=== PATIENT | female | born 1960 | race Caucasian/White ===

== ENCOUNTER 2018-01-01 01:01 | Inpatient (IN) ==
[2018-01-01] MEDS ORDERED: Albuterol 2.5 MG/3 ML NEBULIZER IH PRN (04:15)
[2018-01-01] MEDS ORDERED: Naloxone 0.4 MG/ML INJ IVP PRN (04:15)
[2018-01-01] MEDS ORDERED: Acetaminophen 325 MG TABLET PO PRN (04:15)
--- NOTE | 2018-01-01 04:29 | Internal Med History&Physical ---
Date of Encounter: 01/01/18 Time of Encounter: 03:50 Internal Medicine - H&P: HPI Chief complaint: shortness of breath Admitted From: Hospital to Hospital Transfer Plans for Post Hospital Care: Home History of present illness: Ms. Trejo is a 57 year old female who presents in transfer from [facility] ER in [place]. She presented to the ER there with complaints of shortness of breath and difficulty breathing. Symptoms started a few days ago and have progressively worsened. Workup there was performed which revealed patient to have bilateral pulmonary emboli, multiple lung masses, and a partially imaged mesenteric mass in her upper abdomen. In addition to the above , she was found to be profoundly anemic with a hemoglobin of 7.0. A transfer request was made to transfer patient here for further workup and care. Upon arrival to the floor, I saw her shortly after her arrival. Patient admits to having had some chest tightness and chest pain as well as shortness of breath the last 4-5 days. She has had a chronic cough for the last several weeks. She has had some chills and subjective fevers but no night sweats. She has had productive sputum with her cough. She denies any hemoptysis. Regarding her anemia, she denies any bleeding whatsoever. She has had no melena , hematochezia, hematemesis, coffee-ground emesis, hematuria, and/or postmenopausal bleeding. She has been using ibuprofen for the last 24 hours for fever control. However, beyond the last 24 hours, she has not been taking any NSAIDs whatsoever. She is a smoker and has been for many years. Given her CT findings, I am quite concerned that she has malignancy likely of lung primary. However, she will need further workup and tissue biopsy soon. I explained to her we will proceed with diagnostic workup and consultation with pulmonology and oncology. Regarding her sepsis, we will proceed with blood cultures, trending lactate, and antibiotics to cover pneumonia. Despite her anemia, we will resume heparin drip and monitor for any evidence of blood loss. Meanwhile, we will type and cross match her blood and transfuse as necessary. I explained to the patient that we need to pursue workup as above and treatment plan as above. She voiced understanding. All of this information and findings are new to her and, emotionally, she is "down in the dumps" out of concern that she likely has metastatic cancer. Past Med Surg Social Fam HX - Past Medical History Attestation: Yes The following information was validated with the patient. Source: patient, other ([facility]) Medical history: COPD Psychiatric history: no psych history - Past Surgical History Surgical History: no surgical history - Social History Smoking Status: Current every day smoker Packs per day: less than half Smokeless Tobacco Status: No Alcohol use: none Drug use: none Occupational status: employed Current living situation: Home Activity Level: Independent ambulation Recent Out of Country Travel Within the Last 8 Weeks: No - Family History Mother Living Status: Still Living Hx Family Cardiac Disorders: Yes (tachycardia) Hx Family Cancer: No Father Living Status: Still Living Hx Family Cancer: No Internal Medicine - H&P: Meds 3 Allergy/AdvReac Type Severity Reaction Status Date / Time No Known Allergies Allergy Unverified 04/21/17 13:08 - Constitutional Constitutional: chills, fever(s), no night sweats - EENT Eyes: no blurry vision, no change in vision Ears: no ear pain, no tinnitus Nose, mouth and throat: no nasal congestion, no sinus pressure, no sore throat - Cardiovascular Cardiovascular ROS IM: chest pain, dyspnea, dyspnea on exertion, no edema, no lightheadedness, no orthopnea, no palpitations, no paroxysmal nocturnal dyspnea , no syncope - Respiratory Respiratory: cough, dyspnea, pain on inspiration, chest congestion, excessive phlegm production, change in phlegm color, no hemoptysis, no pain with cough - Gastrointestinal Gastrointestinal: no abdominal pain, no diarrhea, no hematemesis, no hematochezia, no melena, no vomiting - Genitourinary Genitourinary: no dysuria, no flank pain, no hematuria Menstruation: post menopausal - Musculoskeletal Musculoskeletal ROS IM: no arthralgias, no back pain - Integumentary Integumentary IM: no rash, no jaundice - Neurological Neurological ROS: no disequilibrium, no dizziness, no focal weakness, no frequent falls, no headache(s) - Psychiatric Psychiatric: no anxiety, no depression - Endocrine Endocrine IM: no cold intolerance, no heat intolerance, no polydipsia, no polyuria - Hematologic/Lymphatic Hematologic/Lymphatic: no easy bruising - Allergic/Immunologic Allergic/Immunologic: wheezing, no GI upset with certain foods - Constitutional Vitals: Temp Pulse Resp BP Pulse Ox 98.5 F 90 18 93/52 92 01/01/18 03:27 01/01/18 03:27 01/01/18 03:27 01/01/18 03:27 01/01/18 03:27 General appearance: Present: cooperative, mild distress, A&O X 3, answers questions appropriately Exam: pale complexion; ill-appearing; non-toxic - Head Head exam: Present: atraumatic, normal inspection - Eye Eye exam: Present: EOMI, PERRL. Absent: scleral icterus, conjuntiva pink (pale) Pupils: Present: normal accommodation - ENT ENT exam: Present: mucous membranes dry, normal oropharynx - Neck Neck exam general surgery: Present: full ROM, thyromegaly (subtle), supple. Absent: tenderness, nuchal rigidity - Respiratory Respiratory exam: Present: prolonged expiratory phase, rales (left base), respiratory distress (mild), rhonchi, wheezes. Absent: chest wall tenderness - Cardiovascular Cardiovascular exam: Present: distant heart sounds, RRR, +S1, +S2. Absent: diastolic murmur, systolic murmur - GI/Abdominal GI/Abdominal exam: Present: normal bowel sounds, soft. Absent: guarding, hepatomegaly, rebound, splenomegaly, tenderness - Extremities Exam Extremities exam: Present: full ROM, warm, radial pulses palpable and symmetrical. Absent: calf tenderness, pedal edema, tenderness - Back Exam Back exam: Absent: CVA tenderness (L), CVA tenderness (R) - Neurological Exam Neurological exam: Present: alert, CN II-XII intact, oriented X3, no focal deficits, strengths equal and symetr throughout - Psychiatric Psychiatric exam: Present: flat affect - Skin Skin exam: Present: dry, intact, pallor, warm Internal Med - H&P Results - Labs Labs: I reviewed her labs from [facility] and include the following: WBC 28.9 Hemoglobin 7.0 Hematocrit 25.9 MCV 76 Platelet count 497 Sodium 133 Potassium 4.5 Chloride 96 Carbon dioxide 27 BU when 20 Glucose 113 Creatinine 1.26 Lactate level 2.2 PT 14.[address] chest report: 1. Bilateral segmental pulmonary emboli 2. Left upper lobe and lower lobe masses with partially imaged mid mesenteric mass as well. 3. Right middle and right lower lobe air space disease. 4. Neck mass adjacent to left lobe of thyroid gland. - EKG Data -: EKG Interpreted by Myself - EKG Data EKG comments: 01/01/18 04:54 NSR; no acute ST-T changes - Assessment and plan (1) Pneumonia Current Visit: Yes Status: Acute Assessment and plan: 1. Will culture blood and sputum (if able to collect). 2. Oxygen, aerosols, and IV antibiotics. 3. Add Vancomycin to cover health care acquired organisms and sepsis. Qualifiers: Pneumonia type: due to unspecified organism Laterality: bilateral Lung location: lower lobe of lung Qualified Code(s): J18.1 - Lobar pneumonia, unspecified organism (2) Sepsis Current Visit: Yes Status: Acute Assessment and plan: 1. Likely due to pneumonia. 2. Will culture as above and trend lactate. 3. IV antibiotics as above. 4. Will continue MIV and monitor hemodynamics. Qualifiers: Sepsis type: sepsis due to unspecified organism Qualified Code(s): A41.9 - Sepsis, unspecified organism (3) Pulmonary emboli Current Visit: Yes Status: Acute Assessment and plan: 1. Heparin drip per protocol. 2. Oxygen as needed. 3. Pain control. 4. Will order ECHO to evaluate for RV strain and/or PHTN. EKG does not suggest RV strain. I suspect low BP due to sepsis and not PE. Monitor hemodynamics closely. Qualifiers: Pulmonary embolism type: other Chronicity: acute Acute cor pulmonale presence: without acute cor pulmonale Qualified Code(s): I26.99 - Other pulmonary embolism without acute cor pulmonale (4) Anemia Current Visit: Yes Status: Acute Assessment and plan: 1. Suspect due to anemia of chronic disease. 2. Will order iron studies. 3. Will order Hemoccult. 4. Will type and cross and transfuse 2 units PRBC's. 5. Monitor serial H/H. Qualifiers: Anemia type: unspecified type Qualified Code(s): D64.9 - Anemia, unspecified (5) Lung mass Current Visit: Yes Status: Acute Assessment and plan: 1. Will consult Pulmonary as she will need biopsy -- tbbx vs CT guided. 2. Need to hold heparin drip prior to and after biopsy for several hours -- coordinate with pulmonology and/or IR. 3. Consult oncology. (6) Thyroid mass Current Visit: Yes Status: Acute Assessment and plan: 1. Will order thyroid ultrasound -- may be primary source and most accessible for biopsy. 2. Will order TSH. (7) Chest pain Current Visit: Yes Status: Acute Assessment and plan: 1. Likely due to PE and/or pneumonia. 2. Will trend troponins and EKG's. 3. Treat pneumonia and PE as above. 4. Transfuse PRBC's for symptomatic anemia. Qualifiers: Chest pain type: chest pain on breathing Qualified Code(s): R07.1 - Chest pain on breathing; R07.81 - Pleurodynia (8) DVT prophylaxis Current Visit: Yes Status: Acute Assessment and plan: 1. Heparin drip as above.
[2018-01-01] MEDS: Heparin 25,000 UNIT/500 ML D5W 25,000 UNIT/500 ML BAG IVC SCH ×2 (04:36→17:47)
[2018-01-01 05:39] LABS: Hematocrit 23.9 % (35.3-44.9); Hemoglobin 6.5 g/dL (11.5-15.4); Mean Corpuscular HGB Conc 27.2 g/dL (31.6-35.5); Mean Corpuscular Hemoglobin 20.4 pg (28.0-33.3); Mean Corpuscular Volume 75.2 fL (83.0-100.0); Platelet Count 502 K/mcL (140-400); Red Blood Count 3.18 M/mcL (3.82-4.97); Red Cell Distribution Width 18.7 % (11.5-14.5)
[2018-01-01 05:43] LABS: Heparin anti-factor XA UFH 0.02 IU/mL (0.30-0.70); INR 1.2
[2018-01-01 05:45] LABS: Activated Partial Thrombo Time 23.5 Seconds (26.0-36.0)
[2018-01-01] MEDS: methylPREDNISolone 125 MG/2 ML VIAL IVP SCH ×2 (05:50→18:36)
[2018-01-01] MEDS: Pantoprazole 40 MG VIAL IVP SCH ×2 (05:50→18:36)
[2018-01-01] MEDS: D5% in 0.9% NACL 1,000 ML IVC SCH (05:51)
[2018-01-01] MEDS: Ipratropium/Albuterol Neb 3 ML IH SCH ×5 (05:57→20:10)
[2018-01-01 06:01] LABS: Troponin I 0.06 ng/mL (< 0.04)
[2018-01-01 06:02] LABS: Alanine Aminotransferase 6 Units/L (7-52); Albumin 2.8 g/dL (3.5-5.7); Albumin/Globulin Ratio 0.8 (1.1-2.2); Alkaline Phosphatase 86 Units/L (34-104); Aspartate Amino Transferase 16 Units/L (13-39); BUN/Creatinine Ratio 22 (6-26); Bilirubin,Total 0.3 mg/dL (0.3-1.0); Blood Urea Nitrogen 21 mg/dL (6-20); Calcium 8.6 mg/dL (8.6-10.3); Carbon Dioxide 22 mEq/L (23-29); Chloride 98 mEq/L (98-107); Globulin 3.7 g/dL (2.4-3.5); Glucose 117 mg/dL (70-105); Iron < 10 mcg/dL (50-170); Magnesium 1.8 mg/dL (1.6-2.6); Osmolality,Calculated 278 (280-300); Sodium 132 mEq/L (136-145); Thyroid Stimulating Hormone 2.062 mcIU/mL (0.340-5.600); Total Protein 6.5 g/dL (6.4-8.9); Transferrin 168 mg/dL (203-362); eGFR For Non-African Americans 59 (> 60)
--- NOTE | 2018-01-01 06:47 | Pulmonology Consult Note ---
<Saul [facility] - Last Filed: 01/01/18 11:42> Date of Encounter: 01/01/18 Assessment and Plan (1) Pneumonia Current Visit: Yes Status: Acute - Likely due to her history of COPD. patient has had multiple episodes of pneumonia in the past the last one being Mar, 2017. Patient has a smoking Hx of 30 pack years and continues to smoke . She takes Symbicort 2 puffs BID for her COPD at home - on physical exam patient has mild b/l expiratory wheezing especially in the lower lobes . She is leukocytotic (26.7) - currently she's on broad spectrum antimicrobial coverage (Vancomycin) , and 2L NC satting at 95% . - blood culture pending, de-escalate Abx once culture sensitivity results are out Qualifiers: Pneumonia type: due to unspecified organism Laterality: bilateral Lung location: lower lobe of lung Qualified Code(s): J18.1 - Lobar pneumonia, unspecified organism (2) Pulmonary emboli Current Visit: Yes Status: Acute - likely due to her Hx of smoking and obesity. Patient has no other risk factors like sedentary lifestyle, Hx of recent surgery, or hospitalization, no hemoptysis, no DVTs/PE in the past, no estrogen use, no recent travels, and no family Hx of coagulopathy. 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 but it's hard to tell until further workup if they are malignant or not - CT Chest at [facility] showed segmental pulmonary embolism - currently on heparin drip, continue to monitor Qualifiers: Pulmonary embolism type: other Chronicity: acute Acute cor pulmonale presence: without acute cor pulmonale Qualified Code(s): I26.99 - Other pulmonary embolism without acute cor pulmonale (3) Lung mass Current Visit: Yes Status: Acute - Chest CT was positive for lung mass , 4.3 cm in the left upper and 3.3 cm in the medial left lower lobe - consider bronchoscopy to further characterize the mass. - further management will depend upon whether or not the mass is malignant. If the mass is benign a repeat CT annualy would be ideal, however considering her extensive smoking Hx and a finding of 17.6 cm midmesenteric mass, one cannot rule out the possibility of malignancy (4) COPD (chronic obstructive pulmonary disease) Current Visit: Yes Status: Acute - patient has a Hx of COPD likely due to her 30 pack year smoking history - she takes symbicort 2 puffs BID at home - on PE she b/l wheezing especially in the lower lobes, had chest pain but got resolved after duoneb Tx at [facility] . She also has productive cough. - currently on solumedrol and vancomycin , also on 2L NC satting at 92% - continue to monitor History of Present Illness History of present illness: Miss Trejo is a 57-year-old female with a past medical history of COPD( currently on Symbicort 2 puffs twice a day) was transferred from [facility] and admitted to the floor because of shortness of breath, productive cough that started almost a week ago. She also endorsed being febrile for the last 2 days and took some ibupofen 2 days ago, but denies any symptoms of night sweats. She has an extensive smoking history of 30 pack years and continues to smoke. She has had multiple episodes of pneumonia, the last one being in March 2016 and it is around that time and she was diagnosed with COPD started on Symbicort. She denies any recent illness or any bacterial /viral infection. She had some non- radiating chest pain when she went to the [facility] but says that it resolved once she was given treatment of DuoNeb's. Initial workup at the [facility] showed a 4.3 cm mass in the left upper lobe, a 3.3 cm mass in the medial left lower lobe of the lung with bilateral segmental pulmonary embolus. She also had a 17.6 cm midmesenteric mass with concerns for malignancy as per radiology. Thyroid ultrasound showed small benign-appearing cyst and thyroid isthmus and large lymph nodes in zone 4. Patient denies any history of DVTs, estrogen use, long car rides, history of recent surgeries, family history of coagulopathy, hemoptysis or any prior history of malignancy. Her Wells score was 0 on admission. She has no exposure to birds although she did have a bird a few months ago given to her by a neighbor which .She has no exposure to farm animals, has 2 cats and 2 dogs at home. Does have family history of prostate cancer in Grandad. Currently she is on heparin infusion for PE, and was placed on Vancomycin for concerns of pneumonia. She's also on 2 L of NC satting at 92%. She is mildly hypotensive (94/54) patient says that this is her baseline blood pressure all the time. Medications and Allergies Albuterol Sulfate [Ventolin Hfa] 2 puff IH Q6H PRN 01/01/18 [History] Budesonide/Formoterol 160/4.5 [Symbicort 160/4.5] 2 puff IH BID 01/01/18 [ History] 3 Allergy/AdvReac Type Severity Reaction Status Date / Time No Known Allergies Allergy Unverified 04/21/17 13:08 All Systems: The remainder of the systems were reviewed and are negative Physical Examination Vital Signs: Vital Signs, Last 4 Hours Temp Pulse Resp BP Pulse Ox 01/01/18 07:08 97.8 F 88 17 94/54 92 General appearance: no acute distress (A&O*3) Effort: mildly labored Auscultation: bilateral: wheezes (lower lobe) Percussion: bilateral: not dull Cardiovascular: regular rate and rhythm Gastrointestinal: soft, non-tender, non-distended Extremities: no cyanosis (edematous +1), no edema, no clubbing Results - Laboratory Findings CBC and BMP: 01/01/18 09:53 01/01/18 04:49 PT/INR, D-dimer PT 14.0 Seconds (9.4-12.1) H 01/01/18 04:49 Abnormal lab findings: Abnormal lab results WBC 26.7 K/mcL (4.3-11.1) H 01/01/18 04:49 RBC 3.18 M/mcL (3.82-4.97) L 01/01/18 04:49 Hgb 6.5 g/dL (11.5-15.4) L 01/01/18 04:49 Hct 23.9 % (35.3-44.9) L 01/01/18 04:49 MCV 75.2 fL (83.0-100.0) L 01/01/18 04:49 MCH 20.4 pg (28.0-33.3) L 01/01/18 04:49 MCHC 27.2 g/dL (31.6-35.5) L 01/01/18 04:49 RDW 18.7 % (11.5-14.5) H 01/01/18 04:49 Plt Count 502 K/mcL (140-400) H 01/01/18 04:49 MPV 9.0 fL (9.4-12.4) L 01/01/18 04:49 Band Neutrophils % 20.0 % (0-4) H 01/01/18 04:49 Neutrophils # 25.1 K/mcL (1.6-8.9) H 01/01/18 04:49 Lymphocytes # 0.5 K/mcL (0.6-4.6) L 01/01/18 04:49 Platelet Estimate Increased (Normal) H 01/01/18 04:49 Hypochromasia Present (Not Present) A 01/01/18 04:49 Anisocytosis 2+ (Not Present) A 01/01/18 04:49 Microcytosis Present (Not Present) A 01/01/18 04:49 PT 14.0 Seconds (9.4-12.1) H 01/01/18 04:49 APTT 23.5 Seconds (26.0-36.0) L 01/01/18 04:49 Heparin Anti-Xa, Unfract 0.02 IU/mL (0.30-0.70) L 01/01/18 04:49 Sodium 132 mEq/L (136-145) L 01/01/18 04:49 Carbon Dioxide 22 mEq/L (23-29) L 01/01/18 04:49 BUN 21 mg/dL (6-20) H 01/01/18 04:49 Est GFR (Non-Af Amer) 59 (> 60) L 01/01/18 04:49 Glucose 117 mg/dL (70-105) H 01/01/18 04:49 Calculated Osmolality 278 (280-300) L 01/01/18 04:49 Iron < 10 mcg/dL (50-170) L 01/01/18 04:49 Transferrin 168 mg/dL (203-362) L 01/01/18 04:49 ALT 6 Units/L (7-52) L 01/01/18 04:49 Troponin I 0.06 ng/mL (< 0.04) H* 01/01/18 04:49 Albumin 2.8 g/dL (3.5-5.7) L 01/01/18 04:49 Globulin 3.7 g/dL (2.4-3.5) H 01/01/18 04:49 Albumin/Globulin Ratio 0.8 (1.1-2.2) L 01/01/18 04:49 Antibody Screen POSITIVE A 01/01/18 04:49 - Microbiology Findings Microbiology Findings: Microbiology, Last 48 Hours 01/01/18 04:55 Blood Culture - Preliminary Peripheral Venipuncture Culture is incubating and being continuously monitored for growth. Final report to follow. 01/01/18 04:47 Blood Culture - Preliminary Peripheral Venipuncture Culture is incubating and being continuously monitored for growth. Final report to follow. - Clinical Findings Intake & Output: Intake & Output 12/31/17 01/01/18 01/01/18 23:59 07:59 15:59 Intake Total 0 / 0 Output Total 0 / 0 Balance 0 / 0 Weight 96.8 kg Consult Discharge Plan - Plan Referrals: NONE,PCP [Primary Care Provider] - Nivia Tariq [Family Provider] - <Azael Vazquez W - Last Filed: 01/01/18 13:07> Date of Encounter: 01/01/18 Time of Encounter: 06:47 Assessment and Plan (1) Pneumonia Current Visit: Yes Status: Acute Qualifiers: Pneumonia type: due to unspecified organism Laterality: bilateral Lung location: lower lobe of lung Qualified Code(s): J18.1 - Lobar pneumonia, unspecified organism (2) Lung mass Current Visit: Yes Status: Acute (3) Anemia Current Visit: Yes Status: Acute Qualifiers: Anemia type: unspecified type Qualified Code(s): D64.9 - Anemia, unspecified (4) Pulmonary emboli Current Visit: Yes Status: Acute Qualifiers: Pulmonary embolism type: other Chronicity: acute Acute cor pulmonale presence: without acute cor pulmonale Qualified Code(s): I26.99 - Other pulmonary embolism without acute cor pulmonale History of Present Illness Consult date: 01/01/18 Requesting physician: Jagjit Mendoza Reason for consult: abnormal CXR/CT Chief complaint: Difficulty in Breathing History of present illness: This is a 57-year-old woman who was transferred from [facility] overnight after she presented to the emergency room claiming of shortness of breath and difficulty breathing the symptoms started a few days ago. Patient was noted to have bilateral pulmonary emboli and multiple lung masses she was transferred here for further evaluation also has noted anemia with the hemoglobin of 7. She had a persistent cough over 2 weeks but denies any fevers or night sweats she has had productive cough with sputum that has been thick denies any hemoptysis hematochezia melena or hematemesis she also has not noticed any urine her blood she is a lifelong smoker. Overnight she was placed on antimicrobials and a heparin infusion for PE. Pulmonary was consulted for further evaluation of abnormalities within the chest along with pulmonary embolus. Past Med Surg Social Fam HX - Past Medical History Medical history: COPD Psychiatric history: no psych history - Past Surgical History Surgical History: no surgical history - Social History Smoking Status: Current every day smoker Packs per day: less than half Smokeless Tobacco Status: No Alcohol use: none Drug use: none - Family History Mother Living Status: Still Living Hx Family Cardiac Disorders: Yes (tachycardia) Hx Family Cancer: No Father Living Status: Still Living Hx Family Cancer: No All Systems: The remainder of the systems were reviewed and are negative Physical Examination Vital Signs: Vital Signs, Last 4 Hours Temp Pulse Resp BP Pulse Ox 01/01/18 03:27 98.5 F 90 18 93/52 92 Results - Laboratory Findings CBC and BMP: 01/01/18 09:53 01/01/18 04:49 PT/INR, D-dimer PT 14.0 Seconds (9.4-12.1) H 01/01/18 04:49 Abnormal lab findings: Abnormal lab results WBC 26.7 K/mcL (4.3-11.1) H 01/01/18 04:49 RBC 3.18 M/mcL (3.82-4.97) L 01/01/18 04:49 Hgb 6.5 g/dL (11.5-15.4) L 01/01/18 04:49 Hct 23.9 % (35.3-44.9) L 01/01/18 04:49 MCV 75.2 fL (83.0-100.0) L 01/01/18 04:49 MCH 20.4 pg (28.0-33.3) L 01/01/18 04:49 MCHC 27.2 g/dL (31.6-35.5) L 01/01/18 04:49 RDW 18.7 % (11.5-14.5) H 01/01/18 04:49 Plt Count 502 K/mcL (140-400) H 01/01/18 04:49 MPV 9.0 fL (9.4-12.4) L 01/01/18 04:49 PT 14.0 Seconds (9.4-12.1) H 01/01/18 04:49 APTT 23.5 Seconds (26.0-36.0) L 01/01/18 04:49 Heparin Anti-Xa, Unfract 0.02 IU/mL (0.30-0.70) L 01/01/18 04:49 Sodium 132 mEq/L (136-145) L 01/01/18 04:49 Carbon Dioxide 22 mEq/L (23-29) L 01/01/18 04:49 BUN 21 mg/dL (6-20) H 01/01/18 04:49 Est GFR (Non-Af Amer) 59 (> 60) L 01/01/18 04:49 Glucose 117 mg/dL (70-105) H 01/01/18 04:49 Calculated Osmolality 278 (280-300) L 01/01/18 04:49 Iron < 10 mcg/dL (50-170) L 01/01/18 04:49 Transferrin 168 mg/dL (203-362) L 01/01/18 04:49 ALT 6 Units/L (7-52) L 01/01/18 04:49 Troponin I 0.06 ng/mL (< 0.04) H* 01/01/18 04:49 Albumin 2.8 g/dL (3.5-5.7) L 01/01/18 04:49 Globulin 3.7 g/dL (2.4-3.5) H 01/01/18 04:49 Albumin/Globulin Ratio 0.8 (1.1-2.2) L 01/01/18 04:49 - Microbiology Findings Microbiology Findings: Microbiology, Last 48 Hours 01/01/18 04:55 Blood Culture - Preliminary Peripheral Venipuncture Culture is incubating and being continuously monitored for growth. Final report to follow. 01/01/18 04:47 Blood Culture - Preliminary Peripheral Venipuncture Culture is incubating and being continuously monitored for growth. Final report to follow. - Clinical Findings Intake & Output: Intake & Output 12/31/17 12/31/17 01/01/18 15:59 23:59 07:59 Intake Total 0 / 0 Output Total 0 / 0 Balance 0 / 0 Weight 96.8 kg - Attending Attestation I examined this patient and my medical decision-making was reviewed with the Resident Physician. I agree with the documented findings, disposition and treatment plan as described except to the extent set forth below. We independently had [id number] contact with the patient Patient seen and examined at bedside Labs, radiology, chart personally reviewed. Impression: 1. Acute Hypoxic Respiratory Failure 2. Acute pulmonary embolus 3. Pneumonia 4. Anemia - 5. COPD exacerbation 6. Lung mass - suspect metastases to lung from abdominal source cannot fully exclude possibility of primary lung malignancy 7. Tobacco abuse Recs: 1. Continue supplemental oxygen to keep saturation greater than 88% acceptable oxygenation today on minimal amount FiO2 support 2. Agree with anticoagulation echocardiogram, venous duplex of lower extremities; if evidence of the worsening anemia and lower extremity duplex positive for DVT would recommend placement of IVC filter 3. Treat for community-acquired organisms obtain sputum culture urine Legionella and strep pneumo antigen along with blood cultures not obtained. Course of therapy likely 7-10 days based upon clinical course and culture results 4. suspect chronic no clear contraindication to anticoagulation at this time suspect that the benefits of current anticoagulation outweigh potential risk but would need to trend H&H and monitor clinically very closely 5. IV Solu-Medrol 40 mg every 8 schedule bronchodilators (duo nebs) sees every 4 hours with every 2 hours albuterol as needed 6. No plan procedures for his biopsy goes today I recommend obtaining CT scan preferably contrasted if no contraindication from renal function to evaluate for evidence of primary versus metastatic disease. Recommend treating with anticoagulation for 4872 hours upfront and then can likely hold anticoagulation briefly to do biopsy based upon comprehensive picture. Agree with oncology consultation 7. Tobacco cessation counseling given
[2018-01-01 06:51] LABS: Lymphocytes # 0.5 K/mcL (0.6-4.6); Monocytes # 1.1 K/mcL (0.0-1.3); Neutrophils # 25.1 K/mcL (1.6-8.9)
[2018-01-01 06:53] LABS: Anisocytosis 2+ (Not Present); Hypochromasia Present (Not Present); Microcytosis Present (Not Present)
[2018-01-01 06:56] LABS: Platelet Estimate Increased (Normal)
[2018-01-01 10:08] LABS: Hematocrit 25.3 % (35.3-44.9); Hemoglobin 6.8 g/dL (11.5-15.4)
[2018-01-01] MEDS ORDERED: 0.9 % Sodium Chloride 250 ML ONE ×2 (10:45→15:15)
[2018-01-01] MEDS: *HR* Heparin 5,000 UNIT/ML VIAL IVP PRN (11:23)
--- NOTE | 2018-01-01 13:15 | Oncology Inp Consult Note ---
<Molly Ayala Jericho - Last Filed: 01/01/18 14:34> Date of Encounter: 01/01/18 Time of Encounter: 12:45 Assessment and Plan (1) Lung mass Status: Acute Assessment and plan: CTA which revealed bilateral segmental pulmonary arterial emboli, left upper lobe pleural based 4.3 cm mass, medial left lower lobe 3.3 cm mass, partially imaged 17.6 cm midmesenteric mass, aorticopulmonary adenopathy, as well as 3.7 lower left neck mass directly adjacent to the left lobe of the thyroid. Further evaluation with thyroid US- Small benign-appearing cysts seen within the isthmus of the thyroid gland, Large lymph nodes seen in zone 4 along the left side of the neck measuring 3.6 cm x 2.[address] findings concerning for malignancy with patient at bedside. Recommend CT abdomen/pelvis-ideally with contrast if able-may need to wait over weekend to evaluate kidney function and contrast load. Patient not agreeable for further workup at this time. Patient appears very withdrawn. Discussed biopsy-patient not agreeable to bx at this time, states she would like to consider over weekend. May pursue bx early next week if patient amendable. Continue heparin gtt until clear plan for bx. If patient amendable to biopsy-would recommend least invasive form of biopsy given active PE and use of heparin-would recommend core need bx of left neck mass Labs-CBC reviewed- Neutrophilic leukocytosis with bandemia likely secondary to infection, reactive thrombocytosis (secondary to infection, malignancy or KVNG). Mildly hyponatremic Differentials may include metastatic primary lung cancer, GI carcinoma or lymphoma, among others (2) Anemia Status: Acute Assessment and plan: Microcytic anemia Etiology unclear, but GI loss is within differential Need to closely H&H monitor while on heparin gtt Check Ferritin, LDH, B12 and folate Consider GI evaluation for endoscopy Treating supportively with transfusions Qualifiers: Anemia type: unspecified type Qualified Code(s): D64.9 - Anemia, unspecified (3) Pulmonary emboli Status: Acute Assessment and plan: Bilateral segmental pulmonary arterial emboli Currently on heparin gtt Likely secondary to potential active malignancy with new CT findings, smoking, obesity (Pending dedicated abdominal imaging-patient may have abdominal mass/ adenopathy which could have contributed to LE DVT and subsequent PE) As discussed in anemia above-Closely monitor heparin gtt-consider stopping if patient becomes hemodynamically unstable or if hgb acutely drops further Consider endoscopic evaluation Check BLE venous doppler Qualifiers: Pulmonary embolism type: other Chronicity: acute Acute cor pulmonale presence: without acute cor pulmonale Qualified Code(s): I26.99 - Other pulmonary embolism without acute cor pulmonale - Data of Consult Patient: new to practice Consult date: 01/01/18 Requesting Physician: Kim Bliss MD Primary Care Provider: PCP NONE Family Provider: ZConversion Provider - Consult Narrative Reason for consult: Bilateral PE, Lung mass, midmesenteric mass, left neck mass History of present illness: Ms. Trejo is a 57 year old female with history of tobacco abuse and COPD. She initially presented to [facility] for concern for pneumonia with increased SOB, cough and chills over past week. She had a CTA which revealed bilateral segmental pulmonary arterial emboli, left upper lobe pleural based 4.3 cm mass, medial left lower lobe 3.3 cm mass, partially imaged 17.6 cm midmesenteric mass, aorticopulmonary adenopathy, as well as 3.7 lower left neck mass directly adjacent to the left lobe of the thyroid. Ms. Trejo appears quite withdrawn during today's assessment and does not answer some questions making ROS otherwise quite difficult. She states she does not regularly see a PCP. She had a CT scan ordered some time ago but states she has been "putting this off" to spend time with her daughters. She denies pain or any s/s bleeding. She smokes about 8-9 cigarettes/day with 30 pack year history. Family history includes prostate cancer in grandfather. Past Med Surg Social Fam HX - Past Medical History Medical history: COPD Psychiatric history: no psych history - Past Surgical History Surgical History: no surgical history - Social History Smoking Status: Current every day smoker Packs per day: less than half Smokeless Tobacco Status: No Alcohol use: none Drug use: none - Family History Mother Living Status: Still Living Hx Family Cardiac Disorders: Yes (tachycardia) Hx Family Cancer: No Father Living Status: Still Living Hx Family Cancer: No Medications and Allergies Albuterol Sulfate [Ventolin Hfa] 2 puff IH Q6H PRN 01/01/18 [History] Budesonide/Formoterol 160/4.5 [Symbicort 160/4.5] 2 puff IH BID 01/01/18 [ History] 3 Allergy/AdvReac Type Severity Reaction Status Date / Time No Known Allergies Allergy Unverified 04/21/17 13:08 ROS unobtainable: other (limited as patient unwilling to participate in some questions) Constitutional: Present: chills Cardiovascular: Present: edema. Absent: chest pain Respiratory: Present: cough, dyspnea. Absent: hemoptysis Gastrointestinal: Absent: abdominal pain, change in bowel habits, hematemesis, hematochezia, melena, nausea, vomiting Oncology - Exam - Constitutional Vitals: Temp Pulse Resp BP Pulse Ox 96.8 F L 84 19 87/53 93 01/01/18 11:07 01/01/18 11:43 01/01/18 11:43 01/01/18 11:43 01/01/18 11:43 Consult Discharge Plan - Plan Referrals: NONE,PCP [Primary Care Provider] - Nivia Tariq [Family Provider] - <Carmen Alba - Last Filed: 01/01/18 17:08> Date of Encounter: 01/01/18 - Data of Consult Requesting Physician: Kim Bliss MD Primary Care Provider: PCP YEHUDA Family Provider: CliffConversion Provider - Consult Narrative History of present illness: Patient with bilateral PE CT imaging showing multiple masses, significant anemia we examined patient bedside together who seem pretty upset with the findings in the imaging studies. She has not made up her mind to proceed with biopsy procedures. Recommend and neck lymph node biopsy if patient agrees. Monitor closely CBC while she continues to be on heparin anticoagulation for symptomatic PE. I examined this patient and my medical decision-making was reviewed with the Advanced Practice Nurse, Molly Ayala. I agree with the documented findings, disposition and treatment plan as described except to the extent set forth below. Oncology - Exam - Constitutional Vitals: Temp Pulse Resp BP Pulse Ox 97.3 F L 84 18 99/52 91 01/01/18 15:00 01/01/18 15:05 01/01/18 15:54 01/01/18 15:05 01/01/18 15:54 Oncology - Results Labs: 3 01/01/18 01/01/18 01/01/18 09:53 09:53 09:53 WBC RBC Hgb 6.8 L Hct 25.3 L MCV MCH MCHC RDW Plt Count MPV Seg Neutrophils % Band Neutrophils % Lymphocytes % Monocytes % Neutrophils # Lymphocytes # Monocytes # Platelet Estimate Hypochromasia Anisocytosis Microcytosis PT INR APTT Heparin Anti-Xa, Unfract 0.02 L Sodium Potassium Chloride Carbon Dioxide BUN Creatinine Est GFR ( Amer) Est GFR (Non-Af Amer) BUN/Creatinine Ratio Glucose Calculated Osmolality Lactic Acid Calcium Magnesium Iron % Saturation Transferrin Total Bilirubin AST ALT Alkaline Phosphatase Troponin I < 0.03 Serum Total Protein Albumin Globulin Albumin/Globulin Ratio TSH Blood Type Antibody Screen Prewarmed Antibody Srcn Antibody Identification Cold Antibody Screen Crossmatch 3 01/01/18 01/01/18 01/01/18 09:53 04:49 04:49 WBC RBC Hgb Hct MCV MCH MCHC RDW Plt Count MPV Seg Neutrophils % Band Neutrophils % Lymphocytes % Monocytes % Neutrophils # Lymphocytes # Monocytes # Platelet Estimate Hypochromasia Anisocytosis Microcytosis PT INR APTT Heparin Anti-Xa, Unfract Sodium Potassium Chloride Carbon Dioxide BUN Creatinine Est GFR ( Amer) Est GFR (Non-Af Amer) BUN/Creatinine Ratio Glucose Calculated Osmolality Lactic Acid 2.3 H 1.9 Calcium Magnesium Iron % Saturation Transferrin Total Bilirubin AST ALT Alkaline Phosphatase Troponin I 0.06 H* Serum Total Protein Albumin Globulin Albumin/Globulin Ratio TSH 2.062 Blood Type Antibody Screen Prewarmed Antibody Srcn Antibody Identification Cold Antibody Screen Crossmatch 3 01/01/18 01/01/18 01/01/18 04:49 04:49 04:49 WBC RBC Hgb Hct MCV MCH MCHC RDW Plt Count MPV Seg Neutrophils % Band Neutrophils % Lymphocytes % Monocytes % Neutrophils # Lymphocytes # Monocytes # Platelet Estimate Hypochromasia Anisocytosis Microcytosis PT 14.0 H INR 1.2 APTT 23.5 L Heparin Anti-Xa, Unfract 0.02 L Sodium 132 L Potassium 4.0 Chloride 98 Carbon Dioxide 22 L BUN 21 H Creatinine 0.97 Est GFR ( Amer) > 60 Est GFR (Non-Af Amer) 59 L BUN/Creatinine Ratio 22 Glucose 117 H Calculated Osmolality 278 L Lactic Acid Calcium 8.6 Magnesium 1.8 Iron < 10 L % Saturation TNP Transferrin 168 L Total Bilirubin 0.3 AST 16 ALT 6 L Alkaline Phosphatase 86 Troponin I Serum Total Protein 6.5 Albumin 2.8 L Globulin 3.7 H Albumin/Globulin Ratio 0.8 L TSH Blood Type O POSITIVE Antibody Screen POSITIVE A Prewarmed Antibody Srcn NEGATIVE Antibody Identification Cold Auto Antibody Cold Antibody Screen POSITIVE Crossmatch See Detail 3 01/01/18 04:49 WBC 26.7 H RBC 3.18 L Hgb 6.5 L Hct 23.9 L MCV 75.2 L MCH 20.4 L MCHC 27.2 L RDW 18.7 H Plt Count 502 H MPV 9.0 L Seg Neutrophils % 74.0 Band Neutrophils % 20.0 H Lymphocytes % 2.0 Monocytes % 4.0 Neutrophils # 25.1 H Lymphocytes # 0.5 L Monocytes # 1.1 Platelet Estimate Increased H Hypochromasia Present A Anisocytosis 2+ A Microcytosis Present A PT INR APTT Heparin Anti-Xa, Unfract Sodium Potassium Chloride Carbon Dioxide BUN Creatinine Est GFR ( Amer) Est GFR (Non-Af Amer) BUN/Creatinine Ratio Glucose Calculated Osmolality Lactic Acid Calcium Magnesium Iron % Saturation Transferrin Total Bilirubin AST ALT Alkaline Phosphatase Troponin I Serum Total Protein Albumin Globulin Albumin/Globulin Ratio TSH Blood Type Antibody Screen Prewarmed Antibody Srcn Antibody Identification Cold Antibody Screen Crossmatch
--- NOTE | 2018-01-01 17:20 | Oncology Inp Consult Note ---
Date of Encounter: 01/01/18 Time of Encounter: 15:00 Assessment and Plan (1) Anemia Status: Acute Assessment and plan: LUNG MASS CTA which revealed bilateral segmental pulmonary arterial emboli, left upper lobe pleural based 4.3 cm mass, medial left lower lobe 3.3 cm mass, partially imaged 17.6 cm midmesenteric mass, aorticopulmonary adenopathy, as well as 3.7 lower left neck mass directly adjacent to the left lobe of the thyroid. Further evaluation with thyroid US- Small benign-appearing cysts seen within the isthmus of the thyroid gland, Large lymph nodes seen in zone 4 along the left side of the neck measuring 3.6 cm x 2.[address] findings concerning for malignancy with patient at bedside. Recommend CT abdomen/pelvis-ideally with contrast if able-may need to wait over weekend to evaluate kidney function and contrast load. Patient not agreeable for further workup at this time. Patient appears very withdrawn. Discussed biopsy-patient not agreeable to bx at this time, states she would like to consider over weekend. May pursue bx early next week if patient amendable. Continue heparin gtt until clear plan for bx. If patient amendable to biopsy-would recommend least invasive form of biopsy given active PE and use of heparin-would recommend core need bx of left neck mass Labs-CBC reviewed- Neutrophilic leukocytosis with bandemia likely secondary to infection, reactive thrombocytosis (secondary to infection, malignancy or KVNG). Mildly hyponatremic Differentials may include metastatic primary lung cancer, GI carcinoma or lymphoma, among others ANEMIA Microcytic anemia Etiology unclear, but GI loss is within differential Need to closely H&H monitor while on heparin gtt Check Ferritin, LDH, B12 and folate Consider GI evaluation for endoscopy pe Assessment and plan: Bilateral segmental pulmonary arterial emboli Currently on heparin gtt Likely secondary to potential active malignancy with new CT findings, smoking, obesity (Pending dedicated abdominal imaging-patient may have abdominal mass/ adenopathy which could have contributed to LE DVT and subsequent PE) As discussed in anemia above-Closely monitor heparin gtt-consider stopping if patient becomes hemodynamically unstable or if hgb acutely drops further Consider endoscopic evaluation Check BLE venous doppler Qualifiers: Anemia type: unspecified type Qualified Code(s): D64.9 - Anemia, unspecified - Data of Consult Requesting Physician: Kim Bliss MD Primary Care Provider: PCP NONE Family Provider: ZConversion Provider - Consult Narrative History of present illness: Reason for consult: Bilateral PE, Lung mass, midmesenteric mass, left neck mass History of present illness: Ms. Trejo is a 57 year old female with history of tobacco abuse and COPD. She initially presented to [facility] for concern for pneumonia with increased SOB, cough and chills over past week. She had a CTA which revealed bilateral segmental pulmonary arterial emboli, left upper lobe pleural based 4.3 cm mass, medial left lower lobe 3.3 cm mass, partially imaged 17.6 cm midmesenteric mass, aorticopulmonary adenopathy, as well as 3.7 lower left neck mass directly adjacent to the left lobe of the thyroid. Ms. Trejo appears quite withdrawn during today's assessment and does not answer some questions making ROS otherwise quite difficult. She states she does not regularly see a PCP. She had a CT scan ordered some time ago but states she has been "putting this off" to spend time with her daughters. She denies pain or any s/s bleeding. She smokes about 8-9 cigarettes/day with 30 pack year history. Family history includes prostate cancer in grandfather. Past Med Surg Social Fam HX - Past Medical History Medical history: COPD Psychiatric history: no psych history - Past Surgical History Surgical History: no surgical history - Social History Smoking Status: Current every day smoker Packs per day: less than half Smokeless Tobacco Status: No Alcohol use: none Drug use: none - Family History Mother Living Status: Still Living Hx Family Cardiac Disorders: Yes (tachycardia) Hx Family Cancer: No Father Living Status: Still Living Hx Family Cancer: No Medications and Allergies Albuterol Sulfate [Ventolin Hfa] 2 puff IH Q6H PRN 01/01/18 [History] Budesonide/Formoterol 160/4.5 [Symbicort 160/4.5] 2 puff IH BID 01/01/18 [ History] 3 Allergy/AdvReac Type Severity Reaction Status Date / Time No Known Allergies Allergy Unverified 04/21/17 13:08 Constitutional: Present: weakness Respiratory: Present: dyspnea Oncology - Exam - Constitutional Vitals: Temp Pulse Resp BP Pulse Ox 97.3 F L 84 18 99/52 91 01/01/18 15:00 01/01/18 15:05 01/01/18 15:54 01/01/18 15:05 01/01/18 15:54 General appearance: no acute distress - Head Head exam: Present: atraumatic, normal inspection - Eye Eye exam: Present: EOMI - Neck Neck exam: Present: full ROM - Cardiovascular Cardiovascular exam: Present: +S1, +S2 - GI/Abdominal GI/Abdominal exam: Present: normal bowel sounds, soft - Extremities Exam Extremities exam: Present: pedal edema - Neurological Exam Neurological exam: Present: alert, CN II-XII intact, oriented X3 - Psychiatric Psychiatric exam: Present: normal mood - Skin Skin exam: Present: dry, normal color, pallor Oncology - Results Labs: 3 01/01/18 01/01/18 01/01/18 09:53 09:53 09:53 WBC RBC Hgb 6.8 L Hct 25.3 L MCV MCH MCHC RDW Plt Count MPV Seg Neutrophils % Band Neutrophils % Lymphocytes % Monocytes % Neutrophils # Lymphocytes # Monocytes # Platelet Estimate Hypochromasia Anisocytosis Microcytosis PT INR APTT Heparin Anti-Xa, Unfract 0.02 L Sodium Potassium Chloride Carbon Dioxide BUN Creatinine Est GFR ( Amer) Est GFR (Non-Af Amer) BUN/Creatinine Ratio Glucose Calculated Osmolality Lactic Acid Calcium Magnesium Iron % Saturation Transferrin Total Bilirubin AST ALT Alkaline Phosphatase Troponin I < 0.03 Serum Total Protein Albumin Globulin Albumin/Globulin Ratio TSH Blood Type Antibody Screen Prewarmed Antibody Srcn Antibody Identification Cold Antibody Screen Crossmatch 3 01/01/18 01/01/18 01/01/18 09:53 04:49 04:49 WBC RBC Hgb Hct MCV MCH MCHC RDW Plt Count MPV Seg Neutrophils % Band Neutrophils % Lymphocytes % Monocytes % Neutrophils # Lymphocytes # Monocytes # Platelet Estimate Hypochromasia Anisocytosis Microcytosis PT INR APTT Heparin Anti-Xa, Unfract Sodium Potassium Chloride Carbon Dioxide BUN Creatinine Est GFR ( Amer) Est GFR (Non-Af Amer) BUN/Creatinine Ratio Glucose Calculated Osmolality Lactic Acid 2.3 H 1.9 Calcium Magnesium Iron % Saturation Transferrin Total Bilirubin AST ALT Alkaline Phosphatase Troponin I 0.06 H* Serum Total Protein Albumin Globulin Albumin/Globulin Ratio TSH 2.062 Blood Type Antibody Screen Prewarmed Antibody Srcn Antibody Identification Cold Antibody Screen Crossmatch 3 01/01/18 01/01/18 01/01/18 04:49 04:49 04:49 WBC RBC Hgb Hct MCV MCH MCHC RDW Plt Count MPV Seg Neutrophils % Band Neutrophils % Lymphocytes % Monocytes % Neutrophils # Lymphocytes # Monocytes # Platelet Estimate Hypochromasia Anisocytosis Microcytosis PT 14.0 H INR 1.2 APTT 23.5 L Heparin Anti-Xa, Unfract 0.02 L Sodium 132 L Potassium 4.0 Chloride 98 Carbon Dioxide 22 L BUN 21 H Creatinine 0.97 Est GFR ( Amer) > 60 Est GFR (Non-Af Amer) 59 L BUN/Creatinine Ratio 22 Glucose 117 H Calculated Osmolality 278 L Lactic Acid Calcium 8.6 Magnesium 1.8 Iron < 10 L % Saturation TNP Transferrin 168 L Total Bilirubin 0.3 AST 16 ALT 6 L Alkaline Phosphatase 86 Troponin I Serum Total Protein 6.5 Albumin 2.8 L Globulin 3.7 H Albumin/Globulin Ratio 0.8 L TSH Blood Type O POSITIVE Antibody Screen POSITIVE A Prewarmed Antibody Srcn NEGATIVE Antibody Identification Cold Auto Antibody Cold Antibody Screen POSITIVE Crossmatch See Detail 3 01/01/18 04:49 WBC 26.7 H RBC 3.18 L Hgb 6.5 L Hct 23.9 L MCV 75.2 L MCH 20.4 L MCHC 27.2 L RDW 18.7 H Plt Count 502 H MPV 9.0 L Seg Neutrophils % 74.0 Band Neutrophils % 20.0 H Lymphocytes % 2.0 Monocytes % 4.0 Neutrophils # 25.1 H Lymphocytes # 0.5 L Monocytes # 1.1 Platelet Estimate Increased H Hypochromasia Present A Anisocytosis 2+ A Microcytosis Present A PT INR APTT Heparin Anti-Xa, Unfract Sodium Potassium Chloride Carbon Dioxide BUN Creatinine Est GFR ( Amer) Est GFR (Non-Af Amer) BUN/Creatinine Ratio Glucose Calculated Osmolality Lactic Acid Calcium Magnesium Iron % Saturation Transferrin Total Bilirubin AST ALT Alkaline Phosphatase Troponin I Serum Total Protein Albumin Globulin Albumin/Globulin Ratio TSH Blood Type Antibody Screen Prewarmed Antibody Srcn Antibody Identification Cold Antibody Screen Crossmatch Consult Discharge Plan - Plan Referrals: NONE,PCP [Primary Care Provider] - Nivia Tariq [Family Provider] - Inpatient Charges Provider: Dr. Jeremi Alba Consult - Inpatient: [id number]
--- NOTE | 2018-01-01 17:41 | Internal Med Progress Note ---
Hospitalist Progress Note - Encounter Date of Encounter: 01/01/18 Time of Encounter: 10:30 - Subjective Interval History: Patient seen and examined this morning. Complains of cough and shortness of breath. Denies abdominal pain. - Exam Vitals: Temp Pulse Resp BP Pulse Ox 97.3 F L 84 18 99/52 91 01/01/18 15:00 01/01/18 15:05 01/01/18 15:54 01/01/18 15:05 01/01/18 15:54 Exam: Constitutional: Vitals as noted. No Apparent Distress. Appears upset and withdrawn. Eyes exam: Sclera white, conjunctiva clear, no lid lag, PEARLA. ENT exam: Grossly normal hearing. Nasophargeal and Oropharyngeal exam unremarkable. Respiratory exam: Ronchi prsent on Let side with rales. No wheezing. Cardiovascular exam: RRR, +S1, +S2. no murmur, gallop, rubs. No chest wall tenderness GI/Abdominal exam: Soft, Non-tender, Non-distended, normal bowel sounds, Musculoskeletal exam: full ROM, no atrophy or deformity noted. no edema Neurological exam: AO X3, CN II-XII grossly intact, grossly normal motor and sensory exam. Skin exam: No skin rash, lesions or ulcers noted. no purpura or ecchymosis. Pych: Depressed and anxious mood - Assessment and Plan (1) Pneumonia Current Visit: Yes Status: Acute (2) Sepsis Current Visit: Yes Status: Acute (3) Lung mass Current Visit: Yes Status: Acute (4) Thyroid mass Current Visit: Yes Status: Acute (5) Anemia Current Visit: Yes Status: Acute (6) Chest pain Current Visit: Yes Status: Acute (7) DVT prophylaxis Current Visit: Yes Status: Acute (8) Pulmonary emboli Current Visit: Yes Status: Acute - Summary of Assessment and Plan Summary of Assessment and Plan: PE - c/w Heparin drip - CT Chest with showed segmental pulmonary embolism. Likely related to malignancy. - currently on heparin drip - f/u ECHO and LE Doppler Lung mass - On Chest CT, 4.3 cm in the left upper and 3.3 cm in the medial left lower lobe - Pulm and oncology following - Differential include primary lung ca, GI carcinoma, Lymphoma. - Needs biopsy. Patient refusing workup. - Needs CT contrast. Will monitor renal function while addressing anemia. plan for CT with contrast after Thyroid ultrasound - US thyroid with "small benign-appearing cysts seen within the isthmus. Large lymph nodes seen in zone 4 along the left side of the neck these would be better evaluated with a CT scan of the neck." Anemia - s/p 2 PRBC - f/u H&H after. On heparin drip for PE - Iron deficiency on iron studies. - Will need endoscopic workup given need to continue Heparin. Agrees to get evaluated. Pneumonia - c/w empiric vancomycin, ceftriaxone and azithromycin. - f/u Legionella and strep pneumo ag. f/u blood culture COPD - about 30 pack year hyistory - c/w solumedrol, duonebs and IV antibiotics. - Time Spent with Patient Total time spent is greater than 50% in coordination of care (as documented) at patient's floor/unit and/or counseling patient: Internal Medicine: Result - Labs CBC & Chem 7: 01/01/18 09:53 01/01/18 04:49 Labs: Short CBC 01/01/18 01/01/18 Range/Units 04:49 09:53 WBC 26.7 H (4.3-11.1) K/mcL Hgb 6.5 L 6.8 L (11.5-15.4) g/dL Hct 23.9 L 25.3 L (35.3-44.9) % Plt Count 502 H (140-400) K/mcL Neutrophils # 25.1 H (1.6-8.9) K/mcL BMP 01/01/18 04:49 Sodium 132 L Potassium 4.0 Chloride 98 Carbon Dioxide 22 L BUN 21 H Creatinine 0.97 Glucose 117 H Calcium 8.6 Cardiac Enzymes 01/01/18 01/01/18 Range/Units 04:49 09:53 Troponin I 0.06 H* < 0.03 (< 0.04) ng/mL Liver Function 01/01/18 Range/Units 04:49 Total Bilirubin 0.3 (0.3-1.0) mg/dL AST 16 (13-39) Units/L ALT 6 L (7-52) Units/L Alkaline Phosphatase 86 (34-104) Units/L Albumin 2.8 L (3.5-5.7) g/dL - ABG Interpretation ABG results: PT/INR, D-dimer PT 14.0 Seconds (9.4-12.1) H 01/01/18 04:49 - Impressions Impressions Thyroid Ultrasound 01/01/18 04:35 IMPRESSION: Small benign-appearing cysts seen within the isthmus of the thyroid gland. Large lymph nodes seen in zone 4 along the left side of the neck these would be better evaluated with a CT scan of the neck. RECOMMENDATIONS: ACR TI-RADS recommendations: TR5 (>= 7 points): FNA if >= 1 cm; follow-up if 0.5-0.9 cm in 1, 2, 3, 4, and 5 years TR4 (4-6 points): FNA if >= 1.5 cm; follow-up if 1.0-1.4 cm in 1, 2, 3, and 5 years TR3 (3 points): FNA if >= 2.5 cm; follow-up if 1.5-2.4 cm in 1, 3, and 5 years TR2 (2 points): No FNA or follow-up TR1 (0 points): No FNA or follow-up ACR TI-RADS recommends that no more than two nodules with the highest ACR TI-RADS point total should be biopsied and no more than four nodules should be followed. D/ / 01/01/2018 08:42:53 Henry Russell MD / [facility] Interpreting Provider: Henry Russell MD Consult Discharge Plan - Plan Referrals: NONE,PCP [Primary Care Provider] - CliffProCliff jaramilloConversio [Family Provider] - (1) Pneumonia Qualifiers: Pneumonia type: due to unspecified organism Laterality: bilateral Lung location: lower lobe of lung Qualified Code(s): J18.1 - Lobar pneumonia, unspecified organism (2) Sepsis Qualifiers: Sepsis type: sepsis due to unspecified organism Qualified Code(s): A41.9 - Sepsis, unspecified organism (5) Anemia Qualifiers: Anemia type: unspecified type Qualified Code(s): D64.9 - Anemia, unspecified (6) Chest pain Qualifiers: Chest pain type: chest pain on breathing Qualified Code(s): R07.1 - Chest pain on breathing; R07.81 - Pleurodynia (8) Pulmonary emboli Qualifiers: Pulmonary embolism type: other Chronicity: acute Acute cor pulmonale presence: without acute cor pulmonale Qualified Code(s): I26.99 - Other pulmonary embolism without acute cor pulmonale
[2018-01-01 19:28] LABS: Hematocrit 27.7 % (35.3-44.9); Hemoglobin 7.8 g/dL (11.5-15.4); Mean Corpuscular HGB Conc 28.2 g/dL (31.6-35.5); Mean Corpuscular Hemoglobin 21.8 pg (28.0-33.3); Mean Corpuscular Volume 77.6 fL (83.0-100.0); Mean Platelet Volume 9.2 fL (9.4-12.4); Platelet Count 486 K/mcL (140-400); Red Blood Count 3.57 M/mcL (3.82-4.97); Red Cell Distribution Width 19.9 % (11.5-14.5)
[2018-01-01 19:50] LABS: Troponin I < 0.03 ng/mL (< 0.04)
[2018-01-01 20:09] LABS: Ferritin 489 ng/mL (10-120)
[2018-01-01 23:18] LABS: Hematocrit 28.2 % (35.3-44.9); Hemoglobin 7.8 g/dL (11.5-15.4)
[2018-01-02] MEDS: Ipratropium/Albuterol Neb 3 ML IH SCH ×7 (00:21→23:31)
[2018-01-02] MEDS: D5% in 0.9% NACL 1,000 ML IVC SCH ×3 (00:27→12:26)
[2018-01-02 03:36] LABS: Basophils % 0.1 %; Monocytes % 2.3 %
[2018-01-02 03:38] LABS: Hematocrit 27.4 % (35.3-44.9); Hemoglobin 7.6 g/dL (11.5-15.4); Immature Granulocytes % 1.4 % (0-4); Lymphocytes # 0.4 K/mcL (0.6-4.6); Lymphocytes % 2.8 %; Mean Corpuscular HGB Conc 27.7 g/dL (31.6-35.5); Mean Corpuscular Hemoglobin 21.7 pg (28.0-33.3); Mean Corpuscular Volume 78.1 fL (83.0-100.0); Mean Platelet Volume 9.3 fL (9.4-12.4); Monocytes # 0.4 K/mcL (0.0-1.3); Platelet Count 466 K/mcL (140-400); Red Blood Count 3.51 M/mcL (3.82-4.97); Red Cell Distribution Width 19.7 % (11.5-14.5); Segmented Neutrophils % 93.4 %
[2018-01-02 03:45] LABS: Neutrophils # 14.4 K/mcL (1.6-8.9)
[2018-01-02 03:48] LABS: BUN/Creatinine Ratio 27 (6-26); Blood Urea Nitrogen 23 mg/dL (6-20); Calcium 8.6 mg/dL (8.6-10.3); Carbon Dioxide 24 mEq/L (23-29); Chloride 102 mEq/L (98-107); Glucose 197 mg/dL (70-105); Osmolality,Calculated 293 (280-300); Sodium 137 mEq/L (136-145); eGFR For Non-African Americans > 60 (> 60)
[2018-01-02 04:14] LABS: Folate 3.2 ng/mL (3.0-16.0)
[2018-01-02 04:24] LABS: Anisocytosis 1+ (Not Present); Hypochromasia Present (Not Present)
[2018-01-02] MEDS: methylPREDNISolone 125 MG/2 ML VIAL IVP SCH ×2 (05:29→18:59)
[2018-01-02] MEDS: Pantoprazole 40 MG VIAL IVP SCH ×2 (05:30→18:59)
[2018-01-02] MEDS: cefTRIAXone 2,000 MG in Water for inj. (sterile) 20 ML 20 ML IVP SCH (05:30)
[2018-01-02] MEDS: Azithromycin 500 MG in D5% in Water 250 ML IVPB SCH (05:30)
[2018-01-02] MEDS: *HR* Heparin 5,000 UNIT/ML VIAL IVP PRN ×2 (05:46→16:15)
[2018-01-02] MEDS: Heparin 25,000 UNIT/500 ML D5W 25,000 UNIT/500 ML BAG IVC SCH ×3 (07:48→21:22)
[2018-01-02] MEDS ORDERED: Isovue-370 500 ML INFUS..BTL IV ONE ×2 (08:36→09:37)
--- NOTE | 2018-01-02 09:34 | General Surgery Consult Note ---
Date of Encounter: 01/03/18 Time of Encounter: 09:31 Assessment and Plan (1) Abnormal CT of the abdomen Current Visit: Yes Status: Acute I explained to the patient that given her overall status and the need for IV heparin therapy and her noted anemia (in addition to the abnormal CT scan findings) the recommendation was for an EGD and colonoscopy. The patient is upset and states that she was not told anything about needing a EGD and colonoscopy. She is currently refusing any type of endoscopy procedure. I tried multiple times to further explained again the reason enrolled for an EGD and colonoscopy but the patient refused multiple times. We will sign off. Please contact us if the patient changes her mind and wishes to proceed with an EGD and colonoscopy. As an aside, I would strongly recommend ordering a formal CT scan of the abdomen and pelvis with by mouth and IV contrast so that this mass can be better evaluated. It is possible that the patient may be amendable to an interventional radiology guided biopsy of this mass if she is unwilling to undergo an EGD or colonoscopy. (2) Anemia Current Visit: Yes Status: Acute Qualifiers: Anemia type: unspecified type Qualified Code(s): D64.9 - Anemia, unspecified History of Present Illness Consult date: 01/02/18 Reason for consult: other (Anemia) Requesting physician: Kim Bliss History of present illness: The patient is a 57-year-old female with a past medical history significant for COPD who presented to [facility] on 01/01/2018 with shortness of breath and difficulty breathing. This had happened several days ago and during the workup she had evidence of a bilateral PE with multiple lung masses noted. There was evidence of a partially imaged mesenteric masses well. She denies any nausea or vomiting but does state she did have some nausea because she has not had anything to eat for 2 or 3 days. She denies any diarrhea or constipation and states she normally has a bowel movement about twice per day. She denies any rectal bleeding and denies any history of hematemesis. She denies any family history of colon cancer or gastric cancer and has never had a colonoscopy. Past Med Surg Social Fam HX - Past Medical History Medical history: COPD Psychiatric history: no psych history - Past Surgical History Surgical History: no surgical history - Social History Smoking Status: Current every day smoker Packs per day: less than half Smokeless Tobacco Status: No Alcohol use: none Drug use: none - Family History Mother Living Status: Still Living Hx Family Cardiac Disorders: Yes (tachycardia) Hx Family Cancer: No Father Living Status: Still Living Hx Family Cancer: No Medications and Allergies Albuterol Sulfate [Ventolin Hfa] 2 puff IH Q6H PRN 01/01/18 [History] Budesonide/Formoterol 160/4.5 [Symbicort 160/4.5] 2 puff IH BID 01/01/18 [ History] 3 Allergy/AdvReac Type Severity Reaction Status Date / Time No Known Allergies Allergy Unverified 04/21/17 13:08 Review of Systems All systems PM: The remainder of the systems were reviewed and are negative General Surgery Exam Initial Vital Signs Temp Pulse Resp BP Pulse Ox 98.5 F 90 18 93/52 93 01/01/18 03:27 01/01/18 03:27 01/01/18 03:27 01/01/18 03:27 01/01/18 03:27 Exam Initial Vital Signs Temp Pulse Resp BP Pulse Ox 98.5 F 90 18 93/52 93 01/01/18 03:27 01/01/18 03:27 01/01/18 03:27 01/01/18 03:27 01/01/18 03:27 Results - Labs 01/03/18 02:45 01/03/18 02:45 Abnormal lab results WBC 15.4 K/mcL (4.3-11.1) H 01/02/18 03:12 RBC 3.51 M/mcL (3.82-4.97) L 01/02/18 03:12 Hgb 7.6 g/dL (11.5-15.4) L 01/02/18 03:12 Hct 27.4 % (35.3-44.9) L 01/02/18 03:12 MCV 78.1 fL (83.0-100.0) L 01/02/18 03:12 MCH 21.7 pg (28.0-33.3) L 01/02/18 03:12 MCHC 27.7 g/dL (31.6-35.5) L 01/02/18 03:12 RDW 19.7 % (11.5-14.5) H 01/02/18 03:12 Plt Count 466 K/mcL (140-400) H 01/02/18 03:12 MPV 9.3 fL (9.4-12.4) L 01/02/18 03:12 Band Neutrophils % 20.0 % (0-4) H 01/01/18 04:49 Neutrophils # 14.4 K/mcL (1.6-8.9) H 01/02/18 03:12 Lymphocytes # 0.4 K/mcL (0.6-4.6) L 01/02/18 03:12 Platelet Estimate Slight increase (Normal) H 01/02/18 03:12 Hypochromasia Present (Not Present) A 01/02/18 03:12 Anisocytosis 1+ (Not Present) A 01/02/18 03:12 Microcytosis Present (Not Present) A 01/01/18 04:49 PT 14.0 Seconds (9.4-12.1) H 01/01/18 04:49 APTT 23.5 Seconds (26.0-36.0) L 01/01/18 04:49 Heparin Anti-Xa, Unfract 0.04 IU/mL (0.30-0.70) L 01/02/18 03:12 BUN 23 mg/dL (6-20) H 01/02/18 03:12 BUN/Creatinine Ratio 27 (6-26) H 01/02/18 03:12 Glucose 197 mg/dL (70-105) H 01/02/18 03:12 Lactic Acid 3.0 mmol/L (0.5-2.2) H 01/01/18 19:13 Iron < 10 mcg/dL (50-170) L 01/01/18 04:49 Transferrin 168 mg/dL (203-362) L 01/01/18 04:49 Ferritin 489 ng/mL (10-120) H 01/01/18 19:13 ALT 6 Units/L (7-52) L 01/01/18 04:49 Lactate Dehydrogenase 393 Units/L (140-271) H 01/02/18 03:12 Albumin 2.8 g/dL (3.5-5.7) L 01/01/18 04:49 Globulin 3.7 g/dL (2.4-3.5) H 01/01/18 04:49 Albumin/Globulin Ratio 0.8 (1.1-2.2) L 01/01/18 04:49 Antibody Screen POSITIVE A 01/01/18 04:49 Diabetes panel 01/02/18 Range/Units 03:12 Sodium 137 (136-145) mEq/L Potassium 4.0 (3.5-5.1) mEq/L Chloride 102 (98-107) mEq/L Carbon Dioxide 24 (23-29) mEq/L BUN 23 H (6-20) mg/dL Creatinine 0.86 (0.60-1.20) mg/dL Glucose 197 H (70-105) mg/dL Calcium 8.6 (8.6-10.3) mg/dL Calcium panel 01/02/18 Range/Units 03:12 Calcium 8.6 (8.6-10.3) mg/dL Pituitary panel 01/02/18 Range/Units 03:12 Sodium 137 (136-145) mEq/L Potassium 4.0 (3.5-5.1) mEq/L Chloride 102 (98-107) mEq/L Carbon Dioxide 24 (23-29) mEq/L BUN 23 H (6-20) mg/dL Creatinine 0.86 (0.60-1.20) mg/dL Glucose 197 H (70-105) mg/dL Calcium 8.6 (8.6-10.3) mg/dL Adrenal panel 01/02/18 Range/Units 03:12 Sodium 137 (136-145) mEq/L Potassium 4.0 (3.5-5.1) mEq/L Chloride 102 (98-107) mEq/L Carbon Dioxide 24 (23-29) mEq/L BUN 23 H (6-20) mg/dL Creatinine 0.86 (0.60-1.20) mg/dL Glucose 197 H (70-105) mg/dL Calcium 8.6 (8.6-10.3) mg/dL All other labs normal. Consult Discharge Plan - Plan Referrals: NONE,PCP [Primary Care Provider] - Nivia Tariq [Family Provider] -
--- NOTE | 2018-01-02 11:16 | Internal Med Progress Note ---
Hospitalist Progress Note - Encounter Date of Encounter: 01/02/18 Time of Encounter: 11:14 - Subjective Interval History: Patient seen and examined this morning. Complains of some cough. Breathing improved. Denies abdominal pain. appears distraught, upset and anxious. - Exam Vitals: Temp Pulse Resp BP Pulse Ox 97.6 F 78 16 112/57 94 01/02/18 07:00 01/02/18 07:00 01/02/18 07:35 01/02/18 07:35 01/02/18 07:35 Exam: Constitutional: Vitals as noted. No Apparent Distress. Appears upset and withdrawn. Eyes exam: Sclera white, conjunctiva clear, no lid lag, PEARLA. ENT exam: Grossly normal hearing. Nasophargeal and Oropharyngeal exam unremarkable. Respiratory exam: Ronchi prsent on Let side with rales. No wheezing. Cardiovascular exam: RRR, +S1, +S2. no murmur, gallop, rubs. No chest wall tenderness GI/Abdominal exam: Soft, Non-tender, somewhat distended. Musculoskeletal exam: full ROM, no atrophy or deformity noted. no edema Neurological exam: AO X3, CN II-XII grossly intact, grossly normal motor and sensory exam. Skin exam: No skin rash, lesions or ulcers noted. no purpura or ecchymosis. Pych: Tearful. Depressed and anxious mood - Assessment and Plan (1) Pneumonia Current Visit: Yes Status: Acute (2) Sepsis Current Visit: Yes Status: Acute (3) Lung mass Current Visit: Yes Status: Acute (4) Thyroid mass Current Visit: Yes Status: Acute (5) Anemia Current Visit: Yes Status: Acute (6) Chest pain Current Visit: Yes Status: Acute (7) DVT prophylaxis Current Visit: Yes Status: Acute (8) Pulmonary emboli Current Visit: Yes Status: Acute - Summary of Assessment and Plan Summary of Assessment and Plan: PE - c/w Heparin drip - CT Chest with showed segmental pulmonary embolism. Likely related to malignancy. - currently on heparin drip - f/u ECHO and LE Doppler Lung mass - On Chest CT, 4.3 cm in the left upper and 3.3 cm in the medial left lower lobe - Pulm and oncology following - Differential include primary lung ca, GI carcinoma, Lymphoma. - Needs biopsy. Patient refusing workup. - renal function stable. c/w IVF and plan for CT with oral and IV contrast today. Agrees to get it done later today after ECHO and doppler studies. Thyroid ultrasound - US thyroid with "small benign-appearing cysts seen within the isthmus. Large lymph nodes seen in zone 4 along the left side of the neck these would be better evaluated with a CT scan of the neck." She is also worried about anethesia and "need to know what anesthetic medication will be used during the procedure and side effects and risks". - Plan for CT neck today. Anemia - s/p 2 PRBC. Hb 7.8-->7.6 - monitor H&H q6h. On heparin drip for PE - Iron deficiency on iron studies. - Evaluated by surgery. Appreciate recommendations. Patient refused EGD and colonoscopic evaluation. Previously agreed to it to me. She mentions "You did not explained to me that way. I need to know every single step of the procedure ". Discussed the need for procedure and the risk associated with not doing it. Pneumonia - c/w empiric vancomycin, ceftriaxone and azithromycin. - f/u Legionella and strep pneumo ag. f/u blood culture COPD - about 30 pack year hyistory - c/w solumedrol, duonebs and IV antibiotics. Depression - It appears patient overwhelmed by her sudden turn in health and possible diagnosis of cancer - Appears Tearful and anxious - Refusing needed procedures. Unclear whether understand risk of not undergoing procedures - Will obtain psychiatric evaluation for competence and depression. - Time Spent with Patient Total time spent is greater than 50% in coordination of care (as documented) at patient's floor/unit and/or counseling patient: Internal Medicine: Result - Labs CBC & Chem 7: 01/02/18 03:12 01/02/18 03:12 Labs: Short CBC 01/01/18 01/01/18 01/02/18 Range/Units 19:13 23:04 03:12 WBC 19.3 H 15.4 H (4.3-11.1) K/mcL Hgb 7.8 L 7.8 L 7.6 L (11.5-15.4) g/dL Hct 27.7 L 28.2 L 27.4 L (35.3-44.9) % Plt Count 486 H 466 H (140-400) K/mcL Neutrophils # 14.4 H (1.6-8.9) K/mcL BMP 01/02/18 03:12 Sodium 137 Potassium 4.0 Chloride 102 Carbon Dioxide 24 BUN 23 H Creatinine 0.86 Glucose 197 H Calcium 8.6 Cardiac Enzymes 01/01/18 Range/Units 19:13 Troponin I < 0.03 (< 0.04) ng/mL - ABG Interpretation ABG results: PT/INR, D-dimer PT 14.0 Seconds (9.4-12.1) H 01/01/18 04:49 Consult Discharge Plan - Plan Referrals: NONE,PCP [Primary Care Provider] - Cliff TariqConversio [Family Provider] - (1) Pneumonia Qualifiers: Pneumonia type: due to unspecified organism Laterality: bilateral Lung location: lower lobe of lung Qualified Code(s): J18.1 - Lobar pneumonia, unspecified organism (2) Sepsis Qualifiers: Sepsis type: sepsis due to unspecified organism Qualified Code(s): A41.9 - Sepsis, unspecified organism (5) Anemia Qualifiers: Anemia type: unspecified type Qualified Code(s): D64.9 - Anemia, unspecified (6) Chest pain Qualifiers: Chest pain type: chest pain on breathing Qualified Code(s): R07.1 - Chest pain on breathing; R07.81 - Pleurodynia (8) Pulmonary emboli Qualifiers: Pulmonary embolism type: other Chronicity: acute Acute cor pulmonale presence: without acute cor pulmonale Qualified Code(s): I26.99 - Other pulmonary embolism without acute cor pulmonale
[2018-01-02] MEDS: Budesonide/Formoterol 160/4.5 1 PUFF INH IH SCH ×2 (11:21→20:42)
[2018-01-02] MEDS ORDERED: 0.9 % Sodium Chloride 1,000 ML IVC SCH (11:30)
--- NOTE | 2018-01-02 11:40 | Pulmonology Progress Note ---
Date of Encounter: 01/02/18 Time of Encounter: 11:00 Assessment and Plan (1) Pneumonia Current Visit: Yes Status: Acute To continue the current regimen of antibiotics. Qualifiers: Pneumonia type: due to unspecified organism Laterality: unspecified laterality Lung location: unspecified part of lung Qualified Code(s): J18.9 - Pneumonia, unspecified organism (2) Lung mass Current Visit: Yes Status: Acute Left sided cavitating lung mass can be primary bronchogenic carcinoma vs metastatic disease , CT abdomen shows a pelvic mass with lymphadenopathy more likely malignancy with metastases . CT neck showing left supraclavicular LN more consistent with metastatic LN since patient is on therapeutic anticoagulation will start with biopsy of left supraclavicular LN which is the least invasive . (3) Pulmonary emboli Current Visit: Yes Status: Acute To continue therapeutic anticoagulation. Qualifiers: Pulmonary embolism type: other Chronicity: acute Acute cor pulmonale presence: without acute cor pulmonale Qualified Code(s): I26.99 - Other pulmonary embolism without acute cor pulmonale (4) COPD (chronic obstructive pulmonary disease) Current Visit: Yes Status: Acute To continue bronchodilators and steroids . Qualifiers: Chronic bronchitis type: unspecified Qualified Code(s): J42 - Unspecified chronic bronchitis Subjective Principal diagnosis: Pneumonia with metastatic disease Interval history: Patent is sitting and having dinner denies any symptoms . Objective PUL Vital signs: Last Vital Signs Temp 97.6 F 01/02/18 07:00 Pulse 78 01/02/18 07:00 Resp 16 01/02/18 07:35 BP 112/57 01/02/18 07:35 Pulse Ox 94 01/02/18 07:35 Auscultation: bilateral: diminished breath sounds (basilar diminished breadth sounds ) Results - Laboratory Findings CBC and BMP: 01/02/18 17:15 01/02/18 03:12 PT/INR, D-dimer PT 14.0 Seconds (9.4-12.1) H 01/01/18 04:49 Abnormal lab findings: Abnormal lab results WBC 15.4 K/mcL (4.3-11.1) H 01/02/18 03:12 RBC 3.51 M/mcL (3.82-4.97) L 01/02/18 03:12 Hgb 7.6 g/dL (11.5-15.4) L 01/02/18 03:12 Hct 27.4 % (35.3-44.9) L 01/02/18 03:12 MCV 78.1 fL (83.0-100.0) L 01/02/18 03:12 MCH 21.7 pg (28.0-33.3) L 01/02/18 03:12 MCHC 27.7 g/dL (31.6-35.5) L 01/02/18 03:12 RDW 19.7 % (11.5-14.5) H 01/02/18 03:12 Plt Count 466 K/mcL (140-400) H 01/02/18 03:12 MPV 9.3 fL (9.4-12.4) L 01/02/18 03:12 Band Neutrophils % 20.0 % (0-4) H 01/01/18 04:49 Neutrophils # 14.4 K/mcL (1.6-8.9) H 01/02/18 03:12 Lymphocytes # 0.4 K/mcL (0.6-4.6) L 01/02/18 03:12 Platelet Estimate Slight increase (Normal) H 01/02/18 03:12 Hypochromasia Present (Not Present) A 01/02/18 03:12 Anisocytosis 1+ (Not Present) A 01/02/18 03:12 Microcytosis Present (Not Present) A 01/01/18 04:49 PT 14.0 Seconds (9.4-12.1) H 01/01/18 04:49 APTT 23.5 Seconds (26.0-36.0) L 01/01/18 04:49 Heparin Anti-Xa, Unfract 0.04 IU/mL (0.30-0.70) L 01/02/18 03:12 BUN 23 mg/dL (6-20) H 01/02/18 03:12 BUN/Creatinine Ratio 27 (6-26) H 01/02/18 03:12 Glucose 197 mg/dL (70-105) H 01/02/18 03:12 Lactic Acid 3.0 mmol/L (0.5-2.2) H 01/01/18 19:13 Iron < 10 mcg/dL (50-170) L 01/01/18 04:49 Transferrin 168 mg/dL (203-362) L 01/01/18 04:49 Ferritin 489 ng/mL (10-120) H 01/01/18 19:13 ALT 6 Units/L (7-52) L 01/01/18 04:49 Lactate Dehydrogenase 393 Units/L (140-271) H 01/02/18 03:12 Albumin 2.8 g/dL (3.5-5.7) L 01/01/18 04:49 Globulin 3.7 g/dL (2.4-3.5) H 01/01/18 04:49 Albumin/Globulin Ratio 0.8 (1.1-2.2) L 01/01/18 04:49 Antibody Screen POSITIVE A 01/01/18 04:49 - Microbiology Findings Microbiology Findings: Microbiology, Last 48 Hours 01/01/18 04:55 Blood Culture - Preliminary Peripheral Venipuncture Culture is incubating and being continuously monitored for growth. Final report to follow. 01/01/18 04:47 Blood Culture - Preliminary Peripheral Venipuncture Culture is incubating and being continuously monitored for growth. Final report to follow. - Clinical Findings Intake & Output: Intake & Output 01/01/18 01/02/18 01/02/18 23:59 07:59 15:59 Intake Total 930 / 930 687 / 687 593 / 593 Balance 930 / 930 687 / 687 593 / 593 Weight 96 kg Consult Discharge Plan - Plan Referrals: NONE,PCP [Primary Care Provider] - Nivia Tariq [Family Provider] -
--- NOTE | 2018-01-02 14:40 | Consult Note ---
Date of Encounter: 01/02/18 Time of Encounter: 14:29 Assessment & Recommendation (1) Post traumatic stress disorder Current visit: Yes Status: Acute Assessment & Recommendation: Client is still willing to consider recommended procedures but feels she needs more information. She is very anxious but is unwilling to consider treatment for anxiety at this time. Denies SI/HI and does not present as a threat to herself or others. Not processing information well but she likely still has capacity. Would suggest trying to explain procedures again in more detail. Would recommend using visuals and give client written information on the procedures that she can reference. Would also try and have family, a friend, a pcts, or manager social present that can help provide support while procedures being explained. She is pretty overwhelmed and will likely need a lot of repetition. Having people she trusts be present may help with her understanding and willingness to proceed. History of Present Illness Requesting Physician: Kim Bliss MD Reason for consult: capacity History of present illness: Ms. Trejo is a 57 year old female with multiple medical problems and possible cancer diagnosis. Currently refusing medical procedures needed to help fully diagnose her. On eval today client is pleasant and cooperative but anxious and overwhelmed. Admits she has not consented to some of the recommended procedures as she does not yet feel she fully understands what the recommended procedures are. States she is a private and modest person. Has never been put to sleep before. Very worried about not having control when under sedation for a procedure. Feels she needs step by step instructions of what will happen to her when she is asleep. Discussed ways she might feel more confident. She would like to have someone explain things to her in more detail. She would like pictures if possible. Something written out that she could keep and reference might help as well. She is unable to explain the risks and benefits of the procedures she refused to this principal technical writer. Don't think this is because she lacks capacity or is unable to understand. However, she did not process the information that has been given to her up to this point. May need social work or some other support service to be present when information given to her again. Client did say she is congregational. May be helpful to have a pcts present. Anxiety is certainly a factor. She would likely do better if anxiety was treated but she is refusing any additional medications at this time. Denies SI/HI. No mental health history. CC: Kim Bliss MD Past Med Surg Social Fam HX - Past Medical History Medical history: COPD - Past Psychiatric History Psychiatric history: Reports: no psych history Family psychiatric history: Unknown Family History of Suicide: Unknown - Past Surgical History Surgical History: no surgical history - Social History Smoking Status: Current every day smoker Smokeless Tobacco Status: No Alcohol use: none Drug use: none - Family History Mother Living Status: Still Living Hx Family Cardiac Disorders: Yes (tachycardia) Hx Family Cancer: No Father Living Status: Still Living Hx Family Cancer: No Medications & Allergies Albuterol Sulfate [Ventolin Hfa] 2 puff IH Q6H PRN 01/01/18 [History] Budesonide/Formoterol 160/4.5 [Symbicort 160/4.5] 2 puff IH BID 01/01/18 [ History] 3 Allergy/AdvReac Type Severity Reaction Status Date / Time No Known Allergies Allergy Unverified 04/21/17 13:08 Review of Systems Constitutional: Reports: weakness Eyes: Denies: eye pain, vision change Ears, Nose, Throat: Denies: ear pain, throat pain, dental pain, hearing loss, congestion Cardiovascular: Denies: chest pain, palpitations, dyspnea on exertion Respiratory: Reports: cough, dyspnea Gastrointestinal: Denies: abdominal pain, nausea, vomiting, diarrhea, constipation Genitourinary female: Denies: urgency, dysuria, frequency, abnormal menses, dyspareunia Musculoskeletal: Denies: joint swelling, joint pain Integumentary: Denies: rash, lesions, pruritus Neurological: Denies: headache, weakness, numbness, memory loss Endocrine: Denies: fatigue, heat or cold intolerance Hematologic/Lymphatic: Denies: easy bruising, lymphadenopathy Allergic/Immunologic: Denies: urticaria, itchy eyes Psychiatry Exam - Constitutional Vitals: Temp Pulse Resp BP Pulse Ox 97.9 F 80 16 119/63 97 01/02/18 11:00 01/02/18 11:00 01/02/18 11:30 01/02/18 11:30 01/02/18 11:30 General appearance: age & developmentally appropriate, well-groomed, well- nourished - Musculoskeletal Gait: other Station: relaxed Strength & Tone: normal for patient - Psychiatric Patient Orientation: Yes Person, Yes Time, Yes Place Level of alertness: Alert Behavior: calm, cooperative Psychomotor activity: Normal Eye Contact: Maintains Eye Contact Mood Description: Anxious Affect description: congruent with mood Speech Volume: Normal Speech pattern: normal rate, normal rhythm, normal tone, fluent, spontaneous Language & Vocabulary: consistent with education Thought Process: Linear, Goal Oriented Thought Content: No Suicidal ideation, No Homicidal ideation, No Overt delusions Perceptual Disturbances: No Auditory hallucinations, No Visual hallucinations Attention Span Ability: Capable of Focused Attention Memory Description: Grossly Intact Patient Reliability: Reliable Historian Fund of knowledge: Yes abstraction ability, Yes aware of current events Intelligence Estimate: Average Judgment: Limited Insight: Partial Results - Labs Labs: Laboratory Last Values WBC 15.4 K/mcL (4.3-11.1) H 01/02/18 03:12 RBC 3.51 M/mcL (3.82-4.97) L 01/02/18 03:12 Hgb 7.6 g/dL (11.5-15.4) L 01/02/18 03:12 Hct 27.4 % (35.3-44.9) L 01/02/18 03:12 MCV 78.1 fL (83.0-100.0) L 01/02/18 03:12 MCH 21.7 pg (28.0-33.3) L 01/02/18 03:12 MCHC 27.7 g/dL (31.6-35.5) L 01/02/18 03:12 RDW 19.7 % (11.5-14.5) H 01/02/18 03:12 Plt Count 466 K/mcL (140-400) H 01/02/18 03:12 MPV 9.3 fL (9.4-12.4) L 01/02/18 03:12 Immature Gran % 1.4 % (0-4) 01/02/18 03:12 Seg Neutrophils % 93.4 % 01/02/18 03:12 Band Neutrophils % 20.0 % (0-4) H 01/01/18 04:49 Lymphocytes % 2.8 % 01/02/18 03:12 Monocytes % 2.3 % 01/02/18 03:12 Eosinophils % 0.0 % 01/02/18 03:12 Basophils % 0.1 % 01/02/18 03:12 Neutrophils # 14.4 K/mcL (1.6-8.9) H 01/02/18 03:12 Lymphocytes # 0.4 K/mcL (0.6-4.6) L 01/02/18 03:12 Monocytes # 0.4 K/mcL (0.0-1.3) 01/02/18 03:12 Eosinophils # 0.0 K/mcL (0.0-0.6) 01/02/18 03:12 Basophils # 0.0 K/mcL (0.0-0.2) 01/02/18 03:12 Platelet Estimate Slight increase (Normal) H 01/02/18 03:12 Hypochromasia Present (Not Present) A 01/02/18 03:12 Anisocytosis 1+ (Not Present) A 01/02/18 03:12 Microcytosis Present (Not Present) A 01/01/18 04:49 PT 14.0 Seconds (9.4-12.1) H 01/01/18 04:49 INR 1.2 01/01/18 04:49 APTT 23.5 Seconds (26.0-36.0) L 01/01/18 04:49 Heparin Anti-Xa, Unfract 0.06 IU/mL (0.30-0.70) L 01/02/18 12:14 Sodium 137 mEq/L (136-145) 01/02/18 03:12 Potassium 4.0 mEq/L (3.5-5.1) 01/02/18 03:12 Chloride 102 mEq/L (98-107) 01/02/18 03:12 Carbon Dioxide 24 mEq/L (23-29) 01/02/18 03:12 BUN 23 mg/dL (6-20) H 01/02/18 03:12 Creatinine 0.86 mg/dL (0.60-1.20) 01/02/18 03:12 Est GFR ( Amer) > 60 (> 60) 01/02/18 03:12 Est GFR (Non-Af Amer) > 60 (> 60) 01/02/18 03:12 BUN/Creatinine Ratio 27 (6-26) H 01/02/18 03:12 Glucose 197 mg/dL (70-105) H 01/02/18 03:12 Calculated Osmolality 293 (280-300) 01/02/18 03:12 Lactic Acid 3.0 mmol/L (0.5-2.2) H 01/01/18 19:13 Calcium 8.6 mg/dL (8.6-10.3) 01/02/18 03:12 Magnesium 1.8 mg/dL (1.6-2.6) 01/01/18 04:49 Iron < 10 mcg/dL (50-170) L 01/01/18 04:49 % Saturation TNP 01/01/18 04:49 Transferrin 168 mg/dL (203-362) L 01/01/18 04:49 Ferritin 489 ng/mL (10-120) H 01/01/18 19:13 Total Bilirubin 0.3 mg/dL (0.3-1.0) 01/01/18 04:49 AST 16 Units/L (13-39) 01/01/18 04:49 ALT 6 Units/L (7-52) L 01/01/18 04:49 Alkaline Phosphatase 86 Units/L (34-104) 01/01/18 04:49 Lactate Dehydrogenase 393 Units/L (140-271) H 01/02/18 03:12 Troponin I < 0.03 ng/mL (< 0.04) 01/01/18 19:13 Serum Total Protein 6.5 g/dL (6.4-8.9) 01/01/18 04:49 Albumin 2.8 g/dL (3.5-5.7) L 01/01/18 04:49 Globulin 3.7 g/dL (2.4-3.5) H 01/01/18 04:49 Albumin/Globulin Ratio 0.8 (1.1-2.2) L 01/01/18 04:49 Vitamin B12 486 pg/mL (250-1100) 01/02/18 03:12 Folate 3.2 ng/mL (3.0-16.0) 01/02/18 03:12 TSH 2.062 mcIU/mL (0.340-5.600) 01/01/18 04:49 Blood Type O POSITIVE 01/01/18 04:49 Antibody Screen POSITIVE A 01/01/18 04:49 Prewarmed Antibody Srcn NEGATIVE 01/01/18 04:49 Antibody Identification Cold Auto Antibody 01/01/18 04:49 Cold Antibody Screen POSITIVE 01/01/18 04:49 Crossmatch See Detail 01/01/18 04:49 - Impressions Impressions Abdomen/Pelvis CT 01/02/18 12:00 IMPRESSION: 1. Enlarged heterogeneous uterus with an adjacent 20 cm pelvic mass compatible with neoplasm until proven otherwise. This may reflect a primary neoplasm given its appearance. There is also an 8.8 x 7.4 cm right adnexal mass also compatible with malignancy. 2. Metastatic pelvic and retroperitoneal adenopathy. 3. Moderate volume ascites. There is mild stranding of the omentum in the right upper quadrant left mid abdomen however a discrete peritoneal nodule is not identified. 4. Anasarca. 5. Bibasilar airspace opacities as well as nodules within the lung bases. Please refer to dedicated CT of the chest performed earlier. D/ / 01/02/2018 14:04:12 Nadine Bliss MD / july Interpreting Provider: Nadine Bliss MD Soft Tissue Neck CT 01/02/18 12:00 IMPRESSION: Significantly enlarged left supraclavicular lymph node measuring up to 3.3 cm consistent with metastatic disease. Left upper lobe cavitary nodule and right upper lobe consolidation partially visualized. Please refer to recent CT chest imaging. D/ / Henry Chandler MD / Henry Chandler MD Interpreting Provider: Henry Chandler MD Consult Discharge Plan - Plan Referrals: NONE,PCP [Primary Care Provider] - Nivia Tariq [Family Provider] -
[2018-01-02 17:24] LABS: Hematocrit 30.9 % (35.3-44.9); Hemoglobin 8.4 g/dL (11.5-15.4)
[2018-01-02 22:11] LABS: Hematocrit 31.2 % (35.3-44.9); Hemoglobin 8.5 g/dL (11.5-15.4)
[2018-01-03] MEDS: *HR* Heparin 5,000 UNIT/ML VIAL IVP PRN (00:53)
[2018-01-03 03:27] LABS: Basophils % 0.2 %; Nucleated Red Blood Cells 0.1 /100 WBC (0)
[2018-01-03 03:28] LABS: Hematocrit 29.7 % (35.3-44.9); Hemoglobin 8.1 g/dL (11.5-15.4); Immature Granulocytes % 0.9 % (0-4); Lymphocytes # 0.7 K/mcL (0.6-4.6); Lymphocytes % 4.2 %; Mean Corpuscular HGB Conc 27.3 g/dL (31.6-35.5); Mean Corpuscular Hemoglobin 21.7 pg (28.0-33.3); Mean Corpuscular Volume 79.4 fL (83.0-100.0); Mean Platelet Volume 9.2 fL (9.4-12.4); Monocytes # 0.7 K/mcL (0.0-1.3); Monocytes % 4.1 %; Neutrophils # 15.6 K/mcL (1.6-8.9); Platelet Count 462 K/mcL (140-400); Red Blood Count 3.74 M/mcL (3.82-4.97); Red Cell Distribution Width 19.8 % (11.5-14.5); Segmented Neutrophils % 90.6 %
[2018-01-03] MEDS: Ipratropium/Albuterol Neb 3 ML IH SCH ×6 (03:37→23:58)
[2018-01-03 03:47] LABS: BUN/Creatinine Ratio 32 (6-26); Blood Urea Nitrogen 22 mg/dL (6-20); Calcium 8.9 mg/dL (8.6-10.3); Carbon Dioxide 24 mEq/L (23-29); Chloride 103 mEq/L (98-107); Glucose 152 mg/dL (70-105); Osmolality,Calculated 288 (280-300); Potassium 4.1 mEq/L (3.5-5.1); Sodium 136 mEq/L (136-145); eGFR For Non-African Americans > 60 (> 60)
[2018-01-03 04:10] LABS: Hypochromasia Present (Not Present)
[2018-01-03 04:11] LABS: Anisocytosis 1+ (Not Present)
[2018-01-03] MEDS: Azithromycin 500 MG in D5% in Water 250 ML IVPB SCH (05:05)
[2018-01-03] MEDS: methylPREDNISolone 125 MG/2 ML VIAL IVP SCH ×2 (05:06→16:28)
[2018-01-03] MEDS: Pantoprazole 40 MG VIAL IVP SCH ×2 (05:06→16:27)
[2018-01-03] MEDS: cefTRIAXone 2,000 MG in Water for inj. (sterile) 20 ML 20 ML IVP SCH (05:06)
[2018-01-03] MEDS: Heparin 25,000 UNIT/500 ML D5W 25,000 UNIT/500 ML BAG IVC SCH ×2 (06:55→16:29)
[2018-01-03] MEDS: Budesonide/Formoterol 160/4.5 1 PUFF INH IH SCH ×2 (07:52→20:11)
[2018-01-03] MEDS ORDERED: Aminoglycoside Consult 1 EACH MC ONE (07:59)
--- NOTE | 2018-01-03 09:44 | Pulmonology Progress Note ---
Date of Encounter: 01/03/18 Time of Encounter: 09:30 Assessment and Plan (1) Pneumonia Current Visit: Yes Status: Acute To continue the current regimen of antibiotics. Qualifiers: Pneumonia type: due to unspecified organism Laterality: unspecified laterality Lung location: unspecified part of lung Qualified Code(s): J18.9 - Pneumonia, unspecified organism (2) Lung mass Current Visit: Yes Status: Acute Left sided cavitating lung mass can be primary bronchogenic carcinoma vs metastatic disease , CT abdomen shows a pelvic mass with lymphadenopathy more likely malignancy with metastases . CT neck showing left supraclavicular LN more consistent with metastatic LN since patient is on therapeutic anticoagulation will start with biopsy of left supraclavicular LN which is the least invasive . (3) Pulmonary emboli Current Visit: Yes Status: Acute To continue therapeutic anticoagulation. Qualifiers: Pulmonary embolism type: other Chronicity: acute Acute cor pulmonale presence: without acute cor pulmonale Qualified Code(s): I26.99 - Other pulmonary embolism without acute cor pulmonale (4) COPD (chronic obstructive pulmonary disease) Current Visit: Yes Status: Acute To continue bronchodilators and steroids . Qualifiers: Chronic bronchitis type: unspecified Qualified Code(s): J42 - Unspecified chronic bronchitis Subjective Principal diagnosis: Pneumonia with metastatic disease Interval history: Patent is sitting and having dinner denies any symptoms . Objective PUL Vital signs: Last Vital Signs Temp 97.4 F L 01/03/18 06:46 Pulse 72 01/03/18 06:46 Resp 16 01/03/18 07:53 BP 123/68 01/03/18 06:46 Pulse Ox 96 01/03/18 07:53 Results - Laboratory Findings CBC and BMP: 01/03/18 02:45 01/03/18 02:45 PT/INR, D-dimer PT 14.0 Seconds (9.4-12.1) H 01/01/18 04:49 Abnormal lab findings: Abnormal lab results WBC 17.2 K/mcL (4.3-11.1) H 01/03/18 02:45 RBC 3.74 M/mcL (3.82-4.97) L 01/03/18 02:45 Hgb 8.1 g/dL (11.5-15.4) L 01/03/18 02:45 Hct 29.7 % (35.3-44.9) L 01/03/18 02:45 MCV 79.4 fL (83.0-100.0) L 01/03/18 02:45 MCH 21.7 pg (28.0-33.3) L 01/03/18 02:45 MCHC 27.3 g/dL (31.6-35.5) L 01/03/18 02:45 RDW 19.8 % (11.5-14.5) H 01/03/18 02:45 Plt Count 462 K/mcL (140-400) H 01/03/18 02:45 MPV 9.2 fL (9.4-12.4) L 01/03/18 02:45 Band Neutrophils % 20.0 % (0-4) H 01/01/18 04:49 Neutrophils # 15.6 K/mcL (1.6-8.9) H 01/03/18 02:45 Nucleated RBCs/100 WBC 0.1 /100 WBC (0) H 01/03/18 02:45 Platelet Estimate Slight increase (Normal) H 01/03/18 02:45 Hypochromasia Present (Not Present) A 01/03/18 02:45 Anisocytosis 1+ (Not Present) A 01/03/18 02:45 Microcytosis Present (Not Present) A 01/01/18 04:49 PT 14.0 Seconds (9.4-12.1) H 01/01/18 04:49 APTT 23.5 Seconds (26.0-36.0) L 01/01/18 04:49 BUN 22 mg/dL (6-20) H 01/03/18 02:45 BUN/Creatinine Ratio 32 (6-26) H 01/03/18 02:45 Glucose 152 mg/dL (70-105) H 01/03/18 02:45 Lactic Acid 2.3 mmol/L (0.5-2.2) H 01/03/18 02:45 Iron < 10 mcg/dL (50-170) L 01/01/18 04:49 Transferrin 168 mg/dL (203-362) L 01/01/18 04:49 Ferritin 489 ng/mL (10-120) H 01/01/18 19:13 ALT 6 Units/L (7-52) L 01/01/18 04:49 Lactate Dehydrogenase 393 Units/L (140-271) H 01/02/18 03:12 Albumin 2.8 g/dL (3.5-5.7) L 01/01/18 04:49 Globulin 3.7 g/dL (2.4-3.5) H 01/01/18 04:49 Albumin/Globulin Ratio 0.8 (1.1-2.2) L 01/01/18 04:49 Vancomycin Trough 12 mcg/mL (5-10) H 01/02/18 21:59 Antibody Screen POSITIVE A 01/01/18 04:49 - Microbiology Findings Microbiology Findings: Microbiology, Last 48 Hours 01/01/18 04:55 Blood Culture - Preliminary Peripheral Venipuncture Culture is incubating and being continuously monitored for growth. Final report to follow. 01/01/18 04:47 Blood Culture - Preliminary Peripheral Venipuncture Culture is incubating and being continuously monitored for growth. Final report to follow. - Clinical Findings Intake & Output: Intake & Output 01/02/18 01/03/18 01/03/18 23:59 07:59 15:59 Intake Total 1186 / 1186 890 / 890 100 / 100 Balance 1186 / 1186 890 / 890 100 / 100 Weight 96 kg Consult Discharge Plan - Plan Referrals: NONE,PCP [Primary Care Provider] - Nivia Tariq [Family Provider] -
--- NOTE | 2018-01-03 10:28 | Internal Med Progress Note ---
Hospitalist Progress Note - Encounter Date of Encounter: 01/03/18 Time of Encounter: 10:28 - Subjective Interval History: Patient seen and examined this morning. Complains of some cough. Breathing improved. Denies abdominal pain. More calm today. - Exam Vitals: Temp Pulse Resp BP Pulse Ox 97.4 F L 72 16 123/68 96 01/03/18 06:46 01/03/18 06:46 01/03/18 07:53 01/03/18 06:46 01/03/18 07:53 Exam: Constitutional: Vitals as noted. No Apparent Distress. Eyes exam: Sclera white, conjunctiva clear, no lid lag, PEARLA. ENT exam: Grossly normal hearing. Nasophargeal and Oropharyngeal exam unremarkable. Respiratory exam: Ronchi prsent on Let side with rales. No wheezing. Cardiovascular exam: RRR, +S1, +S2. no murmur, gallop, rubs. No chest wall tenderness GI/Abdominal exam: Soft, Non-tender, somewhat distended. Musculoskeletal exam: full ROM, no atrophy or deformity noted. 2+ pedal edema Neurological exam: AO X3, CN II-XII grossly intact, grossly normal motor and sensory exam. Skin exam: No skin rash, lesions or ulcers noted. no purpura or ecchymosis. Pych: More calm today. - Assessment and Plan (1) Pneumonia Current Visit: Yes Status: Acute (2) Sepsis Current Visit: Yes Status: Acute (3) Lung mass Current Visit: Yes Status: Acute (4) Thyroid mass Current Visit: Yes Status: Acute (5) Anemia Current Visit: Yes Status: Acute (6) Chest pain Current Visit: Yes Status: Acute (7) DVT prophylaxis Current Visit: Yes Status: Acute (8) Pulmonary emboli Current Visit: Yes Status: Acute - Summary of Assessment and Plan Summary of Assessment and Plan: Lung mass - On Chest CT, 4.3 cm in the left upper and 3.3 cm in the medial left lower lobe. CT abdomen with Pelvic mass, metastatic pelvic and retroperitoneal adenopathy, ascitis. CT neck with left suprclavicular LN enlargement. - Pulm and oncology following - Differential include primary lung ca, GI carcinoma, Lymphoma. - Needs biopsy. NPO after midnight. Agrees to biopsy tomorrow for LN biopsy. PE - c/w Heparin drip. Will hold 3 hr before or as per IR request. IR consulted - CT Chest with showed segmental pulmonary embolism. Likely related to malignancy. - currently on heparin drip - ECHO with 60-65. mild diastolic dysfunction. Mod Pul HTN. LE Doppler negative for DVT. Thyroid ultrasound - US thyroid with "small benign-appearing cysts seen within the isthmus. Large lymph nodes seen in zone 4 along the left side of the neck these would be better evaluated with a CT scan of the neck." She is also worried about anethesia and "need to know what anesthetic medication will be used during the procedure and side effects and risks". - CT neck as above. Anemia - s/p 2 PRBC. Hb 8.1. - Stable on heparin drip for PE - Evaluated by surgery. Appreciate recommendations. Patient refused EGD and colonoscopic evaluation. Will revisit in 1-2 days after biopsy. Pneumonia - c/w ceftriaxone and azithromycin. Will discontinue vancomycin. - f/u Legionella and strep pneumo ag. f/u blood culture. NGTD. COPD - about 30 pack year hyistory - c/w solumedrol, duonebs and IV antibiotics. Decrease solumedrol to 40 q12. Depression - More calm today. - Appreciate psychiatry recommendation. - Competent for decision making. - Time Spent with Patient Total time spent is greater than 50% in coordination of care (as documented) at patient's floor/unit and/or counseling patient: Internal Medicine: Result - Labs CBC & Chem 7: 01/03/18 02:45 01/03/18 02:45 Labs: Short CBC 01/02/18 01/02/18 01/03/18 Range/Units 17:15 21:59 02:45 WBC 17.2 H (4.3-11.1) K/mcL Hgb 8.4 L 8.5 L 8.1 L (11.5-15.4) g/dL Hct 30.9 L 31.2 L 29.7 L (35.3-44.9) % Plt Count 462 H (140-400) K/mcL Neutrophils # 15.6 H (1.6-8.9) K/mcL BMP 01/03/18 02:45 Sodium 136 Potassium 4.1 Chloride 103 Carbon Dioxide 24 BUN 22 H Creatinine 0.68 Glucose 152 H Calcium 8.9 - ABG Interpretation ABG results: PT/INR, D-dimer PT 14.0 Seconds (9.4-12.1) H 01/01/18 04:49 - Impressions Impressions Echocardiogram 01/02/18 10:00 Impressions: LVEF 60-65%. Normal LV chamber size, wall thickness and function. Mild left ventricular diastolic dysfunction. RV:LV ratio < 1. Normal right ventricular structure and function. Moderate pulmonary hypertension. Estimated RVSP is 51 mmHg. Abdomen/Pelvis CT 01/02/18 12:00 IMPRESSION: 1. Enlarged heterogeneous uterus with an adjacent 20 cm pelvic mass compatible with neoplasm until proven otherwise. This may reflect a primary neoplasm given its appearance. There is also an 8.8 x 7.4 cm right adnexal mass also compatible with malignancy. 2. Metastatic pelvic and retroperitoneal adenopathy. 3. Moderate volume ascites. There is mild stranding of the omentum in the right upper quadrant left mid abdomen however a discrete peritoneal nodule is not identified. 4. Anasarca. 5. Bibasilar airspace opacities as well as nodules within the lung bases. Please refer to dedicated CT of the chest performed earlier. D/ / 01/02/2018 14:04:12 Nadine Bliss MD / july Interpreting Provider: Nadine Bliss MD Soft Tissue Neck CT 01/02/18 12:00 IMPRESSION: Significantly enlarged left supraclavicular lymph node measuring up to 3.3 cm consistent with metastatic disease. Left upper lobe cavitary nodule and right upper lobe consolidation partially visualized. Please refer to recent CT chest imaging. D/ / Henry Chandler MD / Henry Chandler MD Interpreting Provider: Henry Chandler MD Consult Discharge Plan - Plan Referrals: NONE,PCP [Primary Care Provider] - Nivia Tariq [Family Provider] - (1) Pneumonia Qualifiers: Pneumonia type: due to unspecified organism Laterality: unspecified laterality Lung location: unspecified part of lung Qualified Code(s): J18.9 - Pneumonia, unspecified organism (2) Sepsis Qualifiers: Sepsis type: sepsis due to unspecified organism Qualified Code(s): A41.9 - Sepsis, unspecified organism (5) Anemia Qualifiers: Anemia type: unspecified type Qualified Code(s): D64.9 - Anemia, unspecified (6) Chest pain Qualifiers: Chest pain type: chest pain on breathing Qualified Code(s): R07.1 - Chest pain on breathing; R07.81 - Pleurodynia (8) Pulmonary emboli Qualifiers: Pulmonary embolism type: other Chronicity: acute Acute cor pulmonale presence: without acute cor pulmonale Qualified Code(s): I26.99 - Other pulmonary embolism without acute cor pulmonale
[2018-01-03 10:52] LABS: Carcinoembryonic Antigen 2.4 ng/mL (Less than 5.0)
--- NOTE | 2018-01-03 12:49 | Event Note ---
Date of Encounter: 01/03/18 Time of Encounter: 10:00 Reviewed the images since patient is fully anticoagulated for PE the least invasive to get tissue is the left supraclavicular LN biopsy . Will discuss with the oncoming manager small business.Otherwise to cotinue the current mangement.
--- NOTE | 2018-01-03 13:46 | Oncology Inp Progress Note ---
Date of Encounter: 01/03/18 Time of Encounter: 09:00 (1) Anemia Current Visit: Yes Status: Acute Assessment and plan: Likely metastatic disease, CTA and CT abdomen findings reviewed, discussed abdominal findings with patient. Need tissue diagnosis. She is more receptive to my recommendations today and is agreeable to biopsy procedure. Bx of neck/pelvic LN to be scheduled for Thursday. D/W Dr Bliss. PAtient understands that after we obtain results treatment may be directed to improve her symptoms/metastatic disease. Added marker CA125, CEA to labs. CA125 suggestive of [employer] malignancy, need to confirm. On heparin antcoagulation for ac nage PE. Hgb is stable, s/p PRBC Anemia likely cr illness related Lower ext sweling-Dopplers negative for DVT. Echo nl LVEF, moderate pulm HTN. LIkely reated to pelvic adenopathy and hypoalbuminemia. PAtient is expecting family/daughter from [place] and wanted to know if she could have procedure today. Plan as documented above d.w patient and hospital staff/attending. Qualifiers: Anemia type: unspecified type Qualified Code(s): D64.9 - Anemia, unspecified Oncology: Subj Interval history: She is feeling less anxious, communicates more about her condition. No pain but swelling in the legs bothersome. - Constitutional Vitals: Vital Signs Temp Pulse Resp BP Pulse Ox 01/03/18 12:15 84 20 131/73 92 01/03/18 11:23 16 97 01/03/18 07:53 16 96 01/03/18 06:46 97.4 F L 72 16 123/68 97 01/03/18 03:37 16 93 01/03/18 00:00 97.8 F 18 18 122/55 93 01/02/18 23:31 18 93 01/02/18 21:25 96 01/02/18 20:40 18 92 01/02/18 20:00 97.6 F 76 18 119/61 91 01/02/18 15:48 16 122/62 90 01/02/18 15:00 97.6 F 82 16 122/62 93 Intake and Output 01/02/18 01/03/18 01/03/18 23:59 07:59 15:59 Intake Total 1186 / 1186 890 / 890 820 / 820 Output Total 150 / 150 Balance 1186 / 1186 890 / 890 670 / 670 Intake: IV Fluids 886 / 886 770 / 770 100 / 100 0.9 % Sodium Chloride 1,000 ML 386 / 386 @ 100 mls/hr IVC .Q10H [facility] Rx#: [id number] Heparin 25,000 UNIT/500 ML D5W 500 / 500 500 / 500 100 / 100 25,000 unit In 500 ml @ 14 UNIT /KG/HR 27.104 mls/hr IVC . [id number] [facility] Rx#:[id number] Rocephin 2,000 MG In Water for 20 / 20 inj. (sterile) 20 ML @ 600 mls/ hr IVP Q24H [facility] Rx#:[id number] Vancocin 1,250 MG In 0.9 % 250 / 250 Sodium Chloride 250 ML @ 166. 667 mls/hr IVPB Q12H [facility] Rx#: [id number] Oral 300 / 300 120 / 120 720 / 720 Output: Urine 150 / 150 Other: Meal Dinner Lunch Percent of Meal Consumed 100% 75% Weight 96 kg Patient Weight 01/03/18 23:59 Weight 96 kg General appearance: no acute distress, obese - Head Head exam: Present: atraumatic, normal inspection - ENT ENT exam: Present: mucous membranes moist - Respiratory Respiratory exam: Present: CTAB - Cardiovascular Cardiovascular exam: Present: +S1, +S2 - GI/Abdominal GI/Abdominal exam: Present: normal bowel sounds, soft - Extremities Exam Extremities exam: Present: pedal edema Oncology: Obj Data - Labs CBC & Chem 7: 01/03/18 02:45 01/03/18 02:45 Labs: Laboratory Results - last 24 hr 01/02/18 01/02/18 01/02/18 17:15 21:59 21:59 WBC RBC Hgb 8.4 L 8.5 L Hct 30.9 L 31.2 L MCV MCH MCHC RDW Plt Count MPV Immature Gran % Seg Neutrophils % Lymphocytes % Monocytes % Eosinophils % Basophils % Neutrophils # Lymphocytes # Monocytes # Eosinophils # Basophils # Nucleated RBCs/100 WBC Platelet Estimate Hypochromasia Anisocytosis Heparin Anti-Xa, Unfract Sodium Potassium Chloride Carbon Dioxide BUN Creatinine Est GFR ( Amer) Est GFR (Non-Af Amer) BUN/Creatinine Ratio Glucose Calculated Osmolality Lactic Acid Calcium Carcinoembryonic Ag CA 125 Ag Serial Mntr Vancomycin Trough 12 H 01/02/18 01/02/18 01/03/18 21:59 21:59 02:45 WBC 17.2 H RBC 3.74 L Hgb 8.1 L Hct 29.7 L MCV 79.4 L MCH 21.7 L MCHC 27.3 L RDW 19.8 H Plt Count 462 H MPV 9.2 L Immature Gran % 0.9 Seg Neutrophils % 90.6 Lymphocytes % 4.2 Monocytes % 4.1 Eosinophils % 0.0 Basophils % 0.2 Neutrophils # 15.6 H Lymphocytes # 0.7 Monocytes # 0.7 Eosinophils # 0.0 Basophils # 0.0 Nucleated RBCs/100 WBC 0.1 H Platelet Estimate Slight increase H Hypochromasia Present A Anisocytosis 1+ A Heparin Anti-Xa, Unfract 0.22 L Sodium Potassium Chloride Carbon Dioxide BUN Creatinine Est GFR ( Amer) Est GFR (Non-Af Amer) BUN/Creatinine Ratio Glucose Calculated Osmolality Lactic Acid 2.7 H Calcium Carcinoembryonic Ag CA 125 Ag Serial Mntr Vancomycin Trough 01/03/18 01/03/18 01/03/18 02:45 02:45 07:11 WBC RBC Hgb Hct MCV MCH MCHC RDW Plt Count MPV Immature Gran % Seg Neutrophils % Lymphocytes % Monocytes % Eosinophils % Basophils % Neutrophils # Lymphocytes # Monocytes # Eosinophils # Basophils # Nucleated RBCs/100 WBC Platelet Estimate Hypochromasia Anisocytosis Heparin Anti-Xa, Unfract 0.33 Sodium 136 Potassium 4.1 Chloride 103 Carbon Dioxide 24 BUN 22 H Creatinine 0.68 Est GFR ( Amer) > 60 Est GFR (Non-Af Amer) > 60 BUN/Creatinine Ratio 32 H Glucose 152 H Calculated Osmolality 288 Lactic Acid 2.3 H Calcium 8.9 Carcinoembryonic Ag CA 125 Ag Serial Mntr Vancomycin Trough 01/03/18 09:58 WBC RBC Hgb Hct MCV MCH MCHC RDW Plt Count MPV Immature Gran % Seg Neutrophils % Lymphocytes % Monocytes % Eosinophils % Basophils % Neutrophils # Lymphocytes # Monocytes # Eosinophils # Basophils # Nucleated RBCs/100 WBC Platelet Estimate Hypochromasia Anisocytosis Heparin Anti-Xa, Unfract Sodium Potassium Chloride Carbon Dioxide BUN Creatinine Est GFR ( Amer) Est GFR (Non-Af Amer) BUN/Creatinine Ratio Glucose Calculated Osmolality Lactic Acid Calcium Carcinoembryonic Ag 2.4 CA 125 Ag Serial Mntr 855 H Vancomycin Trough - Impressions Impressions Echocardiogram 01/02/18 10:00 Impressions: LVEF 60-65%. Normal LV chamber size, wall thickness and function. Mild left ventricular diastolic dysfunction. RV:LV ratio < 1. Normal right ventricular structure and function. Moderate pulmonary hypertension. Estimated RVSP is 51 mmHg. Abdomen/Pelvis CT 01/02/18 12:00 IMPRESSION: 1. Enlarged heterogeneous uterus with an adjacent 20 cm pelvic mass compatible with neoplasm until proven otherwise. This may reflect a primary neoplasm given its appearance. There is also an 8.8 x 7.4 cm right adnexal mass also compatible with malignancy. 2. Metastatic pelvic and retroperitoneal adenopathy. 3. Moderate volume ascites. There is mild stranding of the omentum in the right upper quadrant left mid abdomen however a discrete peritoneal nodule is not identified. 4. Anasarca. 5. Bibasilar airspace opacities as well as nodules within the lung bases. Please refer to dedicated CT of the chest performed earlier. D/ / 01/02/2018 14:04:12 Nadine Bliss MD / july Interpreting Provider: Nadine Bliss MD - ABG Interpretation ABG results: PT/INR, D-dimer PT 14.0 Seconds (9.4-12.1) H 01/01/18 04:49 Consult Discharge Plan - Plan Referrals: NONE,PCP [Primary Care Provider] - Nivia Tariq [Family Provider] - Inpatient Charges Provider: Dr. Jeremi Alba Follow up - Inpatient: [id number]
[2018-01-04] MEDS: Heparin 25,000 UNIT/500 ML D5W 25,000 UNIT/500 ML BAG IVC SCH (01:51)
[2018-01-04] MEDS: Ipratropium/Albuterol Neb 3 ML IH SCH ×6 (04:09→23:48)
[2018-01-04] MEDS: cefTRIAXone 2,000 MG in Water for inj. (sterile) 20 ML 20 ML IVP SCH (06:10)
[2018-01-04] MEDS: Pantoprazole 40 MG VIAL IVP SCH (06:11)
[2018-01-04] MEDS: Azithromycin 500 MG in D5% in Water 250 ML IVPB SCH (06:11)
[2018-01-04] MEDS: methylPREDNISolone 125 MG/2 ML VIAL IVP SCH (06:12)
[2018-01-04] MEDS: Budesonide/Formoterol 160/4.5 1 PUFF INH IH SCH ×2 (07:38→19:33)
--- NOTE | 2018-01-04 08:52 | Pulmonology Progress Note ---
<ChiMarylou fontaine M - Last Filed: 01/04/18 13:41> Date of Encounter: 01/04/18 Objective PUL Vital signs: Last Vital Signs Temp 97.8 F 01/04/18 10:57 Pulse 80 01/04/18 10:57 Resp 16 01/04/18 11:29 BP 129/69 01/04/18 10:57 Pulse Ox 94 01/04/18 11:29 Results - Laboratory Findings CBC and BMP: 01/03/18 02:45 01/03/18 02:45 PT/INR, D-dimer PT 12.1 Seconds (9.4-12.1) 01/04/18 09:05 Abnormal lab findings: Abnormal lab results WBC 17.2 K/mcL (4.3-11.1) H 01/03/18 02:45 RBC 3.74 M/mcL (3.82-4.97) L 01/03/18 02:45 Hgb 8.1 g/dL (11.5-15.4) L 01/03/18 02:45 Hct 29.7 % (35.3-44.9) L 01/03/18 02:45 MCV 79.4 fL (83.0-100.0) L 01/03/18 02:45 MCH 21.7 pg (28.0-33.3) L 01/03/18 02:45 MCHC 27.3 g/dL (31.6-35.5) L 01/03/18 02:45 RDW 19.8 % (11.5-14.5) H 01/03/18 02:45 Plt Count 462 K/mcL (140-400) H 01/03/18 02:45 MPV 9.2 fL (9.4-12.4) L 01/03/18 02:45 Band Neutrophils % 20.0 % (0-4) H 01/01/18 04:49 Neutrophils # 15.6 K/mcL (1.6-8.9) H 01/03/18 02:45 Nucleated RBCs/100 WBC 0.1 /100 WBC (0) H 01/03/18 02:45 Platelet Estimate Slight increase (Normal) H 01/03/18 02:45 Hypochromasia Present (Not Present) A 01/03/18 02:45 Anisocytosis 1+ (Not Present) A 01/03/18 02:45 Microcytosis Present (Not Present) A 01/01/18 04:49 APTT 23.5 Seconds (26.0-36.0) L 01/01/18 04:49 BUN 22 mg/dL (6-20) H 01/03/18 02:45 BUN/Creatinine Ratio 32 (6-26) H 01/03/18 02:45 Glucose 152 mg/dL (70-105) H 01/03/18 02:45 POC Glucose 117 mg/dL (70-99) H 01/04/18 06:06 Iron < 10 mcg/dL (50-170) L 01/01/18 04:49 Transferrin 168 mg/dL (203-362) L 01/01/18 04:49 Ferritin 489 ng/mL (10-120) H 01/01/18 19:13 ALT 6 Units/L (7-52) L 01/01/18 04:49 Lactate Dehydrogenase 393 Units/L (140-271) H 01/02/18 03:12 Albumin 2.8 g/dL (3.5-5.7) L 01/01/18 04:49 Globulin 3.7 g/dL (2.4-3.5) H 01/01/18 04:49 Albumin/Globulin Ratio 0.8 (1.1-2.2) L 01/01/18 04:49 CA 125 Ag Serial Mntr 855 U/mL (Less than 35) H 01/03/18 09:58 Vancomycin Trough 12 mcg/mL (5-10) H 01/02/18 21:59 Antibody Screen POSITIVE A 01/01/18 04:49 - Clinical Findings Intake & Output: Intake & Output 01/03/18 01/04/18 01/04/18 23:59 07:59 15:59 Intake Total 400 / 400 832 / 832 Output Total 450 / 450 950 / 950 400 / 400 Balance -50 / -50 -118 / -118 -400 / -400 Weight 97.2 kg Consult Discharge Plan - Plan Referrals: NONE,PCP [Primary Care Provider] - Nivia Tariq [Family Provider] - - Attending Attestation I examined this patient and my medical decision-making was reviewed with the Resident Physician. I agree with the documented findings, disposition and treatment plan as described except to the extent set forth below. Patient seen and examined. Labs, radiology, chart personally reviewed. 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 Agree with plan of biopsy supra clavicle lymph node which would be more accessible and this patient with patient is on anticoagulation. If not diagnostic then bronchoscopy can be done. Cardiovascular: stable . Continue anticoagulation. <Saul Earl - Last Filed: 01/04/18 15:35> Date of Encounter: 01/04/18 Time of Encounter: 08:45 Assessment and Plan (1) Pneumonia Current Visit: Yes Status: Acute - Likely due to her history of COPD. patient has had multiple episodes of pneumonia in the past the last one being Mar, 2017. Patient has a smoking Hx of 30 pack years and continues to smoke . She takes Symbicort 2 puffs BID for her COPD at home - on physical exam patient has mild b/l expiratory wheezing especially in the lower lobes . She is leukocytotic (26.7) - currently she's on Rocephin and Zithromax day 3 , and 2L NC satting at 93% . - blood culture pending Qualifiers: Pneumonia type: due to unspecified organism Laterality: unspecified laterality Lung location: unspecified part of lung Qualified Code(s): J18.9 - Pneumonia, unspecified organism (2) Pulmonary emboli Current Visit: Yes Status: Acute - likely due to her Hx of smoking and obesity. Patient has no other risk factors like sedentary lifestyle, Hx of recent surgery, or hospitalization, no hemoptysis, no DVTs/PE in the past, no estrogen use, no recent travels, and no family Hx of coagulopathy. 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 but it's hard to tell until further workup if they are malignant or not - CT Chest at [facility] showed segmental pulmonary embolism . Her recent echocardiogram showed an EF of 65% with moderate pulmonary hypertension. - Heparin drip to be held 4-6 hours prior to supraclavicular lymph node biopsy. Qualifiers: Pulmonary embolism type: other Chronicity: acute Acute cor pulmonale presence: without acute cor pulmonale Qualified Code(s): I26.99 - Other pulmonary embolism without acute cor pulmonale (3) Lung mass Current Visit: Yes Status: Acute -CT chest showed left upper lobe cavitary nodule and right upper lobe consolidation, also left supraclavicular lymph node measuring 2.3 cm consistent with metastatic disease. -plan is to do a biopsy of the left supraclavicular lymph node today. Patient on therapeutic anticoagulation. (4) COPD (chronic obstructive pulmonary disease) Current Visit: Yes Status: Acute - patient has a Hx of COPD likely due to her 30 pack year smoking history - she takes symbicort 2 puffs BID at home - on PE she is not as wheezy as she was last saw her. - currently on Z pack and rocephin , also on 2L NC satting at 92% - continue to monitor Qualifiers: Chronic bronchitis type: unspecified Qualified Code(s): J42 - Unspecified chronic bronchitis Subjective Principal diagnosis: Pneumonia with metastatic disease Interval history: no acute events overnight. Patient asked CT showed supraclavicular lymph nodes about 3.3 cm suggesting metastatic disease. She also had cavitary nodule on right upper lobe with consolidation. The plan is to do the biopsy off her supraclavicular lymph node today. We are holding heparin 4-6 hours prior to the procedure and patient is nothing by mouth. Objective PUL Vital signs: Last Vital Signs Temp 98.4 F 01/04/18 07:08 Pulse 88 01/04/18 07:08 Resp 16 01/04/18 07:38 BP 130/76 01/04/18 07:08 Pulse Ox 93 01/04/18 07:38 Results - Laboratory Findings CBC and BMP: 01/03/18 02:45 01/03/18 02:45 PT/INR, D-dimer PT 14.0 Seconds (9.4-12.1) H 01/01/18 04:49 Abnormal lab findings: Abnormal lab results WBC 17.2 K/mcL (4.3-11.1) H 01/03/18 02:45 RBC 3.74 M/mcL (3.82-4.97) L 01/03/18 02:45 Hgb 8.1 g/dL (11.5-15.4) L 01/03/18 02:45 Hct 29.7 % (35.3-44.9) L 01/03/18 02:45 MCV 79.4 fL (83.0-100.0) L 01/03/18 02:45 MCH 21.7 pg (28.0-33.3) L 01/03/18 02:45 MCHC 27.3 g/dL (31.6-35.5) L 01/03/18 02:45 RDW 19.8 % (11.5-14.5) H 01/03/18 02:45 Plt Count 462 K/mcL (140-400) H 01/03/18 02:45 MPV 9.2 fL (9.4-12.4) L 01/03/18 02:45 Band Neutrophils % 20.0 % (0-4) H 01/01/18 04:49 Neutrophils # 15.6 K/mcL (1.6-8.9) H 01/03/18 02:45 Nucleated RBCs/100 WBC 0.1 /100 WBC (0) H 01/03/18 02:45 Platelet Estimate Slight increase (Normal) H 01/03/18 02:45 Hypochromasia Present (Not Present) A 01/03/18 02:45 Anisocytosis 1+ (Not Present) A 01/03/18 02:45 Microcytosis Present (Not Present) A 01/01/18 04:49 PT 14.0 Seconds (9.4-12.1) H 01/01/18 04:49 APTT 23.5 Seconds (26.0-36.0) L 01/01/18 04:49 BUN 22 mg/dL (6-20) H 01/03/18 02:45 BUN/Creatinine Ratio 32 (6-26) H 01/03/18 02:45 Glucose 152 mg/dL (70-105) H 01/03/18 02:45 POC Glucose 117 mg/dL (70-99) H 01/04/18 06:06 Iron < 10 mcg/dL (50-170) L 01/01/18 04:49 Transferrin 168 mg/dL (203-362) L 01/01/18 04:49 Ferritin 489 ng/mL (10-120) H 01/01/18 19:13 ALT 6 Units/L (7-52) L 01/01/18 04:49 Lactate Dehydrogenase 393 Units/L (140-271) H 01/02/18 03:12 Albumin 2.8 g/dL (3.5-5.7) L 01/01/18 04:49 Globulin 3.7 g/dL (2.4-3.5) H 01/01/18 04:49 Albumin/Globulin Ratio 0.8 (1.1-2.2) L 01/01/18 04:49 CA 125 Ag Serial Mntr 855 U/mL (Less than 35) H 01/03/18 09:58 Vancomycin Trough 12 mcg/mL (5-10) H 01/02/18 21:59 Antibody Screen POSITIVE A 01/01/18 04:49 - Clinical Findings Intake & Output: Intake & Output 01/03/18 01/04/18 01/04/18 23:59 07:59 15:59 Intake Total 400 / 400 832 / 832 Output Total 450 / 450 950 / 950 400 / 400 Balance -50 / -50 -118 / -118 -400 / -400 Weight 97.2 kg
[2018-01-04 09:34] LABS: INR 1.1; Prothrombin Time 12.1 Seconds (9.4-12.1)
--- NOTE | 2018-01-04 12:01 | Internal Med Progress Note ---
Hospitalist Progress Note - Encounter Date of Encounter: 01/04/18 Time of Encounter: 09:32 - Subjective Interval History: Patient seen and examined this morning. Breathing improved. More clam. Denies cp , abdominal pain. Leg swelling slightly improved. short of breath on ambulating. No fever, chills, N/V/D. - Exam Vitals: Temp Pulse Resp BP Pulse Ox 97.8 F 80 16 129/69 94 01/04/18 10:57 01/04/18 10:57 01/04/18 11:29 01/04/18 10:57 01/04/18 11:29 Exam: Constitutional: Vitals as noted. No Apparent Distress. On nasal canula Eyes exam: Sclera white, conjunctiva clear, no lid lag, PEARLA. ENT exam: Grossly normal hearing. Nasophargeal and Oropharyngeal exam unremarkable. Respiratory exam: Ronchi prsent on Let side with rales. No wheezing. Cardiovascular exam: RRR, +S1, +S2. no murmur, gallop, rubs. No chest wall tenderness GI/Abdominal exam: Soft, Non-tender, somewhat distended. Musculoskeletal exam: full ROM, no atrophy or deformity noted. 2+ pedal edema Neurological exam: AO X3, CN II-XII grossly intact, grossly normal motor and sensory exam. Skin exam: No skin rash, lesions or ulcers noted. no purpura or ecchymosis. Pych: More calm today. - Assessment and Plan (1) Pneumonia Current Visit: Yes Status: Acute (2) Sepsis Current Visit: Yes Status: Acute (3) Lung mass Current Visit: Yes Status: Acute (4) Thyroid mass Current Visit: Yes Status: Acute (5) Anemia Current Visit: Yes Status: Acute (6) Chest pain Current Visit: Yes Status: Acute (7) DVT prophylaxis Current Visit: Yes Status: Acute (8) Pulmonary emboli Current Visit: Yes Status: Acute - Summary of Assessment and Plan Summary of Assessment and Plan: Lung mass - On Chest CT, 4.3 cm in the left upper and 3.3 cm in the medial left lower lobe. CT abdomen with Pelvic mass, metastatic pelvic and retroperitoneal adenopathy, ascitis. CT neck with left suprclavicular LN enlargement. - Pulm and oncology following - Differential include primary lung ca, GI carcinoma, Lymphoma. - NPO after midnight. Heparin on hold for biopsy. To resume after procedure. PE - c/w Heparin drip. Will hold before the procedure. - CT Chest with showed segmental pulmonary embolism. Likely related to malignancy. - currently on heparin drip - ECHO with 60-65. mild diastolic dysfunction. Mod Pul HTN. LE Doppler negative for DVT. Thyroid ultrasound - US thyroid with "small benign-appearing cysts seen within the isthmus. Large lymph nodes seen in zone 4 along the left side of the neck these would be better evaluated with a CT scan of the neck." She is also worried about anethesia and "need to know what anesthetic medication will be used during the procedure and side effects and risks". - CT neck as above. Anemia - s/p 2 PRBC. Hb stable around 8. - Stable on heparin drip for PE - Evaluated by surgery. Appreciate recommendations. Patient refused EGD and colonoscopic evaluation. Will revisit after biopsy. - Monitor H&H. Pneumonia - c/w ceftriaxone and azithromycin. Will discontinue vancomycin. - f/u Legionella and strep pneumo ag. f/u blood culture. NGTD. COPD - about 30 pack year hyistory - c/w solumedrol, duonebs and IV antibiotics. Decreased to solumedrol to 40 q12. Depression - More calm now. - Appreciate psychiatry recommendation. - Competent for decision making. PT and social service consulted. - Time Spent with Patient Total time spent is greater than 50% in coordination of care (as documented) at patient's floor/unit and/or counseling patient: Internal Medicine: Result - Labs CBC & Chem 7: 01/03/18 02:45 01/03/18 02:45 - ABG Interpretation ABG results: PT/INR, D-dimer PT 12.1 Seconds (9.4-12.1) 01/04/18 09:05 Consult Discharge Plan - Plan Referrals: NONE,PCP [Primary Care Provider] - Nivia Tariq [Family Provider] - (1) Pneumonia Qualifiers: Pneumonia type: due to unspecified organism Laterality: unspecified laterality Lung location: unspecified part of lung Qualified Code(s): J18.9 - Pneumonia, unspecified organism (2) Sepsis Qualifiers: Sepsis type: sepsis due to unspecified organism Qualified Code(s): A41.9 - Sepsis, unspecified organism (5) Anemia Qualifiers: Anemia type: unspecified type Qualified Code(s): D64.9 - Anemia, unspecified (6) Chest pain Qualifiers: Chest pain type: chest pain on breathing Qualified Code(s): R07.1 - Chest pain on breathing; R07.81 - Pleurodynia (8) Pulmonary emboli Qualifiers: Pulmonary embolism type: other Chronicity: acute Acute cor pulmonale presence: without acute cor pulmonale Qualified Code(s): I26.99 - Other pulmonary embolism without acute cor pulmonale
--- NOTE | 2018-01-04 15:20 | IR Procedure Note ---
Date of procedure: 01/04/18 Consent Obtained: Verbal consent, Written consent Local anesthetic: Lidocaine 1% Indications: Concern for metastatic disease Procedure Performed: US guided left cervical lymph node biopsy Was there an assistant professor of geography present: No Site/Technique: Biopsy performed of left cervical lymph node Results/Findings: 5 20 gauge biopsies obtained Estimated blood loss (cc): 2 Complications: None; Tolerated procedure well Post Procedure Treatment Plan: Continue inpatient care Specimen: 5 20 gauge core needle biopsies
[2018-01-05] MEDS: Heparin 25,000 UNIT/500 ML D5W 25,000 UNIT/500 ML BAG IVC SCH ×3 (00:19→20:31)
[2018-01-05 00:57] LABS: Basophils # 0.1 K/mcL (0.0-0.2); Basophils % 0.5 %; Hematocrit 34.8 % (35.3-44.9); Hemoglobin 9.3 g/dL (11.5-15.4); Immature Granulocytes % 5.7 % (0-4); Lymphocytes # 0.8 K/mcL (0.6-4.6); Lymphocytes % 5.5 %; Mean Corpuscular HGB Conc 26.7 g/dL (31.6-35.5); Mean Corpuscular Hemoglobin 21.3 pg (28.0-33.3); Mean Corpuscular Volume 79.6 fL (83.0-100.0); Mean Platelet Volume 9.1 fL (9.4-12.4); Monocytes # 0.7 K/mcL (0.0-1.3); Monocytes % 4.3 %; Platelet Count 487 K/mcL (140-400); Red Blood Count 4.37 M/mcL (3.82-4.97); Red Cell Distribution Width 20.3 % (11.5-14.5)
[2018-01-05 01:08] LABS: Neutrophils # 12.6 K/mcL (1.6-8.9)
[2018-01-05 01:12] LABS: BUN/Creatinine Ratio 32 (6-26); Blood Urea Nitrogen 24 mg/dL (6-20); Carbon Dioxide 31 mEq/L (23-29); Chloride 98 mEq/L (98-107); Glucose 168 mg/dL (70-105); Osmolality,Calculated 292 (280-300); Potassium 4.6 mEq/L (3.5-5.1); Sodium 137 mEq/L (136-145); eGFR For Non-African Americans > 60 (> 60)
[2018-01-05 01:25] LABS: Hypochromasia Present (Not Present)
[2018-01-05] MEDS: Ipratropium/Albuterol Neb 3 ML IH SCH ×6 (03:55→23:22)
[2018-01-05] MEDS: cefTRIAXone 2,000 MG in Water for inj. (sterile) 20 ML 20 ML IVP SCH (05:16)
[2018-01-05] MEDS: Azithromycin 500 MG in D5% in Water 250 ML IVPB SCH (05:17)
[2018-01-05] MEDS: Pantoprazole 40 MG VIAL IVP SCH ×2 (05:19→19:00)
[2018-01-05] MEDS: methylPREDNISolone 125 MG/2 ML VIAL IVP SCH ×3 (05:20→19:01)
[2018-01-05] MEDS: Budesonide/Formoterol 160/4.5 1 PUFF INH IH SCH ×2 (07:46→19:46)
--- NOTE | 2018-01-05 08:30 | Pulmonology Progress Note ---
Date of Encounter: 01/05/18 Assessment and Plan (1) Pneumonia Current Visit: Yes Status: Acute - Likely due to her history of COPD. patient has had multiple episodes of pneumonia in the past the last one being Mar, 2017. Patient has a smoking Hx of 30 pack years and continues to smoke . She takes Symbicort 2 puffs BID for her COPD at home - on physical exam patient has mild b/l expiratory wheezing especially in the lower lobes . She is leukocytotic (26.7) - currently she's on Rocephin and Zithromax day 3 , and 2L NC satting at 93% . - blood culture pending Qualifiers: Pneumonia type: due to unspecified organism Laterality: unspecified laterality Lung location: unspecified part of lung Qualified Code(s): J18.9 - Pneumonia, unspecified organism (2) Pulmonary emboli Current Visit: Yes Status: Acute - likely due to her Hx of smoking and obesity. Patient has no other risk factors like sedentary lifestyle, Hx of recent surgery, or hospitalization, no hemoptysis, no DVTs/PE in the past, no estrogen use, no recent travels, and no family Hx of coagulopathy. 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 but it's hard to tell until further workup if they are malignant or not - CT Chest at [facility] showed segmental pulmonary embolism . Her recent echocardiogram showed an EF of 65% with moderate pulmonary hypertension. - Heparin drip to be held 4-6 hours prior to supraclavicular lymph node biopsy. Qualifiers: Pulmonary embolism type: other Chronicity: acute Acute cor pulmonale presence: without acute cor pulmonale Qualified Code(s): I26.99 - Other pulmonary embolism without acute cor pulmonale (3) Lung mass Current Visit: Yes Status: Acute -CT chest showed left upper lobe cavitary nodule and right upper lobe consolidation, also left supraclavicular lymph node measuring 2.3 cm consistent with metastatic disease. -plan is to do a biopsy of the left supraclavicular lymph node today. Patient on therapeutic anticoagulation. (4) COPD (chronic obstructive pulmonary disease) Current Visit: Yes Status: Acute - patient has a Hx of COPD likely due to her 30 pack year smoking history - she takes symbicort 2 puffs BID at home - on PE she is not as wheezy as she was last saw her. - currently on Z pack and rocephin , also on 2L NC satting at 92% - continue to monitor Qualifiers: Chronic bronchitis type: unspecified Qualified Code(s): J42 - Unspecified chronic bronchitis Subjective Principal diagnosis: Pneumonia with metastatic disease Interval history: no acute events overnight. Patient asked CT showed supraclavicular lymph nodes about 3.3 cm suggesting metastatic disease. She also had cavitary nodule on right upper lobe with consolidation. The plan is to do the biopsy off her supraclavicular lymph node today. We are holding heparin 4-6 hours prior to the procedure and patient is nothing by mouth. Objective PUL Vital signs: Last Vital Signs Temp 98.0 F 01/05/18 07:21 Pulse 75 01/05/18 07:21 Resp 16 01/05/18 07:46 BP 131/74 01/05/18 07:21 Pulse Ox 94 01/05/18 07:46 Results - Laboratory Findings CBC and BMP: 01/05/18 00:11 01/05/18 00:11 PT/INR, D-dimer PT 12.1 Seconds (9.4-12.1) 01/04/18 09:05 Abnormal lab findings: Abnormal lab results WBC 15.0 K/mcL (4.3-11.1) H 01/05/18 00:11 Hgb 9.3 g/dL (11.5-15.4) L 01/05/18 00:11 Hct 34.8 % (35.3-44.9) L 01/05/18 00:11 MCV 79.6 fL (83.0-100.0) L 01/05/18 00:11 MCH 21.3 pg (28.0-33.3) L 01/05/18 00:11 MCHC 26.7 g/dL (31.6-35.5) L 01/05/18 00:11 RDW 20.3 % (11.5-14.5) H 01/05/18 00:11 Plt Count 487 K/mcL (140-400) H 01/05/18 00:11 MPV 9.1 fL (9.4-12.4) L 01/05/18 00:11 Immature Gran % 5.7 % (0-4) H 01/05/18 00:11 Band Neutrophils % 20.0 % (0-4) H 01/01/18 04:49 Neutrophils # 12.6 K/mcL (1.6-8.9) H 01/05/18 00:11 Nucleated RBCs/100 WBC 0.1 /100 WBC (0) H 01/03/18 02:45 Platelet Estimate Slight increase (Normal) H 01/05/18 00:11 Hypochromasia Present (Not Present) A 01/05/18 00:11 Anisocytosis 1+ (Not Present) A 01/03/18 02:45 Microcytosis Present (Not Present) A 01/01/18 04:49 APTT 23.5 Seconds (26.0-36.0) L 01/01/18 04:49 Carbon Dioxide 31 mEq/L (23-29) H 01/05/18 00:11 BUN 24 mg/dL (6-20) H 01/05/18 00:11 BUN/Creatinine Ratio 32 (6-26) H 01/05/18 00:11 Glucose 168 mg/dL (70-105) H 01/05/18 00:11 POC Glucose 112 mg/dL (70-99) H 01/04/18 11:04 Iron < 10 mcg/dL (50-170) L 01/01/18 04:49 Transferrin 168 mg/dL (203-362) L 01/01/18 04:49 Ferritin 489 ng/mL (10-120) H 01/01/18 19:13 ALT 6 Units/L (7-52) L 01/01/18 04:49 Lactate Dehydrogenase 393 Units/L (140-271) H 01/02/18 03:12 Albumin 2.8 g/dL (3.5-5.7) L 01/01/18 04:49 Globulin 3.7 g/dL (2.4-3.5) H 01/01/18 04:49 Albumin/Globulin Ratio 0.8 (1.1-2.2) L 01/01/18 04:49 CA 125 Ag Serial Mntr 855 U/mL (Less than 35) H 01/03/18 09:58 Vancomycin Trough 12 mcg/mL (5-10) H 01/02/18 21:59 Antibody Screen POSITIVE A 01/01/18 04:49 - Clinical Findings Intake & Output: Intake & Output 01/04/18 01/05/18 01/05/18 23:59 07:59 15:59 Intake Total 168 / 168 537 / 537 Output Total 500 / 500 500 / 500 Balance -332 / -332 37 / 37 Weight 102.5 kg Consult Discharge Plan - Plan Referrals: NONE,PCP [Primary Care Provider] - Nivia Tariq [Family Provider] -
--- NOTE | 2018-01-05 12:18 | Oncology Inp Progress Note ---
Date of Encounter: 01/05/18 Time of Encounter: 12:00 (1) Lung mass Current Visit: Yes Status: Acute Assessment and plan: CTA which revealed bilateral segmental pulmonary arterial emboli, left upper lobe pleural based 4.3 cm mass, medial left lower lobe 3.3 cm mass, partially imaged 17.6 cm midmesenteric mass, aorticopulmonary adenopathy, as well as 3.7 lower left neck mass directly adjacent to the left lobe of the thyroid. CT soft tissue neck- Significantly enlarged left supraclavicular lymph node measuring up to 3.3 cm consistent with metastatic disease. CT abdomen/pelvis revealed enlarged heterogeneous uterus with an adjacent 20 cm pelvic mass, 8.8 x 7.4 cm right adnexal mass, metastatic pelvic and retroperitoneal adenopathy, mild stranding of the omentum, moderate ascites, anasarca. S/P biopsy of the left cervical LN yesterday-pathology pending Labs-CBC reviewed- Neutrophilic leukocytosis secondary to infection, reactive thrombocytosis (secondary to infection, malignancy or KVNG). 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 Discussed the above results thus far and need for pathology confirmation to discuss treatment options. Ms. Lee lives about an hour away but wishes to follow up with the [facility]. I am reaching out to health social work professor for any support patient may have available to her, specifically in regards to gas vouchers. (2) Anemia Current Visit: Yes Status: Acute Assessment and plan: Microcytic anemia on admission Etiology unclear, but GI loss is within differential Need to closely H&H monitor while on heparin gtt Iron and B12 replete LDH elevated Patient declined endoscopy evaluation Plan: Treating supportively with transfusion PRN Folate borderline low-started folic acid Qualifiers: Qualified Code(s): D64.9 - Anemia, unspecified (3) Pulmonary emboli Current Visit: Yes Status: Acute Assessment and plan: Bilateral segmental pulmonary arterial emboli Currently on heparin gtt Likely secondary active malignancy with new CT findings, smoking, obesity BLE venous [id number] edema likely secondary to pelvic mass/ adenoopathy Plan As discussed in anemia above-Closely monitor heparin gtt-consider stopping if patient becomes hemodynamically unstable or if hgb acutely drops further Hgb is stable at this time GI consulted and patient declined endoscopy Recommendations for AC at discharge: Dr. Martin recommends oral AC at discharge with transition to Xarelto Qualifiers: Qualified Code(s): I26.99 - Other pulmonary embolism without acute cor pulmonale Oncology: Subj Interval history: Ms. Lee is resting in chair. She appears to be in better spirits and is conversational today. She denies pain, SOB, chest pain, hemoptysis, constipation , diarrhea, nausea or vomiting. She denies any s/s bleeding. She reports a good appetite. She has been ambulating about in her room - Constitutional Vitals: Vital Signs Temp Pulse Resp BP Pulse Ox 01/05/18 12:05 16 98 01/05/18 07:46 16 94 01/05/18 07:21 98.0 F 75 17 131/74 94 01/05/18 05:00 97.5 F L 77 18 121/58 92 01/05/18 03:56 18 95 01/05/18 00:00 98 F 82 19 130/71 92 01/04/18 23:48 19 94 01/04/18 21:35 94 01/04/18 20:00 98.2 F 87 17 124/60 90 01/04/18 19:33 20 91 01/04/18 16:32 98.3 F 89 19 118/65 93 01/04/18 15:45 18 93 Intake and Output 01/04/18 01/05/18 01/05/18 23:59 07:59 15:59 Intake Total 168 / 168 537 / 537 403 / 403 Output Total 500 / 500 500 / 500 Balance -332 / -332 37 / 37 403 / 403 Intake: IV Fluids 168 / 168 337 / 337 163 / 163 Heparin 25,000 UNIT/500 ML D5W 168 / 168 337 / 337 163 / 163 25,000 unit In 500 ml @ 14 UNIT /KG/HR 27.104 mls/hr IVC . [id number] [facility] Rx#:[id number] Oral 0 / 0 200 / 200 240 / 240 Output: Urine 500 / 500 500 / 500 Other: Meal Dinner Breakfast Percent of Meal Consumed 90% 100% Weight 102.5 kg Patient Weight 01/05/18 23:59 Weight 102.5 kg General appearance: cooperative, no acute distress, no febrile - Head Head exam: Present: atraumatic - ENT ENT exam: Present: mucous membranes moist - Neck Neck exam: Present: lymphadenopathy - Respiratory Respiratory exam: Present: decreased breath sounds, CTAB. Absent: respiratory distress - Cardiovascular Cardiovascular exam: Present: RRR, +S1, +S2 - GI/Abdominal GI/Abdominal exam: Present: distended, firm. Absent: guarding, rebound, tenderness - Extremities Exam Extremities exam: Absent: calf tenderness Additional comments: BLE edema 2+ - Neurological Exam Neurological exam: Present: alert, oriented X3, no focal deficits, strengths equal and symetr throughout - Psychiatric Psychiatric exam: Present: normal affect, normal mood - Skin Skin exam: Present: dry, intact, normal color, warm Oncology: Obj Data - Labs CBC & Chem 7: 01/05/18 00:11 01/05/18 00:11 - Impressions Impressions Thyroid Ultrasound 01/01/18 04:35 IMPRESSION: Small benign-appearing cysts seen within the isthmus of the thyroid gland. Large lymph nodes seen in zone 4 along the left side of the neck these would be better evaluated with a CT scan of the neck. RECOMMENDATIONS: ACR TI-RADS recommendations: TR5 (>= 7 points): FNA if >= 1 cm; follow-up if 0.5-0.9 cm in 1, 2, 3, 4, and 5 years TR4 (4-6 points): FNA if >= 1.5 cm; follow-up if 1.0-1.4 cm in 1, 2, 3, and 5 years TR3 (3 points): FNA if >= 2.5 cm; follow-up if 1.5-2.4 cm in 1, 3, and 5 years TR2 (2 points): No FNA or follow-up TR1 (0 points): No FNA or follow-up ACR TI-RADS recommends that no more than two nodules with the highest ACR TI-RADS point total should be biopsied and no more than four nodules should be followed. D/ / 01/01/2018 08:42:53 Henry Russell MD / francescoyer Interpreting Provider: Henry Russell MD Lymph Node Biopsy/Excision 01/04/18 00:00 IMPRESSION: Successful ultrasound-guided core needle biopsy of an enlarged left cervical lymph node. No immediate complications. Pathology is pending. D/ / Pb Bower MD / Pb Bower MD Interpreting Provider: Pb Bower MD - ABG Interpretation ABG results: PT/INR, D-dimer PT 12.1 Seconds (9.4-12.1) 01/04/18 09:05 Consult Discharge Plan - Plan Referrals: NONE,PCP [Primary Care Provider] - Nivia Tariq [Family Provider] - Inpatient Charges Provider: Molly Ayala CNP Consult - Inpatient Medicare Only: [id number]
--- NOTE | 2018-01-05 16:59 | Internal Med Progress Note ---
Hospitalist Progress Note - Encounter Date of Encounter: 01/05/18 Time of Encounter: 09:00 - Subjective Interval History: patient was seen and examined at bedside. reports that she is feeling fine, dismissive. Denies shortness of breath, chest pain, palpitations, fever, chills. Tolerated IR guided procedure well denies pain or bleeding. I discussed with her the need to have endoscopy/colonoscopy performed as she was transfused 2 units of PRBC for acute anemia while being treated with anticoagulation for pulmonary embolism. She would like to think about the procedure. - Exam Vitals: Temp Pulse Resp BP Pulse Ox 98.0 F 75 16 131/74 98 01/05/18 07:21 01/05/18 07:21 01/05/18 12:05 01/05/18 07:21 01/05/18 12:05 Exam: General: Patient is alert, oriented, no acute distress, obese, speaks in full sentences Head: atraumatic, normocephalic, Eye: normal appearance, PERRL, no scleral icterus, no conjunctival injection ENT: mucous membranes moist, normal external ear exam Neck: normal inspection, trachea midline, full ROM, no carotid bruits Chest: normal inspection, symmetric chest rise Respiratory: Decreased breath sounds secondary to body habitus, crackles on the left posterior aspect, no wheezing. Cardiovascular: Distant heart sounds secondary to body habitus, Regular rate and rhythm. s1 and s2 No clicks, rubs, gallops, or murmors. Abdomen: Bowel sounds present normoactive x-4 quadrants. Abdomen is soft, +ve distended. no Epigastric tenderness. No guarding or rebound. No organomegaly noted, obese musculoskeletal: Spontaneously moving all extremities. +2 edema of the bilateral lower extremities Skin: warm, dry, intact. Neuro: Alert and oriented x4. Sensation light touch intact. Cranial nerves 2- 12 is intact. Not aphasic, no focal deficit - Assessment and Plan (1) Lung mass Current Visit: Yes Status: Acute Assessment and Plan: On Chest CT, 4.3 cm in the left upper and 3.3 cm in the medial left lower lobe. CT abdomen with Pelvic mass, metastatic pelvic and retroperitoneal adenopathy, ascitis. CT neck with left suprclavicular LN enlargement. 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 Likely related to malignancy. currently on heparin drip ECHO with 60-65. mild diastolic dysfunction. Mod Pul HTN. LE Doppler negative for DVT will continue on heparin drip as she has had acute anemia requiring transfusion. currently refusing endoscopy and EGD (3) Pneumonia Current Visit: Yes Status: Acute Assessment and Plan: leukocytosis trending down c/w ceftriaxone and azithromycin. f/u Legionella and strep pneumo ag.- discussed with nursing staff blood culture NGTD. pulmonology on board and recommendations appreciated (4) Thyroid mass Current Visit: Yes Status: Acute Assessment and Plan: US thyroid with "small benign-appearing cysts seen within the isthmus. Large lymph nodes seen in zone 4 along the left side of the neck these would be better evaluated with a CT scan of the neck." She is also worried about anethesia and "need to know what anesthetic medication will be used during the procedure and side effects and risks". CT neck as above. (5) Anemia Current Visit: Yes Status: Acute Assessment and Plan: s/p 2 PRBC. Hb stable around 8. Stable on heparin drip for PE Evaluated by surgery. Appreciate recommendations. Patient refused EGD and colonoscopic evaluation. I discussed this with patient again- she will think about it- will consider GI consult in [place] AM if she is agreeable Monitor H&H. Treating supportively with transfusion PRN Folate borderline low-started folic acid hematology and oncology on board (6) COPD (chronic obstructive pulmonary disease) Current Visit: Yes Status: Acute Assessment and Plan: COPD likely due to her 30 pack year smoking history continue duo-nebs and symbicort on solumedrol 40 mg BID - will slowly taper ABx as above (7) DVT prophylaxis Current Visit: Yes Status: Acute Assessment and Plan: on heparin drip - Time Spent with Patient Total time spent is greater than 50% in coordination of care (as documented) at patient's floor/unit and/or counseling patient: Internal Medicine: Result - Labs CBC & Chem 7: 01/05/18 00:11 01/05/18 00:11 Labs: Short CBC 01/05/18 Range/Units 00:11 WBC 15.0 H (4.3-11.1) K/mcL Hgb 9.3 L (11.5-15.4) g/dL Hct 34.8 L (35.3-44.9) % Plt Count 487 H (140-400) K/mcL Neutrophils # 12.6 H (1.6-8.9) K/mcL BMP 01/05/18 00:11 Sodium 137 Potassium 4.6 Chloride 98 Carbon Dioxide 31 H BUN 24 H Creatinine 0.76 Glucose 168 H Calcium 9.0 - ABG Interpretation ABG results: PT/INR, D-dimer PT 12.1 Seconds (9.4-12.1) 01/04/18 09:05 Consult Discharge Plan - Plan Referrals: NONE,PCP [Primary Care Provider] - Nivia Tariq [Family Provider] - (2) Pulmonary emboli Qualifiers: Pulmonary embolism type: other Chronicity: acute Acute cor pulmonale presence: without acute cor pulmonale Qualified Code(s): I26.99 - Other pulmonary embolism without acute cor pulmonale (3) Pneumonia Qualifiers: Pneumonia type: due to unspecified organism Laterality: unspecified laterality Lung location: unspecified part of lung Qualified Code(s): J18.9 - Pneumonia, unspecified organism (5) Anemia Qualifiers: Anemia type: unspecified type Qualified Code(s): D64.9 - Anemia, unspecified (6) COPD (chronic obstructive pulmonary disease) Qualifiers: Chronic bronchitis type: unspecified
[2018-01-06] MEDS: Ipratropium/Albuterol Neb 3 ML IH SCH ×6 (03:58→23:01)
[2018-01-06] MEDS: Pantoprazole 40 MG VIAL IVP SCH ×2 (04:12→19:49)
[2018-01-06] MEDS: methylPREDNISolone 125 MG/2 ML VIAL IVP SCH ×2 (04:13→19:49)
[2018-01-06] MEDS: cefTRIAXone 2,000 MG in Water for inj. (sterile) 20 ML 20 ML IVP SCH (04:15)
[2018-01-06] MEDS: Heparin 25,000 UNIT/500 ML D5W 25,000 UNIT/500 ML BAG IVC SCH ×2 (06:22→17:14)
[2018-01-06] MEDS: Budesonide/Formoterol 160/4.5 1 PUFF INH IH SCH ×2 (07:24→20:08)
[2018-01-06 08:17] LABS: Red Cell Distribution Width 21.2 % (11.5-14.5)
[2018-01-06 08:18] LABS: BUN/Creatinine Ratio 35 (6-26); Blood Urea Nitrogen 23 mg/dL (6-20); Calcium 9.2 mg/dL (8.6-10.3); Carbon Dioxide 32 mEq/L (23-29); Chloride 96 mEq/L (98-107); Glucose 137 mg/dL (70-105); Osmolality,Calculated 288 (280-300); Potassium 4.5 mEq/L (3.5-5.1); Sodium 136 mEq/L (136-145); eGFR For Non-African Americans > 60 (> 60)
[2018-01-06 08:19] LABS: Hematocrit 34.5 % (35.3-44.9); Hemoglobin 9.6 g/dL (11.5-15.4); Mean Corpuscular HGB Conc 27.8 g/dL (31.6-35.5); Mean Corpuscular Hemoglobin 21.5 pg (28.0-33.3); Mean Corpuscular Volume 77.4 fL (83.0-100.0); Mean Platelet Volume 9.7 fL (9.4-12.4); Platelet Count 423 K/mcL (140-400); Red Blood Count 4.46 M/mcL (3.82-4.97)
--- NOTE | 2018-01-06 11:34 | Internal Med Progress Note ---
Hospitalist Progress Note - Encounter Date of Encounter: 01/06/18 Time of Encounter: 09:00 - Subjective Interval History: patient was seen and examined at bedside. reports that she is feeling fine, again extremely dissmissive, will not turn around to speak to me while laying in bed. I spoke to her about our discussion yesterday for the need to have endoscopy and colonoscopy performed as she was anemic and on anticoagulation. She responded "do whatever has to be done." She denies pain, fever, chills, shortness of breath, cough, hemoptysis, melena. Emotional support was provided - Exam Vitals: Temp Pulse Resp BP Pulse Ox 98.4 F 84 18 129/62 93 01/06/18 11:17 01/06/18 11:17 01/06/18 11:26 01/06/18 11:17 01/06/18 11:26 Exam: General: Patient is alert, oriented, no acute distress, obese, speaks in full sentences Head: atraumatic, normocephalic, Eye: normal appearance, PERRL, no scleral icterus, no conjunctival injection ENT: mucous membranes moist, normal external ear exam Neck: normal inspection, trachea midline, full ROM, no carotid bruits Chest: normal inspection, symmetric chest rise Respiratory: Decreased breath sounds secondary to body habitus, crackles on the left posterior aspect, no wheezing. Cardiovascular: Distant heart sounds secondary to body habitus, Regular rate and rhythm. s1 and s2 No clicks, rubs, gallops, or murmors. Abdomen: Bowel sounds present normoactive x-4 quadrants. Abdomen is soft, +ve distended. no Epigastric tenderness. No guarding or rebound. No organomegaly noted, obese musculoskeletal: Spontaneously moving all extremities. +2 edema of the bilateral lower extremities Skin: warm, dry, intact. Neuro: Alert and oriented x4. Sensation light touch intact. Cranial nerves 2- 12 is intact. Not aphasic, no focal deficit - Assessment and Plan (1) Lung mass Current Visit: Yes Status: Acute Assessment and Plan: On Chest CT, 4.3 cm in the left upper and 3.3 cm in the medial left lower lobe. CT abdomen with Pelvic mass, metastatic pelvic and retroperitoneal adenopathy, ascitis. CT neck with left suprclavicular LN enlargement. 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 Likely related to malignancy. currently on heparin drip ECHO with 60-65. mild diastolic dysfunction. Mod Pul HTN. LE Doppler negative for DVT will continue on heparin drip as she has had acute anemia requiring transfusion. i had an extensive discussion with patient and she has agreed for endoscopy and colonoscopy (3) Pneumonia Current Visit: Yes Status: Acute Assessment and Plan: persistent leukocytosis ( she is on steroids for COPD), no fever, tachycardia, BP stable c/w ceftriaxone and azithromycin. f/u Legionella and strep pneumo ag.- discussed with nursing staff blood culture NGTD. pulmonology on board and recommendations appreciated (4) Thyroid mass Current Visit: Yes Status: Acute Assessment and Plan: US thyroid with "small benign-appearing cysts seen within the isthmus. CT neck- The thyroid gland appears unremarkable. (5) Anemia Current Visit: Yes Status: Acute Assessment and Plan: s/p 2 PRBC. Hb stable above 8 on heparin drip for PE I discussed this with patient again on 01/05 and 01/06 she is no agreeable to have endoscpy and colonoscopy performed Treating supportively with transfusion PRN Folate borderline low-started folic acid hematology and oncology on board (6) COPD (chronic obstructive pulmonary disease) Current Visit: Yes Status: Acute Assessment and Plan: COPD likely due to her 30 pack year smoking history continue duo-nebs and symbicort on solumedrol IV tapering ABx as above (7) Goals of care, counseling/discussion Current Visit: Yes Status: Acute Assessment and Plan: i have discussed the plan of care with the patient she is dismissive and at times in denial. does not want to discuss any information with her family. I have provided emotional support she has agreed to have endoscopy and colonoscopy palliative consulted for goals of care (8) DVT prophylaxis Current Visit: Yes Status: Acute Assessment and Plan: on heparin drip - Time Spent with Patient Total time spent is greater than 50% in coordination of care (as documented) at patient's floor/unit and/or counseling patient: Internal Medicine: Result - Labs CBC & Chem 7: 01/06/18 06:38 01/06/18 06:38 Labs: Short CBC 01/06/18 Range/Units 06:38 WBC 17.4 H (4.3-11.1) K/mcL Hgb 9.6 L (11.5-15.4) g/dL Hct 34.5 L (35.3-44.9) % Plt Count 423 H (140-400) K/mcL BMP 01/06/18 06:38 Sodium 136 Potassium 4.5 Chloride 96 L Carbon Dioxide 32 H BUN 23 H Creatinine 0.66 Glucose 137 H Calcium 9.2 - ABG Interpretation ABG results: PT/INR, D-dimer PT 12.1 Seconds (9.4-12.1) 01/04/18 09:05 - Impressions Impressions Abdomen/Pelvis CT 01/02/18 12:00 IMPRESSION: 1. Enlarged heterogeneous uterus with an adjacent 20 cm pelvic mass compatible with neoplasm until proven otherwise. This may reflect a primary neoplasm given its appearance. There is also an 8.8 x 7.4 cm right adnexal mass also compatible with malignancy. 2. Metastatic pelvic and retroperitoneal adenopathy. 3. Moderate volume ascites. There is mild stranding of the omentum in the right upper quadrant left mid abdomen however a discrete peritoneal nodule is not identified. 4. Anasarca. 5. Bibasilar airspace opacities as well as nodules within the lung bases. Please refer to dedicated CT of the chest performed earlier. D/ / 01/02/2018 14:04:12 Nadine Bliss MD / july Interpreting Provider: Nadine Bliss MD Consult Discharge Plan - Plan Referrals: NONE,PCP [Primary Care Provider] - Nivia Tariq [Family Provider] - (2) Pulmonary emboli Qualifiers: Pulmonary embolism type: other Chronicity: acute Acute cor pulmonale presence: without acute cor pulmonale Qualified Code(s): I26.99 - Other pulmonary embolism without acute cor pulmonale (3) Pneumonia Qualifiers: Pneumonia type: due to unspecified organism Laterality: unspecified laterality Lung location: unspecified part of lung Qualified Code(s): J18.9 - Pneumonia, unspecified organism (5) Anemia Qualifiers: Anemia type: unspecified type Qualified Code(s): D64.9 - Anemia, unspecified (6) COPD (chronic obstructive pulmonary disease) Qualifiers: Chronic bronchitis type: unspecified
[2018-01-06] MEDS: Folic Acid 1 MG TABLET PO SCH (12:02)
[2018-01-06] MEDS: Azithromycin 250 MG TABLET PO SCH (12:02)
--- NOTE | 2018-01-06 15:36 | Palliative - Consult Note ---
Date of Encounter: 01/06/18 Time of Encounter: 14:30 - Assessment and Plan (1) Goals of care, counseling/discussion Current Visit: Yes Status: Acute Assessment and plan: Met with pt at the bedside, patient was willing to discuss and sat on chair. She was pleasant and cooperative. Discussed her current medical condition, patient is up to date, and understanding of her possible diagnosis, although she is still hopeful of a better outcome. Discussed appointing a POA, pt has 5 children from 2 marriages( 2 adult daughters and 2 teenagers 14, 16, 18), she her first and is estranged from the second. Her adults daughters Toby and Angélica will be the probable POAs, but pt does not want to complete any paperwork at this time. Discussed pt's need for colonoscopy, and other procedures. Pt states she needs to have full understanding of procedures, and also, she avoids procedures that require lying flat on her back, or sedation. After counseling and discussion, she agreed to reconsider endoscopy. At this time, Pt's goal is to await for biopsy result, and start treatment as offered. She would like to be followed here at [place], but is worried about the [place] for [place] to come for follow up. Will refer to . Time spent greater than 40 minutes. (2) Anemia Current Visit: Yes Status: Acute Assessment and plan: s/p 2 PRBC. Hb stable around 8. Patient on heparin drip for PE. Surgery has recommended endoscopy. Patient is worried about the procedures as she feels they are invasive, she feels very uncomfortable at the idea of lying flat on her back, and also she is afraid off being sedated and not on control of what happens to her. Explained the different steps of both procedures, explained that most cases are done under conscious sedation, and that she may not have to lay flat, but can be on her side or semi-recumbent. Patient was willing to consider the procedure, and stated she will probably agree for it. Qualifiers: Anemia type: iron deficiency Iron deficiency anemia type: chronic blood loss Qualified Code(s): D50.0 - Iron deficiency anemia secondary to blood loss (chronic) (3) Dyspnea Current Visit: Yes Status: Acute Assessment and plan: Due to a combination of PE, COPD, Pneumonia and obesity hypoventilation. Pt feels back to her baseline, she cannot lay on her back due to the weight of her abdomen, but she feels well with current treatment. c/w Heparin drip for PE c/w ceftriaxone and azithromycin. continue duo-nebs and symbicort continue with solumedrol 40 mg BID - taper. Qualifiers: Dyspnea type: shortness of breath Qualified Code(s): R06.02 - Shortness of breath; R06.00 - Dyspnea, unspecified; R06.01 - Orthopnea (4) COPD (chronic obstructive pulmonary disease) Current Visit: Yes Status: Acute Qualifiers: COPD type: chronic bronchitis Chronic bronchitis type: unspecified Qualified Code(s): J42 - Unspecified chronic bronchitis (5) Pelvic mass Current Visit: Yes Status: Acute Assessment and plan: CT abdomen revealed Pelvic mass, metastatic pelvic and retroperitoneal adenopathy, ascitis. CT neck with left supra-clavicular LN enlargement. n Chest CT, 4.3 cm in the left upper and 3.3 cm in the medial left lower lobe. S/P biopsy of supra-clavicular lymph node. Awaiting result of pathology for further options. Palliative-CN HPI - Data of Consult Patient: new to practice Consult date: 01/06/18 Requesting Physician: Vita Arredondo MD Primary Care Provider: PCP NONE Family Provider: CliffConasha Provider - Consult Narrative Palliative Care/Comfort Measures: Palliative care Reason for consult: Goals of care History of present illness: Ms. Frias is a 83 year old female with history of tobacco abuse and COPD. She initially presented to [facility] for concern for pneumonia with increased SOB, cough and chills over past week. She had a CTA which revealed bilateral segmental pulmonary arterial emboli, left upper lobe pleural based 4.3 cm mass, medial left lower lobe 3.3 cm mass, partially imaged 17.6 cm midmesenteric mass, aorticopulmonary adenopathy, as well as 3.7 lower left neck mass directly adjacent to the left lobe of the thyroid. On admission pt was anemic, and was transfused 2 PRBCs, remains on heparin drip for PE. Subsequent CT abdomen/pelvis revealed a large pelvic mass w Metastatic pelvic and retroperitoneal adenopathy and ascites. CT neck showed metastatic adenopathy. US guided biopsy of supraclavicular lymph node was performed . Patient was seen at the bedside today, she was lying in bed, but agreed to si on the chair and was open to talking. She states her SOB has improved to a point that she feels back to baseline, she complains of swelling of her legs, denies any nausea, vomiting, pain, changes in her urine or BM. CC: Vita Arredondo MD - Time Spent with Patient Time: Total time spent is greater than 50% in coordination of care face to face with patient, (as documented) at patient's floor/unit and/or counseling patient: greater than 70 minutes Past Med Surg Social Fam HX - Past Medical History Medical history: COPD Psychiatric history: no psych history - Past Surgical History Surgical History: no surgical history - Social History Smoking Status: Current every day smoker Packs per day: less than half Smokeless Tobacco Status: No Alcohol use: none Drug use: none - Family History Mother Living Status: Still Living Hx Family Cardiac Disorders: Yes (tachycardia) Hx Family Cancer: No Father Living Status: Still Living Hx Family Cancer: No Medications and Allergies Albuterol Sulfate [Ventolin Hfa] 2 puff IH Q6H PRN 01/01/18 [History] Budesonide/Formoterol 160/4.5 [Symbicort 160/4.5] 2 puff IH BID 01/01/18 [ History] 3 Allergy/AdvReac Type Severity Reaction Status Date / Time No Known Allergies Allergy Unverified 04/21/17 13:08 - Constitutional Constitutional ROS PAL: as per HPI - EENT Eyes: as per HPI - Cardiovascular Cardiovascular ROS: leg edema, no chest pain - Respiratory Respiratory: cough, dyspnea - Gastrointestinal Gastrointestinal: as per HPI - Genitourinary Palliative ROS female: no abnormal vaginal bleeding, no dysuria - Musculoskeletal Musculoskeletal ROS IM: no muscle weakness, no myalgias - Integumentary ROS Integumentary: unusual bruising - Neurological Neurological ROS: as per HPI - Psychiatric Psychiatric general PM: no hopelessness, no suicidal ideation Palliative Care-Exam - Constitutional Vitals: Temp Pulse Resp BP Pulse Ox 98.4 F 84 18 129/62 93 01/06/18 11:17 01/06/18 11:17 01/06/18 11:26 01/06/18 11:17 01/06/18 11:26 General appearance: Present: cooperative, no acute distress. Absent: febrile Exam: General: Patient is alert, oriented, no acute distress, obese, speaks in full sentences Head: atraumatic, normocephalic, Eye: normal appearance, PERRL, no scleral icterus, no conjunctival injection ENT: mucous membranes moist Neck: normal inspection, trachea midline, full ROM, no carotid bruits Chest: normal inspection, symmetric chest rise Respiratory: Decreased breath sounds secondary to body habitus, crackles on the left posterior aspect, no wheezing. Cardiovascular: Distant heart sounds secondary to body habitus, Regular rate and rhythm. s1 and s2 No clicks, rubs, gallops, or murmors. Abdomen: Bowel sounds present normoactive x-4 quadrants. Abdomen is soft, +ve distended. no Epigastric tenderness. No guarding or rebound. No organomegaly noted, obese musculoskeletal: Spontaneously moving all extremities. +2 edema of the bilateral lower extremities Skin: warm, dry, intact. Neuro: Alert and oriented x4. Sensation light touch intact. Cranial nerves 2- 12 is intact. Not aphasic, no focal deficit Internal Medicine - CN: Reslt - Labs CBC & Chem 7: 01/06/18 06:38 01/06/18 06:38 Labs: Short CBC 01/06/18 Range/Units 06:38 WBC 17.4 H (4.3-11.1) K/mcL Hgb 9.6 L (11.5-15.4) g/dL Hct 34.5 L (35.3-44.9) % Plt Count 423 H (140-400) K/mcL BMP 01/06/18 06:38 Sodium 136 Potassium 4.5 Chloride 96 L Carbon Dioxide 32 H BUN 23 H Creatinine 0.66 Glucose 137 H Calcium 9.2 - ABG Interpretation ABG results: PT/INR, D-dimer PT 12.1 Seconds (9.4-12.1) 01/04/18 09:05 - Impressions Impressions Abdomen/Pelvis CT 01/02/18 12:00 IMPRESSION: 1. Enlarged heterogeneous uterus with an adjacent 20 cm pelvic mass compatible with neoplasm until proven otherwise. This may reflect a primary neoplasm given its appearance. There is also an 8.8 x 7.4 cm right adnexal mass also compatible with malignancy. 2. Metastatic pelvic and retroperitoneal adenopathy. 3. Moderate volume ascites. There is mild stranding of the omentum in the right upper quadrant left mid abdomen however a discrete peritoneal nodule is not identified. 4. Anasarca. 5. Bibasilar airspace opacities as well as nodules within the lung bases. Please refer to dedicated CT of the chest performed earlier. D/ / 01/02/2018 14:04:12 Nadine Bliss MD / july Interpreting Provider: Nadine Bliss MD Consult Discharge Plan - Plan Referrals: NONE,PCP [Primary Care Provider] - Nivia Tariq [Family Provider] - Palliative Quality Palliative Quality: Screen for Code Status: Yes, Screen for Goals of Care: Yes, Screen for Pain: Yes, If Pain Regimen Started, Initiate Bowel Regimen: NA, Screen for Nausea/Vomitting: Yes Code Status: 01/01/18 04:15 Resuscitation Status: Active [RES] Routine Comment: Resuscitation Status: Full Code
[2018-01-07] MEDS: Heparin 25,000 UNIT/500 ML D5W 25,000 UNIT/500 ML BAG IVC SCH ×2 (02:13→21:26)
[2018-01-07] MEDS: Ipratropium/Albuterol Neb 3 ML IH SCH ×6 (04:37→23:47)
[2018-01-07 04:39] LABS: Platelet Count 439 K/mcL (140-400)
[2018-01-07 04:40] LABS: Hematocrit 32.3 % (35.3-44.9); Hemoglobin 9.1 g/dL (11.5-15.4); Mean Corpuscular HGB Conc 28.2 g/dL (31.6-35.5); Mean Corpuscular Hemoglobin 21.7 pg (28.0-33.3); Mean Corpuscular Volume 77.1 fL (83.0-100.0); Mean Platelet Volume 9.3 fL (9.4-12.4); Red Blood Count 4.19 M/mcL (3.82-4.97); Red Cell Distribution Width 21.5 % (11.5-14.5)
[2018-01-07 05:00] LABS: BUN/Creatinine Ratio 32 (6-26); Blood Urea Nitrogen 22 mg/dL (6-20); Calcium 9.1 mg/dL (8.6-10.3); Carbon Dioxide 32 mEq/L (23-29); Chloride 96 mEq/L (98-107); Glucose 147 mg/dL (70-105); Osmolality,Calculated 288 (280-300); Potassium 4.4 mEq/L (3.5-5.1); Sodium 136 mEq/L (136-145); eGFR For Non-African Americans > 60 (> 60)
[2018-01-07] MEDS: cefTRIAXone 2,000 MG in Water for inj. (sterile) 20 ML 20 ML IVP SCH (05:13)
[2018-01-07] MEDS: methylPREDNISolone 125 MG/2 ML VIAL IVP SCH ×2 (05:15→07:45)
[2018-01-07] MEDS: Pantoprazole 40 MG VIAL IVP SCH ×4 (05:15→17:17)
[2018-01-07] MEDS: Budesonide/Formoterol 160/4.5 1 PUFF INH IH SCH ×2 (07:28→20:12)
[2018-01-07] MEDS: Folic Acid 1 MG TABLET PO SCH (08:12)
[2018-01-07] MEDS: Azithromycin 250 MG TABLET PO SCH (08:12)
--- NOTE | 2018-01-07 11:11 | Gastroenterology Consult Note ---
<AllenDominic loomis Daniel - Last Filed: 01/07/18 11:09> Date of Encounter: 01/07/18 Time of Encounter: 09:30 - Assessment and plan (1) Anemia Status: Acute Assessment and plan: On admission here, Hgb 6.5 and she has received 2 units PRBC. Hgb 9.1 today. Continue to monitor CBC and transfuse PRBC as needed. Plan for EGD and colonoscopy tomorrow. Clear liquid diet today, no red or purple. NPO at midnight. If unable tolerate NuLytely please use MiraLAX prep. If not clear by 6 AM, give 2 tap water enemas. Hold heparin drip 6 hours prior to scopes. Qualifiers: Anemia type: iron deficiency Iron deficiency anemia type: chronic blood loss Qualified Code(s): D50.0 - Iron deficiency anemia secondary to blood loss (chronic) (2) Pulmonary emboli Status: Acute Assessment and plan: On heparin drip, will need to hold Heparin drip 6 hours prior to EGD and colonoscopy. Qualifiers: Pulmonary embolism type: other Chronicity: acute Acute cor pulmonale presence: without acute cor pulmonale Qualified Code(s): I26.99 - Other pulmonary embolism without acute cor pulmonale (3) Lung mass Status: Acute Assessment and plan: Oncology following. - Time Spent With Patient Total time spent is greater than 50% in coordination of care (as documented) at patient's floor/unit and/or counseling patient: GI History of Present Illness - Data of Consult Patient: new to practice Consult date: 01/07/18 Requesting Physician: Vita Arredondo MD - Consult Narrative Reason for consult: anemia History of present illness: Ms. Trejo is a 57 year old female with PMHx of COPD who was transferred from [facility]. She presented there with shortness of breath and difficulty breathing, symptoms started a few days prior to presentation and had worsened. Workup there was performed which revealed patient to have bilateral pulmonary emboli, multiple lung masses, and a partially imaged mesenteric mass in her upper abdomen. She was found to be profoundly anemic with a hemoglobin of 7.0. She denied melena, hematochezia, hematemesis, coffee-ground emesis, or hematuria. On 01/02, she was refusing any type of endoscopy procedure. On admission here, Hgb 6.5 and she has received 2 units PRBC. Hgb 9.1 today. She is now agreeable to EGD and colonoscopy. She is s/p biopsy of the left cervical lymph node, pathology pending. Procedures: None NSAIDs: None Anticoagulation: None Past Med Surg Social Fam HX - Past Medical History Medical history: COPD Psychiatric history: no psych history - Past Surgical History Surgical History: no surgical history - Social History Smoking Status: Current every day smoker Packs per day: less than half Smokeless Tobacco Status: No Alcohol use: none Drug use: none - Family History Father Living Status: Still Living Hx Family Cancer: No Mother Living Status: Still Living Hx Family Cardiac Disorders: Yes (tachycardia) Hx Family Cancer: No - Gastrointestinal Gastrointestinal: Present: as per HPI - Constitutional Constitutional: as per HPI - EENT Eyes: as per HPI Ears: Present: as per HPI Nose, mouth and throat: Present: as per HPI - Cardiovascular Cardiovascular ROS: Present: as per HPI - Respiratory Respiratory IM: Present: as per HPI - Genitourinary Genitourinary: Absent: change in color, Urinary frequency - Neurological ROS Neurological GI: Present: as per HPI - Hematologic/Lymphatic Hematologic/Lymphatic pediatric: Present: as per HPI - Musculoskeletal Musculoskeletal ROS GI: Present: as per HPI - Integumentary Integumentary GI: Present: as per HPI - Psychiatric ROS Psychiatric GI: Present: as per HPI - Endocrine Endocrine IM: Present: as per HPI - Constitutional Vitals: Temp Pulse Resp BP Pulse Ox 98.0 F 80 18 159/80 93 01/07/18 11:04 01/07/18 11:04 01/07/18 11:04 01/07/18 11:04 01/07/18 11:04 General appearance: Present: cooperative, A&O X 3, no acute distress, answers questions appropriately - Head Head exam: Present: atraumatic, normocephalic - Eye Eye exam: Present: normal appearance, sclera anicteric - ENT ENT exam: Present: mucous membranes moist - Neck Neck exam general surgery: Present: normal inspection, trachea midline - Respiratory Respiratory exam: Present: decreased breath sounds, CTAB. Absent: rales, rhonchi, wheezes - Cardiovascular Cardiovascular exam: Present: RRR, +S1, +S2 - GI/Abdominal GI/Abdominal exam: Present: distended, soft, no peritoneal signs. Absent: firm, guarding, tenderness - Rectal Rectal exam: Present: deferred - Extremities Exam Extremities exam: Present: warm - Neurological Exam Neurological exam: Present: no focal deficits - Psychiatric Psychiatric exam: Present: normal affect, normal mood - Skin Skin exam: Present: dry, intact, normal color, warm Results - Labs CBC & Chem 7: 01/07/18 04:06 01/07/18 04:06 Labs: Last Result Calcium 9.1 mg/dL (8.6-10.3) 01/07/18 04:06 Iron < 10 mcg/dL (50-170) L 01/01/18 04:49 % Saturation TNP 01/01/18 04:49 Transferrin 168 mg/dL (203-362) L 01/01/18 04:49 Ferritin 489 ng/mL (10-120) H 01/01/18 19:13 Troponin I < 0.03 ng/mL (< 0.04) 01/01/18 19:13 Vitamin B12 486 pg/mL (250-1100) 01/02/18 03:12 Folate 3.2 ng/mL (3.0-16.0) 01/02/18 03:12 Entire Visit Hgb 9.1 g/dL (11.5-15.4) L 01/07/18 04:06 Hct 32.3 % (35.3-44.9) L 01/07/18 04:06 PT 12.1 Seconds (9.4-12.1) 01/04/18 09:05 Ferritin 489 ng/mL (10-120) H 01/01/18 19:13 Total Bilirubin 0.3 mg/dL (0.3-1.0) 01/01/18 04:49 AST 16 Units/L (13-39) 01/01/18 04:49 ALT 6 Units/L (7-52) L 01/01/18 04:49 Carcinoembryonic Ag 2.4 ng/mL (Less than 5.0) 01/03/18 09:58 CA 125 Ag Serial Mntr 855 U/mL (Less than 35) H 01/03/18 09:58 Folate 3.2 ng/mL (3.0-16.0) 01/02/18 03:12 - ABG ABG results: PT/INR, D-dimer PT 12.1 Seconds (9.4-12.1) 01/04/18 09:05 Consult Discharge Plan - Plan Instructions: Acyclovir (By mouth), Amoxicillin/Clavulanate Potassium (By mouth), Fluconazole (By mouth), Enoxaparin (Injection), Intravenous Chemotherapy (DC), Eating During Cancer Treatment (DC), Oral Candidiasis (GEN) Referrals: Piedad Walker [employer] [Advanced Practice Nurse] - 01/18/18 1:00 pm Prescriptions: Ipratropium/Albuterol Neb [Duoneb] 3 ml IH Q6HR PRN #50 vial.neb PRN Reason: Shortness Of Breath RX: Enoxaparin [Lovenox] 80 mg SQ Q12HR #60 syr RX: Acyclovir [Zovirax] 400 mg PO TID #12 tablet Amoxicillin/Clavulanate [Augmentin] 875 mg PO DAILY #9 tablet Fluconazole [Diflucan] 200 mg PO DAILY #5 tab RX: Magic Mouthwash 10 ml PO TID #250 ml Nystatin [Nystatin Suspension] 5 ml PO QID #240 ml <Johnie San - Last Filed: 01/15/18 08:33> - Time Spent With Patient Total time spent is greater than 50% in coordination of care (as documented) at patient's floor/unit and/or counseling patient: GI History of Present Illness - Data of Consult Requesting Physician: Nina Garcia - Consult Narrative History of present illness: Ms. Trejo is a 57 year old female - Constitutional Vitals: Temp Pulse Resp BP Pulse Ox 97.7 F 75 75 100/67 91 01/13/18 08:00 01/13/18 08:00 01/13/18 08:00 01/13/18 08:00 01/13/18 03:00 Results - Labs CBC & Chem 7: 01/13/18 04:19 01/13/18 04:19 Labs: Last Result Calcium 8.7 mg/dL (8.6-10.3) 01/13/18 04:19 Iron < 10 mcg/dL (50-170) L 01/01/18 04:49 % Saturation TNP 01/01/18 04:49 Transferrin 168 mg/dL (203-362) L 01/01/18 04:49 Ferritin 489 ng/mL (10-120) H 01/01/18 19:13 Troponin I < 0.03 ng/mL (< 0.04) 01/01/18 19:13 Vitamin B12 486 pg/mL (250-1100) 01/02/18 03:12 Folate 3.2 ng/mL (3.0-16.0) 01/02/18 03:12 Entire Visit Hgb 7.6 g/dL (11.5-15.4) L 01/13/18 04:19 Hct 27.3 % (35.3-44.9) L 01/13/18 04:19 PT 11.7 Seconds (9.4-12.1) 01/11/18 09:33 Ferritin 489 ng/mL (10-120) H 01/01/18 19:13 Total Bilirubin 0.3 mg/dL (0.3-1.0) 01/01/18 04:49 AST 16 Units/L (13-39) 01/01/18 04:49 ALT 6 Units/L (7-52) L 01/01/18 04:49 Carcinoembryonic Ag 2.4 ng/mL (Less than 5.0) 01/03/18 09:58 CA 125 Ag Serial Mntr 855 U/mL (Less than 35) H 01/03/18 09:58 Folate 3.2 ng/mL (3.0-16.0) 01/02/18 03:12 - ABG ABG results: PT/INR, D-dimer PT 11.7 Seconds (9.4-12.1) 01/11/18 09:33 - Attending Attestation Severe anemia.Will plan EGD and colonoscopy. I have personally performed a face to face evaluation on this patient. I have reviewed and agree with the care plan. History and Exam by me shows:
--- NOTE | 2018-01-07 12:16 | Palliative Progress Note ---
Date of Encounter: 01/07/18 Time of Encounter: 09:30 - Assessment and plan (1) Goals of care, counseling/discussion Current Visit: Yes Status: Acute Assessment and plan: follow up discussion on GOC, patient is now agreeable for endoscopy, although she appears worried. Further GOC discussion when pathology available. Patient ultimtely would like to follow up at [facility]. Discussed with TANESHA Herrera, there are EMAIL MARKETER present at the cancer centre that can help pt with her social needs, and financial help will be provided for pt to come for appointments. (2) Anemia Current Visit: Yes Status: Acute Assessment and plan: H/H remains stable on heparin drip. Patient scheduled for endoscopy tomorrow by GI. Qualifiers: Anemia type: iron deficiency Iron deficiency anemia type: chronic blood loss Qualified Code(s): D50.0 - Iron deficiency anemia secondary to blood loss (chronic) (3) Dyspnea Current Visit: Yes Status: Acute Assessment and plan: Improving. Due to a combination of PE, COPD, Pneumonia and obesity hypoventilation. Pt feels back to her baseline, she cannot lay on her back due to the weight of her abdomen, but she feels well with current treatment. c/w Heparin drip for PE c/w ceftriaxone and azithromycin. continue duo-nebs and symbicort continue with solumedrol 40 mg BID - taper. Qualifiers: Dyspnea type: shortness of breath Qualified Code(s): R06.02 - Shortness of breath; R06.00 - Dyspnea, unspecified; R06.01 - Orthopnea (4) COPD (chronic obstructive pulmonary disease) Current Visit: Yes Status: Acute Qualifiers: COPD type: chronic bronchitis Chronic bronchitis type: unspecified Qualified Code(s): J42 - Unspecified chronic bronchitis (5) Pelvic mass Current Visit: Yes Status: Acute Assessment and plan: CT abdomen revealed Pelvic mass, metastatic pelvic and retroperitoneal adenopathy, ascitis. CT neck with left supra-clavicular LN enlargement. n Chest CT, 4.3 cm in the left upper and 3.3 cm in the medial left lower lobe. S/P biopsy of supra-clavicular lymph node. Awaiting result of pathology for further options. (6) Thrush Current Visit: Yes Status: Acute Assessment and plan: patient developed oral thrush ill start Nystatin swish and swallow. - Time Spent With Patient Total time spent is greater than 50% in coordination of care (as documented) at patient's floor/unit and/or counseling patient: Greater than 35 minutes - Subjective Interval history: Pt complaining of pain in on her tongue and throat. Otherwise breathing is better, and leg edema improved. - Constitutional Vitals: Abnormal lab results WBC 19.3 K/mcL (4.3-11.1) H 01/07/18 04:06 Hgb 9.1 g/dL (11.5-15.4) L 01/07/18 04:06 Hct 32.3 % (35.3-44.9) L 01/07/18 04:06 MCV 77.1 fL (83.0-100.0) L 01/07/18 04:06 MCH 21.7 pg (28.0-33.3) L 01/07/18 04:06 MCHC 28.2 g/dL (31.6-35.5) L 01/07/18 04:06 RDW 21.5 % (11.5-14.5) H 01/07/18 04:06 Plt Count 439 K/mcL (140-400) H 01/07/18 04:06 MPV 9.3 fL (9.4-12.4) L 01/07/18 04:06 Immature Gran % 5.7 % (0-4) H 01/05/18 00:11 Band Neutrophils % 20.0 % (0-4) H 01/01/18 04:49 Neutrophils # 12.6 K/mcL (1.6-8.9) H 01/05/18 00:11 Nucleated RBCs/100 WBC 0.1 /100 WBC (0) H 01/03/18 02:45 Platelet Estimate Slight increase (Normal) H 01/05/18 00:11 Hypochromasia Present (Not Present) A 01/05/18 00:11 Anisocytosis 1+ (Not Present) A 01/03/18 02:45 Microcytosis Present (Not Present) A 01/01/18 04:49 APTT 23.5 Seconds (26.0-36.0) L 01/01/18 04:49 Chloride 96 mEq/L (98-107) L 01/07/18 04:06 Carbon Dioxide 32 mEq/L (23-29) H 01/07/18 04:06 BUN 22 mg/dL (6-20) H 01/07/18 04:06 BUN/Creatinine Ratio 32 (6-26) H 01/07/18 04:06 Glucose 147 mg/dL (70-105) H 01/07/18 04:06 POC Glucose 112 mg/dL (70-99) H 01/04/18 11:04 Iron < 10 mcg/dL (50-170) L 01/01/18 04:49 Transferrin 168 mg/dL (203-362) L 01/01/18 04:49 Ferritin 489 ng/mL (10-120) H 01/01/18 19:13 ALT 6 Units/L (7-52) L 01/01/18 04:49 Lactate Dehydrogenase 393 Units/L (140-271) H 01/02/18 03:12 Albumin 2.8 g/dL (3.5-5.7) L 01/01/18 04:49 Globulin 3.7 g/dL (2.4-3.5) H 01/01/18 04:49 Albumin/Globulin Ratio 0.8 (1.1-2.2) L 01/01/18 04:49 CA 125 Ag Serial Mntr 855 U/mL (Less than 35) H 01/03/18 09:58 Vancomycin Trough 12 mcg/mL (5-10) H 01/02/18 21:59 Antibody Screen POSITIVE A 01/01/18 04:49 Exam: General: Patient is alert, oriented, no acute distress, obese, speaks in full sentences Head: atraumatic, normocephalic, Eye: normal appearance, PERRL, no scleral icterus, no conjunctival injection ENT: mucous membranes moist, white plaques os back of tongue and oropharynx. Neck: normal inspection, trachea midline, full ROM, no carotid bruits Chest: normal inspection, symmetric chest rise Respiratory: Decreased breath sounds secondary to body habitus, crackles on the left posterior aspect, no wheezing. Cardiovascular: Distant heart sounds secondary to body habitus, Regular rate and rhythm. s1 and s2 No clicks, rubs, gallops, or murmors. Abdomen: Bowel sounds present normoactive x-4 quadrants. Abdomen is soft, +ve distended. no Epigastric tenderness. No guarding or rebound. No organomegaly noted, obese musculoskeletal: Spontaneously moving all extremities. +2 edema of the bilateral lower extremities Skin: warm, dry, intact. Neuro: Alert and oriented x4. Sensation light touch intact. Cranial nerves 2- 12 is intact. Not aphasic, no focal deficit Palliative Quality Palliative Quality: Screen for Code Status: Yes, Screen for Goals of Care: Yes, Screen for Pain: Yes, If Pain Regimen Started, Initiate Bowel Regimen: NA, Screen for Nausea/Vomitting: Yes Code Status: 01/01/18 04:15 Resuscitation Status: Active [RES] Routine Comment: Resuscitation Status: Full Code - Labs CBC & Chem 7: 01/07/18 04:06 01/07/18 04:06 Labs: Laboratory Results - last 24 hr 01/06/18 01/07/18 01/07/18 12:27 04:06 04:06 WBC 19.3 H RBC 4.19 Hgb 9.1 L Hct 32.3 L MCV 77.1 L MCH 21.7 L MCHC 28.2 L RDW 21.5 H Plt Count 439 H MPV 9.3 L Heparin Anti-Xa, Unfract 0.67 Sodium 136 Potassium 4.4 Chloride 96 L Carbon Dioxide 32 H BUN 22 H Creatinine 0.69 Est GFR ( Amer) > 60 Est GFR (Non-Af Amer) > 60 BUN/Creatinine Ratio 32 H Glucose 147 H Calculated Osmolality 288 Calcium 9.1 - ABG Interpretation ABG results: PT/INR, D-dimer PT 12.1 Seconds (9.4-12.1) 01/04/18 09:05 Consult Discharge Plan - Plan Referrals: NONE,PCP [Primary Care Provider] - Nivia Tariq [Family Provider] -
[2018-01-07] MEDS: Nystatin SUSP 5 ML UD.LIQ PO SCH ×3 (12:55→21:38)
[2018-01-07] MEDS ORDERED: SODIUM CHLORIDE/NAHCO3/KCL/PEG 4,000 ML SOLN.RECON PO ONE (17:00)
--- NOTE | 2018-01-07 18:49 | Internal Med Progress Note ---
Hospitalist Progress Note - Encounter Date of Encounter: 01/07/18 Time of Encounter: 08:00 - Subjective Interval History: patient was seen and examined at bedside. reports that she is feeling fine no overnight events, pain is controlled, tolerating PO diet denies fever, chills, N/v/D - Exam Vitals: Temp Pulse Resp BP Pulse Ox 98.2 F 94 16 108/60 91 01/07/18 17:10 01/07/18 17:10 01/07/18 17:10 01/07/18 17:10 01/07/18 17:10 Exam: General: Patient is alert, oriented, no acute distress, obese, speaks in full sentences Head: atraumatic, normocephalic, Eye: normal appearance, PERRL, no scleral icterus, no conjunctival injection ENT: mucous membranes moist, normal external ear exam Neck: normal inspection, trachea midline, full ROM, no carotid bruits Chest: normal inspection, symmetric chest rise Respiratory: Decreased breath sounds secondary to body habitus, crackles on the left posterior aspect, no wheezing. Cardiovascular: Distant heart sounds secondary to body habitus, Regular rate and rhythm. s1 and s2 No clicks, rubs, gallops, or murmors. Abdomen: Bowel sounds present normoactive x-4 quadrants. Abdomen is soft, +ve distended. no Epigastric tenderness. No guarding or rebound. No organomegaly noted, obese musculoskeletal: Spontaneously moving all extremities. +2 edema of the bilateral lower extremities Skin: warm, dry, intact. Neuro: Alert and oriented x4. Sensation light touch intact. Cranial nerves 2- 12 is intact. Not aphasic, no focal deficit - Assessment and Plan (1) Lung mass Current Visit: Yes Status: Acute Assessment and Plan: On Chest CT, 4.3 cm in the left upper and 3.3 cm in the medial left lower lobe. CT abdomen with Pelvic mass, metastatic pelvic and retroperitoneal adenopathy, ascitis. CT neck with left suprclavicular LN enlargement. 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 Likely related to malignancy. currently on heparin drip ECHO with 60-65. mild diastolic dysfunction. Mod Pul HTN. LE Doppler negative for DVT will continue on heparin drip as she has had acute anemia requiring transfusion. i had an extensive discussion with patient and she has agreed for endoscopy and colonoscopy scheduled for 01/08 (3) Pneumonia Current Visit: Yes Status: Acute Assessment and Plan: persistent leukocytosis ( she is on steroids for COPD), no fever, tachycardia, BP stable c/w ceftriaxone zithromax discontinued after day 5 f/u Legionella and strep pneumo ag.- discussed with nursing staff blood culture NGTD. pulmonology on board and recommendations appreciated (4) Thyroid mass Current Visit: Yes Status: Acute Assessment and Plan: US thyroid with "small benign-appearing cysts seen within the isthmus. CT neck- The thyroid gland appears unremarkable. (5) Anemia Current Visit: Yes Status: Acute Assessment and Plan: s/p 2 PRBC. Hb stable above 8 on heparin drip for PE I discussed this with patient again on 01/05 and 01/06 she is no agreeable to have endoscpy and colonoscopy performed - scheduled for 01/08 Treating supportively with transfusion PRN Folate borderline low-started folic acid hematology and oncology on board (6) COPD (chronic obstructive pulmonary disease) Current Visit: Yes Status: Acute Assessment and Plan: COPD likely due to her 30 pack year smoking history continue duo-nebs and symbicort now on oral steroid taper ABx as above (7) Goals of care, counseling/discussion Current Visit: Yes Status: Acute Assessment and Plan: i have discussed the plan of care with the patient she is dismissive and at times in denial. does not want to discuss any information with her family. I have provided emotional support palliative onboard (8) DVT prophylaxis Current Visit: Yes Status: Acute Assessment and Plan: on heparin drip - Time Spent with Patient Total time spent is greater than 50% in coordination of care (as documented) at patient's floor/unit and/or counseling patient: Internal Medicine: Result - Labs CBC & Chem 7: 01/07/18 04:06 01/07/18 04:06 Labs: Short CBC 01/07/18 Range/Units 04:06 WBC 19.3 H (4.3-11.1) K/mcL Hgb 9.1 L (11.5-15.4) g/dL Hct 32.3 L (35.3-44.9) % Plt Count 439 H (140-400) K/mcL BMP 01/07/18 04:06 Sodium 136 Potassium 4.4 Chloride 96 L Carbon Dioxide 32 H BUN 22 H Creatinine 0.69 Glucose 147 H Calcium 9.1 - ABG Interpretation ABG results: PT/INR, D-dimer PT 12.1 Seconds (9.4-12.1) 01/04/18 09:05 Consult Discharge Plan - Plan Referrals: NONE,PCP [Primary Care Provider] - Cliff TariqConversio [Family Provider] - (2) Pulmonary emboli Qualifiers: Pulmonary embolism type: other Chronicity: acute Acute cor pulmonale presence: without acute cor pulmonale Qualified Code(s): I26.99 - Other pulmonary embolism without acute cor pulmonale (3) Pneumonia Qualifiers: Pneumonia type: due to unspecified organism Laterality: unspecified laterality Lung location: unspecified part of lung Qualified Code(s): J18.9 - Pneumonia, unspecified organism (5) Anemia Qualifiers: Anemia type: iron deficiency Iron deficiency anemia type: chronic blood loss Qualified Code(s): D50.0 - Iron deficiency anemia secondary to blood loss ( chronic) (6) COPD (chronic obstructive pulmonary disease) Qualifiers: COPD type: chronic bronchitis Chronic bronchitis type: unspecified Qualified Code(s): J42 - Unspecified chronic bronchitis
[2018-01-07] MEDS: Magic Mouthwash 10 ML UD Cup PO SCH (20:19)
[2018-01-08] MEDS: Ipratropium/Albuterol Neb 3 ML IH SCH ×5 (04:06→19:43)
[2018-01-08 05:03] LABS: Hematocrit 33.5 % (35.3-44.9); Hemoglobin 9.6 g/dL (11.5-15.4); Mean Corpuscular HGB Conc 28.7 g/dL (31.6-35.5); Mean Corpuscular Hemoglobin 21.8 pg (28.0-33.3); Mean Corpuscular Volume 76.1 fL (83.0-100.0); Mean Platelet Volume 8.9 fL (9.4-12.4); Platelet Count 384 K/mcL (140-400); Red Cell Distribution Width 21.9 % (11.5-14.5)
[2018-01-08 05:15] LABS: BUN/Creatinine Ratio 24 (6-26); Blood Urea Nitrogen 22 mg/dL (6-20); Calcium 9.1 mg/dL (8.6-10.3); Carbon Dioxide 30 mEq/L (23-29); Chloride 94 mEq/L (98-107); Glucose 139 mg/dL (70-105); Osmolality,Calculated 284 (280-300); Potassium 4.5 mEq/L (3.5-5.1); Sodium 134 mEq/L (136-145); eGFR For Non-African Americans > 60 (> 60)
[2018-01-08] MEDS: cefTRIAXone 2,000 MG in Water for inj. (sterile) 20 ML 20 ML IVP SCH (05:24)
[2018-01-08] MEDS: Pantoprazole 40 MG VIAL IVP SCH ×2 (05:25→17:58)
[2018-01-08] MEDS: Budesonide/Formoterol 160/4.5 1 PUFF INH IH SCH ×2 (07:55→19:43)
--- NOTE | 2018-01-08 08:10 | Anesthesia Evaluation PreOp ---
Date of Encounter: 01/08/18 - Past History Planned Operation: EGD, COLONOSCOPY Cardiac History: Other (Bilateral segmental pulmonary emboli) Pulmonary History: Smoker, COPD, Other (EZEKIEL & LLL MASSES) Other Medical History: Other (MESENTERIC MASS, ANEMIA) Alcohol Use: none Drug use: none Medications and Allergies Albuterol Sulfate [Ventolin Hfa] 2 puff IH Q6H PRN 01/01/18 [History] Budesonide/Formoterol 160/4.5 [Symbicort 160/4.5] 2 puff IH BID 01/01/18 [ History] 3 Allergy/AdvReac Type Severity Reaction Status Date / Time No Known Allergies Allergy Unverified 04/21/17 13:08 Anesthesia Results - Labs 01/08/18 04:27 01/08/18 04:27
[2018-01-08] MEDS ORDERED: Furosemide 20 MG/2 ML VIAL IVP ONE (08:23)
[2018-01-08] MEDS: predniSONE 20 MG TABLET PO SCH (08:44)
[2018-01-08] MEDS: Folic Acid 1 MG TABLET PO SCH (08:44)
[2018-01-08] MEDS: Nystatin SUSP 5 ML UD.LIQ PO SCH (08:45)
--- NOTE | 2018-01-08 10:29 | Event Note ---
<Mala Willis - Last Filed: 01/08/18 10:28> Date of Encounter: 01/08/18 Time of Encounter: 07:[address] San, EGD and colonoscopy canceled as pt had increased shortness of breath, sat dropped to 85% and she had a low grade fever. He recommends reconsulting pulmonology and will reevaluate on Thursday. <Johnie San - Last Filed: 01/15/18 07:29> Patient's status changed overnight. She was short of breath and her saturations had dropped. Pulmonary was reconsulted and a chest X Ray and ABG ordered. Hold off endoscopy. DIscussed with patient. I have personally performed a face to face evaluation on this patient. I have reviewed and agree with the care plan. History and Exam by me shows:
[2018-01-08] MEDS: Magic Mouthwash 10 ML UD Cup PO SCH ×3 (10:49→17:58)
--- NOTE | 2018-01-08 11:09 | Pulmonology Consult Note ---
<Marylou Sifuentes M - Last Filed: 01/08/18 14:07> Date of Encounter: 01/08/18 Medications and Allergies Albuterol Sulfate [Ventolin Hfa] 2 puff IH Q6H PRN 01/01/18 [History] Budesonide/Formoterol 160/4.5 [Symbicort 160/4.5] 2 puff IH BID 01/01/18 [ History] 3 Allergy/AdvReac Type Severity Reaction Status Date / Time No Known Allergies Allergy Unverified 04/21/17 13:08 All Systems: The remainder of the systems were reviewed and are negative Physical Examination Vital Signs: Vital Signs, Last 4 Hours Temp Pulse Resp BP Pulse Ox 01/08/18 11:53 98.9 F 99 15 102/56 94 01/08/18 11:31 18 98 Results - Laboratory Findings CBC and BMP: 01/08/18 04:27 01/08/18 04:27 PT/INR, D-dimer PT 12.1 Seconds (9.4-12.1) 01/04/18 09:05 Abnormal lab findings: Abnormal lab results WBC 25.1 K/mcL (4.3-11.1) H 01/08/18 04:27 Hgb 9.6 g/dL (11.5-15.4) L 01/08/18 04:27 Hct 33.5 % (35.3-44.9) L 01/08/18 04:27 MCV 76.1 fL (83.0-100.0) L 01/08/18 04:27 MCH 21.8 pg (28.0-33.3) L 01/08/18 04:27 MCHC 28.7 g/dL (31.6-35.5) L 01/08/18 04:27 RDW 21.9 % (11.5-14.5) H 01/08/18 04:27 MPV 8.9 fL (9.4-12.4) L 01/08/18 04:27 Immature Gran % 5.7 % (0-4) H 01/05/18 00:11 Band Neutrophils % 20.0 % (0-4) H 01/01/18 04:49 Neutrophils # 12.6 K/mcL (1.6-8.9) H 01/05/18 00:11 Nucleated RBCs/100 WBC 0.1 /100 WBC (0) H 01/03/18 02:45 Platelet Estimate Slight increase (Normal) H 01/05/18 00:11 Hypochromasia Present (Not Present) A 01/05/18 00:11 Anisocytosis 1+ (Not Present) A 01/03/18 02:45 Microcytosis Present (Not Present) A 01/01/18 04:49 APTT 23.5 Seconds (26.0-36.0) L 01/01/18 04:49 Sodium 134 mEq/L (136-145) L 01/08/18 04:27 Chloride 94 mEq/L (98-107) L 01/08/18 04:27 Carbon Dioxide 30 mEq/L (23-29) H 01/08/18 04:27 BUN 22 mg/dL (6-20) H 01/08/18 04:27 Glucose 139 mg/dL (70-105) H 01/08/18 04:27 POC Glucose 112 mg/dL (70-99) H 01/04/18 11:04 Iron < 10 mcg/dL (50-170) L 01/01/18 04:49 Transferrin 168 mg/dL (203-362) L 01/01/18 04:49 Ferritin 489 ng/mL (10-120) H 01/01/18 19:13 ALT 6 Units/L (7-52) L 01/01/18 04:49 Lactate Dehydrogenase 393 Units/L (140-271) H 01/02/18 03:12 Albumin 2.8 g/dL (3.5-5.7) L 01/01/18 04:49 Globulin 3.7 g/dL (2.4-3.5) H 01/01/18 04:49 Albumin/Globulin Ratio 0.8 (1.1-2.2) L 01/01/18 04:49 CA 125 Ag Serial Mntr 855 U/mL (Less than 35) H 01/03/18 09:58 Vancomycin Trough 12 mcg/mL (5-10) H 01/02/18 21:59 Antibody Screen POSITIVE A 01/01/18 04:49 - Clinical Findings Intake & Output: Intake & Output 01/07/18 01/08/18 01/08/18 23:59 07:59 15:59 Intake Total 800 / 800 200 / 200 300 / 300 Output Total 500 / 500 100 / 100 Balance 800 / 800 -300 / -300 200 / 200 Consult Discharge Plan - Plan Referrals: NONE,PCP [Primary Care Provider] - Nivia Tariq [Family Provider] - - Attending Attestation I examined this patient and my medical decision-making was reviewed with the Resident Physician. I agree with the documented findings, disposition and treatment plan as described except to the extent set forth below. Patient seen and examined. Labs, radiology, chart personally reviewed. 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 She denies any symptoms lung related at this time. She is oxygenating adequately on oxygen. Unfortunately with her new diagnosis of neoplasm prognosis I suspect is poor and from pulmonary standpoint if she remained stable and oxygenating adequately then she can have procedure done. I suspect with pulmonary embolism and most likely metastasis to the lungs is the reason for her hypoxia and her condition could even deteriorate. I would be very careful to discontinue anticoagulation for procedure because of her underlying malignancy as a risk of pulmonary embolism could get worse. Please call for any questions. <Saul Earl - Last Filed: 01/08/18 17:02> Date of Encounter: 01/08/18 Time of Encounter: 12:00 Assessment and Plan (1) Acute respiratory distress Current Visit: Yes Status: Acute - Patient in acute respiratory distress this a.m. with SPO2 dropping down to 85 % and less. This could be multifactorial, considering the fact that patient has a new diagnosis of metastasis to the lungs along with pulmonary embolism. -Currently patient is satting at 97% on 4 L nasal cannula. -Continue to monitor (2) Pneumonia Current Visit: Yes Status: Acute - Likely due to her history of COPD. patient has had multiple episodes of pneumonia in the past the last one being Mar, 2017. Patient has a smoking Hx of 30 pack years and continues to smoke . She takes Symbicort 2 puffs BID for her COPD at home - on physical exam patient was pretty benign this morning. However patient's white blood count is still trending up (15 -> 17.4 -> 19.3- > 25.1) - currently her Zithromax has been discontinued after day 5. Patient continues to be on ceftriaxone - S. Pneumo and Legionella antigen results pending. - blood culture pending Qualifiers: Qualified Code(s): J18.9 - Pneumonia, unspecified organism (3) Pulmonary emboli Current Visit: Yes Status: Acute - likely due to her Hx of smoking and obesity. Patient has no other risk factors like sedentary lifestyle, Hx of recent surgery, or hospitalization, no hemoptysis, no DVTs/PE in the past, no estrogen use, no recent travels, and no family Hx of coagulopathy. 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 but it's hard to tell until further workup if they are malignant or not - CT Chest at [facility] showed segmental pulmonary embolism . Her recent echocardiogram showed an EF of 65% with moderate pulmonary hypertension. -Currently on heparin drip. Qualifiers: Qualified Code(s): I26.99 - Other pulmonary embolism without acute cor pulmonale (4) Lung mass Current Visit: Yes Status: Acute -CT chest showed left upper lobe cavitary nodule and right upper lobe consolidation, also left supraclavicular lymph node measuring 2.3 cm consistent with metastatic disease. -plan is to do a biopsy of the left supraclavicular lymph node today. Patient on therapeutic anticoagulation. -Supraclavicular lymph node biopsy performed by IR team. Results pending. (5) COPD (chronic obstructive pulmonary disease) Current Visit: Yes Status: Acute - patient has a Hx of COPD likely due to her 30 pack year smoking history - she takes symbicort 2 puffs BID at home - on PE she does not appear to be wheezy, no cough or productive sputum. - Continue DuoNeb's and Symbicort. Currently transitioned from Solu-Medrol to 40 mg PO prednisone. Qualifiers: Qualified Code(s): J42 - Unspecified chronic bronchitis History of Present Illness Consult date: 01/08/18 Reason for consult: dyspnea History of present illness: no acute event overnight. PAtient spO2 dropped to 85% this AM but patients tells me it was because her nasal cannula came off. Patient continues to be on anticoagulation for her pulmnary embolism. denies any chest pain or SOB. Past Med Surg Social Fam HX - Past Medical History Medical history: COPD Psychiatric history: no psych history - Past Surgical History Surgical History: no surgical history - Social History Smoking Status: Current every day smoker Packs per day: less than half Smokeless Tobacco Status: No Alcohol use: none Drug use: none - Family History Mother Living Status: Still Living Hx Family Cardiac Disorders: Yes (tachycardia) Hx Family Cancer: No Father Living Status: Still Living Hx Family Cancer: No All Systems: The remainder of the systems were reviewed and are negative Physical Examination Vital Signs: Vital Signs, Last 4 Hours Temp Pulse Resp BP Pulse Ox 01/08/18 08:01 99.4 F 105 15 109/50 90 01/08/18 07:56 18 92 01/08/18 07:49 18 92 Effort: normal Auscultation: bilateral: clear (symmetric chest rise) Cardiovascular: regular rate and rhythm Gastrointestinal: soft, non-tender, non-distended Extremities: no cyanosis, no edema, no clubbing Results - Laboratory Findings CBC and BMP: 01/08/18 04:27 01/08/18 04:27 PT/INR, D-dimer PT 12.1 Seconds (9.4-12.1) 01/04/18 09:05 Abnormal lab findings: Abnormal lab results WBC 25.1 K/mcL (4.3-11.1) H 01/08/18 04:27 Hgb 9.6 g/dL (11.5-15.4) L 01/08/18 04:27 Hct 33.5 % (35.3-44.9) L 01/08/18 04:27 MCV 76.1 fL (83.0-100.0) L 01/08/18 04:27 MCH 21.8 pg (28.0-33.3) L 01/08/18 04:27 MCHC 28.7 g/dL (31.6-35.5) L 01/08/18 04:27 RDW 21.9 % (11.5-14.5) H 01/08/18 04:27 MPV 8.9 fL (9.4-12.4) L 01/08/18 04:27 Immature Gran % 5.7 % (0-4) H 01/05/18 00:11 Band Neutrophils % 20.0 % (0-4) H 01/01/18 04:49 Neutrophils # 12.6 K/mcL (1.6-8.9) H 01/05/18 00:11 Nucleated RBCs/100 WBC 0.1 /100 WBC (0) H 01/03/18 02:45 Platelet Estimate Slight increase (Normal) H 01/05/18 00:11 Hypochromasia Present (Not Present) A 01/05/18 00:11 Anisocytosis 1+ (Not Present) A 01/03/18 02:45 Microcytosis Present (Not Present) A 01/01/18 04:49 APTT 23.5 Seconds (26.0-36.0) L 01/01/18 04:49 Sodium 134 mEq/L (136-145) L 01/08/18 04:27 Chloride 94 mEq/L (98-107) L 01/08/18 04:27 Carbon Dioxide 30 mEq/L (23-29) H 01/08/18 04:27 BUN 22 mg/dL (6-20) H 01/08/18 04:27 Glucose 139 mg/dL (70-105) H 01/08/18 04:27 POC Glucose 112 mg/dL (70-99) H 01/04/18 11:04 Iron < 10 mcg/dL (50-170) L 01/01/18 04:49 Transferrin 168 mg/dL (203-362) L 01/01/18 04:49 Ferritin 489 ng/mL (10-120) H 01/01/18 19:13 ALT 6 Units/L (7-52) L 01/01/18 04:49 Lactate Dehydrogenase 393 Units/L (140-271) H 01/02/18 03:12 Albumin 2.8 g/dL (3.5-5.7) L 01/01/18 04:49 Globulin 3.7 g/dL (2.4-3.5) H 01/01/18 04:49 Albumin/Globulin Ratio 0.8 (1.1-2.2) L 01/01/18 04:49 CA 125 Ag Serial Mntr 855 U/mL (Less than 35) H 01/03/18 09:58 Vancomycin Trough 12 mcg/mL (5-10) H 01/02/18 21:59 Antibody Screen POSITIVE A 01/01/18 04:49 - Clinical Findings Intake & Output: Intake & Output 01/07/18 01/08/18 01/08/18 23:59 07:59 15:59 Intake Total 800 / 800 200 / 200 0 / 0 Output Total 500 / 500 Balance 800 / 800 -300 / -300 0 / 0
[2018-01-08] MEDS: Heparin 25,000 UNIT/500 ML D5W 25,000 UNIT/500 ML BAG IVC SCH ×2 (14:02→23:55)
--- NOTE | 2018-01-08 17:06 | Internal Med Progress Note ---
Hospitalist Progress Note - Encounter Date of Encounter: 01/08/18 Time of Encounter: 08:00 - Subjective Interval History: patient was seen and examined at bedside. reports that she is feeling fine no overnight events, pain is controlled, tolerating PO diet denies fever, chills, N/v/D - Exam Vitals: Temp Pulse Resp BP Pulse Ox 99 F 91 17 102/56 97 01/08/18 16:38 01/08/18 16:38 01/08/18 16:38 01/08/18 16:38 01/08/18 16:38 Exam: General: Patient is alert, oriented, no acute distress, obese, speaks in full sentences Head: atraumatic, normocephalic, Eye: normal appearance, PERRL, no scleral icterus, no conjunctival injection ENT: mucous membranes moist, normal external ear exam Neck: normal inspection, trachea midline, full ROM, no carotid bruits Chest: normal inspection, symmetric chest rise Respiratory: Decreased breath sounds secondary to body habitus, crackles on the left posterior aspect, no wheezing. Cardiovascular: Distant heart sounds secondary to body habitus, Regular rate and rhythm. s1 and s2 No clicks, rubs, gallops, or murmors. Abdomen: Bowel sounds present normoactive x-4 quadrants. Abdomen is soft, +ve distended. no Epigastric tenderness. No guarding or rebound. No organomegaly noted, obese musculoskeletal: Spontaneously moving all extremities. +2 edema of the bilateral lower extremities Skin: warm, dry, intact. Neuro: Alert and oriented x4. Sensation light touch intact. Cranial nerves 2- 12 is intact. Not aphasic, no focal deficit - Assessment and Plan (1) Leukocytosis Current Visit: Yes Status: Acute Assessment and Plan: worsening leukocytosis and low grade fever patient on steroids for COPD exacerbation will repeat Bcx CXR performed on 01/08- Improved aeration of the lower lungs, most likely due to resolving multifocal pneumonia. 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 Oncology is on board OBGYN conulted will follow recommendations Tumor markers: CEA 2.4, CA 125-855 CTA/P 1. Enlarged heterogeneous uterus with an adjacent 20 cm pelvic mass compatible with neoplasm until proven otherwise. This may reflect a primary neoplasm given its appearance. There is also an 8.8 x 7.4 cm right adnexal mass also compatible with malignancy. 2. Metastatic pelvic and retroperitoneal adenopathy. 3. Moderate volume ascites. There is mild stranding of the omentum in the right upper quadrant left mid abdomen however a discrete peritoneal nodule is not identified. 4. Anasarca. 5. Bibasilar airspace opacities as well as nodules within the lung bases. Please refer to dedicated CT of the chest performed earlier. (3) Lung mass Current Visit: Yes Status: Acute Assessment and Plan: On Chest CT, 4.3 cm in the left upper and 3.3 cm in the medial left lower lobe. most likely metastasis from most likely ovarian or uterine primary Pulm and oncology following CT Chest at [facility] showed segmental pulmonary embolism . Her recent echocardiogram showed an EF of 65% with moderate pulmonary hypertension (4) Pulmonary emboli Current Visit: Yes Status: Acute Assessment and Plan: CT Chest with showed segmental pulmonary embolism. Likely related to malignancy. at [facility] currently on heparin drip ECHO with 60-65. mild diastolic dysfunction. Mod Pul HTN.- performed at [facility] LE Doppler negative for DVT will continue on heparin drip as she has had acute anemia requiring transfusion. i had an extensive discussion with patient and she has agreed for endoscopy and colonoscopy postponed for 01/08 (5) Pneumonia Current Visit: Yes Status: Acute Assessment and Plan: persistent leukocytosis ( she is on steroids for COPD), no fever, tachycardia, BP stable c/w ceftriaxone day 6 zithromax discontinued after day 5 blood culture NGTD. pulmonology on board and recommendations appreciated CXr on 01/08- IMPRESSION: 1. Improved aeration of the lower lungs, most likely due to resolving multifocal pneumonia. 2. Stable left lower lobe mass. (6) Thyroid mass Current Visit: Yes Status: Acute Assessment and Plan: US thyroid with "small benign-appearing cysts seen within the isthmus. CT neck- The thyroid gland appears unremarkable. (7) Anemia Current Visit: Yes Status: Acute Assessment and Plan: s/p 2 PRBC. Hb stable above 8 on heparin drip for PE I discussed this with patient again on 01/05 and 10/10 she is no agreeable to have endoscopy and colonoscopy performed - scheduled for 01/11 Treating supportively with transfusion PRN Folate borderline low-started folic acid hematology and oncology on board (8) COPD (chronic obstructive pulmonary disease) Current Visit: Yes Status: Acute Assessment and Plan: COPD likely due to her 30 pack year smoking history continue duo-nebs and symbicort now on oral steroid taper ABx as above (9) Goals of care, counseling/discussion Current Visit: Yes Status: Acute Assessment and Plan: i have discussed the plan of care with the patient she is dismissive and at times in denial. does not want to discuss any information with her family. I have provided emotional support palliative onboard (10) DVT prophylaxis Current Visit: Yes Status: Acute Assessment and Plan: on heparin drip - Time Spent with Patient Total time spent is greater than 50% in coordination of care (as documented) at patient's floor/unit and/or counseling patient: Internal Medicine: Result - Labs CBC & Chem 7: 01/08/18 04:27 01/08/18 04:27 Labs: Short CBC 01/08/18 Range/Units 04:27 WBC 25.1 H (4.3-11.1) K/mcL Hgb 9.6 L (11.5-15.4) g/dL Hct 33.5 L (35.3-44.9) % Plt Count 384 (140-400) K/mcL BMP 01/08/18 04:27 Sodium 134 L Potassium 4.5 Chloride 94 L Carbon Dioxide 30 H BUN 22 H Creatinine 0.91 Glucose 139 H Calcium 9.1 - ABG Interpretation ABG results: PT/INR, D-dimer PT 12.1 Seconds (9.4-12.1) 01/04/18 09:05 - Impressions Impressions Chest X-Ray 01/08/18 08:13 IMPRESSION: 1. Improved aeration of the lower lungs, most likely due to resolving multifocal pneumonia. 2. Stable left lower lobe mass. D/ / Pb Bower MD / Pb Bower MD Interpreting Provider: Pb Bower MD Consult Discharge Plan - Plan Referrals: NONE,PCP [Primary Care Provider] - Nivia Tariq [Family Provider] - (4) Pulmonary emboli Qualifiers: Pulmonary embolism type: other Chronicity: acute Acute cor pulmonale presence: without acute cor pulmonale Qualified Code(s): I26.99 - Other pulmonary embolism without acute cor pulmonale (5) Pneumonia Qualifiers: Pneumonia type: due to unspecified organism Laterality: unspecified laterality Lung location: unspecified part of lung Qualified Code(s): J18.9 - Pneumonia, unspecified organism (7) Anemia Qualifiers: Anemia type: iron deficiency Iron deficiency anemia type: chronic blood loss Qualified Code(s): D50.0 - Iron deficiency anemia secondary to blood loss ( chronic) (8) COPD (chronic obstructive pulmonary disease) Qualifiers: COPD type: chronic bronchitis Chronic bronchitis type: unspecified Qualified Code(s): J42 - Unspecified chronic bronchitis
--- NOTE | 2018-01-08 17:48 | Oncology Inp Progress Note ---
<Molly Ayala L - Last Filed: 01/08/18 20:00> Date of Encounter: 01/08/18 Time of Encounter: 18:00 (1) Lung mass Current Visit: Yes Status: Acute Assessment and plan: CTA which revealed bilateral segmental pulmonary arterial emboli, left upper lobe pleural based 4.3 cm mass, medial left lower lobe 3.3 cm mass, partially imaged 17.6 cm midmesenteric mass, aorticopulmonary adenopathy, as well as 3.7 lower left neck mass directly adjacent to the left lobe of the thyroid. CT soft tissue neck- Significantly enlarged left supraclavicular lymph node measuring up to 3.3 cm consistent with metastatic disease. CT abdomen/pelvis revealed enlarged heterogeneous uterus with an adjacent 20 cm pelvic mass, 8.8 x 7.4 cm right adnexal mass, metastatic pelvic and retroperitoneal adenopathy, mild stranding of the omentum, moderate ascites, anasarca. S/P biopsy of the left cervical LN yesterday-pathology reveals undifferentiated carcinoma, either of uterine or ovarian etiology We discussed pathology results and plan for chemotherapy, which may include debulking surgery following 3 cycles. Likely consider BRCA testing. Treatment will be started on outpatient basis (2) Anemia Current Visit: Yes Status: Acute Assessment and plan: Microcytic anemia on admission Need to closely H&H monitor while on heparin gtt Iron and B12 replete LDH elevated Plan: She is planning for EGD/Colonoscopy tomorrow She has developed vaginal bleeding which is new as of yesterday Closely monitor CBC Qualifiers: Anemia type: iron deficiency Iron deficiency anemia type: chronic blood loss Qualified Code(s): D50.0 - Iron deficiency anemia secondary to blood loss (chronic) (3) Pulmonary emboli Current Visit: Yes Status: Acute Assessment and plan: Bilateral segmental pulmonary arterial emboli Currently on heparin gtt Secondary active malignancy BLE venous [id number] edema likely secondary to pelvic mass/ adenoopathy Plan Hgb stable at this time, continue to monitor Recommend transition to Xarelto following endoscopy/at discharge Qualifiers: Pulmonary embolism type: other Chronicity: acute Acute cor pulmonale presence: without acute cor pulmonale Qualified Code(s): I26.99 - Other pulmonary embolism without acute cor pulmonale Oncology: Subj Interval history: Ms. Lee is resting in the chair. She denies pain, SOB, Nausea or vomiting. She is prepping for colonoscopy tomorrow. She developed vaginal bleeding yesterday with clots, but states she has not noticed any vaginal bleeding today. - Constitutional Vitals: Vital Signs Temp Pulse Resp BP Pulse Ox 01/08/18 16:38 99 F 91 17 102/56 97 01/08/18 16:07 18 99 01/08/18 11:53 98.9 F 99 15 102/56 94 01/08/18 11:31 18 98 01/08/18 08:01 99.4 F 105 15 109/50 90 01/08/18 07:56 18 92 01/08/18 07:49 18 92 01/08/18 05:10 100.0 F H 112 24 103/51 92 01/08/18 04:09 18 93 01/08/18 00:30 100.4 F H 115 18 131/61 89 01/07/18 23:47 18 90 01/07/18 20:13 18 01/07/18 19:13 98.6 F 90 18 135/69 96 Intake and Output 01/08/18 01/08/18 01/08/18 07:59 15:59 23:59 Intake Total 200 / 200 300 / 300 Output Total 500 / 500 100 / 100 Balance -300 / -300 200 / 200 Intake: IV Fluids 200 / 200 300 / 300 Heparin 25,000 UNIT/500 ML D5W 300 / 300 25,000 unit In 500 ml @ 14 UNIT /KG/HR 27.104 mls/hr IVC . [id number] [facility] Rx#:[id number] Output: Urine 200 / 200 100 / 100 Urine/Stool Mix 300 / 300 Other: Meal NPO lunch Percent of Meal Consumed 0% General appearance: cooperative, no acute distress, no febrile - Head Head exam: Present: atraumatic - ENT ENT exam: Present: mucous membranes moist - Respiratory Respiratory exam: Present: CTAB. Absent: respiratory distress - Cardiovascular Cardiovascular exam: Present: RRR, +S1, +S2 - GI/Abdominal GI/Abdominal exam: Present: distended, normal bowel sounds, tenderness. Absent : guarding, rebound - Extremities Exam Extremities exam: Absent: calf tenderness - Neurological Exam Neurological exam: Present: alert, oriented X3, no focal deficits, strengths equal and symetr throughout - Psychiatric Psychiatric exam: Present: flat affect - Skin Skin exam: Present: dry, intact, normal color, warm Oncology: Obj Data - Labs CBC & Chem 7: 01/08/18 04:27 01/08/18 04:27 Labs: Laboratory Results - last 24 hr 01/07/18 01/08/18 01/08/18 18:43 04:27 04:27 WBC 25.1 H RBC 4.40 Hgb 9.6 L Hct 33.5 L MCV 76.1 L MCH 21.8 L MCHC 28.7 L RDW 21.9 H Plt Count 384 MPV 8.9 L Heparin Anti-Xa, Unfract 0.64 Sodium 134 L Potassium 4.5 Chloride 94 L Carbon Dioxide 30 H BUN 22 H Creatinine 0.91 Est GFR ( Amer) > 60 Est GFR (Non-Af Amer) > 60 BUN/Creatinine Ratio 24 Glucose 139 H Calculated Osmolality 284 Calcium 9.1 01/08/18 14:49 WBC RBC Hgb Hct MCV MCH MCHC RDW Plt Count MPV Heparin Anti-Xa, Unfract 0.30 Sodium Potassium Chloride Carbon Dioxide BUN Creatinine Est GFR ( Amer) Est GFR (Non-Af Amer) BUN/Creatinine Ratio Glucose Calculated Osmolality Calcium - Impressions Impressions Chest X-Ray 01/08/18 08:13 IMPRESSION: 1. Improved aeration of the lower lungs, most likely due to resolving multifocal pneumonia. 2. Stable left lower lobe mass. D/ / Pb Bower MD / Pb Bower MD Interpreting Provider: Pb Bower MD - ABG Interpretation ABG results: PT/INR, D-dimer PT 12.1 Seconds (9.4-12.1) 01/04/18 09:05 Consult Discharge Plan - Plan Referrals: Piedad Walker, OCCUPATIONAL THERAPY SPECIALIST [Advanced Practice Nurse] - 01/18/18 1:00 pm Inpatient Charges Provider: Dr. Charlie Saravia <Jeffy Saravia S - Last Filed: 01/11/18 11:57> Date of Encounter: 01/11/18 - Constitutional Vitals: Vital Signs Temp Pulse Resp BP Pulse Ox 01/08/18 16:38 99 F 91 17 102/56 97 01/08/18 16:07 18 99 01/08/18 11:53 98.9 F 99 15 102/56 94 01/08/18 11:31 18 98 01/08/18 08:01 99.4 F 105 15 109/50 90 01/08/18 07:56 18 92 01/08/18 07:49 18 92 01/08/18 05:10 100.0 F H 112 24 103/51 92 01/08/18 04:09 18 93 01/08/18 00:30 100.4 F H 115 18 131/61 89 01/07/18 23:47 18 90 01/07/18 20:13 18 01/07/18 19:13 98.6 F 90 18 135/69 96 Intake and Output 01/08/18 01/08/18 01/08/18 07:59 15:59 23:59 Intake Total 200 / 200 300 / 300 Output Total 500 / 500 100 / 100 Balance -300 / -300 200 / 200 Intake: IV Fluids 200 / 200 300 / 300 Heparin 25,000 UNIT/500 ML D5W 300 / 300 25,000 unit In 500 ml @ 14 UNIT /KG/HR 27.104 mls/hr IVC . [id number] [facility] Rx#:[id number] Output: Urine 200 / 200 100 / 100 Urine/Stool Mix 300 / 300 Other: Meal NPO lunch Percent of Meal Consumed 0% Oncology: Obj Data - Labs CBC & Chem 7: 01/11/18 05:47 01/11/18 05:47 Labs: Laboratory Results - last 24 hr 01/07/18 01/08/18 01/08/18 18:43 04:27 04:27 WBC 25.1 H RBC 4.40 Hgb 9.6 L Hct 33.5 L MCV 76.1 L MCH 21.8 L MCHC 28.7 L RDW 21.9 H Plt Count 384 MPV 8.9 L Heparin Anti-Xa, Unfract 0.64 Sodium 134 L Potassium 4.5 Chloride 94 L Carbon Dioxide 30 H BUN 22 H Creatinine 0.91 Est GFR ( Amer) > 60 Est GFR (Non-Af Amer) > 60 BUN/Creatinine Ratio 24 Glucose 139 H Calculated Osmolality 284 Calcium 9.1 01/08/18 14:49 WBC RBC Hgb Hct MCV MCH MCHC RDW Plt Count MPV Heparin Anti-Xa, Unfract 0.30 Sodium Potassium Chloride Carbon Dioxide BUN Creatinine Est GFR ( Amer) Est GFR (Non-Af Amer) BUN/Creatinine Ratio Glucose Calculated Osmolality Calcium - Impressions Impressions Chest X-Ray 01/08/18 08:13 IMPRESSION: 1. Improved aeration of the lower lungs, most likely due to resolving multifocal pneumonia. 2. Stable left lower lobe mass. D/ / Pb Bower MD / Pb Boewr MD Interpreting Provider: Pb Bower MD - ABG Interpretation ABG results: PT/INR, D-dimer PT 12.1 Seconds (9.4-12.1) 01/04/18 09:05 - Attending Attestation I examined this patient and my medical decision-making was reviewed with the Advanced Practice Nurse. I agree with the documented findings, disposition and treatment plan as described except to the extent set forth below. 1. Large abdominal mass 20+ centimeters with central necrosis arising from the pelvis. She presents with significant anemia improved with packed RBC transfusion. Hemoglobin has been stable around 9.6 Supraclavicular ultrasound-guided biopsy on 01/04/2018 showed undifferentiated carcinoma CK 7 positive and CK 20 negative. TTF-1 negative. Vimentin positive. ER positive. Could be ovarian/uterine cancer. Agree with chemotherapy carbotaxol. After 3 cycles may consider debulking surgery. She does have extensive metastasis including lung metastasis Consider molecular testing including tumor BRCA testing. She may be a candidate for PARP inhibitor after [place]-based chemotherapy especially if she is sensitive to [place]. FDA has approved PARP inhibitors after second line chemotherapy in maintenance irrespective of BRCA 2. Bilateral extensive PE. Lovenox works better than newer oral anticoagulation agents. We will keep her on Lovenox 80 mg subcutaneous twice a day. Mildly dose reduced for her ideal body weight and also to minimize the chance of bleeding. She does have vaginal spotting. 3. Colonoscopy negative on 01/09/2018 other than 7 mm non-bleeding polyp transverse colon. Internal hemorrhoids and diverticulosis. No specimens collected
[2018-01-08] MEDS: *HR* Heparin 5,000 UNIT/ML VIAL IVP PRN (22:14)
[2018-01-09] MEDS: Ipratropium/Albuterol Neb 3 ML IH SCH ×4 (00:09→11:48)
[2018-01-09 03:17] LABS: Bilirubin,Urine Negative (Negative); Blood,Urine Large (Negative); Clarity,Urine Cloudy (Clear); Color,Urine Dark Yellow (Yellow); Glucose,Urine (UA) Normal (Normal); Ketones,Urine Negative (Negative); Leukocyte Esterase,Urine Small (Negative); Nitrite,Urine Negative (Negative); Protein,Urine 100 mg/dL (Neg-Trace); Specific Gravity,Urine 1.014 (1.010-1.025); Urobilinogen,Urine Normal (Normal)
[2018-01-09 03:19] LABS: Hyaline Casts,Urine Few per lpf (None-Few); RBC,Urine 50-100 per hpf (0-3); Squamous Epithelial Cell,Urine Many per lpf (None-Few); WBC,Urine 50-100 per hpf (0-3)
[2018-01-09 03:53] LABS: Bacteria,Urine Many per hpf (None-Few); Mucus,Urine Few (Few); Yeast,Urine Moderate per hpf (None Seen)
[2018-01-09] MEDS: cefTRIAXone 2,000 MG in Water for inj. (sterile) 20 ML 20 ML IVP SCH (04:19)
[2018-01-09] MEDS: Pantoprazole 40 MG VIAL IVP SCH ×2 (04:20→18:30)
[2018-01-09 06:27] LABS: BUN/Creatinine Ratio 21 (6-26); Blood Urea Nitrogen 23 mg/dL (6-20); Calcium 8.9 mg/dL (8.6-10.3); Carbon Dioxide 32 mEq/L (23-29); Chloride 92 mEq/L (98-107); Glucose 106 mg/dL (70-105); Osmolality,Calculated 282 (280-300); Potassium 4.4 mEq/L (3.5-5.1); Sodium 134 mEq/L (136-145); eGFR For Non-African Americans 53 (> 60)
[2018-01-09 06:46] LABS: Hematocrit 32.5 % (35.3-44.9); Hemoglobin 9.3 g/dL (11.5-15.4); Mean Corpuscular HGB Conc 28.6 g/dL (31.6-35.5); Mean Platelet Volume 9.9 fL (9.4-12.4); Platelet Count 317 K/mcL (140-400); Red Blood Count 4.22 M/mcL (3.82-4.97); Red Cell Distribution Width 21.2 % (11.5-14.5)
[2018-01-09] MEDS: Budesonide/Formoterol 160/4.5 1 PUFF INH IH SCH ×2 (07:47→20:34)
--- NOTE | 2018-01-09 07:56 | OB/GYN Consult Note ---
Date of Encounter: 01/09/18 Time of Encounter: 18:00 Assessment and Plan (1) Uterine mass Current Visit: Yes Status: Acute Dr. Mckeon was consulted regarding POC for patient. His recommendation was to transfer care to [facility] so that she may receive assembler motor vehicle/onc assistance. (2) Postmenopausal bleeding Current Visit: Yes Status: Acute As this is likely related to her uterine mass, there is no need for further workup at this time. History of Present Illness Consult date: 01/09/18 Requesting physician: Vita Arredondo Reason for consult: other (vaginal spotting) History of present illness: Ms. Trejo is a 57 year old female who has been admitting to our facility x 1 week for workup for new diagnosis of cancer. She reports over the past couple of days she has had some vaginal spotting intermittently. She has a known uterine mass that is likely carcinoma. Past Med Surg Social Fam HX - Past Medical History Medical history: COPD Psychiatric history: no psych history - Past Surgical History Surgical History: no surgical history - Social History Smoking Status: Current every day smoker Packs per day: less than half Smokeless Tobacco Status: No Alcohol use: none Drug use: none - Family History Mother Living Status: Still Living Hx Family Cardiac Disorders: Yes (tachycardia) Hx Family Cancer: No Father Living Status: Still Living Hx Family Cancer: No Medications and Allergies Albuterol Sulfate [Ventolin Hfa] 2 puff IH Q6H PRN 01/01/18 [History] Budesonide/Formoterol 160/4.5 [Symbicort 160/4.5] 2 puff IH BID 01/01/18 [ History] 3 Allergy/AdvReac Type Severity Reaction Status Date / Time No Known Allergies Allergy Unverified 04/21/17 13:08 Review of Systems All Systems: reviewed and no additional remarkable complaints except as stated Exam - Vital Signs Vital signs: Initial Vital Signs Temp Pulse Resp BP Pulse Ox 98.5 F 90 18 93/52 93 01/01/18 03:27 01/01/18 03:27 01/01/18 03:27 01/01/18 03:27 01/01/18 03:27 - Constitutional Constitutional: well developed, well nourished, mild distress, obese - HEENT HEENT: Normocephaly, Mucus Membranes Moist - Neck Neck exam: full ROM - Breasts Breast: bilateral: normal - Abdomen Abdomen: Present: non tender - Extremities Extremities exam: normal capillary refill, normal inspection, radial pulses palpable and symmetrical - Uterus Uterus exam: Present: enlarged, tender Results Result Diagrams: 01/09/18 05:15 01/09/18 05:15 Abnormal lab results WBC 36.2 K/mcL (4.3-11.1) H* 01/09/18 05:15 Hgb 9.3 g/dL (11.5-15.4) L 01/09/18 05:15 Hct 32.5 % (35.3-44.9) L 01/09/18 05:15 MCV 77.0 fL (83.0-100.0) L 01/09/18 05:15 MCH 22.0 pg (28.0-33.3) L 01/09/18 05:15 MCHC 28.6 g/dL (31.6-35.5) L 01/09/18 05:15 RDW 21.2 % (11.5-14.5) H 01/09/18 05:15 Immature Gran % 5.7 % (0-4) H 01/05/18 00:11 Band Neutrophils % 20.0 % (0-4) H 01/01/18 04:49 Neutrophils # 12.6 K/mcL (1.6-8.9) H 01/05/18 00:11 Nucleated RBCs/100 WBC 0.1 /100 WBC (0) H 01/03/18 02:45 Platelet Estimate Slight increase (Normal) H 01/05/18 00:11 Hypochromasia Present (Not Present) A 01/05/18 00:11 Anisocytosis 1+ (Not Present) A 01/03/18 02:45 Microcytosis Present (Not Present) A 01/01/18 04:49 APTT 23.5 Seconds (26.0-36.0) L 01/01/18 04:49 Heparin Anti-Xa, Unfract 0.24 IU/mL (0.30-0.70) L 01/08/18 20:45 Sodium 134 mEq/L (136-145) L 01/09/18 05:15 Chloride 92 mEq/L (98-107) L 01/09/18 05:15 Carbon Dioxide 32 mEq/L (23-29) H 01/09/18 05:15 BUN 23 mg/dL (6-20) H 01/09/18 05:15 Est GFR (Non-Af Amer) 53 (> 60) L 01/09/18 05:15 Glucose 106 mg/dL (70-105) H 01/09/18 05:15 POC Glucose 112 mg/dL (70-99) H 01/04/18 11:04 Iron < 10 mcg/dL (50-170) L 01/01/18 04:49 Transferrin 168 mg/dL (203-362) L 01/01/18 04:49 Ferritin 489 ng/mL (10-120) H 01/01/18 19:13 ALT 6 Units/L (7-52) L 01/01/18 04:49 Lactate Dehydrogenase 393 Units/L (140-271) H 01/02/18 03:12 Albumin 2.8 g/dL (3.5-5.7) L 01/01/18 04:49 Globulin 3.7 g/dL (2.4-3.5) H 01/01/18 04:49 Albumin/Globulin Ratio 0.8 (1.1-2.2) L 01/01/18 04:49 CA 125 Ag Serial Mntr 855 U/mL (Less than 35) H 01/03/18 09:58 Urine Clarity Cloudy (Clear) A 01/09/18 03:05 Urine Protein 100 mg/dL (Neg-Trace) H 01/09/18 03:05 Urine Blood Large (Negative) H 01/09/18 03:05 Ur Leukocyte Esterase Small (Negative) H 01/09/18 03:05 Urine Microscopic RBC 50-100 per hpf (0-3) H 01/09/18 03:05 Urine Microscopic WBC 50-100 per hpf (0-3) H 01/09/18 03:05 Ur Squamous Epith Cells Many per lpf (None-Few) H 01/09/18 03:05 Urine Bacteria Many per hpf (None-Few) H 01/09/18 03:05 Urine Yeast Moderate per hpf (None Seen) H 01/09/18 03:05 Ur Culture Indicated? NO. (NO) A 01/09/18 03:05 Vancomycin Trough 12 mcg/mL (5-10) H 01/02/18 21:59 Antibody Screen POSITIVE A 01/01/18 04:49 All other labs normal. Consult Discharge Plan - Plan Referrals: NONE,PCP [Primary Care Provider] - Nivia Tariq [Family Provider] -
[2018-01-09] MEDS: Folic Acid 1 MG TABLET PO SCH (08:14)
[2018-01-09] MEDS: predniSONE 20 MG TABLET PO SCH (08:14)
[2018-01-09] MEDS: Magic Mouthwash 10 ML UD Cup PO SCH ×2 (08:15→16:35)
[2018-01-09] MEDS ORDERED: Tetracaine/Benzocaine/Butamben 1 SPRAY AEROSOL MM ONE (09:00)
--- NOTE | 2018-01-09 09:07 | Anesthesia Evaluation PreOp ---
Date of Encounter: 01/09/18 Time of Encounter: 09:10 - Past History Planned Operation: Double Endo Cardiac History: Denies any Significant Hx Pulmonary History: Smoker, COPD, Other (Lung mass possible mets) [employer] History: Denies Any Significant HX Other Medical History: Other (Obese, uterine tumor) Anesthesia History: No Prior Anesthetic Complications : No Alcohol Use: none Drug use: none Medications and Allergies Albuterol Sulfate [Ventolin Hfa] 2 puff IH Q6H PRN 01/01/18 [History] Budesonide/Formoterol 160/4.5 [Symbicort 160/4.5] 2 puff IH BID 01/01/18 [ History] 3 Allergy/AdvReac Type Severity Reaction Status Date / Time No Known Allergies Allergy Unverified 04/21/17 13:08 - Meds/Allergy Pre-op Review Medications Reviewed: Yes Allergies Reviewed: Yes Beta Blockers on Current Med List: No Anesthesia Results - Labs 01/09/18 05:15 01/09/18 05:15 - Imaging EKG: report reviewed (SR) Additional studies: ECHO EF 60%, moderate pulm htn Anesthesia Exam Vital Signs/O2 Sat/Glucose, Most Current Temp Pulse Resp BP Pulse Ox 01/09/18 07:50 17 95 01/09/18 07:22 99 F 103 17 108/68 93 Height: 5'6 Weight: 228 lbs NPO (# of Hours): MN Pain Scale: 0 - HEENT Pupil (Motor): Pupils equal, EOMI Mallampati: III Oral Opening: Less than or equal to 3 - [employer] LOC: Oriented [employer] Motor: Normal RUE, Normal LUE, Normal RLE, Normal LLE, Normal Face [employer] Sensory: Normal: RUE, LUE, RLE, LLE, Face - Cardiac Rhythm: Regular Murmur: None JVD: No Carotid Bruit: No - Pulmonary Breath Sounds: bilateral Clear Respiratory Effort: Symmetrical Anesthesia Assess/Plan ASA Score: 3 (COPD Pulm HTN Obese Tobacco) Modified Belle Scale for Level of Consciousness: Cooperative, oriented, and tranquil Anesthetic Plan: MAC Monitoring Plan: Standard Monitors Recovery Plan: Other (Discussed MAC, agrees to proceed)
[2018-01-09] MEDS ORDERED: Lidocaine -MPF 2% 2 ML VIAL ONE (09:32)
--- NOTE | 2018-01-09 09:47 | Internal Med Progress Note ---
<Eliazar Senior - Last Filed: 01/09/18 14:28> Hospitalist Progress Note - Encounter Date of Encounter: 01/09/18 Time of Encounter: 09:00 - Subjective Interval History: PMHx lung mass, thyroid mass, COPD, uterine mass, postmenopausal bleed, transferred from [facility] ER for SOB. Work up for BL pulmonary embolism. Patient reports improvement of SOB. She did have episode of fever this morning 101F. She denies chills, nausea, vomiting. Patient is not animated due to worsening medical condition and pelvic mass, possibly ovarian vs uterine carcinoma. She is tolerating PO, back to home O2, voiding without difficulty, denies diarrhea, constipation. No further acute complaints. - Exam Vitals: Temp Pulse Resp BP Pulse Ox 98.2 F 105 18 101/68 92 01/09/18 09:05 01/09/18 09:05 01/09/18 09:05 01/09/18 09:05 01/09/18 09:05 Exam: General: Patient is alert, oriented, no acute distress, obese, speaks in full sentences Head: atraumatic, normocephalic, Eye: normal appearance, no scleral icterus, no conjunctival injection Neck: normal inspection, trachea midline, full ROM, no carotid bruits Chest: normal inspection, symmetric chest rise Respiratory: Decreased breath sounds secondary to body habitus, crackles on the left posterior aspect, no wheezing. Cardiovascular: Distant heart sounds secondary to body habitus, Regular rate and rhythm. s1 and s2 No clicks, rubs, gallops, or murmurs. Extremities: BL upper extremity purpura. Abdomen: Bowel sounds present normoactive x-4 quadrants. Abdomen is soft, +ve distended. no Epigastric tenderness. No guarding or rebound. No organomegaly noted, obese musculoskeletal: Spontaneously moving all extremities. +2 edema of the bilateral lower extremities Skin: warm, intact. Neuro: Alert and oriented x4. Sensation light touch intact. Cranial nerves 2- 12 is intact. Not aphasic, no focal deficit - Assessment and Plan (1) Pulmonary emboli Current Visit: Yes Status: Acute Assessment and Plan: CT Chest with showed segmental pulmonary embolism. Likely related to malignancy. ECHO with 60-65. mild diastolic dysfunction. Mod Pul HTN.- performed at [facility] LE Doppler negative for DVT will continue on heparin drip (2) Pelvic mass Current Visit: Yes Status: Acute Assessment and Plan: CT with 20cm pelvic mass consistent with neoplasm until proven otherwise. 8.8 x 7.4 cm right adnexal mass also compatible with malignancy. Metastatic pelvic and retroperitoneal adenopathy. anasarca. 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 TTF-1 negative. Vimentin positive. ER positive. -Per oncology, chemotherapy with carbotaxol. After 3 cycles may consider debulking surgery. She does have extensive metastasis including lung metastasis. mayy consider molecular testing including tumor BRCA testing. If positive she may be a candidate for PARP inhibitor -Treat per oncology and most likely outpatient. (3) GIB (gastrointestinal bleeding) Current Visit: Yes Status: Acute Assessment and Plan: Patient presented with BL Pulmonary embolism and on Heparin drip. Hb has been stable at 9-9.5 EGD performed today: No active bleeding. Benign appearing esophageal stenosis. Gastritis. Biopsy contraindicated due to possible active bleed. Colonoscopy to follow. Will restart PPI regimen when appropriate. (4) Sepsis Current Visit: Yes Status: Acute Assessment and Plan: Sepsis 2/2 pneumonia vs uncertain infection -patient had fever 101F this morning -leukocytosis uptrending despite being on ceftriaxone day #8 -BCx 10/05 negative x2, pending repeat BCx -Repeat CXR with improving PNA, which is suspicious for infection from another source vs metastatic disease -UA with large amount of blood, negative nitrite, +esterase. Unlikely UTI -Will start vancomycin + Zosyn and de-escalate appropriately to source. D/C ceftriaxone -Pending Legionella, S. pneumo cultures. -Continue sepsis protocol (5) Lung mass Current Visit: Yes Status: Acute (6) Thyroid mass Current Visit: Yes Status: Acute (7) Goals of care, counseling/discussion Current Visit: Yes Status: Acute (8) Uterine mass Current Visit: Yes Status: Acute (9) Anemia Current Visit: Yes Status: Acute Assessment and Plan: Stable. EGD unremarkable. Pending colonoscopy. Transfuse if Hb<7 Continue to monitor CBC daily. (10) COPD (chronic obstructive pulmonary disease) Current Visit: Yes Status: Acute Assessment and Plan: Stable. Pneumonia is also stable. Respiratory therapy as needed. DVT Prophylaxis: Patient on Heparin drip for bilateral PE - Time Spent with Patient Total time spent is greater than 50% in coordination of care (as documented) at patient's floor/unit and/or counseling patient: Internal Medicine: Result - Labs CBC & Chem 7: 01/09/18 05:15 01/09/18 05:15 Labs: Short CBC 01/09/18 Range/Units 05:15 WBC 36.2 H* (4.3-11.1) K/mcL Hgb 9.3 L (11.5-15.4) g/dL Hct 32.5 L (35.3-44.9) % Plt Count 317 (140-400) K/mcL BMP 01/09/18 05:15 Sodium 134 L Potassium 4.4 Chloride 92 L Carbon Dioxide 32 H BUN 23 H Creatinine 1.07 Glucose 106 H Calcium 8.9 Urine 01/09/18 Range/Units 03:05 Urine Color Dark Yellow (Yellow) Urine Clarity Cloudy A (Clear) Urine pH 6.0 (5.0-8.0) pH Units Ur Specific [place] 1.014 (1.010-1.025) Urine Protein 100 H (Neg-Trace) mg/dL Urine Glucose (UA) Normal (Normal) mg/dL - ABG Interpretation ABG results: PT/INR, D-dimer PT 12.1 Seconds (9.4-12.1) 01/04/18 09:05 Consult Discharge Plan - Plan Referrals: NONE,PCP [Primary Care Provider] - Nivia Tariq [Family Provider] - <Ivan Alvarez - Last Filed: 01/09/18 15:25> Hospitalist Progress Note - Encounter Date of Encounter: 01/09/18 - Exam Vitals: Temp Pulse Resp BP Pulse Ox 98.4 F 102 18 102/60 91 01/09/18 11:15 01/09/18 11:15 01/09/18 11:48 01/09/18 11:15 01/09/18 11:48 - Assessment and Plan (1) Pneumonia Current Visit: Yes Status: Acute (2) Lung mass Current Visit: Yes Status: Acute (3) Thyroid mass Current Visit: Yes Status: Acute (4) Anemia Current Visit: Yes Status: Acute (5) DVT prophylaxis Current Visit: Yes Status: Acute (6) Pulmonary emboli Current Visit: Yes Status: Acute (7) COPD (chronic obstructive pulmonary disease) Current Visit: Yes Status: Acute (8) Goals of care, counseling/discussion Current Visit: Yes Status: Acute (9) Abnormal biopsy result Current Visit: Yes Status: Acute (10) Leukocytosis Current Visit: Yes Status: Acute - Time Spent with Patient Total time spent is greater than 50% in coordination of care (as documented) at patient's floor/unit and/or counseling patient: Internal Medicine: Result - Labs CBC & Chem 7: 01/09/18 05:15 01/09/18 05:15 Labs: Short CBC 01/09/18 Range/Units 05:15 WBC 36.2 H* (4.3-11.1) K/mcL Hgb 9.3 L (11.5-15.4) g/dL Hct 32.5 L (35.3-44.9) % Plt Count 317 (140-400) K/mcL BMP 01/09/18 05:15 Sodium 134 L Potassium 4.4 Chloride 92 L Carbon Dioxide 32 H BUN 23 H Creatinine 1.07 Glucose 106 H Calcium 8.9 Urine 01/09/18 Range/Units 03:05 Urine Color Dark Yellow (Yellow) Urine Clarity Cloudy A (Clear) Urine pH 6.0 (5.0-8.0) pH Units Ur Specific [place] 1.014 (1.010-1.025) Urine Protein 100 H (Neg-Trace) mg/dL Urine Glucose (UA) Normal (Normal) mg/dL - ABG Interpretation ABG results: PT/INR, D-dimer PT 12.1 Seconds (9.4-12.1) 01/04/18 09:05 - Attending Attestation Seen and assessed. Agree with plan per resident Came in with shortness of breath and anemia. Found to have lung mass and uterine mass and pneumonia Plan Acute PE. Continue heparin drip Lung and uterine mass. Oncology following and plan on chemotherapy Acute GI bleed. Hemoglobin was low on admission. GI on board and plan for EGD/ colonoscopy. EGD and colonoscopy one today showed hiatal hernia, gastritis and non bleeding ulcers and second degree hemorrhoids resectively. Continue PPI Sepsis with pneumonia. WBC trended up to 36 and patient spiked a fever. Antibiotics broadened to vanc and zosyn. Obtain blood cultures. Will get ID consult <Eliazar Senior - Last Filed: 01/09/18 14:28> (1) Pulmonary emboli Qualifiers: Pulmonary embolism type: other Chronicity: acute Acute cor pulmonale presence: without acute cor pulmonale Qualified Code(s): I26.99 - Other pulmonary embolism without acute cor pulmonale (4) Sepsis Qualifiers: Sepsis type: sepsis due to unspecified organism Qualified Code(s): A41.9 - Sepsis, unspecified organism (9) Anemia Qualifiers: Anemia type: iron deficiency Iron deficiency anemia type: chronic blood loss Qualified Code(s): D50.0 - Iron deficiency anemia secondary to blood loss ( chronic) (10) COPD (chronic obstructive pulmonary disease) Qualifiers: COPD type: chronic bronchitis Chronic bronchitis type: unspecified Qualified Code(s): J42 - Unspecified chronic bronchitis <Iavn Alvarez - Last Filed: 01/09/18 15:25> (1) Pneumonia Qualifiers: Pneumonia type: due to unspecified organism Laterality: unspecified laterality Lung location: unspecified part of lung Qualified Code(s): J18.9 - Pneumonia, unspecified organism (4) Anemia Qualifiers: Anemia type: iron deficiency Iron deficiency anemia type: chronic blood loss Qualified Code(s): D50.0 - Iron deficiency anemia secondary to blood loss ( chronic) (6) Pulmonary emboli Qualifiers: Pulmonary embolism type: other Chronicity: acute Acute cor pulmonale presence: without acute cor pulmonale Qualified Code(s): I26.99 - Other pulmonary embolism without acute cor pulmonale (7) COPD (chronic obstructive pulmonary disease) Qualifiers: COPD type: chronic bronchitis Chronic bronchitis type: unspecified Qualified Code(s): J42 - Unspecified chronic bronchitis
--- NOTE | 2018-01-09 10:19 | Anesthesia Evaluation Post Op ---
Date of Encounter: 01/09/18 Time of Encounter: 10:20 - Vital Signs Vital Signs: Vital Signs/O2 Sat/Glucose, Most Current Temp Pulse Resp BP Pulse Ox 01/09/18 09:05 98.2 F 105 18 101/68 92 01/09/18 07:50 17 95 01/09/18 07:22 99 F 103 17 108/68 93 - Lungs Lungs: Clear Ascult./Percussion - Airway Airway: Non-obstructed - Cardiovascular Regular Rate - Mental Status Mental Status: Alert & Oriented, Answers Appropriately - Pain Pain Scale: 0 - Nausea Vomiting Nausea Vomiting: Not Present - Hydration Hydration: NPO - Discharge PostOp Status: Transfer Patient to floor
[2018-01-09] MEDS: Piperacillin/Tazobactam 3.375 GM in 0.9 % Sodium Chloride Mini Bag 100 ML IVPB SCH ×3 (11:26→23:48)
[2018-01-09] MEDS ORDERED: Ipratropium/Albuterol Neb 3 ML IH PRN (13:10)
[2018-01-10] MEDS: *HR* Heparin 5,000 UNIT/ML VIAL IVP PRN (03:15)
[2018-01-10] MEDS: Pantoprazole 40 MG VIAL IVP SCH (06:24)
[2018-01-10] MEDS: Heparin 25,000 UNIT/500 ML D5W 25,000 UNIT/500 ML BAG IVC SCH (06:25)
[2018-01-10] MEDS: Magic Mouthwash 10 ML UD Cup PO SCH ×3 (08:56→16:21)
[2018-01-10] MEDS: predniSONE 20 MG TABLET PO SCH (08:56)
[2018-01-10] MEDS: Piperacillin/Tazobactam 3.375 GM in 0.9 % Sodium Chloride Mini Bag 100 ML IVPB SCH ×3 (08:57→23:45)
[2018-01-10] MEDS: Folic Acid 1 MG TABLET PO SCH (08:58)
--- NOTE | 2018-01-10 10:13 | Internal Med Progress Note ---
<Eliazar Senior - Last Filed: 01/10/18 16:12> Hospitalist Progress Note - Encounter Date of Encounter: 01/10/18 Time of Encounter: 10:00 - Subjective Interval History: PMHx lung mass, thyroid mass, COPD, uterine mass, postmenopausal bleed, transferred from [facility] ER for SOB. Work up for BL pulmonary embolism. Patient reports improvement of SOB. She denies fever, chills, nausea, vomiting. Patient is not animated due to worsening medical condition and pelvic mass, possibly ovarian vs uterine carcinoma. She is tolerating PO, back to home O2, voiding without difficulty, denies diarrhea, constipation. She is frustrated about still being in the hospital and states "there is nothing you can do". No further acute complaints. - Exam Vitals: Temp Pulse Resp BP Pulse Ox 98.8 F 92 20 97/49 95 01/10/18 07:11 01/10/18 07:11 01/10/18 07:11 01/10/18 07:11 01/10/18 07:11 Exam: General: Patient is alert, oriented, no acute distress, obese, speaks in full sentences Head: atraumatic, normocephalic, Eye: normal appearance, no scleral icterus, no conjunctival injection Neck: normal inspection, trachea midline, full ROM, no carotid bruits Chest: normal inspection, symmetric chest rise Respiratory: Decreased breath sounds secondary to body habitus, crackles on the left posterior aspect, no wheezing. Cardiovascular: Distant heart sounds secondary to body habitus, Regular rate and rhythm. s1 and s2 No clicks, rubs, gallops, or murmurs. Extremities: BL upper extremity purpura. Abdomen: Bowel sounds present normoactive x-4 quadrants. Abdomen is soft, +ve distended. no Epigastric tenderness. No guarding or rebound. No organomegaly noted, obese musculoskeletal: Spontaneously moving all extremities. +2 edema of the bilateral lower extremities Skin: warm, intact. Neuro: Alert and oriented x4. Sensation light touch intact. Cranial nerves 2- 12 is intact. Not aphasic, no focal deficit - Assessment and Plan (1) Pulmonary emboli Current Visit: Yes Status: Acute Assessment and Plan: CT Chest with showed segmental pulmonary embolism. Likely related to malignancy. ECHO with LVEF 60-65%. mild diastolic dysfunction. Mod Pul HTN.- performed at [facility] Doppler negative for DVT Will switch anticoagulant to Lovenox 80mg PO BID as patient has comprehensive history of cancer (2) Pelvic mass Current Visit: Yes Status: Acute Assessment and Plan: CT with 20cm pelvic mass consistent with neoplasm until proven otherwise. 8.8 x 7.4 cm right adnexal mass also compatible with malignancy. Metastatic pelvic and retroperitoneal adenopathy. anasarca. 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 TTF-1 negative. Vimentin positive. ER positive. -Per oncology, chemotherapy with carbotaxol. After 3 cycles may consider debulking surgery. She does have extensive metastasis including lung metastasis. mayy consider molecular testing including tumor BRCA testing. If positive she may be a candidate for PARP inhibitor -Treat per oncology and most likely outpatient. (3) GIB (gastrointestinal bleeding) Current Visit: Yes Status: Acute Assessment and Plan: Patient presented with BL Pulmonary embolism, now on Lovenox. Hb downtrending. Could be secondary to vaginal bleed. Otherwise asymptomatic. Will continue to monitor H/H EGD: No active bleeding. Benign appearing esophageal stenosis. Gastritis. Biopsy contraindicated due to possible active bleed. Colonoscopy to follow. Will restart PPI regimen when appropriate. Continue with Lovenox (4) Sepsis Current Visit: Yes Status: Acute Assessment and Plan: Improved. On presentation, patient met sepsis criteria 2/2 pneumonia -leukocytosis downtrending after switching to vanco+ zosyn -BCx 10/ negative x2, pending repeat BCx -Repeat CXR with improving PNA, which is suspicious for infection from another source vs metastatic disease -UA with large amount of blood, negative nitrite, +esterase. Unlikely UTI -S. pneumo urine culture positive. Rocephin would have treated it. Still possible other infectious source. Cotinue vancomycin + Zosyn day #2 and de- escalate when appropriate (5) Lung mass Current Visit: Yes Status: Acute (6) Thyroid mass Current Visit: Yes Status: Acute (7) Goals of care, counseling/discussion Current Visit: Yes Status: Acute (8) Uterine mass Current Visit: Yes Status: Acute Will follow up outpatient (9) Anemia Current Visit: Yes Status: Acute Assessment and Plan: Stable. EGD unremarkable. Pending colonoscopy. Transfuse if Hb<7 Continue to monitor CBC daily. (10) COPD (chronic obstructive pulmonary disease) Current Visit: Yes Status: Acute Assessment and Plan: Stable. Pneumonia is also stable. Respiratory therapy as needed. (11) Oral thrush Current Visit: Yes Status: Acute Assessment and Plan: Patient on Fluconazole and Nystatin DVT Prophylaxis: Patient started on Lovenox 80mg BID DVT Prophylaxis: Patient started on Lovenox 80mg BID - Time Spent with Patient Total time spent is greater than 50% in coordination of care (as documented) at patient's floor/unit and/or counseling patient: Internal Medicine: Result - Labs CBC & Chem 7: 01/10/18 12:24 01/10/18 12:24 - ABG Interpretation ABG results: PT/INR, D-dimer PT 12.1 Seconds (9.4-12.1) 01/04/18 09:05 Consult Discharge Plan - Plan Referrals: NONE,PCP [Primary Care Provider] - Nivia Tariq [Family Provider] - <Ivan Alvarez - Last Filed: 01/10/18 17:30> Hospitalist Progress Note - Encounter Date of Encounter: 01/10/18 - Exam Vitals: Temp Pulse Resp BP Pulse Ox 98.2 F 90 16 106/56 92 01/10/18 15:40 01/10/18 15:40 01/10/18 15:40 01/10/18 15:40 01/10/18 15:40 - Assessment and Plan (1) Pneumonia Current Visit: Yes Status: Acute (2) Lung mass Current Visit: Yes Status: Acute (3) Thyroid mass Current Visit: Yes Status: Acute (4) Anemia Current Visit: Yes Status: Acute (5) DVT prophylaxis Current Visit: Yes Status: Acute (6) Pulmonary emboli Current Visit: Yes Status: Acute (7) COPD (chronic obstructive pulmonary disease) Current Visit: Yes Status: Acute (8) Goals of care, counseling/discussion Current Visit: Yes Status: Acute (9) Abnormal biopsy result Current Visit: Yes Status: Acute (10) Leukocytosis Current Visit: Yes Status: Acute - Time Spent with Patient Total time spent is greater than 50% in coordination of care (as documented) at patient's floor/unit and/or counseling patient: Internal Medicine: Result - Labs CBC & Chem 7: 01/10/18 12:24 01/10/18 12:24 Labs: Short CBC 01/10/18 Range/Units 12:24 WBC 27.6 H (4.3-11.1) K/mcL Hgb 8.1 L (11.5-15.4) g/dL Hct 28.2 L (35.3-44.9) % Plt Count 313 (140-400) K/mcL Neutrophils # 26.5 H (1.6-8.9) K/mcL BMP 01/10/18 12:24 Sodium 135 L Potassium 4.0 Chloride 93 L Carbon Dioxide 32 H BUN 25 H Creatinine 0.99 Glucose 103 Calcium 8.6 - ABG Interpretation ABG results: PT/INR, D-dimer PT 12.1 Seconds (9.4-12.1) 01/04/18 09:05 - Attending Attestation Seen and assessed. Agree with plan per resident Came in with shortness of breath and anemia. Found to have lung mass and uterine mass and pneumonia Plan Acute PE. Transitioned to lovenox sc. Onc following Lung and uterine mass. Oncology following and plan on chemotherapy Acute GI bleed. Hemoglobin was low on admission. GI on board and plan for EGD/ colonoscopy. EGD and colonoscopy one today showed hiatal hernia, gastritis and non bleeding ulcers and second degree hemorrhoids resectively. Continue PPI Sepsis with pneumonia. WBC trended up to 36 and patient spiked a fever. Antibiotics broadened to vanc and zosyn. Obtain blood cultures. Will get ID consult. WBC trending down today <Eliazar Senior - Last Filed: 01/10/18 16:12> (1) Pulmonary emboli Qualifiers: Pulmonary embolism type: other Chronicity: acute Acute cor pulmonale presence: without acute cor pulmonale Qualified Code(s): I26.99 - Other pulmonary embolism without acute cor pulmonale <Ivan Alvarez - Last Filed: 01/10/18 17:30> (1) Pneumonia Qualifiers: Pneumonia type: due to unspecified organism Laterality: unspecified laterality Lung location: unspecified part of lung Qualified Code(s): J18.9 - Pneumonia, unspecified organism (4) Anemia Qualifiers: Anemia type: iron deficiency Iron deficiency anemia type: chronic blood loss Qualified Code(s): D50.0 - Iron deficiency anemia secondary to blood loss ( chronic) (6) Pulmonary emboli Qualifiers: Pulmonary embolism type: other Chronicity: acute Acute cor pulmonale presence: without acute cor pulmonale Qualified Code(s): I26.99 - Other pulmonary embolism without acute cor pulmonale (7) COPD (chronic obstructive pulmonary disease) Qualifiers: COPD type: chronic bronchitis Chronic bronchitis type: unspecified Qualified Code(s): J42 - Unspecified chronic bronchitis
[2018-01-10] MEDS: Budesonide/Formoterol 160/4.5 1 PUFF INH IH SCH ×2 (11:20→21:16)
[2018-01-10] MEDS: Fluconazole 100 MG TABLET PO SCH (11:37)
[2018-01-10] MEDS: Nystatin SUSP 5 ML UD.LIQ PO SCH ×4 (11:44→21:14)
[2018-01-10 12:46] LABS: Mean Corpuscular Hemoglobin 22.1 pg (28.0-33.3); Red Cell Distribution Width 20.9 % (11.5-14.5)
[2018-01-10 12:47] LABS: Hematocrit 28.2 % (35.3-44.9); Hemoglobin 8.1 g/dL (11.5-15.4); Mean Corpuscular HGB Conc 28.7 g/dL (31.6-35.5); Mean Platelet Volume 9.4 fL (9.4-12.4); Platelet Count 313 K/mcL (140-400); Red Blood Count 3.66 M/mcL (3.82-4.97)
[2018-01-10 13:05] LABS: BUN/Creatinine Ratio 25 (6-26); Blood Urea Nitrogen 25 mg/dL (6-20); Calcium 8.6 mg/dL (8.6-10.3); Carbon Dioxide 32 mEq/L (23-29); Chloride 93 mEq/L (98-107); Glucose 103 mg/dL (70-105); Osmolality,Calculated 285 (280-300); Sodium 135 mEq/L (136-145); eGFR For Non-African Americans 58 (> 60)
[2018-01-10 13:22] LABS: Lymphocytes # 0.6 K/mcL (0.6-4.6); Monocytes # 0.6 K/mcL (0.0-1.3); Neutrophils # 26.5 K/mcL (1.6-8.9)
[2018-01-10 13:23] LABS: Platelet Estimate Normal (Normal)
[2018-01-10] MEDS: *HR* Enoxaparin 80 MG/0.8 ML SYRINGE SQ SCH (17:44)
[2018-01-11] MEDS: *HR* Enoxaparin 80 MG/0.8 ML SYRINGE SQ SCH ×2 (05:36→19:06)
[2018-01-11 05:58] LABS: Basophils % 0.1 %; Eosinophils % 0.1 %; Mean Corpuscular HGB Conc 28.2 g/dL (31.6-35.5)
[2018-01-11 05:59] LABS: Hematocrit 26.6 % (35.3-44.9); Hemoglobin 7.5 g/dL (11.5-15.4); Immature Granulocytes % 1.1 % (0-4); Lymphocytes # 0.8 K/mcL (0.6-4.6); Lymphocytes % 3.5 %; Mean Platelet Volume 9.5 fL (9.4-12.4); Monocytes # 0.9 K/mcL (0.0-1.3); Monocytes % 3.9 %; Platelet Count 336 K/mcL (140-400); Red Blood Count 3.41 M/mcL (3.82-4.97); Segmented Neutrophils % 91.3 %
[2018-01-11 06:18] LABS: BUN/Creatinine Ratio 24 (6-26); Blood Urea Nitrogen 23 mg/dL (6-20); Calcium 8.9 mg/dL (8.6-10.3); Carbon Dioxide 33 mEq/L (23-29); Chloride 96 mEq/L (98-107); Glucose 99 mg/dL (70-105); Magnesium 2.2 mg/dL (1.6-2.6); Osmolality,Calculated 284 (280-300); Phosphorous 3.6 mg/dL (2.7-4.5); Potassium 3.8 mEq/L (3.5-5.1); Sodium 135 mEq/L (136-145); eGFR For Non-African Americans 60 (> 60)
[2018-01-11 06:38] LABS: Hypochromasia Present (Not Present); Platelet Estimate Normal (Normal)
[2018-01-11] MEDS ORDERED: Aminoglycoside Consult 1 EACH MC ONE (08:10)
[2018-01-11] MEDS: Piperacillin/Tazobactam 3.375 GM in 0.9 % Sodium Chloride Mini Bag 100 ML IVPB SCH ×2 (08:38→15:32)
[2018-01-11] MEDS: Folic Acid 1 MG TABLET PO SCH (08:38)
[2018-01-11] MEDS: Fluconazole 100 MG TABLET PO SCH (08:38)
[2018-01-11] MEDS: predniSONE 20 MG TABLET PO SCH (08:38)
[2018-01-11] MEDS: Magic Mouthwash 10 ML UD Cup PO SCH ×4 (08:39→19:03)
[2018-01-11] MEDS: Nystatin SUSP 5 ML UD.LIQ PO SCH ×3 (08:39→19:03)
[2018-01-11 10:23] LABS: Prothrombin Time 11.7 Seconds (9.4-12.1)
[2018-01-11 10:26] LABS: Activated Partial Thrombo Time 28.9 Seconds (26.0-36.0)
[2018-01-11] MEDS: Budesonide/Formoterol 160/4.5 1 PUFF INH IH SCH ×2 (11:02→20:10)
--- NOTE | 2018-01-11 14:43 | Internal Med Progress Note ---
<SeniorEliazar - Last Filed: 01/11/18 14:40> Hospitalist Progress Note - Encounter Date of Encounter: 01/11/18 Time of Encounter: 10:30 - Subjective Interval History: PMHx lung mass, thyroid mass, COPD, uterine mass, postmenopausal bleed, transferred from [facility] for SOB. Work up for BL pulmonary embolism. Patient reports improvement of SOB. She denies fever, chills, nausea, vomiting. Patient is not animated due to worsening medical condition and pelvic mass, possibly ovarian vs uterine carcinoma. She is tolerating PO, back to home O2, voiding without difficulty, denies diarrhea, constipation. - Exam Vitals: Temp Pulse Resp BP Pulse Ox 98.3 F 79 16 90/52 94 01/11/18 10:51 01/11/18 10:51 01/11/18 11:02 01/11/18 10:51 01/11/18 11:02 Exam: General: Patient is alert, oriented, no acute distress, obese, speaks in full sentences Head: atraumatic, normocephalic, Eye: normal appearance, no scleral icterus, no conjunctival injection Neck: normal inspection, trachea midline, full ROM, no carotid bruits Chest: normal inspection, symmetric chest rise Respiratory: Decreased breath sounds secondary to body habitus, crackles on the left posterior aspect, no wheezing. Cardiovascular: Distant heart sounds secondary to body habitus, Regular rate and rhythm. s1 and s2 No clicks, rubs, gallops, or murmurs. Extremities: BL upper extremity purpura. Abdomen: Bowel sounds present normoactive x-4 quadrants. Abdomen is soft, +ve distended. no Epigastric tenderness. No guarding or rebound. No organomegaly noted, obese musculoskeletal: Spontaneously moving all extremities. +2 edema of the bilateral lower extremities Skin: warm, intact. Neuro: Alert and oriented x4. Sensation light touch intact. Cranial nerves 2- 12 is intact. Not aphasic, no focal deficit - Assessment and Plan (1) Sepsis Current Visit: Yes Status: Acute Assessment and Plan: Improving on vancomycin and zosyn day #3. Source unknown. -leukocytosis downtrending but still elevated 23/27/36.2 -BCx / negative x2, pending repeat BCx -Repeat CXR with improving PNA, which is suspicious for infection from another source vs metastatic disease -UA with large amount of blood, negative nitrite, +esterase. Unlikely UTI -S. pneumo urine culture positive. Rocephin would have treated it. Still possible other infectious source. -Infectious disease consulted in the setting of unknown primary source. Recommendations appreciated. Continue vancomycin + Zosyn day #3 and de-escalate when appropriate (2) Pelvic mass Current Visit: Yes Status: Acute Assessment and Plan: CT with 20cm pelvic mass consistent with neoplasm until proven otherwise. 8.8 x 7.4 cm right adnexal mass also compatible with malignancy. Metastatic pelvic and retroperitoneal adenopathy. anasarca. 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 TTF-1 negative. Vimentin positive. ER positive. -Per oncology, chemotherapy with carbotaxol. After 3 cycles may consider debulking surgery. She does have extensive metastasis including lung metastasis. mayy consider molecular testing including tumor BRCA testing. If positive she may be a candidate for PARP inhibitor -Treat per oncology and most likely outpatient. (3) GIB (gastrointestinal bleeding) Current Visit: Yes Status: Acute Assessment and Plan: Patient presented with BL Pulmonary embolism, now on Lovenox. Hb downtrending. Could be secondary to vaginal bleed. Otherwise asymptomatic. Will continue to monitor H/H EGD: No active bleeding. Benign appearing esophageal stenosis. Gastritis. Biopsy contraindicated due to possible active bleed. Colonoscopy to follow. Continue PPI regimen when appropriate. Continue with Lovenox (4) Pulmonary emboli Current Visit: Yes Status: Acute Assessment and Plan: CT Chest with showed segmental pulmonary embolism. Likely related to malignancy. ECHO with LVEF 60-65%. mild diastolic dysfunction. Mod Pul HTN.- performed at [facility] Doppler negative for DVT Continue Lovenox 80mg PO BID as patient has comprehensive history of cancer (5) Lung mass Current Visit: Yes Status: Acute (6) Thyroid mass Current Visit: Yes Status: Acute (7) Goals of care, counseling/discussion Current Visit: Yes Status: Acute (8) Uterine mass Current Visit: Yes Status: Acute Will follow up outpatient (9) Anemia Current Visit: Yes Status: Acute Assessment and Plan: Stable. EGD unremarkable. Pending colonoscopy. Transfuse if Hb<7 Continue to monitor CBC daily. (10) COPD (chronic obstructive pulmonary disease) Current Visit: Yes Status: Acute Assessment and Plan: Stable. Pneumonia is also stable. Respiratory therapy as needed. (11) Oral thrush Current Visit: Yes Status: Acute Assessment and Plan: Patient on Fluconazole and Nystatin Improved. On presentation, patient met sepsis criteria 2/2 pneumonia -leukocytosis downtrending after switching to vanco+ zosyn -BCx 01/01 negative x2, pending repeat BCx -Repeat CXR with improving PNA, which is suspicious for infection from another source vs metastatic disease -UA with large amount of blood, negative nitrite, +esterase. Unlikely UTI -S. pneumo urine culture positive. Rocephin would have treated it. Still possible other infectious source. Cotinue vancomycin + Zosyn day #2 and de- escalate when appropriate DVT Prophylaxis: Patient started on Lovenox 80mg BID - Time Spent with Patient Total time spent is greater than 50% in coordination of care (as documented) at patient's floor/unit and/or counseling patient: Internal Medicine: Result - Labs CBC & Chem 7: 01/11/18 05:47 01/11/18 05:47 Labs: Short CBC 01/11/18 Range/Units 05:47 WBC 23.0 H (4.3-11.1) K/mcL Hgb 7.5 L (11.5-15.4) g/dL Hct 26.6 L (35.3-44.9) % Plt Count 336 (140-400) K/mcL Neutrophils # 21.0 H (1.6-8.9) K/mcL BMP 01/11/18 05:47 Sodium 135 L Potassium 3.8 Chloride 96 L Carbon Dioxide 33 H BUN 23 H Creatinine 0.96 Glucose 99 Calcium 8.9 - ABG Interpretation ABG results: PT/INR, D-dimer PT 11.7 Seconds (9.4-12.1) 01/11/18 09:33 Consult Discharge Plan - Plan Referrals: Piedad Walkre HR ASSOCIATE [Advanced Practice Nurse] - 01/18/18 1:00 pm <Ivan Alvarez - Last Filed: 01/11/18 16:08> Hospitalist Progress Note - Encounter Date of Encounter: 01/11/18 - Exam Vitals: Temp Pulse Resp BP Pulse Ox 98.1 F 86 18 96/54 97 01/11/18 15:43 01/11/18 15:43 01/11/18 15:43 01/11/18 15:43 01/11/18 15:43 - Assessment and Plan (1) Pneumonia Current Visit: Yes Status: Acute (2) Lung mass Current Visit: Yes Status: Acute (3) Thyroid mass Current Visit: Yes Status: Acute (4) Anemia Current Visit: Yes Status: Acute (5) DVT prophylaxis Current Visit: Yes Status: Acute (6) Pulmonary emboli Current Visit: Yes Status: Acute (7) COPD (chronic obstructive pulmonary disease) Current Visit: Yes Status: Acute (8) Goals of care, counseling/discussion Current Visit: Yes Status: Acute (9) Abnormal biopsy result Current Visit: Yes Status: Acute (10) Leukocytosis Current Visit: Yes Status: Acute - Time Spent with Patient Total time spent is greater than 50% in coordination of care (as documented) at patient's floor/unit and/or counseling patient: Internal Medicine: Result - Labs CBC & Chem 7: 01/11/18 05:47 01/11/18 05:47 Labs: Short CBC 01/11/18 Range/Units 05:47 WBC 23.0 H (4.3-11.1) K/mcL Hgb 7.5 L (11.5-15.4) g/dL Hct 26.6 L (35.3-44.9) % Plt Count 336 (140-400) K/mcL Neutrophils # 21.0 H (1.6-8.9) K/mcL BMP 01/11/18 05:47 Sodium 135 L Potassium 3.8 Chloride 96 L Carbon Dioxide 33 H BUN 23 H Creatinine 0.96 Glucose 99 Calcium 8.9 - ABG Interpretation ABG results: PT/INR, D-dimer PT 11.7 Seconds (9.4-12.1) 01/11/18 09:33 - Attending Attestation Seen and assessed. Agree with plan per resident Came in with shortness of breath and anemia. Found to have lung mass and uterine mass and pneumonia Plan Acute PE. Transitioned to lovenox sc. Onc following Lung and uterine mass. Oncology following and plan on chemotherapy Acute GI bleed. Hemoglobin was low on admission. GI on board and plan for EGD/ colonoscopy. EGD and colonoscopy done 01/09 showed hiatal hernia, gastritis and non bleeding ulcers and second degree hemorrhoids resectively. Continue PPI Sepsis with pneumonia. WBC trended up to 36 and patient spiked a fever. Antibiotics broadened to vanc and zosyn. Obtain blood cultures. Will get ID consult. WBC trending down today Anemia with acute blood loss likely secondary to vaginal bleeding. Stable. Monitor CBC. Outpatient follow up with physician gynecologist onc per oncology. <Eliazar Senior - Last Filed: 01/11/18 14:40> (1) Sepsis Qualifiers: Sepsis type: sepsis due to unspecified organism Qualified Code(s): A41.9 - Sepsis, unspecified organism <Ivan Alvarez - Last Filed: 01/11/18 16:08> (1) Pneumonia Qualifiers: Pneumonia type: due to unspecified organism Laterality: unspecified laterality Lung location: unspecified part of lung Qualified Code(s): J18.9 - Pneumonia, unspecified organism (4) Anemia Qualifiers: Anemia type: iron deficiency Iron deficiency anemia type: chronic blood loss Qualified Code(s): D50.0 - Iron deficiency anemia secondary to blood loss ( chronic) (6) Pulmonary emboli Qualifiers: Pulmonary embolism type: other Chronicity: acute Acute cor pulmonale presence: without acute cor pulmonale Qualified Code(s): I26.99 - Other pulmonary embolism without acute cor pulmonale (7) COPD (chronic obstructive pulmonary disease) Qualifiers: COPD type: chronic bronchitis Chronic bronchitis type: unspecified Qualified Code(s): J42 - Unspecified chronic bronchitis
[2018-01-11] MEDS: traMADol 50 MG TABLET PO PRN (15:33)
--- NOTE | 2018-01-11 16:10 | Event Note ---
Date of Encounter: 01/11/18 Time of Encounter: 13:30 Patient denies pain, anxiety, shortness of breath, nausea, vomiting. Denies any needs at this visit. Chart review completed. Palliative following from a distance.
--- NOTE | 2018-01-11 17:29 | Oncology Inp Progress Note ---
<Molly Ayala L - Last Filed: 01/11/18 18:57> Date of Encounter: 01/11/18 Time of Encounter: 17:00 (1) Anemia Current Visit: Yes Status: Acute Assessment and plan: Microcytic anemia on admission Need to closely H&H monitor while on heparin gtt Iron and B12 replete LDH elevated Colonoscopy negative on 01/09/2018 other than 7 mm non-bleeding polyp transverse colon. Internal hemorrhoids and diverticulosis, esophageal ulcers with no stigmata of bleeding, specimen pending Plan: Closely monitor CBC Qualifiers: Anemia type: iron deficiency Iron deficiency anemia type: chronic blood loss Qualified Code(s): D50.0 - Iron deficiency anemia secondary to blood loss (chronic) (2) Pulmonary emboli Current Visit: Yes Status: Acute Assessment and plan: Bilateral segmental pulmonary arterial emboli Currently on heparin gtt Secondary active malignancy BLE venous [id number] edema likely secondary to pelvic mass/adenopathy Plan Lovenox works better than newer oral anticoagulation agents in setting of active malignancy. We will keep her on Lovenox 80 mg subcutaneous twice a day. Mildly dose reduced for her ideal body weight and also to minimize the chance of bleeding. She does have vaginal spotting. Qualifiers: Pulmonary embolism type: other Chronicity: acute Acute cor pulmonale presence: without acute cor pulmonale Qualified Code(s): I26.99 - Other pulmonary embolism without acute cor pulmonale (3) Sepsis Current Visit: Yes Status: Acute Assessment and plan: On 01/08/2018 patient started spiking fever she was transitioned from Rocephin and azithromycin to vancomycin on Zosyn Her urine strep pneumo antigen has resulted positive ID has been consulted Malignancy may be playing a role in her leukocytosis Qualifiers: Sepsis type: sepsis due to unspecified organism Qualified Code(s): A41.9 - Sepsis, unspecified organism (4) Uterine mass Current Visit: Yes Status: Acute Assessment and plan: CTA which revealed bilateral segmental pulmonary arterial emboli, left upper lobe pleural based 4.3 cm mass, medial left lower lobe 3.3 cm mass, partially imaged 17.6 cm midmesenteric mass, aorticopulmonary adenopathy, as well as 3.7 lower left neck mass directly adjacent to the left lobe of the thyroid. CT soft tissue neck- Significantly enlarged left supraclavicular lymph node measuring up to 3.3 cm consistent with metastatic disease. CT abdomen/pelvis revealed enlarged heterogeneous uterus with an adjacent 20 cm pelvic mass, 8.8 x 7.4 cm right adnexal mass, metastatic pelvic and retroperitoneal adenopathy, mild stranding of the omentum, moderate ascites, anasarca. S/P biopsy of the left supraclavicular LN-pathology reveals undifferentiated carcinoma, either of uterine or ovarian etiology We discussed pathology results and plan for chemotherapy, which may include debulking surgery following 3 cycles. Likely consider BRCA testing. Chemotherapy will be started on outpatient basis. She has developed vaginal bleeding with anemia- patient denies bleeding now ( reported last Thursday), however, nursing staff are findings towels blood/blood clots We will consult radiation oncology for evaluation for role for radiotherapy in presence of bleeding versus transfer to [facility] for liquefaction and regasification helper onc (5) Oral thrush Current Visit: Yes Status: Acute Assessment and plan: Acute odynophagia with development of vesicular lesions/ulcerations to lower lip and oral mucosa She is on diflucan, magic mouthwash and nystatin suspension We will add acyclovir Oncology: Subj Interval history: Ms. Lee is resting in her chair. She reports odynophagia and has vesicular/ ulcerated lesions to her lips and oral mucosa. Continues to have BLE edema. She denies pain otherwise. No nausea, vomiting or diarrhea. Her mood appears labile , she is conversational at times and withdrawn at others - Constitutional Vitals: Vital Signs Temp Pulse Resp BP Pulse Ox 01/11/18 15:43 98.1 F 86 18 96/54 97 01/11/18 11:02 16 94 01/11/18 10:51 98.3 F 79 19 90/52 94 01/11/18 07:05 97.9 F 77 19 91/53 96 01/11/18 04:18 98.9 F 73 18 94/54 95 01/10/18 21:17 14 92 01/10/18 20:30 98.6 F 86 18 97/53 93 Intake and Output 01/11/18 01/11/18 01/11/18 07:59 15:59 23:59 Intake Total 350 / 350 220 / 220 Output Total 2200 / 2200 100 / 100 Balance -1850 / -1850 120 / 120 Intake: IV Fluids 350 / 350 100 / 100 Zosyn 3.375 GM In 0.9 % Sodium 100 / 100 100 / 100 Chloride (Mini-Bag +) 100 ML @ 25 mls/hr IVPB Q8HR [facility] Rx#: [id number] Vancocin 1,250 MG In 0.9 % 250 / 250 Sodium Chloride 250 ML @ 166.67 mls/hr IVPB Q12H [facility] Rx#: [id number] Oral 0 / 0 120 / 120 Output: Urine 100 / 100 Urine/Stool Mix 2200 / 2200 Other: Meal Lunch Percent of Meal Consumed 5% # Voids 0 Weight 103.24 kg Patient Weight 01/11/18 23:59 Weight 103.24 kg General appearance: cooperative, no acute distress, no febrile - Head Head exam: Present: atraumatic - ENT ENT exam: Present: mucous membranes moist Additional comments: vesicular/ulcerated lesions to lower lip, tongue and oral mucosa - Respiratory Respiratory exam: Present: CTAB. Absent: respiratory distress - Cardiovascular Cardiovascular exam: Present: RRR, +S1, +S2 - GI/Abdominal GI/Abdominal exam: Present: distended, normal bowel sounds, soft. Absent: guarding, rebound, tenderness - Extremities Exam Extremities exam: Absent: calf tenderness Additional comments: 2+ pitting BLE - Neurological Exam Neurological exam: Present: alert, oriented X3, no focal deficits, strengths equal and symetr throughout - Psychiatric Psychiatric exam: Present: normal affect, normal mood - Skin Skin exam: Present: dry, intact, normal color, warm Oncology: Obj Data - Labs CBC & Chem 7: 01/11/18 05:47 01/11/18 05:47 - ABG Interpretation ABG results: PT/INR, D-dimer PT 11.7 Seconds (9.4-12.1) 01/11/18 09:33 Consult Discharge Plan - Plan Referrals: Piedad Walker METHODS AND PROCEDURES ANALYST [Advanced Practice Nurse] - 01/18/18 1:00 pm Prescriptions: Enoxaparin [Lovenox] 80 mg SQ Q12HR #60 syr <Jeffy Saravia S - Last Filed: 01/12/18 19:20> Date of Encounter: 01/11/18 - Constitutional Vitals: Vital Signs Temp Pulse Resp BP Pulse Ox 01/12/18 15:13 97.9 F 78 19 108/72 89 01/12/18 10:23 80 19 105/65 97 01/12/18 07:40 96 01/12/18 06:55 98.3 F 70 19 97/59 97 01/11/18 20:46 97.9 F 79 17 110/68 97 01/11/18 20:10 16 96 Intake and Output 01/12/18 01/12/18 01/12/18 07:59 15:59 23:59 Intake Total 100 / 100 220 / 220 140 / 140 Output Total 400 / 400 Balance -300 / -300 220 / 220 140 / 140 Intake: IV Fluids 100 / 100 100 / 100 20 / 20 Rocephin 2,000 MG In Water for inj. (sterile) 20 ML @ 600 mls/ hr IVP Q24H [facility] Rx#:[id number] Zosyn 3.375 GM In 0.9 % Sodium 100 / 100 100 / 100 Chloride (Mini-Bag +) 100 ML @ 25 mls/hr IVPB Q8HR [facility] Rx#: [id number] Oral 120 / 120 120 / 120 Output: Urine 400 / 400 Other: Meal Lunch Dinner Percent of Meal Consumed 0% 5% Stool Size Small Stool Consistency formed Stool Color Brown # Bowel Movements 1 Oncology: Obj Data - Labs CBC & Chem 7: 01/12/18 04:16 01/12/18 04:16 Labs: Laboratory Results - last 24 hr 01/12/18 01/12/18 01/12/18 04:16 04:16 11:08 WBC 18.7 H RBC 3.49 L Hgb 7.5 L Hct 27.6 L MCV 79.1 L MCH 21.5 L MCHC 27.2 L RDW 20.4 H Plt Count 379 MPV 9.8 Immature Gran % 0.8 Seg Neutrophils % 89.1 Lymphocytes % 5.1 Monocytes % 4.8 Eosinophils % 0.1 Basophils % 0.1 Neutrophils # 16.7 H Lymphocytes # 1.0 Monocytes # 0.9 Eosinophils # 0.0 Basophils # 0.0 Platelet Estimate Normal Hypochromasia Present A Anisocytosis 1+ A Microcytosis Present A Stomatocytes 1+ A Sodium 137 Potassium 4.2 Chloride 99 Carbon Dioxide 32 H BUN 25 H Creatinine 1.00 Est GFR ( Amer) > 60 Est GFR (Non-Af Amer) 57 L BUN/Creatinine Ratio 25 Glucose 107 H Calculated Osmolality 289 Calcium 8.7 Phosphorus 3.9 Magnesium 2.2 Nasal Screen MRSA (PCR) Negative Chlamy pneumoniae PCR Adenovirus (PCR) B. pertussis DNA (PCR) B.parapertussis DNA PCR Coronavirus OC43 (PCR) Coronavirus HKU1 (PCR) Coronavirus 229E (PCR) Coronavirus NL63 (PCR) Human Metapneumovir PCR Influenza A (H1) PCR Influ A (H1N1/) PCR Influenza A (H3) PCR Influenza A Untype (PCR) Influenza Type B (PCR) M.pneumoniae DNA (PCR) Parainfluenza 1 (PCR) Parainfluenza 2 (PCR) Parainfluenza 3 (PCR) Parainfluenza 4 (PCR) RSV (PCR) Entero/Rhino (PCR) 01/12/18 11:08 WBC RBC Hgb Hct MCV MCH MCHC RDW Plt Count MPV Immature Gran % Seg Neutrophils % Lymphocytes % Monocytes % Eosinophils % Basophils % Neutrophils # Lymphocytes # Monocytes # Eosinophils # Basophils # Platelet Estimate Hypochromasia Anisocytosis Microcytosis Stomatocytes Sodium Potassium Chloride Carbon Dioxide BUN Creatinine Est GFR ( Amer) Est GFR (Non-Af Amer) BUN/Creatinine Ratio Glucose Calculated Osmolality Calcium Phosphorus Magnesium Nasal Screen MRSA (PCR) Chlamy pneumoniae PCR Not Detected Adenovirus (PCR) Not Detected B. pertussis DNA (PCR) Not Detected B.parapertussis DNA PCR Not Detected Coronavirus OC43 (PCR) Not Detected Coronavirus HKU1 (PCR) Not Detected Coronavirus 229E (PCR) Not Detected Coronavirus NL63 (PCR) Not Detected Human Metapneumovir PCR Not Detected Influenza A (H1) PCR Not Detected Influ A (H1N1/) PCR Not Detected Influenza A (H3) PCR Not Detected Influenza A Untype (PCR) Not Detected Influenza Type B (PCR) Not Detected M.pneumoniae DNA (PCR) Not Detected Parainfluenza 1 (PCR) Not Detected Parainfluenza 2 (PCR) Not Detected Parainfluenza 3 (PCR) Not Detected Parainfluenza 4 (PCR) Not Detected RSV (PCR) Not Detected Entero/Rhino (PCR) Not Detected - ABG Interpretation ABG results: PT/INR, D-dimer PT 11.7 Seconds (9.4-12.1) 01/11/18 09:33 Inpatient Charges Provider: Dr. Charlie Saravia Follow up - Inpatient: [id number] - Attending Attestation I examined this patient and my medical decision-making was reviewed with the Advanced Practice Nurse. I agree with the documented findings, disposition and treatment plan as described except to the extent set forth below. 1. Metastatic ovarian/endometrial cancer. She has a large intra-abdominal mass in the supraclavicular adenopathy which confirmed the diagnosis 2. Recurrent anemia. Hemoglobin drops to 7 range. Initially she declined major bleeding but on questioning she does have a lot of clots per vagina. Discussed with Dr. Rhoades. She would benefit from palliative radiation before start of chemotherapy Plan is to give carbotaxol every 3 weeks palliative chemotherapy as an outpatient. After 3 cycles may reevaluate her for possible debulking surgery if needed 3. She is depressed and very angry about the diagnosis. Looks like she had symptoms for about 6 months but she elected the symptoms initially. She may benefit from psychological counseling as well 4. DVT/PE. She is on anticoagulation. This can make the bleeding worse and may aggravate anemia 5. Infectious disease following for pneumonia Overall prognosis poor. She is estrogen receptor positive. If she has decent response to chemotherapy may try endocrine-based treatment We will also do next generation sequencing including BRCA testing and HR deficiency testing and MSI testing. She should also qualify for genetic counseling
--- NOTE | 2018-01-11 17:34 | Infectious Disease Consult ---
Date of Encounter: 01/11/18 Time of Encounter: 17:24 Assessment and Plan (1) Sepsis Status: Acute Assessment and plan: Likely secondary to pneumonia. Improved Qualifiers: Sepsis type: sepsis due to unspecified organism Qualified Code(s): A41.9 - Sepsis, unspecified organism (2) Streptococcal pneumonia Status: Acute Assessment and plan: Chest x-ray revealing multi focal pneumonia with stable left lower lobe mass Strep pneumo antigen was positive That was likely the causative organism Clinically patient is doing well Check respiratory infectious panel Check MRSA screen Recommend de-escalating back to Rocephin if respiratory infectious panel and MRSA screen are negative I wanted to repeat a CT chest so I have not point of reference by the patient told me she cannot lay flat and she would rather not do it. I am a little bit concerned for possible obstructive pneumonia; appreciate pulmonary's evaluation Duration of treatment depends on the clinical picture but likely 14 days total (3) Oral thrush Status: Acute Assessment and plan: Likely multifactorial secondary to inhaled steroids, antibiotics, tobacco use and suppressed immune system due to malignancy Agree with a combination of nystatin and Diflucan for now until she clinically does better Duration of treatment probably 14-21 days (4) Pulmonary emboli Status: Acute Qualifiers: Pulmonary embolism type: other Chronicity: acute Acute cor pulmonale presence: without acute cor pulmonale Qualified Code(s): I26.99 - Other pulmonary embolism without acute cor pulmonale (5) Uterine mass Status: Acute Assessment and plan: CEA 125 positive Bx of the supraclavicular lymph 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 (6) GIB (gastrointestinal bleeding) Status: Acute Assessment and plan: Status post EGD and colonoscopy. Patient has some esophageal ulcers and has significant gastritis Lower colonoscopy showed diverticulosis without diverticulitis and no active bleeding Per GI and primary team Qualifiers: GI bleed type/associated pathology: unspecified gastrointestinal hemorrhage type Qualified Code(s): K92.2 - Gastrointestinal hemorrhage, unspecified Infectious Disease HPI - Data of Consult Patient: new to practice Consult date: 01/11/18 Requesting Physician: Vita Arredondo MD Primary Care Provider: PCP NONE Family Provider: [facility] Provider - Consult Narrative Reason for consult: Sepsis with pneumonia, thrush. Duration of antibiotics History of present illness: Ms. Trejo is a 57 year old female Patient is a 57-year-old woman who was transferred to [place] from [facility] on 01/01 for shortness of breath. We are consult to the 01/11/2018 for sepsis with pneumonia and oral thrush and antibiotics recommendations. Patient is 57-year-old woman with past medical history mentioned below including COPD presented to an [facility] MRSA department with shortness of breath that has been going on for a few days prior to admission that were getting progressively worse. Patient denies any fevers or chills. She was having cough but no hemoptysis and no sputum production. Apparently patient had a CT scan done which revealed bilateral pulmonary emboli, multiple lung masses and partially imaged mesenteric mass in the upper abdomen with severe anemia. Hemoglobin of 7 so patient was transferred to [place] for further evaluation. On admission, patient was afebrile, no tachycardia and no tachypnea. Presenting labs revealed leukocytosis with a WBC of 19.3 thousand and 20% bands 74% neutrophils BUN 21 creatinine 0.97 and a lactic acid of 3. Initial imaging of the abdomen pelvis revealed an enlarged heterogeneous uterus with an adjacent placement of centimeter pelvic mass compatible with a neoplasm on Toprol and otherwise. This may reflect a primary neoplasm given its appearance. There is also an 8.87.4 cm right adnexal mass also compatible with malignancy. Metastatic pelvic and retroperitoneal adenopathy. Moderate volume ascites with mild stranding of the omentum. Anasarca. By basilar airspace opacity as well as nodule within the lung bases. CT of the soft tissue of the neck revealed significantly enlarged left supraclavicular lymph node measuring up to 3.3 cm consistent with metastatic disease. Left upper lobe cavitary nodule and right upper lobe consolidation partially visualized. 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 A CEA 125 came back positive at 855. On 01/08/2018 patient started spiking fever. At that time patient was already on Rocephin and azithromycin. That was stopped and patient was started on vancomycin on Zosyn on 01/09/2018. Since then the patient has been afebrile. Patient had blood cultures obtained that were no growth to date and had urine legionella and pneumococcal antigen and strep pneumo antigen came back positive. A urine culture was also obtained and was no growth to date. He Alberto evaluated the patient and recommended starting treatment as an outpatient and may be surgical intervention. Currently patient is sitting up in chair. Complaining of severe dysphagia due to oral thrush. Rest of the review of systems is really unremarkable. Patient says he will feel that I have a pneumonia. Patient denies any abdominal pain. No diarrhea or constipation. No urinary symptoms. CC: Vita Arredondo MD Patient is a 57-year-old woman who was transferred to [place] from [facility] on 01/01 for shortness of breath. We are consult to the 01/11/2018 for sepsis with pneumonia and oral thrush and antibiotics recommendations. Patient is 57-year-old woman with past medical history mentioned below including COPD [facility] with shortness of breath that has been going on for a few days prior to admission that were getting progressively worse. Patient denies any fevers or chills. She was having cough but no hemoptysis and no sputum production. Apparently patient had a CT scan done which revealed bilateral pulmonary emboli, multiple lung masses and partially imaged mesenteric mass in the upper abdomen with severe anemia. Hemoglobin of 7 so patient was transferred to [place] for further evaluation. On admission, patient was afebrile, no tachycardia and no tachypnea. Presenting labs revealed leukocytosis with a WBC of 19.3 thousand and 20% bands 74% neutrophils BUN 21 creatinine 0.97 and a lactic acid of 3. Initial imaging of the abdomen pelvis revealed an enlarged heterogeneous uterus with an adjacent placement of centimeter pelvic mass compatible with a neoplasm on Toprol and otherwise. This may reflect a primary neoplasm given its appearance. There is also an 8.87.4 cm right adnexal mass also compatible with malignancy. Metastatic pelvic and retroperitoneal adenopathy. Moderate volume ascites with mild stranding of the omentum. Anasarca. By basilar airspace opacity as well as nodule within the lung bases. CT of the soft tissue of the neck revealed significantly enlarged left supraclavicular lymph node measuring up to 3.3 cm consistent with metastatic disease. Left upper lobe cavitary nodule and right upper lobe consolidation partially visualized. 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 A CEA 125 came back positive at 855. On 01/08/2018 patient started spiking fever. At that time patient was already on Rocephin and azithromycin. That was stopped and patient was started on vancomycin on Zosyn on 01/09/2018. Since then the patient has been afebrile. Patient had blood cultures obtained that were no growth to date and had urine legionella and pneumococcal antigen and strep pneumo antigen came back positive. A urine culture was also obtained and was no growth to date. He Alberto evaluated the patient and recommended starting treatment as an outpatient and may be surgical intervention. Past Med Surg Social Fam HX - Past Medical History Medical history: COPD Psychiatric history: no psych history - Past Surgical History Surgical History: no surgical history - Social History Smoking Status: Current every day smoker Packs per day: less than half Smokeless Tobacco Status: No Alcohol use: none Drug use: none - Family History Mother Living Status: Still Living Hx Family Cardiac Disorders: Yes (tachycardia) Hx Family Cancer: No Father Living Status: Still Living Hx Family Cancer: No Infectious Disease-CN:Meds Albuterol Sulfate [Ventolin Hfa] 2 puff IH Q6H PRN 01/01/18 [History] Budesonide/Formoterol 160/4.5 [Symbicort 160/4.5] 2 puff IH BID 01/01/18 [ History] 3 Allergy/AdvReac Type Severity Reaction Status Date / Time No Known Allergies Allergy Unverified 04/21/17 13:08 Review of systems: 10 point review of systems done, negative other for what is mentioned in history of present illness Exam - Constitutional Vitals: Temp Pulse Resp BP Pulse Ox 98.1 F 86 18 96/54 97 01/11/18 15:43 01/11/18 15:43 01/11/18 15:43 01/11/18 15:43 01/11/18 15:43 General appearance: no acute distress, no febrile - Head Head exam: Present: atraumatic, normocephalic - Eye Eye exam: Present: EOMI, PERRL - ENT ENT exam: Present: mucous membranes dry Additional comments: Oral thrush noted. No other lesions or vesicles. - Neck Neck exam: Present: full ROM, normal inspection - Respiratory Additional comments: Air sounds diminished universally. Did not appreciate any wheezing. No rhonchi or crackles. Chest expanding symmetrically. - Cardiovascular Cardiovascular exam: Present: RRR Additional comments: S1 and S2. Chest location from the supra clavicular biopsy on the left side intact and healing well no signs of infection - GI/Abdominal GI/Abdominal exam: Present: hypoactive bowel sounds, soft. Absent: tenderness - Extremities Exam Extremities exam: Present: full ROM, normal inspection - Back Exam Back exam: Present: normal inspection. Absent: vertebral tenderness - Neurological Exam Neurological exam: Present: alert, oriented X3 - Psychiatric Psychiatric exam: Present: agitated, anxious Additional comments: Patient was very pleasant appears to be withdrawn from reality. She appears to be in denial. She states that she feels great and she is not sure what other people are talking about. She was also frustrated with the fact that they are not letting her get up to take a shower on her own and walk on her own and the physician recommends that she walks with the nursing staff - Skin Skin exam: Present: normal color. Absent: rash Infectious Disease CN: Results - Labs CBC & Chem 7: 01/11/18 05:47 01/11/18 05:47 Cultures: Cultures 01/11/18 10:50 Urine Culture - Final Urine,Clean Catch No growth. 01/09/18 03:05 Legionella Antigen - Final Urine,Catheterized Streptococcus pneumoniae Antigen (M - Final 01/09/18 10:37 Blood Culture - Preliminary Peripheral Venipuncture Culture is incubating and being continuously monitored for growth. Final report to follow. 01/09/18 10:37 Blood Culture - Preliminary Peripheral Venipuncture Culture is incubating and being continuously monitored for growth. Final report to follow. 01/01/18 04:47 Blood Culture - Final Peripheral Venipuncture No growth. Final report. 01/01/18 04:55 Blood Culture - Final Peripheral Venipuncture No growth. Final report. Serology: Serology 01/09/18 Range/Units 03:05 Urine Color Dark Yellow (Yellow) Urine Clarity Cloudy A (Clear) Urine pH 6.0 (5.0-8.0) pH Units Ur Specific [place] 1.014 (1.010-1.025) Urine Protein 100 H (Neg-Trace) mg/dL Urine Glucose (UA) Normal (Normal) mg/dL Urine Ketones Negative (Negative) mg/dL Urine Blood Large H (Negative) Urine Nitrite Negative (Negative) Urine Bilirubin Negative (Negative) Urine Urobilinogen Normal (Normal) mg/dL Ur Leukocyte Esterase Small H (Negative) Urine Microscopic RBC 50-100 H (0-3) per hpf Urine Microscopic WBC 50-100 H (0-3) per hpf Ur Squamous Epith Cells Many H (None-Few) per lpf Urine Bacteria Many H (None-Few) per hpf Hyaline Casts Few (None-Few) per lpf Urine Mucus Few (Few) Urine Yeast Moderate H (None Seen) per hpf Ur Culture Indicated? NO. A (NO) Consult Discharge Plan - Plan Referrals: Piedad Walker CNP [Advanced Practice Nurse] - 01/18/18 1:00 pm
[2018-01-11] MEDS ORDERED: metroNIDAZOLE 500 MG TABLET PO SCH (21:00)
[2018-01-11] MEDS: Acyclovir 200 MG CAPSULE PO SCH (22:27)
[2018-01-12] MEDS: Nystatin SUSP 5 ML UD.LIQ PO SCH ×5 (00:42→22:11)
[2018-01-12] MEDS: Piperacillin/Tazobactam 3.375 GM in 0.9 % Sodium Chloride Mini Bag 100 ML IVPB SCH ×3 (00:42→16:12)
[2018-01-12] MEDS: traMADol 50 MG TABLET PO PRN ×2 (04:15→11:11)
[2018-01-12 04:34] LABS: Basophils % 0.1 %; Eosinophils % 0.1 %; Hemoglobin 7.5 g/dL (11.5-15.4); Immature Granulocytes % 0.8 % (0-4); Lymphocytes % 5.1 %; Monocytes % 4.8 %; Red Cell Distribution Width 20.4 % (11.5-14.5); Segmented Neutrophils % 89.1 %
[2018-01-12 04:36] LABS: Hematocrit 27.6 % (35.3-44.9); Mean Corpuscular HGB Conc 27.2 g/dL (31.6-35.5); Mean Corpuscular Hemoglobin 21.5 pg (28.0-33.3); Mean Corpuscular Volume 79.1 fL (83.0-100.0); Mean Platelet Volume 9.8 fL (9.4-12.4); Monocytes # 0.9 K/mcL (0.0-1.3); Neutrophils # 16.7 K/mcL (1.6-8.9); Platelet Count 379 K/mcL (140-400); Red Blood Count 3.49 M/mcL (3.82-4.97)
[2018-01-12 04:54] LABS: BUN/Creatinine Ratio 25 (6-26); Blood Urea Nitrogen 25 mg/dL (6-20); Calcium 8.7 mg/dL (8.6-10.3); Carbon Dioxide 32 mEq/L (23-29); Chloride 99 mEq/L (98-107); Glucose 107 mg/dL (70-105); Magnesium 2.2 mg/dL (1.6-2.6); Osmolality,Calculated 289 (280-300); Phosphorous 3.9 mg/dL (2.7-4.5); Potassium 4.2 mEq/L (3.5-5.1); Sodium 137 mEq/L (136-145); eGFR For Non-African Americans 57 (> 60)
[2018-01-12 05:23] LABS: Hypochromasia Present (Not Present); Microcytosis Present (Not Present)
[2018-01-12 05:24] LABS: Platelet Estimate Normal (Normal); Stomatocytes 1+ (Not Present)
[2018-01-12 05:25] LABS: Anisocytosis 1+ (Not Present)
[2018-01-12] MEDS: *HR* Enoxaparin 80 MG/0.8 ML SYRINGE SQ SCH ×2 (06:00→18:42)
[2018-01-12] MEDS: Budesonide/Formoterol 160/4.5 1 PUFF INH IH SCH ×2 (07:41→19:46)
--- NOTE | 2018-01-12 07:46 | Internal Med Progress Note ---
<Nina Garcia - Last Filed: 01/12/18 12:56> Hospitalist Progress Note - Encounter Date of Encounter: 01/12/18 - Exam Vitals: Temp Pulse Resp BP Pulse Ox 98.3 F 80 19 105/65 97 01/12/18 06:55 01/12/18 10:23 01/12/18 10:23 01/12/18 10:23 01/12/18 10:23 - Assessment and Plan (1) Pneumonia Current Visit: Yes Status: Acute (2) Lung mass Current Visit: Yes Status: Acute (3) Thyroid mass Current Visit: Yes Status: Acute (4) Anemia Current Visit: Yes Status: Acute (5) DVT prophylaxis Current Visit: Yes Status: Acute (6) Pulmonary emboli Current Visit: Yes Status: Acute (7) COPD (chronic obstructive pulmonary disease) Current Visit: Yes Status: Acute (8) Goals of care, counseling/discussion Current Visit: Yes Status: Acute (9) Abnormal biopsy result Current Visit: Yes Status: Acute (10) Leukocytosis Current Visit: Yes Status: Acute - Time Spent with Patient Total time spent is greater than 50% in coordination of care (as documented) at patient's floor/unit and/or counseling patient: Internal Medicine: Result - Labs CBC & Chem 7: 01/12/18 04:16 01/12/18 04:16 Labs: Short CBC 01/12/18 Range/Units 04:16 WBC 18.7 H (4.3-11.1) K/mcL Hgb 7.5 L (11.5-15.4) g/dL Hct 27.6 L (35.3-44.9) % Plt Count 379 (140-400) K/mcL Neutrophils # 16.7 H (1.6-8.9) K/mcL BMP 01/12/18 04:16 Sodium 137 Potassium 4.2 Chloride 99 Carbon Dioxide 32 H BUN 25 H Creatinine 1.00 Glucose 107 H Calcium 8.7 - ABG Interpretation ABG results: PT/INR, D-dimer PT 11.7 Seconds (9.4-12.1) 01/11/18 09:33 Consult Discharge Plan - Plan Referrals: Piedad Walker, ELECTRIC CRANE OPERATOR [Advanced Practice Nurse] - 01/18/18 1:00 pm Prescriptions: Enoxaparin [Lovenox] 80 mg SQ Q12HR #60 syr - Attending Attestation I examined this patient and my medical decision-making was reviewed with the Resident Physician Dr Senior. I agree with the documented findings, disposition and treatment plan as described except to the extent set forth below/addl details below. Ms Trejo was admitted for sob and found to have BL PE in setting of pelvic and suspected metastatic lung masses. She had sepsis on admission with suspected source being strep pna as remainder of work up has been negative. Sepsis now resolved. Oncology has followed her this admission and rec for lovenox in setting of suspected malignancy and PEs. She has plans to fu with oncology outpt for chemo and possible debulking surgery. She was anemic on admit with hgb 6.5. She has had vaginalspotting this admission, down trending hgb and work up for gib wich included egd without signs of active bleeding and colonoscopy with non bleeding internal hemorrhoids and 7mm transverse colon polyp. awake, alert. Denies sob, fatigue, melena, hematochezia, brbpr, presyncope. No abd pain, nausea or emesis. She had one time nausea and "spit up saliva" after lovenox injection into her arm instead of abdomen yesterday. She denies any further episodes. BMs remain loose wich she attributes to liquid diet due to thrush. Oral pain improving but still much difficulty chewing any food. gen- alert, awake,appears stated age eyes- pupils equal round, no conjunctival pallor cv- reg rate and rhythm, normal s1,s2, no murmurs appreciated, 1+ pitting edema to bl knees lungs- ctabl, no wheezing, rhonchi or crackles, diminished bl bases, normal resp effort on o2 nc abd- soft, non tender, non distended, + bs neuro- AAOx3 sepsis, resolved- was most likely 2/2 strep pna, as no other source was identified thus far this admission -bl cxs bgtd, ucx no growth strep pna with + strep ag on testing, CXR multifocal pna and stable LLL mass -ID following- has been on vanc + zosyn--fu recs, will likely de escalate to rocephin -mrsa neg, resp panel negative -will need to determine outpt abx course in prep for dc in upcoming day or so oral thrush- likely multi factorial 2/2 steroids, antibiotics, tobacco and immune suppression with malignancy- nystatin + diflucan --will likely need 2-3 weeks -started on acyclovir as well PE- cont lovenox therapeutic dosing , onc following, monitor hgb as cont to down trend ECHO with LVEF 60-65%. mild diastolic dysfunction. 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 Work up for BL pulmonary embolism. Patient reports improvement of SOB. She denies fever, chills, nausea, vomiting. Patient is aware of medical condition and pelvic mass, possibly ovarian vs uterine carcinoma. She is tolerating PO, back to home O2, voiding without difficulty, denies diarrhea, constipation. She has no complaints and reports that she is back to baseline. She would like to go home. - Exam Vitals: Temp Pulse Resp BP Pulse Ox 98.3 F 70 19 97/59 97 01/12/18 06:55 01/12/18 06:55 01/12/18 06:55 01/12/18 06:55 01/12/18 06:55 Exam: General: Patient is alert, oriented, no acute distress, obese, speaks in full sentences Head: atraumatic, normocephalic, Eye: normal appearance, no scleral icterus, no conjunctival injection Neck: normal inspection, trachea midline, full ROM, no carotid bruits Chest: normal inspection, symmetric chest rise Respiratory: Decreased breath sounds secondary to body habitus, crackles on the left posterior aspect, no wheezing. Cardiovascular: Distant heart sounds secondary to body habitus, Regular rate and rhythm. s1 and s2 No clicks, rubs, gallops, or murmurs. Extremities: BL upper extremity purpura. Abdomen: Bowel sounds present normoactive x-4 quadrants. Abdomen is soft, +ve distended. no Epigastric tenderness. No guarding or rebound. No organomegaly noted, obese musculoskeletal: Spontaneously moving all extremities. +2 edema of the bilateral lower extremities Skin: warm, intact. Neuro: Alert and oriented x4. Sensation light touch intact. Cranial nerves 2- 12 is intact. Not aphasic, no focal deficit - Assessment and Plan (1) Sepsis Current Visit: Yes Status: Acute Assessment and Plan: Improved -leukocytosis downtrending, vital signs stable -BCx 01/01 negative x2, pending repeat BCx -Repeat CXR with improving PNA, which is suspicious for infection from another source vs metastatic disease -UA with large amount of blood, negative nitrite, +esterase. Unlikely UTI -S. pneumo urine culture positive. ID was consulted. We will down-escalate to rocephin. d/c vanc + zosyn. -She had completed 4 day course of Zithromax from 01/02/18 to 01/05/18 -Patient has appointment at [facility] for work-up -ID and oncology have cleared her for discharge -I had an extensive conversation with patient in regards to concerns and questions. Patient is aware of her metastatic cancer and agreeable to radiation therapy. She also would prefer treatment at [place] and declines transfer if required. -Expect discharge tomorrow. She will be discharged with augmentin per ID. Will also require duoneb, nebulizer, PPI, diflucan, nystatin scripts. Acyclovir pending Oncology recommendations. (2) Pelvic mass Current Visit: Yes Status: Acute Assessment and Plan: CT with 20cm pelvic mass consistent with neoplasm until proven otherwise. 8.8 x 7.4 cm right adnexal mass also compatible with malignancy. Metastatic pelvic and retroperitoneal adenopathy. anasarca. 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 TTF-1 negative. Vimentin positive. ER positive. -Per oncology, chemotherapy with carbotaxol. After 3 cycles may consider debulking surgery. She does have extensive metastasis including lung metastasis. mayy consider molecular testing including tumor BRCA testing. If positive she may be a candidate for PARP inhibitor -Treat per oncology (3) GIB (gastrointestinal bleeding) Current Visit: Yes Status: Acute Assessment and Plan: Patient presented with BL Pulmonary embolism, now on Lovenox. Hb downtrending. Could be secondary to vaginal bleed. Otherwise asymptomatic. Will continue to monitor H/H EGD and colonoscopy: No active bleeding. Benign appearing esophageal stenosis. Gastritis. Biopsy contraindicated due to possible active bleed. Continue PPI regimen when appropriate. Continue with Lovenox (4) Pulmonary emboli Current Visit: Yes Status: Acute Assessment and Plan: CT Chest with showed segmental pulmonary embolism. Likely related to malignancy. ECHO with LVEF 60-65%. mild diastolic dysfunction. Mod Pul HTN.- performed at [facility] Doppler negative for DVT Continue Lovenox 80mg PO BID as patient has comprehensive history of cancer (5) Lung mass Current Visit: Yes Status: Acute (6) Thyroid mass Current Visit: Yes Status: Acute (7) Goals of care, counseling/discussion Current Visit: Yes Status: Acute (8) Uterine mass Current Visit: Yes Status: Acute Will follow up outpatient (9) Anemia Current Visit: Yes Status: Acute Assessment and Plan: Stable. EGD unremarkable. Pending colonoscopy. Transfuse if Hb<7 Continue to monitor CBC daily. (10) COPD (chronic obstructive pulmonary disease) Current Visit: Yes Status: Acute Assessment and Plan: Stable. Pneumonia is also stable. Respiratory therapy as needed. (11) Oral thrush Current Visit: Yes Status: Acute Assessment and Plan: Improved. Continue with Nystatin, fluconazole, acyclovir -BCx 01/01 negative x2, pending repeat BCx DVT Prophylaxis: Patient started on Lovenox 80mg BID - Time Spent with Patient Total time spent is greater than 50% in coordination of care (as documented) at patient's floor/unit and/or counseling patient: Greater than 35 minutes Plan of Care Discussed with: patient Internal Medicine: Result - Labs CBC & Chem 7: 01/12/18 04:16 01/12/18 04:16 Labs: Short CBC 01/12/18 Range/Units 04:16 WBC 18.7 H (4.3-11.1) K/mcL Hgb 7.5 L (11.5-15.4) g/dL Hct 27.6 L (35.3-44.9) % Plt Count 379 (140-400) K/mcL Neutrophils # 16.7 H (1.6-8.9) K/mcL BMP 01/12/18 04:16 Sodium 137 Potassium 4.2 Chloride 99 Carbon Dioxide 32 H BUN 25 H Creatinine 1.00 Glucose 107 H Calcium 8.7 - ABG Interpretation ABG results: PT/INR, D-dimer PT 11.7 Seconds (9.4-12.1) 01/11/18 09:33 <Nina Garcia - Last Filed: 01/12/18 12:56> (1) Pneumonia Qualifiers: Pneumonia type: due to unspecified organism Laterality: unspecified laterality Lung location: unspecified part of lung Qualified Code(s): J18.9 - Pneumonia, unspecified organism (4) Anemia Qualifiers: Anemia type: iron deficiency Iron deficiency anemia type: chronic blood loss Qualified Code(s): D50.0 - Iron deficiency anemia secondary to blood loss ( chronic) (6) Pulmonary emboli Qualifiers: Pulmonary embolism type: other Chronicity: acute Acute cor pulmonale presence: without acute cor pulmonale Qualified Code(s): I26.99 - Other pulmonary embolism without acute cor pulmonale (7) COPD (chronic obstructive pulmonary disease) Qualifiers: COPD type: chronic bronchitis Chronic bronchitis type: unspecified Qualified Code(s): J42 - Unspecified chronic bronchitis <Eliazar Senior - Last Filed: 01/12/18 17:09> (1) Sepsis Qualifiers: Sepsis type: sepsis due to unspecified organism Qualified Code(s): A41.9 - Sepsis, unspecified organism
[2018-01-12] MEDS: Folic Acid 1 MG TABLET PO SCH (09:36)
[2018-01-12] MEDS: Fluconazole 100 MG TABLET PO SCH (09:36)
[2018-01-12] MEDS: Acyclovir 200 MG CAPSULE PO SCH ×3 (09:36→22:11)
[2018-01-12] MEDS: predniSONE 20 MG TABLET PO SCH (09:36)
[2018-01-12] MEDS: Magic Mouthwash 10 ML UD Cup PO SCH ×3 (09:58→16:12)
[2018-01-12 12:18] LABS: Adenovirus Not Detected (Not Detect); Bordetella Pertussis Not Detected (Not Detect); Chlamydophila pneumoniae Not Detected (Not Detect); Coronavirus 229E Not Detected (Not Detect); Coronavirus HKU1 Not Detected (Not Detect); Coronavirus NL63 Not Detected (Not Detect); Coronavirus OC43 Not Detected (Not Detect); Human Metapneumovirus Not Detected (Not Detect); Human Rhinovirus/Enterovirus Not Detected (Not Detect); Influenza A Subtype 2009 H1 Not Detected (Not Detect); Influenza A Untypeable Not Detected (Not Detect); Influenza B Not Detected (Not Detect); Mycoplasma pneumoniae Not Detected (Not Detect); Parainfluenza Virus 1 Not Detected (Not Detect); Parainfluenza Virus 2 Not Detected (Not Detect); Parainfluenza Virus 3 Not Detected (Not Detect); Parainfluenza Virus 4 Not Detected (Not Detect); Respiratory Syncytial Virus Not Detected (Not Detect)
--- NOTE | 2018-01-12 15:11 | Infectious Disease Progress No ---
Date of Encounter: 01/12/18 Time of Encounter: 15:09 - Assessment and Plan (1) Sepsis Current Visit: Yes Status: Acute Secondary to pneumonia Improving Qualifiers: Sepsis type: sepsis due to unspecified organism Qualified Code(s): A41.9 - Sepsis, unspecified organism (2) Streptococcal pneumonia Current Visit: Yes Status: Acute Chest x-ray revealing multi focal pneumonia with stable left lower lobe mass Strep pneumo antigen was positive That was likely the causative organism Clinically patient is doing well Check respiratory infectious panel - negative. 01/11/2018 Check MRSA screen - pending Recommend de-escalating back to Rocephin if respiratory infectious panel and MRSA screen are negative I wanted to repeat a CT chest so I have not point of reference by the patient told me she cannot lay flat and she would rather not do it. I am a little bit concerned for possible obstructive pneumonia; appreciate pulmonary's evaluation Duration of treatment depends on the clinical picture but likely 14 days total Prognosis is guarded at best (3) Oral thrush Current Visit: Yes Status: Acute Likely multifactorial secondary to inhaled steroids, antibiotics, tobacco use and suppressed immune system due to malignancy Agree with a combination of nystatin and Diflucan for now until she clinically does better Duration of treatment probably 14-21 days (4) Uterine mass Current Visit: Yes Status: Acute CEA 125 positive Bx of the supraclavicular lymph 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 (5) Pulmonary emboli Current Visit: Yes Status: Acute Qualifiers: Pulmonary embolism type: other Chronicity: acute Acute cor pulmonale presence: without acute cor pulmonale Qualified Code(s): I26.99 - Other pulmonary embolism without acute cor pulmonale (6) GIB (gastrointestinal bleeding) Current Visit: Yes Status: Acute Status post EGD and colonoscopy. Patient has some esophageal ulcers and has significant gastritis Lower colonoscopy showed diverticulosis without diverticulitis and no active bleeding Per GI and primary team Qualifiers: GI bleed type/associated pathology: unspecified gastrointestinal hemorrhage type Qualified Code(s): K92.2 - Gastrointestinal hemorrhage, unspecified - Subjective Interval history: Patient seen and examined. Clinically appears comfortable. Still having a hard time with acceptance of what is going on. Her focus and energy appears to be always that something secondary that really is not relevant. In the last 24 hours: Patient has been afebrile, no tachycardia and hemodynamically stable. WBC continues to improve down to 18.7 from 23,000. Neutrophils are 89% Respiratory infectious panel negative Infect Dis PN-Objective Data - Labs CBC & Chem 7: 01/12/18 04:16 01/12/18 04:16 Labs: Laboratory Results - last 24 hr 01/12/18 01/12/18 01/12/18 04:16 04:16 11:08 WBC 18.7 H RBC 3.49 L Hgb 7.5 L Hct 27.6 L MCV 79.1 L MCH 21.5 L MCHC 27.2 L RDW 20.4 H Plt Count 379 MPV 9.8 Immature Gran % 0.8 Seg Neutrophils % 89.1 Lymphocytes % 5.1 Monocytes % 4.8 Eosinophils % 0.1 Basophils % 0.1 Neutrophils # 16.7 H Lymphocytes # 1.0 Monocytes # 0.9 Eosinophils # 0.0 Basophils # 0.0 Platelet Estimate Normal Hypochromasia Present A Anisocytosis 1+ A Microcytosis Present A Stomatocytes 1+ A Sodium 137 Potassium 4.2 Chloride 99 Carbon Dioxide 32 H BUN 25 H Creatinine 1.00 Est GFR ( Amer) > 60 Est GFR (Non-Af Amer) 57 L BUN/Creatinine Ratio 25 Glucose 107 H Calculated Osmolality 289 Calcium 8.7 Phosphorus 3.9 Magnesium 2.2 Nasal Screen MRSA (PCR) Negative Chlamy pneumoniae PCR Adenovirus (PCR) B. pertussis DNA (PCR) B.parapertussis DNA PCR Coronavirus OC43 (PCR) Coronavirus HKU1 (PCR) Coronavirus 229E (PCR) Coronavirus NL63 (PCR) Human Metapneumovir PCR Influenza A (H1) PCR Influ A (H1N1/09) PCR Influenza A (H3) PCR Influenza A Untype (PCR) Influenza Type B (PCR) M.pneumoniae DNA (PCR) Parainfluenza 1 (PCR) Parainfluenza 2 (PCR) Parainfluenza 3 (PCR) Parainfluenza 4 (PCR) RSV (PCR) Entero/Rhino (PCR) 01/12/18 11:08 WBC RBC Hgb Hct MCV MCH MCHC RDW Plt Count MPV Immature Gran % Seg Neutrophils % Lymphocytes % Monocytes % Eosinophils % Basophils % Neutrophils # Lymphocytes # Monocytes # Eosinophils # Basophils # Platelet Estimate Hypochromasia Anisocytosis Microcytosis Stomatocytes Sodium Potassium Chloride Carbon Dioxide BUN Creatinine Est GFR ( Amer) Est GFR (Non-Af Amer) BUN/Creatinine Ratio Glucose Calculated Osmolality Calcium Phosphorus Magnesium Nasal Screen MRSA (PCR) Chlamy pneumoniae PCR Not Detected Adenovirus (PCR) Not Detected B. pertussis DNA (PCR) Not Detected B.parapertussis DNA PCR Not Detected Coronavirus OC43 (PCR) Not Detected Coronavirus HKU1 (PCR) Not Detected Coronavirus 229E (PCR) Not Detected Coronavirus NL63 (PCR) Not Detected Human Metapneumovir PCR Not Detected Influenza A (H1) PCR Not Detected Influ A (H1N1/09) PCR Not Detected Influenza A (H3) PCR Not Detected Influenza A Untype (PCR) Not Detected Influenza Type B (PCR) Not Detected M.pneumoniae DNA (PCR) Not Detected Parainfluenza 1 (PCR) Not Detected Parainfluenza 2 (PCR) Not Detected Parainfluenza 3 (PCR) Not Detected Parainfluenza 4 (PCR) Not Detected RSV (PCR) Not Detected Entero/Rhino (PCR) Not Detected Cultures: Cultures 01/11/18 10:50 Urine Culture - Final Urine,Clean Catch No growth. 01/09/18 03:05 Legionella Antigen - Final Urine,Catheterized Streptococcus pneumoniae Antigen (M - Final 01/09/18 10:37 Blood Culture - Preliminary Peripheral Venipuncture Culture is incubating and being continuously monitored for growth. Final report to follow. 01/09/18 10:37 Blood Culture - Preliminary Peripheral Venipuncture Culture is incubating and being continuously monitored for growth. Final report to follow. 01/01/18 04:47 Blood Culture - Final Peripheral Venipuncture No growth. Final report. 01/01/18 04:55 Blood Culture - Final Peripheral Venipuncture No growth. Final report. Serology 01/12/18 01/12/18 01/09/18 Range/Units 11:08 11:08 03:05 Urine Color Dark Yellow (Yellow) Urine Clarity Cloudy A (Clear) Urine pH 6.0 (5.0-8.0) pH Units Ur Specific [place] 1.014 (1.010-1.025) Urine Protein 100 H (Neg-Trace) mg/dL Urine Glucose (UA) Normal (Normal) mg/dL Urine Ketones Negative (Negative) mg/dL Urine Blood Large H (Negative) Urine Nitrite Negative (Negative) Urine Bilirubin Negative (Negative) Urine Urobilinogen Normal (Normal) mg/dL Ur Leukocyte Esterase Small H (Negative) Urine Microscopic RBC 50-100 H (0-3) per hpf Urine Microscopic WBC 50-100 H (0-3) per hpf Ur Squamous Epith Cells Many H (None-Few) per lpf Urine Bacteria Many H (None-Few) per hpf Hyaline Casts Few (None-Few) per lpf Urine Mucus Few (Few) Urine Yeast Moderate H (None Seen) per hpf Ur Culture Indicated? NO. A (NO) Nasal Screen MRSA (PCR) Negative (Negative) Chlamy pneumoniae PCR Not Detected (Not Detect) Adenovirus (PCR) Not Detected (Not Detect) B. pertussis DNA (PCR) Not Detected (Not Detect) B.parapertussis DNA PCR Not Detected (Not Detect) Coronavirus OC43 (PCR) Not Detected (Not Detect) Coronavirus HKU1 (PCR) Not Detected (Not Detect) Coronavirus 229E (PCR) Not Detected (Not Detect) Coronavirus NL63 (PCR) Not Detected (Not Detect) Human Metapneumovir PCR Not Detected (Not Detect) Influenza A (H1) PCR Not Detected (Not Detect) Influ A (H1N1/09) PCR Not Detected (Not Detect) Influenza A (H3) PCR Not Detected (Not Detect) Influenza A Untype (PCR) Not Detected (Not Detect) Influenza Type B (PCR) Not Detected (Not Detect) M.pneumoniae DNA (PCR) Not Detected (Not Detect) Parainfluenza 1 (PCR) Not Detected (Not Detect) Parainfluenza 2 (PCR) Not Detected (Not Detect) Parainfluenza 3 (PCR) Not Detected (Not Detect) Parainfluenza 4 (PCR) Not Detected (Not Detect) RSV (PCR) Not Detected (Not Detect) Entero/Rhino (PCR) Not Detected (Not Detect) Exam - Constitutional Vitals: Temp Pulse Resp BP Pulse Ox 98.3 F 80 19 105/65 97 01/12/18 06:55 01/12/18 10:23 01/12/18 10:23 01/12/18 10:23 01/12/18 10:23 General appearance: no acute distress, no febrile - Respiratory Respiratory exam: Present: CTAB. Absent: wheezes - Cardiovascular Cardiovascular exam: Present: RRR, +S1, +S2 - GI/Abdominal GI/Abdominal exam: Present: normal bowel sounds, soft. Absent: tenderness - Extremities Exam Extremities exam: Present: full ROM, normal inspection Consult Discharge Plan - Plan Referrals: Piedad Walker SERVICE STATION CONSOLE OPERATOR [Advanced Practice Nurse] - 01/18/18 1:00 pm Prescriptions: Enoxaparin [Lovenox] 80 mg SQ Q12HR #60 syr
--- NOTE | 2018-01-12 15:15 | Oncology Inp Progress Note ---
Date of Encounter: 01/12/18 Time of Encounter: 15:15 (1) Anemia Current Visit: Yes Status: Acute Assessment and plan: Microcytic anemia on admission Need to closely H&H monitor while on heparin gtt Iron and B12 replete LDH elevated EGD/Colonoscopy negative on 01/09/2018 other than 7 mm non-bleeding polyp transverse colon, Internal hemorrhoids and diverticulosis, esophageal ulcers with no stigmata of bleeding, specimen pending She developed vaginal bleeding a few days ago with apparantly loss of a large amount of blood with large clots Plan: Closely monitor CBC/transfuse as needed She is being evaluated by radiation oncology tomorrow AM for consult and simulation for radiotherapy to palliatively control bleeding/pain Qualifiers: Anemia type: iron deficiency Iron deficiency anemia type: chronic blood loss Qualified Code(s): D50.0 - Iron deficiency anemia secondary to blood loss (chronic) (2) Pulmonary emboli Current Visit: Yes Status: Acute Assessment and plan: Bilateral segmental pulmonary arterial emboli Currently on heparin gtt Secondary active malignancy BLE venous [id number] edema likely secondary to pelvic mass/adenopathy Plan Lovenox works better than newer oral anticoagulation agents in setting of active malignancy. We will keep her on Lovenox 80 mg subcutaneous twice a day. Mildly dose reduced for her ideal body weight and also to minimize the chance of bleeding She has been given lovenox instructions per nursing staff for d/c home Qualifiers: Pulmonary embolism type: other Chronicity: acute Acute cor pulmonale presence: without acute cor pulmonale Qualified Code(s): I26.99 - Other pulmonary embolism without acute cor pulmonale (3) Sepsis Current Visit: Yes Status: Acute Assessment and plan: On 01/08/2018 patient started spiking fever she was transitioned from Rocephin and azithromycin to vancomycin on Zosyn Her urine strep pneumo antigen has resulted positive ID has been consulted-appreciate recommendations Awaiting MRSA screen prior to de-escalating ATB Malignancy may be playing a role in her leukocytosis Qualifiers: Sepsis type: sepsis due to unspecified organism Qualified Code(s): A41.9 - Sepsis, unspecified organism (4) Uterine mass Current Visit: Yes Status: Acute Assessment and plan: CTA which revealed bilateral segmental pulmonary arterial emboli, left upper lobe pleural based 4.3 cm mass, medial left lower lobe 3.3 cm mass, partially imaged 17.6 cm midmesenteric mass, aorticopulmonary adenopathy, as well as 3.7 lower left neck mass directly adjacent to the left lobe of the thyroid. CT soft tissue neck- Significantly enlarged left supraclavicular lymph node measuring up to 3.3 cm consistent with metastatic disease. CT abdomen/pelvis revealed enlarged heterogeneous uterus with an adjacent 20 cm pelvic mass, 8.8 x 7.4 cm right adnexal mass, metastatic pelvic and retroperitoneal adenopathy, mild stranding of the omentum, moderate ascites, anasarca. S/P biopsy of the left supraclavicular LN-pathology reveals undifferentiated carcinoma, either of uterine or ovarian etiology We discussed pathology results and plan for chemotherapy with carbo/taxol, which may include debulking surgery following 3 cycles. Likely consider BRCA testing. Today, as detailed in HPI, Ms. Trejo and Karley had a detailed conversation in regards to her radiographic results, pathology report, overall prognosis and staging as well as detailed discussion on treatment options. In addition to this , we discussed sales support engineer and support services which will be of assistance to her. She is planning to be transported to the cancer center tomorrow for radiation consult and simulation. Radiation treatment is likely planned to begin on with the goal to reduce vaginal bleeding, lower extremity edema/pain secondary to large pelvic mass. Following completion radiation treatment (which will likely be determnied to be a short period of time) she will begin chemotherapy. She was given an introduction in chemotherapy education today with general discussion on procedures in relation to chemotherapy along with general side effects to expect. She will have more detailed chemotherapy education session again prior to starting chemotherapy. Ms. Trejo is planned for discharge tomorrow which is ok from an oncology standpoint as our treatment may be initiated on an outpatient basis. (5) Oral thrush Current Visit: Yes Status: Acute Assessment and plan: Acute odynophagia with development of vesicular lesions/ulcerations to lower lip and oral mucosa She is on diflucan, magic mouthwash and nystatin suspension Acyclovir added Continue supportive treatment Oncology: Subj Interval history: Ms. Trejo reports that she is doing ok today. She continues to have issues with odynophagia secondary to oral lesions. Her appetite is good, she is trying to find foods that she can tolerate with her mouth sores. She denies pain, SOB, cough or any s/s bleeding (denies vaginal bleeding today). She has been ambulating in room as tolerated. Ms. Trejo and I had a detailed discussion on her radiographic imaging, pathology report, current treatment, staging and prognosis, and treatment options moving forward which will include radiation, following by chemotherapy, followed by consideration of debulking surgery. We had a detailed discussion about the operation of the cancer center, her team that will be working with her and an introduction in chemotherapy education. Ms. Trejo was very resistant and stand offish in the beginning of our conversation, almost as if in denial and stating that she "doesn't see how all of these things can be wrong because she feels perfectly fine." Following our detailed discussion as above, she began to open up to tell me that she has not felt well since May of this year, knowing something is very wrong but delayed having imaging done as ordered by her PCP. 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 She was also helping her daughter to prepare for the of her child at this time. We talked about her worries over the care of her 5 children and grandchildren, 3 of which are still in high school. She is hopeful to visit her daughter [place] [facility] sometime, we discussed that the best time may be in between her break from radiation to chemo. Verbal support was given along with discussion on our support services. We will continue to work very closely with patient on an outpatient basis. - Constitutional Vitals: Vital Signs Temp Pulse Resp BP Pulse Ox 01/12/18 15:13 97.9 F 78 19 108/72 89 01/12/18 10:23 80 19 105/65 97 01/12/18 07:40 96 01/12/18 06:55 98.3 F 70 19 97/59 97 01/11/18 20:46 97.9 F 79 17 110/68 97 01/11/18 20:10 16 96 01/11/18 15:43 98.1 F 86 18 96/54 97 Intake and Output 01/11/18 01/12/18 01/12/18 23:59 07:59 15:59 Intake Total 600 / 600 100 / 100 120 / 120 Output Total 100 / 100 400 / 400 Balance 500 / 500 -300 / -300 120 / 120 Intake: IV Fluids 600 / 600 100 / 100 Zosyn 3.375 GM In 0.9 % Sodium 100 / 100 100 / 100 Chloride (Mini-Bag +) 100 ML @ 25 mls/hr IVPB Q8HR [facility] Rx#: [id number] Vancocin 1,250 MG In 0.9 % 500 / 500 Sodium Chloride 250 ML @ 166.67 mls/hr IVPB Q12H [facility] Rx#: [id number] Oral 120 / 120 Output: Urine 100 / 100 400 / 400 Other: Meal Lunch Percent of Meal Consumed 0% Stool Size Small Stool Consistency formed Stool Color Brown # Bowel Movements 1 General appearance: cooperative, no acute distress, no febrile - Head Head exam: Present: atraumatic - ENT Additional comments: oral ulcerations to lips/oral mucosa - Respiratory Respiratory exam: Present: decreased breath sounds. Absent: respiratory distress - Cardiovascular Cardiovascular exam: Present: RRR, +S1, +S2 - GI/Abdominal GI/Abdominal exam: Present: distended, normal bowel sounds. Absent: tenderness Additional comments: slightly firm - Extremities Exam Extremities exam: Absent: calf tenderness Additional comments: 2-3+ BLE edema, pitting - Neurological Exam Neurological exam: Present: alert, oriented X3, no focal deficits, strengths equal and symetr throughout - Psychiatric Psychiatric exam: Present: agitated, depressed - Skin Skin exam: Present: dry, intact, normal color, warm Oncology: Obj Data - Labs CBC & Chem 7: 01/13/18 04:19 01/13/18 04:19 - ABG Interpretation ABG results: PT/INR, D-dimer PT 11.7 Seconds (9.4-12.1) 01/11/18 09:33 Consult Discharge Plan - Plan Referrals: Piedad Walker CNP [Advanced Practice Nurse] - 01/18/18 1:00 pm Prescriptions: Enoxaparin [Lovenox] 80 mg SQ Q12HR #60 syr Inpatient Charges Provider: Molly Ayala CNP Follow up - Inpatient: [id number]
--- NOTE | 2018-01-12 15:55 | Palliative Progress Note ---
Date of Encounter: 01/12/18 Time of Encounter: 10:30 - Assessment and plan (1) Goals of care, counseling/discussion Current Visit: Yes Status: Acute Assessment and plan: Patient was updated with the state of the work up. She was aware of the diagnosis of cancer at this point, and is willing to undergo treatment. Pt was made aware of RECLAMATION WORKER recommendation for transfer to a tertiary centre for RECLAMATION WORKER- oncology, she is unwilling to follow this option as it will be too difficult for her children. She is agreeable to start treatment with oncology at [facility], but she feels that the plan was not discussed in dept with her. RANDI Barnes Ayala was made aware. Palliative care will continue to follow. (2) Anemia Current Visit: Yes Status: Acute Assessment and plan: H/H has dropped, and pt noticed vaginal spotting. Now H/H remains stable, pt refers resolution of vaginal bleed. GI work up with egd and colonoscopy revealed gastritis, internal hemorrhoids, transverse colon polyp, esophageal ulcer, and no active bleeding Oncology recommend continue anticoagulation and close monitoring of H/H. Qualifiers: Anemia type: iron deficiency Iron deficiency anemia type: chronic blood loss Qualified Code(s): D50.0 - Iron deficiency anemia secondary to blood loss (chronic) (3) Dyspnea Current Visit: Yes Status: Acute Assessment and plan: Improving. on lovenox therapeutic dose. Qualifiers: Dyspnea type: shortness of breath Qualified Code(s): R06.02 - Shortness of breath; R06.00 - Dyspnea, unspecified; R06.01 - Orthopnea (4) Pelvic mass Current Visit: Yes Status: Acute Assessment and plan: CT abdomen revealed Pelvic mass, metastatic pelvic and retroperitoneal adenopathy, ascitis. CT neck with left supra-clavicular LN enlargement. n Chest CT, 4.3 cm in the left upper and 3.3 cm in the medial left lower lobe. S/P biopsy of supra-clavicular lymph node, pathology reveals undifferentiated carcinoma, either of uterine or ovarian etiology. Oncology plans for chemotherapy, which may include debulking surgery following 3 cycles. Likely consider BRCA testing. Chemotherapy will be started on outpatient basis, and a consult to radiation oncology. (5) Thrush Current Visit: Yes Status: Acute Assessment and plan: likely multi factorial 2/2 steroids, antibiotics, tobacco and immune suppression with malignancy- Patient is now on nystatin, diflucan, and acyclovir as well Magic mouth wash to be used before meals. - Time Spent With Patient Total time spent is greater than 50% in coordination of care (as documented) at patient's floor/unit and/or counseling patient: - Subjective Interval history: Pt complaining of burning pain in her mouth, and being unable to eat due to pain. She noticed some improvement, but is still very sore. Magic mouth wash helps. - Constitutional Vitals: Abnormal lab results WBC 18.7 K/mcL (4.3-11.1) H 01/12/18 04:16 RBC 3.49 M/mcL (3.82-4.97) L 01/12/18 04:16 Hgb 7.5 g/dL (11.5-15.4) L 01/12/18 04:16 Hct 27.6 % (35.3-44.9) L 01/12/18 04:16 MCV 79.1 fL (83.0-100.0) L 01/12/18 04:16 MCH 21.5 pg (28.0-33.3) L 01/12/18 04:16 MCHC 27.2 g/dL (31.6-35.5) L 01/12/18 04:16 RDW 20.4 % (11.5-14.5) H 01/12/18 04:16 Neutrophils # 16.7 K/mcL (1.6-8.9) H 01/12/18 04:16 Nucleated RBCs/100 WBC 0.1 /100 WBC (0) H 01/03/18 02:45 Hypochromasia Present (Not Present) A 01/12/18 04:16 Anisocytosis 1+ (Not Present) A 01/12/18 04:16 Microcytosis Present (Not Present) A 01/12/18 04:16 Stomatocytes 1+ (Not Present) A 01/12/18 04:16 Heparin Anti-Xa, Unfract 0.08 IU/mL (0.30-0.70) L 01/10/18 08:43 Carbon Dioxide 32 mEq/L (23-29) H 01/12/18 04:16 BUN 25 mg/dL (6-20) H 01/12/18 04:16 Est GFR (Non-Af Amer) 57 (> 60) L 01/12/18 04:16 Glucose 107 mg/dL (70-105) H 01/12/18 04:16 POC Glucose 112 mg/dL (70-99) H 01/04/18 11:04 Iron < 10 mcg/dL (50-170) L 01/01/18 04:49 Transferrin 168 mg/dL (203-362) L 01/01/18 04:49 Ferritin 489 ng/mL (10-120) H 01/01/18 19:13 ALT 6 Units/L (7-52) L 01/01/18 04:49 Lactate Dehydrogenase 393 Units/L (140-271) H 01/02/18 03:12 Albumin 2.8 g/dL (3.5-5.7) L 01/01/18 04:49 Globulin 3.7 g/dL (2.4-3.5) H 01/01/18 04:49 Albumin/Globulin Ratio 0.8 (1.1-2.2) L 01/01/18 04:49 CA 125 Ag Serial Mntr 855 U/mL (Less than 35) H 01/03/18 09:58 Urine Clarity Cloudy (Clear) A 01/09/18 03:05 Urine Protein 100 mg/dL (Neg-Trace) H 01/09/18 03:05 Urine Blood Large (Negative) H 01/09/18 03:05 Ur Leukocyte Esterase Small (Negative) H 01/09/18 03:05 Urine Microscopic RBC 50-100 per hpf (0-3) H 01/09/18 03:05 Urine Microscopic WBC 50-100 per hpf (0-3) H 01/09/18 03:05 Ur Squamous Epith Cells Many per lpf (None-Few) H 01/09/18 03:05 Urine Bacteria Many per hpf (None-Few) H 01/09/18 03:05 Urine Yeast Moderate per hpf (None Seen) H 01/09/18 03:05 Ur Culture Indicated? NO. (NO) A 01/09/18 03:05 Vancomycin Trough 19 mcg/mL (5-10) H 01/10/18 21:44 Antibody Screen POSITIVE A 01/01/18 04:49 Exam: General: Patient is alert, oriented, no acute distress, obese, speaks in full sentences Head: atraumatic, normocephalic, Eye: normal appearance, PERRL, no scleral icterus, no conjunctival injection ENT: mucous membranes moist, white plaques on tongue and oropharynx, blisters on the lips and gums. Neck: normal inspection, trachea midline, full ROM, no carotid bruits Chest: normal inspection, symmetric chest rise Respiratory: Decreased breath sounds secondary to body habitus, crackles on the left posterior aspect, no wheezing. Cardiovascular: Distant heart sounds secondary to body habitus, Regular rate and rhythm. s1 and s2 No clicks, rubs, gallops, or murmors. Abdomen: Bowel sounds present normoactive x-4 quadrants. Abdomen is soft, +ve distended. no Epigastric tenderness. No guarding or rebound. No organomegaly noted, obese musculoskeletal: Spontaneously moving all extremities. +2 edema of the bilateral lower extremities Skin: warm, dry, intact. Neuro: Alert and oriented x4. Sensation light touch intact. Cranial nerves 2- 12 is intact. Not aphasic, no focal deficit Palliative Quality Palliative Quality: Screen for Code Status: Yes, Screen for Goals of Care: Yes, Screen for Pain: Yes, If Pain Regimen Started, Initiate Bowel Regimen: NA, Screen for Nausea/Vomitting: Yes Code Status: 01/01/18 04:15 Resuscitation Status: Active [RES] Routine Comment: Resuscitation Status: Full Code - Labs CBC & Chem 7: 01/12/18 04:16 01/12/18 04:16 Labs: Laboratory Results - last 24 hr 01/12/18 01/12/18 01/12/18 04:16 04:16 11:08 WBC 18.7 H RBC 3.49 L Hgb 7.5 L Hct 27.6 L MCV 79.1 L MCH 21.5 L MCHC 27.2 L RDW 20.4 H Plt Count 379 MPV 9.8 Immature Gran % 0.8 Seg Neutrophils % 89.1 Lymphocytes % 5.1 Monocytes % 4.8 Eosinophils % 0.1 Basophils % 0.1 Neutrophils # 16.7 H Lymphocytes # 1.0 Monocytes # 0.9 Eosinophils # 0.0 Basophils # 0.0 Platelet Estimate Normal Hypochromasia Present A Anisocytosis 1+ A Microcytosis Present A Stomatocytes 1+ A Sodium 137 Potassium 4.2 Chloride 99 Carbon Dioxide 32 H BUN 25 H Creatinine 1.00 Est GFR ( Amer) > 60 Est GFR (Non-Af Amer) 57 L BUN/Creatinine Ratio 25 Glucose 107 H Calculated Osmolality 289 Calcium 8.7 Phosphorus 3.9 Magnesium 2.2 Nasal Screen MRSA (PCR) Negative Chlamy pneumoniae PCR Adenovirus (PCR) B. pertussis DNA (PCR) B.parapertussis DNA PCR Coronavirus OC43 (PCR) Coronavirus HKU1 (PCR) Coronavirus 229E (PCR) Coronavirus NL63 (PCR) Human Metapneumovir PCR Influenza A (H1) PCR Influ A (H1N1/) PCR Influenza A (H3) PCR Influenza A Untype (PCR) Influenza Type B (PCR) M.pneumoniae DNA (PCR) Parainfluenza 1 (PCR) Parainfluenza 2 (PCR) Parainfluenza 3 (PCR) Parainfluenza 4 (PCR) RSV (PCR) Entero/Rhino (PCR) 01/12/18 11:08 WBC RBC Hgb Hct MCV MCH MCHC RDW Plt Count MPV Immature Gran % Seg Neutrophils % Lymphocytes % Monocytes % Eosinophils % Basophils % Neutrophils # Lymphocytes # Monocytes # Eosinophils # Basophils # Platelet Estimate Hypochromasia Anisocytosis Microcytosis Stomatocytes Sodium Potassium Chloride Carbon Dioxide BUN Creatinine Est GFR ( Amer) Est GFR (Non-Af Amer) BUN/Creatinine Ratio Glucose Calculated Osmolality Calcium Phosphorus Magnesium Nasal Screen MRSA (PCR) Chlamy pneumoniae PCR Not Detected Adenovirus (PCR) Not Detected B. pertussis DNA (PCR) Not Detected B.parapertussis DNA PCR Not Detected Coronavirus OC43 (PCR) Not Detected Coronavirus HKU1 (PCR) Not Detected Coronavirus 229E (PCR) Not Detected Coronavirus NL63 (PCR) Not Detected Human Metapneumovir PCR Not Detected Influenza A (H1) PCR Not Detected Influ A (H1N1/) PCR Not Detected Influenza A (H3) PCR Not Detected Influenza A Untype (PCR) Not Detected Influenza Type B (PCR) Not Detected M.pneumoniae DNA (PCR) Not Detected Parainfluenza 1 (PCR) Not Detected Parainfluenza 2 (PCR) Not Detected Parainfluenza 3 (PCR) Not Detected Parainfluenza 4 (PCR) Not Detected RSV (PCR) Not Detected Entero/Rhino (PCR) Not Detected - ABG Interpretation ABG results: PT/INR, D-dimer PT 11.7 Seconds (9.4-12.1) 01/11/18 09:33 Consult Discharge Plan - Plan Referrals: Piedad Walker CNP [Advanced Practice Nurse] - 01/18/18 1:00 pm Prescriptions: Enoxaparin [Lovenox] 80 mg SQ Q12HR #60 syr
[2018-01-12] MEDS: cefTRIAXone 2,000 MG in Water for inj. (sterile) 20 ML 20 ML IVP SCH (18:41)
[2018-01-13] MEDS: traMADol 50 MG TABLET PO PRN ×2 (04:25→11:28)
[2018-01-13 04:32] LABS: Basophils % 0.1 %
[2018-01-13 04:33] LABS: Eosinophils % 0.1 %; Hematocrit 27.3 % (35.3-44.9); Hemoglobin 7.6 g/dL (11.5-15.4); Immature Granulocytes % 0.7 % (0-4); Lymphocytes # 0.9 K/mcL (0.6-4.6); Lymphocytes % 5.9 %; Mean Corpuscular HGB Conc 27.8 g/dL (31.6-35.5); Mean Corpuscular Volume 78.9 fL (83.0-100.0); Mean Platelet Volume 9.3 fL (9.4-12.4); Monocytes # 0.8 K/mcL (0.0-1.3); Monocytes % 5.3 %; Platelet Count 413 K/mcL (140-400); Red Blood Count 3.46 M/mcL (3.82-4.97); Red Cell Distribution Width 20.6 % (11.5-14.5); Segmented Neutrophils % 87.9 %
[2018-01-13 04:48] LABS: BUN/Creatinine Ratio 24 (6-26); Blood Urea Nitrogen 26 mg/dL (6-20); Calcium 8.7 mg/dL (8.6-10.3); Carbon Dioxide 34 mEq/L (23-29); Chloride 99 mEq/L (98-107); Glucose 104 mg/dL (70-105); Magnesium 2.2 mg/dL (1.6-2.6); Osmolality,Calculated 293 (280-300); Phosphorous 4.5 mg/dL (2.7-4.5); Potassium 4.6 mEq/L (3.5-5.1); Sodium 139 mEq/L (136-145); eGFR For Non-African Americans 51 (> 60)
[2018-01-13 05:04] LABS: Neutrophils # 12.8 K/mcL (1.6-8.9)
[2018-01-13 05:16] LABS: Anisocytosis 2+ (Not Present); Hypochromasia Present (Not Present); Microcytosis Present (Not Present); Platelet Estimate Increased (Normal)
[2018-01-13] MEDS: *HR* Enoxaparin 80 MG/0.8 ML SYRINGE SQ SCH ×2 (06:10→16:49)
[2018-01-13 07:25] VITALS: BP 100/67
--- NOTE | 2018-01-13 08:59 | Discharge Summary ---
<Americo Voss - Last Filed: 01/13/18 14:34> Orders not resulted at time of discharge: Pending orders 01/01/18 04:23 Fecal Hemoccult [Occult Blood,Stool] [BF] Routine 01/01/18 17:06 Sputum Culture [Culture,Sputum with Gram Stain] [RM] Routine 01/09/18 10:37 Culture,Blood [BC] Routine 01/14/18 04:00 Basic Metabolic Panel AM 0400 CBC [Complete Blood Count] [HEME] AM 0400 Magnesium AM 0400 Phosphorous AM 0400 01/15/18 04:00 Basic Metabolic Panel AM 0400 CBC [Complete Blood Count] [HEME] AM 0400 Magnesium AM 0400 Phosphorous AM 0400 01/16/18 04:00 Basic Metabolic Panel AM 0400 CBC [Complete Blood Count] [HEME] AM 0400 Magnesium AM 0400 Phosphorous AM 0400 Date of Encounter: 01/13/18 Time of Encounter: 09:30 - Discharge Diagnosis (1) Pneumonia Priority: Primary Status: Acute Assessment and Plan: Will prescribe patient PO augmentin for a 14 day total course Qualifiers: Pneumonia type: due to unspecified organism Laterality: unspecified laterality Lung location: unspecified part of lung Qualified Code(s): J18.9 - Pneumonia, unspecified organism (2) Lung mass Priority: Secondary Status: Acute (3) Anemia Priority: Secondary Status: Acute Qualifiers: Anemia type: iron deficiency Iron deficiency anemia type: chronic blood loss Qualified Code(s): D50.0 - Iron deficiency anemia secondary to blood loss (chronic) (4) Pulmonary emboli Priority: Primary Status: Acute Qualifiers: Pulmonary embolism type: other Chronicity: acute Acute cor pulmonale presence: without acute cor pulmonale Qualified Code(s): I26.99 - Other pulmonary embolism without acute cor pulmonale (5) Uterine mass Priority: Secondary Status: Acute (6) Oral thrush Priority: Secondary Status: Acute Assessment and Plan: Will prescribe 7 day course of Acyclovir -14 day course of nystatin/diflucan Hospital course: Patient is a 57-year-old female with a PMH of COPD, PE, anemia, diverticulosis, esophageal ulcers, and uterine mass who was transferred to [facility] from [facility] on with a chief complaint of shortness of breath. Her symptoms started several days prior and had progressively worsened. Workup there was performed, and patient was found to have bilateral pulmonary emboli, multiple lung masses, and a mass in the upper abdomen. She was also found to be profoundly anemic with a hemoglobin of 7. She was transferred to [facility] for further care. Upon admission, patient was afebrile, with no tachycardia or tachypnea. Initial labs demonstrated an elevated white count of 19.3 with left shift, as well as a lactic acid of 3. CT scan of the abdomen and pelvis demonstrated an enlarged heterogeneous uterus with an adjacent placement of a pelvic mass compatible with a neoplasm. There was also an 8 x 8 x 7 x 4 cm mass on the right adnexa, also compatible with malignancy. There was metastatic pelvic and retroperitoneal adenopathy. Multiple volume ascites with mild stranding of the omentum with anasarca. By basilar airspace opacities were appreciated, as well as nodules in the lung bases. CT of the soft tissue of the neck demonstrated significantly enlarged left supraclavicular lymph nodes, measuring up to 3.3 cm , is consistent with metastatic disease. EZEKIEL cavitary nodule and RUL consolidation were also appreciated. Patient underwent biopsy of supraclavicular lymph node, demonstrated metastatic undifferentiated carcinoma. CEA 125 came back positive at 855. Likely origin is ovary or uterus. GI was consulted for her anemia, and the EGD demonstrated no signs of active bleeding. Colonoscopy showed nonbleeding internal hemorrhoids and a 7 mm transverse colon polyp. Patient became febrile on 1012. She began spiking fever. She was started on vancomycin and Zosyn. Patients fever resolved. Strep pneumo antigen came back positive. Due to patients prognosis, palliative care was consulted. Patient is aware of the diagnosis, and stated that she would want to undergo treatment. Radiation oncology has been consulted , patient will see them this morning, and then will be subsequently discharged. Oncology recommends Lovenox in the setting of suspected malignancy and PEs. She had vaginal spotting during the admission. Patient was seen and examined at bedside; she states that she is feeling well today. She denies shortness of breath, n/v/d, fever, chills, chest pain, palpitations, or cough. She has no complaints at this time. She will be discharged with Augmentin to finish a total course of 14 days of antibiotics. She will also be sent on diflucan and magic mouthwash. - Time Spent with Patient Total time spent providing and/or coordinating discharge services: Greater than 30 minutes - Discharge Medications Prescriptions: Ipratropium/Albuterol Neb [Duoneb] 3 ml IH Q6HR PRN #50 vial.neb PRN Reason: Shortness Of Breath Enoxaparin [Lovenox] 80 mg SQ Q12HR #60 syr Acyclovir [Zovirax] 400 mg PO TID #12 tablet Amoxicillin/Clavulanate [Augmentin] 875 mg PO DAILY #9 tablet Fluconazole [Diflucan] 200 mg PO DAILY #5 tab Magic Mouthwash 10 ml PO TID #250 ml Home Medications: Albuterol Sulfate [Ventolin Hfa] 2 puff IH Q6H PRN 01/01/18 [History] Budesonide/Formoterol 160/4.5 [Symbicort 160/4.5] 2 puff IH BID 01/01/18 [ History] Enoxaparin [Lovenox] 80 mg SQ Q12HR #60 syr 01/12/18 [Rx] Acyclovir [Zovirax] 400 mg PO TID #12 tablet 01/13/18 [Rx] Amoxicillin/Clavulanate [Augmentin] 875 mg PO DAILY #9 tablet 01/13/18 [Rx] Fluconazole [Diflucan] 200 mg PO DAILY #5 tab 01/13/18 [Rx] Ipratropium/Albuterol Neb [Duoneb] 3 ml IH Q6HR PRN #50 vial.neb 01/13/18 [Rx] Magic Mouthwash 10 ml PO TID #250 ml 01/13/18 [Rx] Allergies/Adverse Reactions: 3 Allergy/AdvReac Type Severity Reaction Status Date / Time No Known Allergies Allergy Unverified 04/21/17 13:08 Date of admission: 01/01/18 04:15 Primary care physician: PCP NONE Consults: 01/01/18 04:15 Consult to Oncology [CONS] Routine Consulting Provider: [facility] Reason for Consult: Lung mass; suspect metastatic disease Call Completed: No Consult to Pulmonology [CONS] Routine Consulting Provider: [facility] [place] Reason for Consult: Lung mass; Bilateral PE; pneumonia Call Completed: No 01/02/18 09:34 Consult to Psychiatry [CONS] Routine Consulting Provider: Psychiatry [place] Reason consult: Other Other reason and/or additional details: Possible depression and for competance for decision making. 01/02/18 15:36 Consult to Addiction Professional [CONS] Routine Reason for SW Consult: Terminal New Dx. Patient not coping or handling new information will. Placement need possible pallative hospice at discharge if patient is accepting. 01/03/18 13:22 Consult to Interventional Radiology [CONS] Routine Consulting Provider: Radiology [facility] Reason for Consult: Left spuraclavicular LN biopsy. Call Completed: No 01/04/18 12:45 Consult to Physical Therapy [CONS] Routine Comment: Evaluate, develop and implement POC Reason for Consult: oxygen need evaluation Mobility and movement. Improve balance, prevent fall Does patient have active BEDREST order?: No Is patient medically & hemodynamically stable?: Yes 01/06/18 09:23 Consult to Gastroenterology [CONS] Routine Consulting Provider: [facility]enter[facility] [place] Reason for Consult: anemia requiring transfusion, also newly diagnosed cancer of unknown primary s/p bioppsy which is pending. 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 Call Completed: Yes 01/11/18 07:12 Consult to Infectious Diseases [CONS] Routine Consulting Provider: [facility]ious [facility] [place] Reason for Consult: sepsis with pneumonia, thrush. Duration of antibiotics Call Completed: Yes Discharging clinician: Americo Voss Anticipated date of discharge: 01/13/18 - Constitutional Vitals: Temp Pulse Resp BP Pulse Ox 97.7 F 75 75 100/67 91 01/13/18 08:00 01/13/18 08:00 01/13/18 08:00 01/13/18 08:00 01/13/18 03:00 General appearance: Present: cooperative, mild distress, A&O X 3, answers questions appropriately Exam: General: Patient is alert, oriented, no acute distress, obese, speaks in full sentences Head: atraumatic, normocephalic Eye: EOMI, normal appearance, no scleral icterus Respiratory: CTAB; no wheezes, rales, or rhonchi Cardiovascular: RRR, +S1, S2, no murmurs, rubs, gallops Extremities: BL UE purpura Abdomen: Soft, nontender MSK: Spontaneously moving all extremities. +2 edema of the bilateral lower extremities Skin: dry, intact - Patient Status Disposition: Home, Self-Care Condition: Fair Overall status at discharge: patient is progressing back to baseline - Discharge Instructions Instructions: Acyclovir (By mouth), Amoxicillin/Clavulanate Potassium (By mouth ), Fluconazole (By mouth), Enoxaparin (Injection), Intravenous Chemotherapy (DC) , Eating During Cancer Treatment (DC), Oral Candidiasis (GEN) Follow Up With: Piedad Walker ACUTE CARE PHYSICIAN [Advanced Practice Nurse] - 01/18/18 1:00 pm - Diet and Activity Activity: increase activity as tolerated Diet: advance to your usual diet <Nina Garcia - Last Filed: 01/13/18 15:39> - NOTES TO OUTPATIENT PROVIDER Notes to Outpatient Provider: She was admitted with PE and pneumonia. PE is likely result of malignancy with pelvic mass, apparent metastatic lung mass. Sepsis from pna is resovled and she will complete oral course of Augmentin outpt. She was started on therapeutic dosing of lovenox for PE. She is anemic and hgb stable at discharge but requires outpt cbc within next 3 days. EGD and cscope this admission revealed gastritis, internal hemorrhoids and a transverse colon polyp with no active bleeding identified. DC hgb 7.6. She is established with oncology and rad onc and will fu for outpt treatment. She developed painful oral thrush and will dc with acyclovir and nystatin + diflucan as per ID recs. She is discharging with a short course of prn pain meds as well. Orders not resulted at time of discharge: Pending orders 01/01/18 04:23 Fecal Hemoccult [Occult Blood,Stool] [BF] Routine 01/01/18 17:06 Sputum Culture [Culture,Sputum with Gram Stain] [RM] Routine 01/09/18 10:37 Culture,Blood [BC] Routine 01/14/18 04:00 Basic Metabolic Panel AM 0400 CBC [Complete Blood Count] [HEME] AM 0400 Magnesium AM 0400 Phosphorous AM 0400 01/15/18 04:00 Basic Metabolic Panel AM 0400 CBC [Complete Blood Count] [HEME] AM 0400 Magnesium AM 0400 Phosphorous AM 0400 01/16/18 04:00 Basic Metabolic Panel AM 0400 CBC [Complete Blood Count] [HEME] AM 0400 Magnesium AM 0400 Phosphorous AM 0400 Date of Encounter: 01/13/18 - Discharge Diagnosis (1) Pneumonia Status: Acute Qualifiers: Qualified Code(s): J18.9 - Pneumonia, unspecified organism (2) Lung mass Priority: Secondary Status: Acute (3) Thyroid mass Priority: Secondary Status: Acute (4) Anemia Priority: Secondary Status: Acute Qualifiers: Qualified Code(s): D50.0 - Iron deficiency anemia secondary to blood loss ( chronic) (5) DVT prophylaxis Priority: Secondary Status: Acute (6) Pulmonary emboli Priority: Primary Status: Acute Qualifiers: Qualified Code(s): I26.99 - Other pulmonary embolism without acute cor pulmonale (7) COPD (chronic obstructive pulmonary disease) Priority: Secondary Status: Acute Qualifiers: Qualified Code(s): J42 - Unspecified chronic bronchitis (8) Goals of care, counseling/discussion Priority: Secondary Status: Acute (9) Abnormal biopsy result Priority: Secondary Status: Acute (10) Leukocytosis Priority: Secondary Status: Acute Hospital course: Ms. Trejo is a 57 year old female - Time Spent with Patient Total time spent providing and/or coordinating discharge services: Greater than 30 minutes Date of admission: 01/01/18 04:15 Primary care physician: PCP NONE Consults: 01/01/18 04:15 Consult to Oncology [CONS] Routine Consulting Provider: [facility] [place] Reason for Consult: Lung mass; suspect metastatic disease Call Completed: No Consult to Pulmonology [CONS] Routine Consulting Provider: [facility] [place] Reason for Consult: Lung mass; Bilateral PE; pneumonia Call Completed: No 01/02/18 09:34 Consult to Psychiatry [CONS] Routine Consulting Provider: Psychiatry [place] Reason consult: Other Other reason and/or additional details: Possible depression and for competance for decision making. 01/02/18 15:36 Consult to Addiction Professional [CONS] Routine Reason for SW Consult: Terminal New Dx. Patient not coping or handling new information will. Placement need possible pallative hospice at discharge if patient is accepting. 01/03/18 13:22 Consult to Interventional Radiology [CONS] Routine Consulting Provider: Radiology [facility] Reason for Consult: Left spuraclavicular LN biopsy. Call Completed: No 01/04/18 12:45 Consult to Physical Therapy [CONS] Routine Comment: Evaluate, develop and implement POC Reason for Consult: oxygen need evaluation Mobility and movement. Improve balance, prevent fall Does patient have active BEDREST order?: No Is patient medically & hemodynamically stable?: Yes 01/06/18 09:23 Consult to Gastroenterology [CONS] Routine Consulting Provider: [facility] [place] Reason for Consult: anemia requiring transfusion, also newly diagnosed cancer of unknown primary s/p bioppsy which is pending. 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 Call Completed: Yes 01/11/18 07:12 Consult to Infectious Diseases [CONS] Routine Consulting Provider: Infectious Disease [place] Reason for Consult: sepsis with pneumonia, thrush. Duration of antibiotics Call Completed: Yes - Constitutional Vitals: Temp Pulse Resp BP Pulse Ox 97.7 F 75 75 100/67 91 01/13/18 08:00 01/13/18 08:00 01/13/18 08:00 01/13/18 08:00 01/13/18 03:00 - Attending Attestation I examined this patient and my medical decision-making was reviewed with the Resident Physician Dr Voss. I agree with the documented findings, disposition and treatment plan as described except to the extent set forth below /addl details below. Ms Trejo was admitted for sob and found to have BL PE in setting of pelvic and suspected metastatic lung masses. She had sepsis on admission with suspected source being strep pna as remainder of work up has been negative. Sepsis now resolved. Oncology has followed her this admission and rec for lovenox in setting of suspected malignancy and PEs. She has plans to fu with oncology outpt for chemo and possible debulking surgery. She was anemic on admit with hgb 6.5. She has had vaginal spotting this admission, down trending hgb and work up for gib which included egd without signs of active bleeding and colonoscopy with non bleeding internal hemorrhoids and 7mm transverse colon polyp. awake, alert. Denies sob, fatigue, melena, hematochezia, brbpr, presyncope. Her only pain is in her mouth, overall starting to improve, tolerating soft foods and liquids. Denies cp, pressure or sob. No further cough, no wheezing. Went to [facility] onc appt this morning and now plan to dc to home with outpt fu. Discussed discharge meds and fu plans, answered all questions. gen- alert, awake,appears stated age eyes- pupils equal round, no conjunctival pallor cv- reg rate and rhythm, normal s1,s2, no murmurs appreciated, trace+ pitting edema to bl shins lungs- ctabl, no wheezing, rhonchi or crackles, normal resp effort on o2 nc abd- soft, non tender, non distended, + bs neuro- AAOx3 sepsis, resolved- was most likely 2/2 strep pna, as no other source was identified thus far this admission -bl cxs bgtd, ucx no growth strep pna with + strep ag on testing, CXR multifocal pna and stable LLL mass -ID followed- vanc + zosyn was de escalated to rocephin, as d/w ID will dc on augmentin to complete 14 d course abx -mrsa neg, resp panel negative oral thrush- likely multi factorial 2/2 steroids, antibiotics, tobacco and immune suppression with malignancy- nystatin + diflucan and acyclovir -will complete 1 week course acyclovir, ID had recommended 2-3 week course nystatin/diflucan course upon dc--this was discussed with out pharmacy and oncology team and since pt will be following up with them daily for next week, will send out with one week rx and oncology will adjust meds as needed PE- cont lovenox therapeutic dosing , onc followed ECHO with LVEF 60-65%. mild diastolic dysfunction. Mod Pul HTN.- performed at [facility] LE Doppler negative for DVT Acute Anemia, hgb has remained stable 7.5-7.6 in recent days, asx She was profoundly anemia 6.5 on admission, bleeding included + vaginal spotting noted -gi work up for gi source with egd and colonoscopy with gastritis, internal hemorrhoids, transvers polyp and no active bleeding -she will follow with oncology and repeat cbc recommended upon dc Pelvic Mass with suspected metastatic lung mass, c/w neoplasm (most liley primary ovarian vs uterine)with metastatic pelvic and retroperitoneal LAD- oncology following, chemo and then debulking surgery outpt, established with rad onc this admission. Palliative followed to provide addl support dc to home in stable condition with outpt fu
--- NOTE | 2018-01-13 09:19 | Rad Onc Consult Note ---
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 Biopsy was undifferentiated carcinoma consistent with uterine or ovarian primary. Patient also has adominal tumor extension. Patient denies pain, but reports heavy bleeding since being started on blood thinners for blood clots. She is being discharged today. She denies a history of radiation and of cancer. Past Medical History: COPD, pulmonary embolus Other History: anemia; diverticulosis; esophageal ulcers; uterine mass Surgical History: no surgical history Smoking Status: Current every day smoker Packs per day: 0 Smokeless Tobacco Status: No Alcohol use: none Drug use: none Family History -Oncology: cancer Oncology - Medications Prescriptions: Ipratropium/Albuterol Neb [Duoneb] 3 ml IH Q6HR PRN #50 vial.neb PRN Reason: Shortness Of Breath Enoxaparin [Lovenox] 80 mg SQ Q12HR #60 syr Acyclovir [Zovirax] 400 mg PO TID #12 tablet Amoxicillin/Clavulanate [Augmentin] 875 mg PO DAILY #9 tablet Fluconazole [Diflucan] 200 mg PO DAILY #5 tab Magic Mouthwash 10 ml PO TID #250 ml Nystatin [Nystatin Suspension] 5 ml PO QID #240 ml Albuterol Sulfate [Ventolin Hfa] 2 puff IH Q6H PRN 01/01/18 [History] Budesonide/Formoterol 160/4.5 [Symbicort 160/4.5] 2 puff IH BID 01/01/18 [ History] Enoxaparin [Lovenox] 80 mg SQ Q12HR #60 syr 01/12/18 [Rx] Acyclovir [Zovirax] 400 mg PO TID #12 tablet 01/13/18 [Rx] Amoxicillin/Clavulanate [Augmentin] 875 mg PO DAILY #9 tablet 01/13/18 [Rx] Fluconazole [Diflucan] 200 mg PO DAILY #5 tab 01/13/18 [Rx] Ipratropium/Albuterol Neb [Duoneb] 3 ml IH Q6HR PRN #50 vial.neb 01/13/18 [Rx] Magic Mouthwash 10 ml PO TID #250 ml 01/13/18 [Rx] Nystatin [Nystatin Suspension] 5 ml PO QID #240 ml 01/13/18 [Rx] 3 Allergy/AdvReac Type Severity Reaction Status Date / Time No Known Allergies Allergy Unverified 04/21/17 13:08 Review of Systems Provider Comments: A 12 point review of systems was performed. Pertinent positives and negatives are listed below and in the history of present illness. All other systems negative. Ear/Nose/Eyes/Throat: Trouble Swallowing, Sore Throat Cardio/Pulmonary: Dyspnea with Exertion Physical Exam - Vitals Vital Signs: Last Vital Signs Temp 97.7 F 01/13/18 08:00 Pulse 75 01/13/18 08:00 Resp 75 01/13/18 08:00 BP 100/67 01/13/18 08:00 Pulse Ox 91 01/13/18 03:00 Weight 01/13/18 01/13/18 01/13/18 07:59 08:59 09:59 Weight 102.1 kg Pain Scale: 4 ECO - Consciousness/Orientation Level Of Consciousness: Awake, Alert, Appropriate Patient Orientation: Name, Date of Physical Exam: General: Alert and oriented, well appearing. Mental Status: Affect appropriate for circumstances HEENT: Sclerae anicteric. No mucositis or thrush. No other oral lesions or erythema. Skin: No rashes or petechiae. Lymph nodes: No cervical, supraclavicular, axillary, or inguinal adenopathy. Lungs: Clear to auscultation and percussion bilaterally. Cardiovascular: Regular rate and rhythm. No gallops, murmurs, or rubs. Abdomen: Soft, nontender; no organomegaly or masses palpable. Extremities: No edema. No calf swelling or tenderness. No joint deformity. Neurologic: Alert, cranial nerves II-XII intact; no focal weakness or sensory abnormalities. Oncology- Results - Labs Labs: 3 01/13/18 01/13/18 01/12/18 04:19 04:19 11:08 WBC 14.6 H RBC 3.46 L Hgb 7.6 L Hct 27.3 L MCV 78.9 L MCH 22.0 L MCHC 27.8 L RDW 20.6 H Plt Count 413 H MPV 9.3 L Immature Gran % 0.7 Seg Neutrophils % 87.9 Band Neutrophils % Lymphocytes % 5.9 Monocytes % 5.3 Eosinophils % 0.1 Basophils % 0.1 Neutrophils # 12.8 H Lymphocytes # 0.9 Monocytes # 0.8 Eosinophils # 0.0 Basophils # 0.0 Platelet Estimate Increased H Hypochromasia Present A Anisocytosis 2+ A Microcytosis Present A Stomatocytes PT INR APTT Heparin Anti-Xa, Unfract Sodium 139 Potassium 4.6 Chloride 99 Carbon Dioxide 34 H BUN 26 H Creatinine 1.10 Est GFR ( Amer) > 60 Est GFR (Non-Af Amer) 51 L BUN/Creatinine Ratio 24 Glucose 104 Calculated Osmolality 293 Calcium 8.7 Phosphorus 4.5 Magnesium 2.2 Urine Color Urine Clarity Urine pH Ur Specific Declo Urine Protein Urine Glucose (UA) Urine Ketones Urine Blood Urine Nitrite Urine Bilirubin Urine Urobilinogen Ur Leukocyte Esterase Urine Microscopic RBC Urine Microscopic WBC Ur Squamous Epith Cells Urine Bacteria Hyaline Casts Urine Mucus Urine Yeast Ur Culture Indicated? Nasal Screen MRSA (PCR) Vancomycin Trough Chlamy pneumoniae PCR Not Detected Adenovirus (PCR) Not Detected B. pertussis DNA (PCR) Not Detected B.parapertussis DNA PCR Not Detected Coronavirus OC43 (PCR) Not Detected Coronavirus HKU1 (PCR) Not Detected Coronavirus 229E (PCR) Not Detected Coronavirus NL63 (PCR) Not Detected Human Metapneumovir PCR Not Detected Influenza A (H1) PCR Not Detected Influ A (H1N1/09) PCR Not Detected Influenza A (H3) PCR Not Detected Influenza A Untype (PCR) Not Detected Influenza Type B (PCR) Not Detected M.pneumoniae DNA (PCR) Not Detected Parainfluenza 1 (PCR) Not Detected Parainfluenza 2 (PCR) Not Detected Parainfluenza 3 (PCR) Not Detected Parainfluenza 4 (PCR) Not Detected RSV (PCR) Not Detected Entero/Rhino (PCR) Not Detected Crossmatch 3 01/12/18 01/12/18 01/12/18 11:08 04:16 04:16 WBC 18.7 H RBC 3.49 L Hgb 7.5 L Hct 27.6 L MCV 79.1 L MCH 21.5 L MCHC 27.2 L RDW 20.4 H Plt Count 379 MPV 9.8 Immature Gran % 0.8 Seg Neutrophils % 89.1 Band Neutrophils % Lymphocytes % 5.1 Monocytes % 4.8 Eosinophils % 0.1 Basophils % 0.1 Neutrophils # 16.7 H Lymphocytes # 1.0 Monocytes # 0.9 Eosinophils # 0.0 Basophils # 0.0 Platelet Estimate Normal Hypochromasia Present A Anisocytosis 1+ A Microcytosis Present A Stomatocytes 1+ A PT INR APTT Heparin Anti-Xa, Unfract Sodium 137 Potassium 4.2 Chloride 99 Carbon Dioxide 32 H BUN 25 H Creatinine 1.00 Est GFR ( Amer) > 60 Est GFR (Non-Af Amer) 57 L BUN/Creatinine Ratio 25 Glucose 107 H Calculated Osmolality 289 Calcium 8.7 Phosphorus 3.9 Magnesium 2.2 Urine Color Urine Clarity Urine pH Ur Specific Declo Urine Protein Urine Glucose (UA) Urine Ketones Urine Blood Urine Nitrite Urine Bilirubin Urine Urobilinogen Ur Leukocyte Esterase Urine Microscopic RBC Urine Microscopic WBC Ur Squamous Epith Cells Urine Bacteria Hyaline Casts Urine Mucus Urine Yeast Ur Culture Indicated? Nasal Screen MRSA (PCR) Negative Vancomycin Trough Chlamy pneumoniae PCR Adenovirus (PCR) B. pertussis DNA (PCR) B.parapertussis DNA PCR Coronavirus OC43 (PCR) Coronavirus HKU1 (PCR) Coronavirus 229E (PCR) Coronavirus NL63 (PCR) Human Metapneumovir PCR Influenza A (H1) PCR Influ A (H1N1/09) PCR Influenza A (H3) PCR Influenza A Untype (PCR) Influenza Type B (PCR) M.pneumoniae DNA (PCR) Parainfluenza 1 (PCR) Parainfluenza 2 (PCR) Parainfluenza 3 (PCR) Parainfluenza 4 (PCR) RSV (PCR) Entero/Rhino (PCR) Crossmatch 3 01/11/18 01/11/18 01/11/18 09:33 05:47 05:47 WBC 23.0 H RBC 3.41 L Hgb 7.5 L Hct 26.6 L MCV 78.0 L MCH 22.0 L MCHC 28.2 L RDW 21.0 H Plt Count 336 MPV 9.5 Immature Gran % 1.1 Seg Neutrophils % 91.3 Band Neutrophils % Lymphocytes % 3.5 Monocytes % 3.9 Eosinophils % 0.1 Basophils % 0.1 Neutrophils # 21.0 H Lymphocytes # 0.8 Monocytes # 0.9 Eosinophils # 0.0 Basophils # 0.0 Platelet Estimate Normal Hypochromasia Present A Anisocytosis Microcytosis Stomatocytes PT 11.7 INR 1.0 APTT 28.9 Heparin Anti-Xa, Unfract Sodium 135 L Potassium 3.8 Chloride 96 L Carbon Dioxide 33 H BUN 23 H Creatinine 0.96 Est GFR ( Amer) > 60 Est GFR (Non-Af Amer) 60 BUN/Creatinine Ratio 24 Glucose 99 Calculated Osmolality 284 Calcium 8.9 Phosphorus 3.6 Magnesium 2.2 Urine Color Urine Clarity Urine pH Ur Specific Declo Urine Protein Urine Glucose (UA) Urine Ketones Urine Blood Urine Nitrite Urine Bilirubin Urine Urobilinogen Ur Leukocyte Esterase Urine Microscopic RBC Urine Microscopic WBC Ur Squamous Epith Cells Urine Bacteria Hyaline Casts Urine Mucus Urine Yeast Ur Culture Indicated? Nasal Screen MRSA (PCR) Vancomycin Trough Chlamy pneumoniae PCR Adenovirus (PCR) B. pertussis DNA (PCR) B.parapertussis DNA PCR Coronavirus OC43 (PCR) Coronavirus HKU1 (PCR) Coronavirus 229E (PCR) Coronavirus NL63 (PCR) Human Metapneumovir PCR Influenza A (H1) PCR Influ A (H1N1/09) PCR Influenza A (H3) PCR Influenza A Untype (PCR) Influenza Type B (PCR) M.pneumoniae DNA (PCR) Parainfluenza 1 (PCR) Parainfluenza 2 (PCR) Parainfluenza 3 (PCR) Parainfluenza 4 (PCR) RSV (PCR) Entero/Rhino (PCR) Crossmatch 3 01/10/18 01/10/18 01/10/18 21:44 12:24 12:24 WBC 27.6 H RBC 3.66 L Hgb 8.1 L Hct 28.2 L MCV 77.0 L MCH 22.1 L MCHC 28.7 L RDW 20.9 H Plt Count 313 MPV 9.4 Immature Gran % Seg Neutrophils % 92.0 Band Neutrophils % 4.0 Lymphocytes % 2.0 Monocytes % 2.0 Eosinophils % Basophils % Neutrophils # 26.5 H Lymphocytes # 0.6 Monocytes # 0.6 Eosinophils # Basophils # Platelet Estimate Normal Hypochromasia Anisocytosis Microcytosis Stomatocytes PT INR APTT Heparin Anti-Xa, Unfract Sodium 135 L Potassium 4.0 Chloride 93 L Carbon Dioxide 32 H BUN 25 H Creatinine 0.99 Est GFR ( Amer) > 60 Est GFR (Non-Af Amer) 58 L BUN/Creatinine Ratio 25 Glucose 103 Calculated Osmolality 285 Calcium 8.6 Phosphorus Magnesium Urine Color Urine Clarity Urine pH Ur Specific Declo Urine Protein Urine Glucose (UA) Urine Ketones Urine Blood Urine Nitrite Urine Bilirubin Urine Urobilinogen Ur Leukocyte Esterase Urine Microscopic RBC Urine Microscopic WBC Ur Squamous Epith Cells Urine Bacteria Hyaline Casts Urine Mucus Urine Yeast Ur Culture Indicated? Nasal Screen MRSA (PCR) Vancomycin Trough 19 H Chlamy pneumoniae PCR Adenovirus (PCR) B. pertussis DNA (PCR) B.parapertussis DNA PCR Coronavirus OC43 (PCR) Coronavirus HKU1 (PCR) Coronavirus 229E (PCR) Coronavirus NL63 (PCR) Human Metapneumovir PCR Influenza A (H1) PCR Influ A (H1N1/09) PCR Influenza A (H3) PCR Influenza A Untype (PCR) Influenza Type B (PCR) M.pneumoniae DNA (PCR) Parainfluenza 1 (PCR) Parainfluenza 2 (PCR) Parainfluenza 3 (PCR) Parainfluenza 4 (PCR) RSV (PCR) Entero/Rhino (PCR) Crossmatch 3 01/10/18 01/10/18 01/09/18 08:43 00:31 18:17 WBC RBC Hgb Hct MCV MCH MCHC RDW Plt Count MPV Immature Gran % Seg Neutrophils % Band Neutrophils % Lymphocytes % Monocytes % Eosinophils % Basophils % Neutrophils # Lymphocytes # Monocytes # Eosinophils # Basophils # Platelet Estimate Hypochromasia Anisocytosis Microcytosis Stomatocytes PT INR APTT Heparin Anti-Xa, Unfract 0.08 L 0.08 L 0.01 L Sodium Potassium Chloride Carbon Dioxide BUN Creatinine Est GFR ( Amer) Est GFR (Non-Af Amer) BUN/Creatinine Ratio Glucose Calculated Osmolality Calcium Phosphorus Magnesium Urine Color Urine Clarity Urine pH Ur Specific Declo Urine Protein Urine Glucose (UA) Urine Ketones Urine Blood Urine Nitrite Urine Bilirubin Urine Urobilinogen Ur Leukocyte Esterase Urine Microscopic RBC Urine Microscopic WBC Ur Squamous Epith Cells Urine Bacteria Hyaline Casts Urine Mucus Urine Yeast Ur Culture Indicated? Nasal Screen MRSA (PCR) Vancomycin Trough Chlamy pneumoniae PCR Adenovirus (PCR) B. pertussis DNA (PCR) B.parapertussis DNA PCR Coronavirus OC43 (PCR) Coronavirus HKU1 (PCR) Coronavirus 229E (PCR) Coronavirus NL63 (PCR) Human Metapneumovir PCR Influenza A (H1) PCR Influ A (H1N1/) PCR Influenza A (H3) PCR Influenza A Untype (PCR) Influenza Type B (PCR) M.pneumoniae DNA (PCR) Parainfluenza 1 (PCR) Parainfluenza 2 (PCR) Parainfluenza 3 (PCR) Parainfluenza 4 (PCR) RSV (PCR) Entero/Rhino (PCR) Crossmatch 3 01/09/18 01/09/18 01/09/18 05:15 05:15 03:05 WBC 36.2 H* RBC 4.22 Hgb 9.3 L Hct 32.5 L MCV 77.0 L MCH 22.0 L MCHC 28.6 L RDW 21.2 H Plt Count 317 MPV 9.9 Immature Gran % Seg Neutrophils % Band Neutrophils % Lymphocytes % Monocytes % Eosinophils % Basophils % Neutrophils # Lymphocytes # Monocytes # Eosinophils # Basophils # Platelet Estimate Hypochromasia Anisocytosis Microcytosis Stomatocytes PT INR APTT Heparin Anti-Xa, Unfract Sodium 134 L Potassium 4.4 Chloride 92 L Carbon Dioxide 32 H BUN 23 H Creatinine 1.07 Est GFR ( Amer) > 60 Est GFR (Non-Af Amer) 53 L BUN/Creatinine Ratio 21 Glucose 106 H Calculated Osmolality 282 Calcium 8.9 Phosphorus Magnesium Urine Color Dark Yellow Urine Clarity Cloudy A Urine pH 6.0 Ur Specific Declo 1.014 Urine Protein 100 H Urine Glucose (UA) Normal Urine Ketones Negative Urine Blood Large H Urine Nitrite Negative Urine Bilirubin Negative Urine Urobilinogen Normal Ur Leukocyte Esterase Small H Urine Microscopic RBC 50-100 H Urine Microscopic WBC 50-100 H Ur Squamous Epith Cells Many H Urine Bacteria Many H Hyaline Casts Few Urine Mucus Few Urine Yeast Moderate H Ur Culture Indicated? NO. A Nasal Screen MRSA (PCR) Vancomycin Trough Chlamy pneumoniae PCR Adenovirus (PCR) B. pertussis DNA (PCR) B.parapertussis DNA PCR Coronavirus OC43 (PCR) Coronavirus HKU1 (PCR) Coronavirus 229E (PCR) Coronavirus NL63 (PCR) Human Metapneumovir PCR Influenza A (H1) PCR Influ A (H1N1) PCR Influenza A (H3) PCR Influenza A Untype (PCR) Influenza Type B (PCR) M.pneumoniae DNA (PCR) Parainfluenza 1 (PCR) Parainfluenza 2 (PCR) Parainfluenza 3 (PCR) Parainfluenza 4 (PCR) RSV (PCR) Entero/Rhino (PCR) Crossmatch 3 01/08/18 01/08/18 01/08/18 20:45 14:49 04:27 WBC RBC Hgb Hct MCV MCH MCHC RDW Plt Count MPV Immature Gran % Seg Neutrophils % Band Neutrophils % Lymphocytes % Monocytes % Eosinophils % Basophils % Neutrophils # Lymphocytes # Monocytes # Eosinophils # Basophils # Platelet Estimate Hypochromasia Anisocytosis Microcytosis Stomatocytes PT INR APTT Heparin Anti-Xa, Unfract 0.24 L 0.30 Sodium 134 L Potassium 4.5 Chloride 94 L Carbon Dioxide 30 H BUN 22 H Creatinine 0.91 Est GFR ( Amer) > 60 Est GFR (Non-Af Amer) > 60 BUN/Creatinine Ratio 24 Glucose 139 H Calculated Osmolality 284 Calcium 9.1 Phosphorus Magnesium Urine Color Urine Clarity Urine pH Ur Specific Declo Urine Protein Urine Glucose (UA) Urine Ketones Urine Blood Urine Nitrite Urine Bilirubin Urine Urobilinogen Ur Leukocyte Esterase Urine Microscopic RBC Urine Microscopic WBC Ur Squamous Epith Cells Urine Bacteria Hyaline Casts Urine Mucus Urine Yeast Ur Culture Indicated? Nasal Screen MRSA (PCR) Vancomycin Trough Chlamy pneumoniae PCR Adenovirus (PCR) B. pertussis DNA (PCR) B.parapertussis DNA PCR Coronavirus OC43 (PCR) Coronavirus HKU1 (PCR) Coronavirus 229E (PCR) Coronavirus NL63 (PCR) Human Metapneumovir PCR Influenza A (H1) PCR Influ A (H1N1/09) PCR Influenza A (H3) PCR Influenza A Untype (PCR) Influenza Type B (PCR) M.pneumoniae DNA (PCR) Parainfluenza 1 (PCR) Parainfluenza 2 (PCR) Parainfluenza 3 (PCR) Parainfluenza 4 (PCR) RSV (PCR) Entero/Rhino (PCR) Crossmatch 3 01/08/18 01/07/18 01/07/18 04:27 18:43 12:09 WBC 25.1 H RBC 4.40 Hgb 9.6 L Hct 33.5 L MCV 76.1 L MCH 21.8 L MCHC 28.7 L RDW 21.9 H Plt Count 384 MPV 8.9 L Immature Gran % Seg Neutrophils % Band Neutrophils % Lymphocytes % Monocytes % Eosinophils % Basophils % Neutrophils # Lymphocytes # Monocytes # Eosinophils # Basophils # Platelet Estimate Hypochromasia Anisocytosis Microcytosis Stomatocytes PT INR APTT Heparin Anti-Xa, Unfract 0.64 0.66 Sodium Potassium Chloride Carbon Dioxide BUN Creatinine Est GFR ( Amer) Est GFR (Non-Af Amer) BUN/Creatinine Ratio Glucose Calculated Osmolality Calcium Phosphorus Magnesium Urine Color Urine Clarity Urine pH Ur Specific Declo Urine Protein Urine Glucose (UA) Urine Ketones Urine Blood Urine Nitrite Urine Bilirubin Urine Urobilinogen Ur Leukocyte Esterase Urine Microscopic RBC Urine Microscopic WBC Ur Squamous Epith Cells Urine Bacteria Hyaline Casts Urine Mucus Urine Yeast Ur Culture Indicated? Nasal Screen MRSA (PCR) Vancomycin Trough Chlamy pneumoniae PCR Adenovirus (PCR) B. pertussis DNA (PCR) B.parapertussis DNA PCR Coronavirus OC43 (PCR) Coronavirus HKU1 (PCR) Coronavirus 229E (PCR) Coronavirus NL63 (PCR) Human Metapneumovir PCR Influenza A (H1) PCR Influ A (H1N1/09) PCR Influenza A (H3) PCR Influenza A Untype (PCR) Influenza Type B (PCR) M.pneumoniae DNA (PCR) Parainfluenza 1 (PCR) Parainfluenza 2 (PCR) Parainfluenza 3 (PCR) Parainfluenza 4 (PCR) RSV (PCR) Entero/Rhino (PCR) Crossmatch 3 01/07/18 01/07/18 01/06/18 04:06 04:06 12:27 WBC 19.3 H RBC 4.19 Hgb 9.1 L Hct 32.3 L MCV 77.1 L MCH 21.7 L MCHC 28.2 L RDW 21.5 H Plt Count 439 H MPV 9.3 L Immature Gran % Seg Neutrophils % Band Neutrophils % Lymphocytes % Monocytes % Eosinophils % Basophils % Neutrophils # Lymphocytes # Monocytes # Eosinophils # Basophils # Platelet Estimate Hypochromasia Anisocytosis Microcytosis Stomatocytes PT INR APTT Heparin Anti-Xa, Unfract 0.67 Sodium 136 Potassium 4.4 Chloride 96 L Carbon Dioxide 32 H BUN 22 H Creatinine 0.69 Est GFR ( Amer) > 60 Est GFR (Non-Af Amer) > 60 BUN/Creatinine Ratio 32 H Glucose 147 H Calculated Osmolality 288 Calcium 9.1 Phosphorus Magnesium Urine Color Urine Clarity Urine pH Ur Specific Declo Urine Protein Urine Glucose (UA) Urine Ketones Urine Blood Urine Nitrite Urine Bilirubin Urine Urobilinogen Ur Leukocyte Esterase Urine Microscopic RBC Urine Microscopic WBC Ur Squamous Epith Cells Urine Bacteria Hyaline Casts Urine Mucus Urine Yeast Ur Culture Indicated? Nasal Screen MRSA (PCR) Vancomycin Trough Chlamy pneumoniae PCR Adenovirus (PCR) B. pertussis DNA (PCR) B.parapertussis DNA PCR Coronavirus OC43 (PCR) Coronavirus HKU1 (PCR) Coronavirus 229E (PCR) Coronavirus NL63 (PCR) Human Metapneumovir PCR Influenza A (H1) PCR Influ A () PCR Influenza A (H3) PCR Influenza A Untype (PCR) Influenza Type B (PCR) M.pneumoniae DNA (PCR) Parainfluenza 1 (PCR) Parainfluenza 2 (PCR) Parainfluenza 3 (PCR) Parainfluenza 4 (PCR) RSV (PCR) Entero/Rhino (PCR) Crossmatch 3 01/01/18 04:49 WBC RBC Hgb Hct MCV MCH MCHC RDW Plt Count MPV Immature Gran % Seg Neutrophils % Band Neutrophils % Lymphocytes % Monocytes % Eosinophils % Basophils % Neutrophils # Lymphocytes # Monocytes # Eosinophils # Basophils # Platelet Estimate Hypochromasia Anisocytosis Microcytosis Stomatocytes PT INR APTT Heparin Anti-Xa, Unfract Sodium Potassium Chloride Carbon Dioxide BUN Creatinine Est GFR ( Amer) Est GFR (Non-Af Amer) BUN/Creatinine Ratio Glucose Calculated Osmolality Calcium Phosphorus Magnesium Urine Color Urine Clarity Urine pH Ur Specific Declo Urine Protein Urine Glucose (UA) Urine Ketones Urine Blood Urine Nitrite Urine Bilirubin Urine Urobilinogen Ur Leukocyte Esterase Urine Microscopic RBC Urine Microscopic WBC Ur Squamous Epith Cells Urine Bacteria Hyaline Casts Urine Mucus Urine Yeast Ur Culture Indicated? Nasal Screen MRSA (PCR) Vancomycin Trough Chlamy pneumoniae PCR Adenovirus (PCR) B. pertussis DNA (PCR) B.parapertussis DNA PCR Coronavirus OC43 (PCR) Coronavirus HKU1 (PCR) Coronavirus 229E (PCR) Coronavirus NL63 (PCR) Human Metapneumovir PCR Influenza A (H1) PCR Influ A () PCR Influenza A (H3) PCR Influenza A Untype (PCR) Influenza Type B (PCR) M.pneumoniae DNA (PCR) Parainfluenza 1 (PCR) Parainfluenza 2 (PCR) Parainfluenza 3 (PCR) Parainfluenza 4 (PCR) RSV (PCR) Entero/Rhino (PCR) Crossmatch See Detail - Diagnostic Studies CT scan images were personally reviewed and aided in the recommendation for pelvic radiotherapy. - Assessment Assessment: Ms. Lee has a stage IV uterine carcinoma. She has bleeding and anemia that could limit her systemic therapy options. Biopsy of supraclavicular node established the diagnosis. I will plan pelvic radiotherapy to her uterine disease to help control her bleeding and anemia to help bridge her to systemic therapy and help her anemia. Consent was signed for treatment. Natural history and prognosis of her cancer were discussed. We will proceed with CT simulation today and treatment tomorrow -- 2000 cGy in 5 fractions. Thank you for allowing me to participate in the care of Ms. Lee. Sincerely, Mike Rhoades MD Radiation Oncology [facility] - Patient Problem List (1) Uterine cancer Status: Acute Qualifiers: Malignant neoplasm of cervix location: overlapping locations
[2018-01-13] MEDS: Budesonide/Formoterol 160/4.5 1 PUFF INH IH SCH (10:36)
[2018-01-13] MEDS: Magic Mouthwash 10 ML UD Cup PO SCH ×3 (10:37→15:45)
--- NOTE | 2018-01-13 10:41 | Palliative Progress Note ---
Date of Encounter: 01/13/18 Time of Encounter: 11:14 - Assessment and plan (1) Goals of care, counseling/discussion Current Visit: Yes Status: Acute Assessment and plan: Discussed with patient her current medical condition, trajectory of illness, treatment options and prognosis. Patient states that at this time she wants to be positive and focus on hope. Discussed advance care planning, including CPR and intubation. patient at this time would like all aggressive measure possible to be continued to keep her alive, including CPR, intubation and artificial life support. She designated her older daughters as KIM, Toby as primary and Angélica as secondary, form drafted, to be scanned in the chart. Patient was encouraged to discuss her wishes with her family, including when to withhold treatment. Emotional support provided (2) Anemia Current Visit: Yes Status: Acute Assessment and plan: H/H remained stable. Pt for discharge today with follow up in cancer center. Qualifiers: Anemia type: iron deficiency Iron deficiency anemia type: chronic blood loss Qualified Code(s): D50.0 - Iron deficiency anemia secondary to blood loss (chronic) (3) Dyspnea Current Visit: Yes Status: Acute Assessment and plan: Improving. on lovenox therapeutic dose. Qualifiers: Dyspnea type: shortness of breath Qualified Code(s): R06.02 - Shortness of breath; R06.00 - Dyspnea, unspecified; R06.01 - Orthopnea (4) Pelvic mass Current Visit: Yes Status: Acute Assessment and plan: CT abdomen revealed Pelvic mass, metastatic pelvic and retroperitoneal adenopathy, ascitis. CT neck with left supra-clavicular LN enlargement. n Chest CT, 4.3 cm in the left upper and 3.3 cm in the medial left lower lobe. S/P biopsy of supra-clavicular lymph node, pathology reveals undifferentiated carcinoma, either of uterine or ovarian etiology. Oncology plans for chemotherapy, which may include debulking surgery following 3 cycles. Likely consider BRCA testing. Chemotherapy will be started on outpatient basis. Patient was seen by radiation oncology this morning, and scheduled for radiations. (5) Thrush Current Visit: Yes Status: Acute Assessment and plan: likely multi factorial 2/2 steroids, antibiotics, tobacco and immune suppression with malignancy- Patient is now on nystatin, diflucan, and acyclovir as well Magic mouth wash to be used before meals. - Time Spent With Patient Total time spent is greater than 50% face to face with patient, in coordination of care (as documented) at patient's floor/unit and/or counseling patient: Greater than 35 minutes - Subjective Interval history: Pt as sitting in bed, fully dressed and getting ready for discharge. Her SOB is improved. Pain in her mouth is continues, explained that it will take some time to improve with treatment. - Constitutional Vitals: Abnormal lab results WBC 14.6 K/mcL (4.3-11.1) H 01/13/18 04:19 RBC 3.46 M/mcL (3.82-4.97) L 01/13/18 04:19 Hgb 7.6 g/dL (11.5-15.4) L 01/13/18 04:19 Hct 27.3 % (35.3-44.9) L 01/13/18 04:19 MCV 78.9 fL (83.0-100.0) L 01/13/18 04:19 MCH 22.0 pg (28.0-33.3) L 01/13/18 04:19 MCHC 27.8 g/dL (31.6-35.5) L 01/13/18 04:19 RDW 20.6 % (11.5-14.5) H 01/13/18 04:19 Plt Count 413 K/mcL (140-400) H 01/13/18 04:19 MPV 9.3 fL (9.4-12.4) L 01/13/18 04:19 Neutrophils # 12.8 K/mcL (1.6-8.9) H 01/13/18 04:19 Nucleated RBCs/100 WBC 0.1 /100 WBC (0) H 01/03/18 02:45 Platelet Estimate Increased (Normal) H 01/13/18 04:19 Hypochromasia Present (Not Present) A 01/13/18 04:19 Anisocytosis 2+ (Not Present) A 01/13/18 04:19 Microcytosis Present (Not Present) A 01/13/18 04:19 Stomatocytes 1+ (Not Present) A 01/12/18 04:16 Heparin Anti-Xa, Unfract 0.08 IU/mL (0.30-0.70) L 01/10/18 08:43 Carbon Dioxide 34 mEq/L (23-29) H 01/13/18 04:19 BUN 26 mg/dL (6-20) H 01/13/18 04:19 Est GFR (Non-Af Amer) 51 (> 60) L 01/13/18 04:19 POC Glucose 112 mg/dL (70-99) H 01/04/18 11:04 Iron < 10 mcg/dL (50-170) L 01/01/18 04:49 Transferrin 168 mg/dL (203-362) L 01/01/18 04:49 Ferritin 489 ng/mL (10-120) H 01/01/18 19:13 ALT 6 Units/L (7-52) L 01/01/18 04:49 Lactate Dehydrogenase 393 Units/L (140-271) H 01/02/18 03:12 Albumin 2.8 g/dL (3.5-5.7) L 01/01/18 04:49 Globulin 3.7 g/dL (2.4-3.5) H 01/01/18 04:49 Albumin/Globulin Ratio 0.8 (1.1-2.2) L 01/01/18 04:49 CA 125 Ag Serial Mntr 855 U/mL (Less than 35) H 01/03/18 09:58 Urine Clarity Cloudy (Clear) A 01/09/18 03:05 Urine Protein 100 mg/dL (Neg-Trace) H 01/09/18 03:05 Urine Blood Large (Negative) H 01/09/18 03:05 Ur Leukocyte Esterase Small (Negative) H 01/09/18 03:05 Urine Microscopic RBC 50-100 per hpf (0-3) H 01/09/18 03:05 Urine Microscopic WBC 50-100 per hpf (0-3) H 01/09/18 03:05 Ur Squamous Epith Cells Many per lpf (None-Few) H 01/09/18 03:05 Urine Bacteria Many per hpf (None-Few) H 01/09/18 03:05 Urine Yeast Moderate per hpf (None Seen) H 01/09/18 03:05 Ur Culture Indicated? NO. (NO) A 01/09/18 03:05 Vancomycin Trough 19 mcg/mL (5-10) H 01/10/18 21:44 Antibody Screen POSITIVE A 01/01/18 04:49 Palliative Quality Palliative Quality: Screen for Code Status: Yes, Screen for Goals of Care: Yes, Screen for Pain: Yes, If Pain Regimen Started, Initiate Bowel Regimen: NA, Screen for Nausea/Vomitting: Yes Code Status: 01/01/18 04:15 Resuscitation Status: Active [RES] Routine Comment: Resuscitation Status: Full Code - Labs CBC & Chem 7: 01/13/18 04:19 01/13/18 04:19 Labs: Laboratory Results - last 24 hr 01/12/18 01/12/18 01/13/18 11:08 11:08 04:19 WBC 14.6 H RBC 3.46 L Hgb 7.6 L Hct 27.3 L MCV 78.9 L MCH 22.0 L MCHC 27.8 L RDW 20.6 H Plt Count 413 H MPV 9.3 L Immature Gran % 0.7 Seg Neutrophils % 87.9 Lymphocytes % 5.9 Monocytes % 5.3 Eosinophils % 0.1 Basophils % 0.1 Neutrophils # 12.8 H Lymphocytes # 0.9 Monocytes # 0.8 Eosinophils # 0.0 Basophils # 0.0 Platelet Estimate Increased H Hypochromasia Present A Anisocytosis 2+ A Microcytosis Present A Sodium Potassium Chloride Carbon Dioxide BUN Creatinine Est GFR ( Amer) Est GFR (Non-Af Amer) BUN/Creatinine Ratio Glucose Calculated Osmolality Calcium Phosphorus Magnesium Nasal Screen MRSA (PCR) Negative Chlamy pneumoniae PCR Not Detected Adenovirus (PCR) Not Detected B. pertussis DNA (PCR) Not Detected B.parapertussis DNA PCR Not Detected Coronavirus OC43 (PCR) Not Detected Coronavirus HKU1 (PCR) Not Detected Coronavirus 229E (PCR) Not Detected Coronavirus NL63 (PCR) Not Detected Human Metapneumovir PCR Not Detected Influenza A (H1) PCR Not Detected Influ A (H1N1/09) PCR Not Detected Influenza A (H3) PCR Not Detected Influenza A Untype (PCR) Not Detected Influenza Type B (PCR) Not Detected M.pneumoniae DNA (PCR) Not Detected Parainfluenza 1 (PCR) Not Detected Parainfluenza 2 (PCR) Not Detected Parainfluenza 3 (PCR) Not Detected Parainfluenza 4 (PCR) Not Detected RSV (PCR) Not Detected Entero/Rhino (PCR) Not Detected 01/13/18 04:19 WBC RBC Hgb Hct MCV MCH MCHC RDW Plt Count MPV Immature Gran % Seg Neutrophils % Lymphocytes % Monocytes % Eosinophils % Basophils % Neutrophils # Lymphocytes # Monocytes # Eosinophils # Basophils # Platelet Estimate Hypochromasia Anisocytosis Microcytosis Sodium 139 Potassium 4.6 Chloride 99 Carbon Dioxide 34 H BUN 26 H Creatinine 1.10 Est GFR ( Amer) > 60 Est GFR (Non-Af Amer) 51 L BUN/Creatinine Ratio 24 Glucose 104 Calculated Osmolality 293 Calcium 8.7 Phosphorus 4.5 Magnesium 2.2 Nasal Screen MRSA (PCR) Chlamy pneumoniae PCR Adenovirus (PCR) B. pertussis DNA (PCR) B.parapertussis DNA PCR Coronavirus OC43 (PCR) Coronavirus HKU1 (PCR) Coronavirus 229E (PCR) Coronavirus NL63 (PCR) Human Metapneumovir PCR Influenza A (H1) PCR Influ A (H1N1/09) PCR Influenza A (H3) PCR Influenza A Untype (PCR) Influenza Type B (PCR) M.pneumoniae DNA (PCR) Parainfluenza 1 (PCR) Parainfluenza 2 (PCR) Parainfluenza 3 (PCR) Parainfluenza 4 (PCR) RSV (PCR) Entero/Rhino (PCR) - ABG Interpretation ABG results: PT/INR, D-dimer PT 11.7 Seconds (9.4-12.1) 01/11/18 09:33 Consult Discharge Plan - Plan Referrals: Piedad Walker CNP [Advanced Practice Nurse] - 01/18/18 1:00 pm Prescriptions: Enoxaparin [Lovenox] 80 mg SQ Q12HR #60 syr
[2018-01-13] MEDS: Acyclovir 200 MG CAPSULE PO SCH ×2 (11:28→15:46)
[2018-01-13] MEDS: Fluconazole 100 MG TABLET PO SCH (11:28)
[2018-01-13] MEDS: predniSONE 20 MG TABLET PO SCH (11:28)
[2018-01-13] MEDS: Folic Acid 1 MG TABLET PO SCH (11:28)
[2018-01-13] MEDS: Nystatin SUSP 5 ML UD.LIQ PO SCH ×3 (11:29→15:46)
--- NOTE | 2018-01-13 15:18 | Oncology Inp Progress Note ---
Date of Encounter: 01/13/18 Time of Encounter: 14:30 (1) Anemia Status: Acute Assessment and plan: Microcytic anemia on admission Need to closely H&H monitor while on heparin gtt Iron and B12 replete LDH elevated EGD/Colonoscopy negative on 01/09/2018 other than 7 mm non-bleeding polyp transverse colon, Internal hemorrhoids and diverticulosis, esophageal ulcers with no stigmata of bleeding, specimen pending She developed vaginal bleeding a few days ago with reported "loss of a large amount of blood with large clots" per patient, hgb has down trended since this time Plan: Closely monitor CBC/transfuse as needed She is being evaluated by radiation oncology tomorrow AM for consult and simulation for radiotherapy to palliatively control bleeding Qualifiers: Anemia type: iron deficiency Iron deficiency anemia type: chronic blood loss Qualified Code(s): D50.0 - Iron deficiency anemia secondary to blood loss (chronic) (2) Pulmonary emboli Status: Acute Assessment and plan: Bilateral segmental pulmonary arterial emboli Currently on heparin gtt Secondary active malignancy BLE venous [id number]-GPP edema likely secondary to pelvic mass/adenopathy Plan Lovenox works better than newer oral anticoagulation agents in setting of active malignancy. We will keep her on Lovenox 80 mg subcutaneous twice a day. Mildly dose reduced for her ideal body weight and also to minimize the chance of bleeding She has been given lovenox instructions per nursing staff for d/c home Will likely transition to oral DOAC following adequate period of lovenox tx Qualifiers: Pulmonary embolism type: other Chronicity: acute Acute cor pulmonale pres ence: without acute cor pulmonale Qualified Code(s): I26.99 - Other pulmonary embolism without acute cor pulmonale (3) Sepsis Status: Acute Assessment and plan: On 01/08/2018 patient started spiking fever she was transitioned from Rocephin and azithromycin to vancomycin on Zosyn Her urine strep pneumo antigen has resulted positive ID has been consulted-appreciate recommendations MRSA PCR negative Discharge on Augmentin Malignancy may be playing a role in her leukocytosis Qualifiers: Sepsis type: sepsis due to unspecified organism Qualified Code(s): A41.9 - Sepsis, unspecified organism (4) Uterine mass Status: Acute Assessment and plan: CTA which revealed bilateral segmental pulmonary arterial emboli, left upper lobe pleural based 4.3 cm mass, medial left lower lobe 3.3 cm mass, partially imaged 17.6 cm midmesenteric mass, aorticopulmonary adenopathy, as well as 3.7 lower left neck mass directly adjacent to the left lobe of the thyroid. CT soft tissue neck- Significantly enlarged left supraclavicular lymph node measuring up to 3.3 cm consistent with metastatic disease. CT abdomen/pelvis revealed enlarged heterogeneous uterus with an adjacent 20 cm pelvic mass, 8.8 x 7.4 cm right adnexal mass, metastatic pelvic and retroperitoneal adenopathy, mild stranding of the omentum, moderate ascites, anasarca. S/P biopsy of the left supraclavicular LN-pathology reveals undifferentiated carcinoma, either of uterine or ovarian etiology She will plan for palliative radiotherapy to control bleeding/pain/LE edema followed by chemotherapy with carbo/taxol, which may include debulking surgery following 3 cycles. Tissue has been sent for MSI/BRCA testing. Following out detailed discussion last evening, Ms. Lee appears to be doing better today. She had her consultation and simulation this morning with Dr. Rhoades with Radiation Oncology. She met with social insurance administrator and will have transportation arranged for her upcoming treatments/appointment. She is planned to start radiotherapy on , she will follow up with Dr. Martin on Thursday to begin discussion on systemic treatment. She will call us in the meantime with any other questions or concerns. (5) Oral thrush Status: Acute Assessment and plan: Acute odynophagia with development of vesicular lesions/ulcerations to lower lip and oral mucosa She is on diflucan, magic mouthwash and nystatin suspension Acyclovir added Continue supportive treatment Oncology: Subj Interval history: Ms. Lee is resting in her chair. She denies pain, SOB, nausea, vomiting, diarrhea or vaginal bleeding. She is excited for discharge home today. She overall seems to be doing ok today. She is moving in with her 24 year old daughter for a short period of time so she can have some help at home. She told me that she has discussed her diagnosis with her oldest daughter who lives in [facility] but has not discussed yet with her other children. financial services assistant from the cancer center met with patient today and are assisting with her free transportation. - Constitutional Vitals: Vital Signs Temp Pulse Resp BP Pulse Ox 01/13/18 08:00 97.7 F 75 75 100/67 01/13/18 07:24 97.7 F 75 18 100/67 01/13/18 03:00 67 16 90/55 91 01/12/18 21:00 98.1 F 75 16 104/59 96 01/12/18 19:46 18 94 Intake and Output 01/12/18 01/13/18 01/13/18 23:59 07:59 15:59 Intake Total 240 / 240 0 / 0 50 / 50 Output Total 1500 / 1500 200 / 200 Balance -1260 / -1260 -200 / -200 50 / 50 Intake: IV Fluids Rocephin 2,000 MG In Water for inj. (sterile) 20 ML @ 600 mls/ hr IVP Q24H ULICES Rx#:[id number] Oral 220 / 220 0 / 0 50 / 50 Output: Urine 200 / 200 Urine/Stool Mix 1500 / 1500 Other: Meal Dinner Lunch Percent of Meal Consumed 5% 10% Stool Size Small Stool Consistency formed Stool Color Green Weight 102.1 kg 102.1 kg Patient Weight 01/13/18 23:59 Weight 102.1 kg General appearance: cooperative, no acute distress, no febrile - Head Head exam: Present: atraumatic - ENT Additional comments: oral ulcerations/lesions noted to roof of mouth, tongue and outer lower lip - Respiratory Respiratory exam: Present: decreased breath sounds, CTAB. Absent: respiratory distress - Cardiovascular Cardiovascular exam: Present: RRR, +S1, +S2 - GI/Abdominal GI/Abdominal exam: Present: distended, normal bowel sounds, soft. Absent: tenderness - Extremities Exam Additional comments: BLE edema 2-3+ - Neurological Exam Neurological exam: Present: alert, oriented X3, no focal deficits, strengths equal and symetr throughout - Psychiatric Psychiatric exam: Present: normal affect, normal mood - Skin Skin exam: Present: dry, intact, normal color, warm Oncology: Obj Data - Labs CBC & Chem 7: 01/13/18 04:19 01/13/18 04:19 Labs: Laboratory Results - last 24 hr 01/13/18 01/13/18 04:19 04:19 WBC 14.6 H RBC 3.46 L Hgb 7.6 L Hct 27.3 L MCV 78.9 L MCH 22.0 L MCHC 27.8 L RDW 20.6 H Plt Count 413 H MPV 9.3 L Immature Gran % 0.7 Seg Neutrophils % 87.9 Lymphocytes % 5.9 Monocytes % 5.3 Eosinophils % 0.1 Basophils % 0.1 Neutrophils # 12.8 H Lymphocytes # 0.9 Monocytes # 0.8 Eosinophils # 0.0 Basophils # 0.0 Platelet Estimate Increased H Hypochromasia Present A Anisocytosis 2+ A Microcytosis Present A Sodium 139 Potassium 4.6 Chloride 99 Carbon Dioxide 34 H BUN 26 H Creatinine 1.10 Est GFR ( Amer) > 60 Est GFR (Non-Af Amer) 51 L BUN/Creatinine Ratio 24 Glucose 104 Calculated Osmolality 293 Calcium 8.7 Phosphorus 4.5 Magnesium 2.2 - ABG Interpretation ABG results: PT/INR, D-dimer PT 11.7 Seconds (9.4-12.1) 01/11/18 09:33 Consult Discharge Plan - Plan Instructions: Acyclovir (By mouth), Amoxicillin/Clavulanate Potassium (By mouth), Fluconazole (By mouth), Enoxaparin (Injection), Intravenous Chemotherapy (DC), Eating During Cancer Treatment (DC), Oral Candidiasis (GEN) Referrals: Piedad Walker CNP [Advanced Practice Nurse] - 01/18/18 1:00 pm Prescriptions: Ipratropium/Albuterol Neb [Duoneb] 3 ml IH Q6HR PRN #50 vial.neb PRN Reason: Shortness Of Breath Enoxaparin [Lovenox] 80 mg SQ Q12HR #60 syr Acyclovir [Zovirax] 400 mg PO TID #12 tablet Amoxicillin/Clavulanate [Augmentin] 875 mg PO DAILY #9 tablet Fluconazole [Diflucan] 200 mg PO DAILY #5 tab Magic Mouthwash 10 ml PO TID #250 ml Nystatin [Nystatin Suspension] 5 ml PO QID #240 ml Inpatient Charges Provider: Molly Ayala CNP Follow up - Inpatient: [id number]
--- NOTE | 2018-01-13 15:39 | Infectious Disease Progress No ---
Date of Encounter: 01/13/18 Time of Encounter: 15:37 - Assessment and Plan (1) Sepsis Current Visit: Yes Status: Acute Secondary to pneumonia. Improving. Qualifiers: Sepsis type: sepsis due to unspecified organism Qualified Code(s): A41.9 - Sepsis, unspecified organism (2) Streptococcal pneumonia Current Visit: Yes Status: Acute Chest x-ray revealing multi focal pneumonia with stable left lower lobe mass. Strep pneumo antigen was positive. That was likely the causative organism. Clinically patient is doing well. Check respiratory infectious panel - negative. 01/11/2018. Check MRSA screen - negative. Continue Rocephin 2 grams IV daily (day 12 of treatment) I wanted to repeat a CT chest so I have not point of reference by the patient told me she cannot lay flat and she would rather not do it. I am a little bit concerned for possible obstructive pneumonia; appreciate pulmonary's evaluation Duration of treatment depends on the clinical picture but likely 14 days total. Can transition to PO Augmentin 875mg BID to complete course of treatment when ready for discharge. Prognosis is guarded at best. 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 (5) Oral thrush Current Visit: Yes Status: Acute Likely multifactorial secondary to inhaled steroids, antibiotics, tobacco use and suppressed immune system due to malignancy Agree with a combination of nystatin and Diflucan for now until she clinically does better. Duration of treatment probably 14-21 days. (6) GIB (gastrointestinal bleeding) Current Visit: Yes Status: Acute Status post EGD and colonoscopy. Patient has some esophageal ulcers and has significant gastritis Lower colonoscopy showed diverticulosis without diverticulitis and no active bleeding Per GI and primary team Qualifiers: GI bleed type/associated pathology: unspecified gastrointestinal hemorrhage type Qualified Code(s): K92.2 - Gastrointestinal hemorrhage, unspecified - Subjective Interval history: Patient seen and examined. No acute events noted overnight. Patient complains of oral pain, but otherwise denies complaints at this time. Was evaluated this morning by radiation oncology. Hem/Onc following to assist with chemo. Palliative consulted to assist with goals of care. Patient denies fevers, chills, or rigors. Denies chest pain, shortness of breath, or cough. Denies nausea, vomiting, or diarrhea. States her appetite is good, but she is not able to eat much do to her mouth lesions. Denies skin rashes. Reports some vaginal spotting. Infect Dis PN-Objective Data - Labs CBC & Chem 7: 01/13/18 04:19 01/13/18 04:19 Labs: Laboratory Results - last 24 hr 01/13/18 01/13/18 04:19 04:19 WBC 14.6 H RBC 3.46 L Hgb 7.6 L Hct 27.3 L MCV 78.9 L MCH 22.0 L MCHC 27.8 L RDW 20.6 H Plt Count 413 H MPV 9.3 L Immature Gran % 0.7 Seg Neutrophils % 87.9 Lymphocytes % 5.9 Monocytes % 5.3 Eosinophils % 0.1 Basophils % 0.1 Neutrophils # 12.8 H Lymphocytes # 0.9 Monocytes # 0.8 Eosinophils # 0.0 Basophils # 0.0 Platelet Estimate Increased H Hypochromasia Present A Anisocytosis 2+ A Microcytosis Present A Sodium 139 Potassium 4.6 Chloride 99 Carbon Dioxide 34 H BUN 26 H Creatinine 1.10 Est GFR ( Amer) > 60 Est GFR (Non-Af Amer) 51 L BUN/Creatinine Ratio 24 Glucose 104 Calculated Osmolality 293 Calcium 8.7 Phosphorus 4.5 Magnesium 2.2 Cultures: Cultures 01/11/18 10:50 Urine Culture - Final Urine,Clean Catch No growth. 01/09/18 03:05 Legionella Antigen - Final Urine,Catheterized Streptococcus pneumoniae Antigen (M - Final 01/09/18 10:37 Blood Culture - Preliminary Peripheral Venipuncture Culture is incubating and being continuously monitored for growth. Final report to follow. 01/09/18 10:37 Blood Culture - Preliminary Peripheral Venipuncture Culture is incubating and being continuously monitored for growth. Final report to follow. 01/01/18 04:47 Blood Culture - Final Peripheral Venipuncture No growth. Final report. 01/01/18 04:55 Blood Culture - Final Peripheral Venipuncture No growth. Final report. Serology 01/12/18 01/12/18 01/09/18 Range/Units 11:08 11:08 03:05 Urine Color Dark Yellow (Yellow) Urine Clarity Cloudy A (Clear) Urine pH 6.0 (5.0-8.0) pH Units Ur Specific [place] 1.014 (1.010-1.025) Urine Protein 100 H (Neg-Trace) mg/dL Urine Glucose (UA) Normal (Normal) mg/dL Urine Ketones Negative (Negative) mg/dL Urine Blood Large H (Negative) Urine Nitrite Negative (Negative) Urine Bilirubin Negative (Negative) Urine Urobilinogen Normal (Normal) mg/dL Ur Leukocyte Esterase Small H (Negative) Urine Microscopic RBC 50-100 H (0-3) per hpf Urine Microscopic WBC 50-100 H (0-3) per hpf Ur Squamous Epith Cells Many H (None-Few) per lpf Urine Bacteria Many H (None-Few) per hpf Hyaline Casts Few (None-Few) per lpf Urine Mucus Few (Few) Urine Yeast Moderate H (None Seen) per hpf Ur Culture Indicated? NO. A (NO) Nasal Screen MRSA (PCR) Negative (Negative) Chlamy pneumoniae PCR Not Detected (Not Detect) Adenovirus (PCR) Not Detected (Not Detect) B. pertussis DNA (PCR) Not Detected (Not Detect) B.parapertussis DNA PCR Not Detected (Not Detect) Coronavirus OC43 (PCR) Not Detected (Not Detect) Coronavirus HKU1 (PCR) Not Detected (Not Detect) Coronavirus 229E (PCR) Not Detected (Not Detect) Coronavirus NL63 (PCR) Not Detected (Not Detect) Human Metapneumovir PCR Not Detected (Not Detect) Influenza A (H1) PCR Not Detected (Not Detect) Influ A (H1N1/09) PCR Not Detected (Not Detect) Influenza A (H3) PCR Not Detected (Not Detect) Influenza A Untype (PCR) Not Detected (Not Detect) Influenza Type B (PCR) Not Detected (Not Detect) M.pneumoniae DNA (PCR) Not Detected (Not Detect) Parainfluenza 1 (PCR) Not Detected (Not Detect) Parainfluenza 2 (PCR) Not Detected (Not Detect) Parainfluenza 3 (PCR) Not Detected (Not Detect) Parainfluenza 4 (PCR) Not Detected (Not Detect) RSV (PCR) Not Detected (Not Detect) Entero/Rhino (PCR) Not Detected (Not Detect) Exam - Constitutional Vitals: Temp Pulse Resp BP Pulse Ox 97.7 F 75 75 100/67 91 01/13/18 08:00 01/13/18 08:00 01/13/18 08:00 01/13/18 08:00 01/13/18 03:00 General appearance: cooperative, no acute distress, obese - Head Head exam: Present: atraumatic, normal inspection, normocephalic - Eye Eye exam: Present: EOMI, normal appearance, PERRL Pupils: Present: normal accommodation - ENT ENT exam: Present: mucous membranes moist - Neck Neck exam: Present: normal inspection - Respiratory Respiratory exam: Present: CTAB. Absent: rales, respiratory distress, rhonchi, wheezes - Cardiovascular Cardiovascular exam: Present: RRR, +S1, +S2 - GI/Abdominal GI/Abdominal exam: Present: distended, normal bowel sounds, soft. Absent: tenderness - Extremities Exam Extremities exam: Present: normal inspection. Absent: joint swelling, pedal edema, tenderness - Neurological Exam Neurological exam: Present: alert, oriented X3, no focal deficits - Psychiatric Psychiatric exam: Present: normal affect, normal mood - Skin Skin exam: Present: dry, intact, normal color, warm Consult Discharge Plan - Plan Instructions: Acyclovir (By mouth), Amoxicillin/Clavulanate Potassium (By mouth), Fluconazole (By mouth), Enoxaparin (Injection), Intravenous Chemotherapy (DC), Eating During Cancer Treatment (DC), Oral Candidiasis (GEN) Referrals: Piedad Walker CUSTODIAL OPERATIONS MANAGER [Advanced Practice Nurse] - 01/18/18 1:00 pm Prescriptions: Ipratropium/Albuterol Neb [Duoneb] 3 ml IH Q6HR PRN #50 vial.neb PRN Reason: Shortness Of Breath Enoxaparin [Lovenox] 80 mg SQ Q12HR #60 syr Acyclovir [Zovirax] 400 mg PO TID #12 tablet Amoxicillin/Clavulanate [Augmentin] 875 mg PO DAILY #9 tablet Fluconazole [Diflucan] 200 mg PO DAILY #5 tab Magic Mouthwash 10 ml PO TID #250 ml Nystatin [Nystatin Suspension] 5 ml PO QID #240 ml
[2018-01-13] MEDS: cefTRIAXone 2,000 MG in Water for inj. (sterile) 20 ML 20 ML IVP SCH (16:02)
--- NOTE | 2018-01-13 16:08 | Rad Onc Dictation ---
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 Ms. Lee was brought into the CT Simulation suite and placed in the supine position. A custom vac-lock device for leg position was created. She was simulated at an angle as she cannot lie flat. 3D CT Simulation was required secondary toirregular shape of the target volume, close proximity to critical normal structures. Critical normal structures adjacent to the target volume include the following: bladder and rectum. [employer] Tumor[employer] software will be utilized to place an isocenter for treatment planning. This will be transferred to the lasers in the treatment room and will be used to yuan the patient for daily positioning. A 3-field plan will be utilized to deliver 2000 cGy in 5 fractions to the pelvis. Daily imaging will be required to insure adequate treatment of the target volume and avoidance of critical normal structures with cone-beam CT secondary to the following: patient's body habitus. We will align the daily imaging with simulation imaging daily with focus on the pelvic bony anatomy and uterus. This patient will require weekly monitoring in the form of on-treatment visits to assess for progression through treatment, ability to tolerate further treatment, and to assess for treatment-related side effects in order to manage them. Consent has been obtained, and the patient is amenable to treatment. The risks and benefits of radiotherapy have been explained, and the patient is agreeable to proceed. Thank you again for allowing us to participate in the care of this pleasant patient. Sincerely, Mike Rhoades MD Radiation Oncologist [id number] [place] [address]
== END 2018-01-13 17:53 | disposition home or self-care (01) | DRG 710 ==
LOC: 2NENU → SUATTDRO 04:15
PROVIDERS: ADMIT Family Medicine; ATTEND Internal Medicine